=== PATIENT | female | born 1990 | race Caucasian/White ===

== ENCOUNTER → 2016-04-14 | Outpatient (CLI) | payer OTHER ==
[~2016-04-14] MED LIST: ADIPEX-P37.5 MG PO; ALPRAZOLAM0.5 M3 PO; AMOXICILLIN 50500 MG PO; AMOXICILLIN500 M2 PO; ANTIVERT GENERI25 MG PO; BACTRIM DS 8001 TA1 PO; BACTRIM DS 8001 TAB PO; BUDEPRION XL150 MG PO; BUSPAR 10MG TAB10 MG PO; DIFLUCAN150 MG PO; IBUPROFEN 600M600 MG PO; IMPLANON68 MG ID; KEFLEX 500MG.500 MG PO; LEVAQUIN 750 M750 MG PO; LEVOTHYROXIN0.137 M1 PO; LEVOTHYROXINE0.05 MG NG; LEVOTHYROXINE0.15 MG PO; LORTAB 5/500 501 TAB PO; MEDROL 4MG. DOSE4 MG PO; NAPROSYN 500MG500 MG PO; OXYCODONE 5MG TA5 MG; PREDNISONE 20MG20 MG PO; PREDNISONE 5MG.5 MG PO; ROBAXIN500 M1 PO; TYLENOL ES500 MG PO; VOLTAREN75 MG PO; Zofran4 MG PO
--- NOTE | 2016-04-14 18:10 | RADIOLOGY REPORT PS360 ---
MRI-L-SPINE W/O, MRI-3D RENDERING/MYELOGRAM HISTORY: Mid to lower back pain with bilateral leg numbness greater on the right and incontinence ACUTE BILATERAL LOW BACK PAIN WITHOUT SCIATICA COMPARISON: 12/18/2015 TECHNIQUE: Standard multiplanar multiecho sequences are performed without contrast. 3-D MIP and myelographic images are also rendered and reviewed FINDINGS: Spinal cord ends at the L1 level. There is normal alignment. The disc spaces are well-preserved. No fracture or dislocation. No canal stenosis, significant disc bulge, or disc herniation. No foraminal stenosis. IMPRESSION: Negative MRI lumbar spine. No change from 12/18/2015
--- NOTE | 2016-04-14 18:15 | RADIOLOGY REPORT PS360 ---
MRI-T-SPINE W/O HISTORY: Chronic back pain ACUTE BILATERAL LOW BACK PAIN WITHOUT SCIATICA COMPARISON: 12/18/2015 TECHNIQUE: Standard multiplanar multiecho sequences are performed without contrast. 3-D MIP and myelographic images are also rendered and reviewed FINDINGS: Normal alignment. No acute fracture or dislocation. Mild multilevel degenerative disc disease from T7 through T10 as previously described with minor endplate Schmorl's nodes. Small anterior osteophytes. No canal stenosis,. No acute fracture. No disc herniation. Unremarkable appearance of the spinal cord. No cord impingement IMPRESSION: 1. Mild degenerative changes as described above. 2. No acute finding with no interval change from 12/18/2015. 3. No neural impingement apparent
== END ==
LOC: RAD 15:57
DX: M54.5 Low back pain (principal); M54.6 Pain in thoracic spine

== ENCOUNTER → 2016-04-14 | Outpatient (CLI) | payer OTHER ==
[2016-04-14 16:01] LABS: HEMOGLOBIN 13.9 g/dL (12.2-16.2); LYMPH # 2.8 K/mm3 (0.7-4.5); LYMPH % 30.5 % (10-50.0)
[2016-04-14 16:10] LABS: BUN 7 mg/dL (7-18); GFR (ESTIMATED) 87 ML/MIN (59-)
== END ==
LOC: RAD 15:44
PROVIDERS: Nurse Practitioner Family
DX: M54.5 Low back pain (principal)

== ENCOUNTER → 2016-07-28 | Outpatient (CLI) | payer OTHER ==
[2016-07-27 18:57] LABS: HEMOGLOBIN 13.8 g/dL (12.2-16.2); LYMPH # 4.8 K/mm3 (0.7-4.5); LYMPH % 43.5 % (10-50.0)
[2016-07-27 19:27] LABS: BUN 7 mg/dL (7-18)
[2016-07-27 19:40] LABS: GFR (ESTIMATED) 87 ML/MIN (59-)
== END ==
LOC: LAB 15:55
PROVIDERS: Internal Medicine Nephrology
DX: R11.0 Nausea (principal)

== ENCOUNTER → 2016-10-07 | Outpatient (CLI) | payer OTHER ==
[~2016-10-07] MED LIST changes: +APAP/HYDROCODON1 TA9 PO; +ATIVAN GENERIC0.5 MG PO; +ELINEST1 TAB PO; +FLAGYL500 M1 PO; +PREDNISONE5 MG PO; +ZOFRAN4 MG PO
--- NOTE | 2016-10-10 13:40 | RADIOLOGY REPORT PS360 ---
ULTRASOUND THYROID PROCEDURE: Multiple sagittal & transverse ultrasound images of the thyroid. 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 On Synthroid. Survey of the bed of thyroid. COMPARISON: ----- FINDINGS: RIGHT LOBE: Right lobe Thyroid is surgically absent. No masses or nodules and that of right lobe. LEFT LOBE: Left lobe thyroid surgically absent. No masses or nodules the bed of the left lobe Area deep to this that of the left lobe on on transverse views it elongates and compatible with a elongated muscle plane or structure and not of significant concern. Consider a follow-up thyroid ultrasound in 6 to 9months to further evaluate ISTHMUS:No isthmus is identified and and appears to have been removed as well IMPRESSION Right and left lobe, & isthmus been removed-no residual mass or nodule, imagednor identified.
== END ==
LOC: RAD 08:30 → LAB 08:35
DX: C73 Malignant neoplasm of thyroid gland (principal); E89.0 Postprocedural hypothyroidism

== ENCOUNTER → 2016-11-08 | Outpatient (CLI) | payer OTHER ==
--- NOTE | 2016-11-08 16:44 | RADIOLOGY REPORT PS360 ---
US PELVIS-TRANSVAGINAL ONLY HISTORY: PELVIC PAIN,LEFT OVARIAN CYST ORDERING PHYSICIAN: Jesús Jin MD PATIENT AGE: 26 years COMPARISON: None FINDINGS: Uterus is retroverted and measures 7.9 x 3.7 x 5.2 cm. Combined endometrial thickness is 5 mm. No uterine mass evident. The left ovary measures 2.5 x 1.8 cm and contains a 1.7 cm cyst. Previously left ovarian cyst measured 2.2 x 1.7 cm. There are other small follicles involving the left ovary. The right ovary is 2.8 x 1.8 cm and contains small follicles. There is minimal amount fluid in the cul-de-sac. IMPRESSION: 1. Right ovarian cyst has decreased in size 2.2 x 1.7 cm a 1.7 x 1 cm. 2. Small amount of cul-de-sac fluid. 3. Retroverted uterus
== END ==
LOC: RAD 13:00
DX: R10.2 Pelvic and perineal pain (principal); N83.202 Unspecified ovarian cyst, left side

== ENCOUNTER 2017-01-03 20:26 | Emergency (ER) | payer OTHER ==
[~2017-01-03] VITALS: Ht 165.1 cm; Wt 90.7 kg
[2017-01-03 20:50] LABS: UTC STREP SCREEN NOT DETECTED (NOTDETECTED)
--- NOTE | 2017-01-03 20:54 | Urgent Treatment Center Report ---
History of Present Issue Date/Time Seen by Provider 01/03/172036 Visit Reason Pt arrived:Walked Presenting Problem:BODY ACHES AND SORE THROAT TODAY, FEVERISH, LOWER BACK PAIN Location if Accident: Onset of symptoms date/time:/ or onset unknown for:MEDICAL HX UNKNOWN Have you (or family members/close friends) recently traveled outside the [place]? N If Yes, where/when: Have you had exposure to infectious disease within the past month? TB? Other? Specify: Patient states that she has not been feeling well all day State that she has felt feverish, having body aches, sore throat and low back pain. Denies any pain with urination, States that she has chronic back problems States that she may also be not sure there is a possibility. 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 No Angina: Yes OR: No Hypertension? No Hyperlipidemia? No CHF? No DVT? No PE? No COPD? No Asthma? No Anemia? No GERD? No Gastric ulcers? No GI Bleed? No Hernia? No Thyroid Problems? Yes Hypothyroidism? No CVA? No Seizures? No Diabetes? No Renal Insuffiency? No UTI? No Stones? No BPH? No GB Disease: No Nephritic Syndrome? No Asplenia? No Hepatitis? No Sickle Cell Disease? No Arthritis? Yes Migraines? No Cataracts? No Glaucoma? No MRSA? No HIV? No TB? No Anxiety? Yes Depression? Yes Cancer? Yes Site: THYROID More? Yes Additional hx: KIDNEY INFARCTION D/T SEPTIC SHOCK Immunization HX DT/Tetanus 5-10 YRS Flu [id number] Pneumonia NEVER Surgical Hx Previous Surgery?Y T&A THYROIDECTOMY EXP LAP W/CYST REMOVAL IMPLANON Family History Family HX Diabetes Yes CAD Yes Hypertension Yes Hyperlipidemia Yes Cancer No TB No Social History Smoking Hx Smoker: Current Every Day Smoker Tobacco: Yes Type Cigarettes Packs/day < 1 Pack Alcohol Alcohol: No Review of Systems All Other Systems Reviewed and Negative Constitutional fever Eyes denies no symptoms reported ENT throat pain. Respiratory denies cough, denies shortness of breath, denies wheezing Cardiovascular denies chest pain, denies palpitations, denies syncope Gastrointestinal denies nausea, denies vomiting Genitourinary denies: dysuria, frequency, pain. Musculoskeletal other (body aches) Skin denies no symptoms reported Comment States that she has felt feverish all day States that she has sorethroat, body aches, and low back pain, denies pain with urination states that she just doesn' t feel good states that she had her thyroid removed and wanted to have her Calcium checked Physical Exam Vital Signs Vital Signs Date Time Temp Pulse Resp B/P Pulse O2 O2 Flow FiO2 Ox Delivery Rate 01/03 2035 100.1 135 20 120/90 95 General Appearance normal appearance, WD/WN, no apparent distress Ear, Nose, Throat Throat red, irritated, drainage noted, denies cough, no exudate Respiratory Status Yes: trachea midline, chest symmetrical, non tender chest. No: respiratory distress. Lung Sounds bilateral: normal breath sounds, lungs clear. Cardiovascular normal exam, regular rate/rhythm Gastrointestinal normal bowel sounds, normal exam, non tender, no guarding, no rebound Back no CVA tenderness, no vertebral tenderness, bowel/bladder continent, Complains of pain in lower back area with no radiation. Neurologic alert, normal exam, oriented x 3 Medical Decision Making LABS/Meds/Orders Pt receiving controlled substance in ED? No Results/Orders Laboratory Tests 01/03/172046: Calcium 8.6, WBC 22.1 *H, RBC 4.48, Hgb 13.8, Hct 41.3, MCV 92.1, RDW 12.5, Plt Count 365, MPV 7.0 L, Gran % 88.2 H, Gran # 19.5 H, Total Counted Pending, Lymphocytes % 5.6 L, Monocytes % 5.2, Eosinophils % 0.6, Basophils % 0.3, Neutrophils Pending, Lymphocytes (Manual) Pending, Lymphocytes # 1.2, Monocytes # 1.2 H, Eosinophils # 0.1, Basophils # 0.1, Platelet Estimate Pending, PUBS MCHC 33.4, MCH 30.8 01/03/172036: Urine Color YELLOW, Urine Appearance Clear, Urine pH 8.0, Ur Specific [place] 1.020, Urine Protein NEGATIVE, Urine Ketones NEGATIVE, Urine Blood NEGATIVE, Urine Nitrate NEGATIVE, Urine Bilirubin NEGATIVE, Urine Urobilinogen 0.2, Ur Leukocyte Esterase NEGATIVE, Urine Glucose NEGATIVE, Urine Test NEGATIVE 01/03/172029: Influenza Type A Ag NOT DETECTED, Influenza Type B Ag NOT DETECTED, Group A Strep Screen NOT DETECTED Current Medication Orders Sig/Troy Start time Last Medication Dose Route Stop Time Status Admin Naproxen 500 MG ONCE ONE 01/03 2145 AC PO 01/03 2146 Ceftriaxone Sodium 1 GM ONCE ONE 01/03 2130 DC 01/03 IM 01/03 Lidocaine HCl 0 ONCE ONE 01/03 2130 DC 01/03 IM 01/03 Lidocaine HCl 10 ML ONCE ONE 01/03 2130 CAN IM 01/03 2131 Lidocaine HCl 0 .STK-MED ONE 01/03 2121 DC .ROUTE Ceftriaxone Sodium 0 .STK-MED ONE 01/04 2120 DC .ROUTE Orders Procedure Date/time Status DIFFERENTIAL-WBC 01/03 2047 Active CBC WITH AUTO DIFF 01/03 2041 Active CALCIUM 01/03 2041 Complete UTC URINE 01/03 2037 Complete UTC URINE DIPSTICK 01/03 2037 Complete UTC STREP SCREEN 01/03 2030 Complete UTC FLU A,B 01/03 2030 Complete Progress UTC Progress Notes 1 Comment Labs sent at 2051, Patient state that she had just taken pain medication prior to arrival and denies the need for something for pain UTC Progress Notes 2 Comment Consulted with Tsering Alexander as she is the primary care for this patient and advised her of lab results and she requested to consult Dr Sanches,. Dr Sanches ER physician was consulted an discussed with him about abnormality in labs ie CBC and WBC of 22.1 He advised to give patient Rocephin 1 gram IM and have patient come to the clinic in the morning and see Tsering Alexander HOSPITAL ATTENDANT for further treatment and evaluation. Tsering Alexander back and informed her of recommendation and she agreed Departure Departure Time of Disposition 2131 Disposition DC Home or Self Care(routine) Clinical Impression Primary Impression: Upper respiratory infection Qualifiers: URI type: acute pharyngitis Pharyngitis/tonsillitis etiology: unspecified etiology Qualified Code: J02.9 - Acute pharyngitis, unspecified Condition STABLE Referrals Tsering Alexander APRN (Family): Tomorrow-Call Office Go to the office in the morning for Tsering Alexander Or to the ER if worsening of symptoms Patient Instructions DI for Fever (Symptom) -- Adult, Sore Throat Additional Instructions * Monitor Temp. Tylenol and/or Ibuprofen as needed. ER if fever is no less than 101 despite alternating Tylenol and Ibuprofen * Encourage fluids, water, Gatorade, powerade, pedialyte if infant/toddler/or child * Warm salt water gargles for throat irritation *Warm fluids *Sore throat lozenges *Sleep elevated *humidifier or vaporizer Follow up IMMEDIATELY for new or worsening of symptoms OR no noticeable improvement over the next 48-72 hours. 911 immediately for any life threatening symptoms such as chest pain or difficulty breathing Follow up with Tsering Alexander APRN in the morning If symptoms continue to worsen tonight, go straight to the ER Discharge Counseling Counseled pt/family regarding diagnosis, test results, home care, follow up needs at 2135
[2017-01-03 20:55] LABS: UTC URINE PREGNANCY NEGATIVE (NEG)
[2017-01-03 20:55] LABS: HEMOGLOBIN 13.8 g/dL (12.2-16.2); LYMPH # 1.2 K/mm3 (0.7-4.5); LYMPH % 5.6 % (10-50.0)
[2017-01-03 20:57] LABS: URINE BILIRUBIN - DIPSTICK NEGATIVE (NEG)
[2017-01-03 20:58] LABS: URINE BLOOD NEGATIVE (NEG)
[2017-01-03] MEDS ORDERED: ELINEST1 TAB PO (21:14)
[2017-01-03 21:38] VITALS: BP 120/90
[2017-01-03 23:29] LABS: NEUTROPHILS 92 % (42-76)
[2017-01-04] MEDS ORDERED: AUGMENTIN 875-1 EACH PO (13:17)
[2017-01-04] MEDS ORDERED: ZOFRAN ODT4 MG PO (13:22)
== END 2017-01-03 21:38 | disposition home or self-care (01) ==
LOC: UTC 20:26
PROVIDERS: Nurse Practitioner
DX: J02.9 Acute pharyngitis, unspecified (principal); F17.210 Nicotine dependence, cigarettes, uncomplicated; F41.8 Other specified anxiety disorders; Z88.1 Allergy status to other antibiotic agents

== ENCOUNTER 2017-01-04 10:49 | Emergency (ER) | payer OTHER ==
[~2017-01-04] VITALS: Ht 165.1 cm; Wt 90.7 kg
--- NOTE | 2017-01-04 11:03 | Emergency Room Report ---
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 N Clinical Suspician of Infection? N Mental Status: 1 - Regular (Normal Baseline) Sepsis Risk:Low Sepsis Risk Have you (or family members/close friends) recently traveled outside the [place]? N If Yes, where/when: Have you had exposure to infectious disease within the past month? N TB? Other? Specify: Comment The patient states that she has been sick since yesterday morning. She had a sore throat yesterday, but feels that that was from excessive use of voice out in the cold. Throat feels raw today. She has had a fever. She has diffuse lower abdominal pain. No urinary symptoms. No vaginal discharge or dyspareunia. She has had vomiting, but no diarrhea. She says she has felt like this in the past when she is septic from a urinary tract infection. She has chronic low back pain and is on hydrocodone for that. She says her back pain is typically thoracic. She has some low back pain for the past day which is new. She took hydrocodone at 8:07 AM and took 250 mg of naproxen this morning with Tylenol. She has had trigger point injections for her back pain, but has never had epidural injections. She was seen in the urgent treatment center last evening. She had an elevated white blood cell count of 22,000. She had a negative strep test. She was given an injection of 2 g of Rocephin after consultation with Dr. Sanches, her primary care provider. She followed up in the office today with Tsering Alexander. She was sent back to the emergency Department with a request for CT scan abdomen and pelvis. ALLERGIES Coded Allergies: vancomycin (Intermediate, I-HIVES 04/26/15) nickel (RASH/BLISTERS 01/01/16) Home Medications Reported Medications HYDROCODONE/ACETAMINOPHEN (Hydrocodon-Acetaminoph 7.5-325) 1 TAB PO TIDP PRN BACK PAIN #90 Lorazepam (Ativan) 0.5 MG PO BIDP PRN ANXIETY #60 Levothyroxine Sodium (Levothyroxine 0.137MG) 0.137 MG PO DAILY #30 Bupropion Hcl (Bupropion XL) 150 MG PO DAILY #30 Levothyroxine Sodium (Levothyroxine 0.15MG) 0.15 MG PO DAILY NORGESTREL-ETHINYL ESTRADIOL (Elinest-28 Tablet) 1 TAB PO DAILY History Medical History General CAD? No Angina: Yes MS: No Hypertension? No Hyperlipidemia? No CHF? No DVT? No PE? No COPD? No Asthma? No Anemia? No GERD? No Gastric ulcers? No GI Bleed? No Hernia? No Thyroid Problems? Yes Hypothyroidism? No CVA? No Seizures? No Diabetes? No Renal Insuffiency? No End Stage Renal Disease? No UTI? No Stones? No BPH? No GB Disease: No Nephritic Syndrome? No Asplenia? No Hepatitis? No Sickle Cell Disease? No Arthritis? Yes Migraines? No Cataracts? No Glaucoma? No MRSA? No HIV? No TB? No Anxiety? Yes Depression? Yes Cancer? Yes Site: THYROID More? 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 Gastrointestinal abdominal pain, denies diarrhea, vomiting Genitourinary denies: dysuria, frequency. Musculoskeletal back pain (chronic) Psychiatric/Neurological tingling (lips) Physical Exam Vital Signs Vital Signs Date Time Temp Pulse Resp B/P Pulse O2 O2 Flow FiO2 Ox Delivery Rate 01/04 1323 98.6 110 16 130/80 100 01/04 1215 110 16 130/80 100 01/04 1212 16 01/04 1054 98.6 116 16 133/90 100 General Appearance no apparent distress, ambulatory. Sitting in chair. Appears nontoxic. Eye Exam - bilateral eye normal exam, bilateral eye PERRL, bilateral eye EOMI Ear, Nose, Throat hearing grossly normal, erythema of pharynx. Small amount of exudate on the RIGHT tonsillar area. Neck normal inspection, non-tender, supple, full range of motion Respiratory Status Yes: trachea midline, chest symmetrical, non tender chest. No: respiratory distress. Lung Sounds bilateral: normal breath sounds, lungs clear. 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 No Results/Orders Laboratory Tests 01/04/17 1105: Lactic Acid 1.6 01/04/17 1105: Sodium 138, Potassium 3.7, Chloride 103, Carbon Dioxide 27, BUN 9, Creatinine 0.8, Estimated Creat Clear 153, Estimated GFR (MDRD) 87, Glucose 108 H, Calcium 8.8, Total Bilirubin 0.3, AST 14 L, ALT 32, Alkaline Phosphatase 118 H, Total Protein 7.7, Albumin 3.8, Globulin 3.9 H, Albumin/Globulin Ratio 1.0 L, Amylase 15 L, Lipase 78, WBC 22.5 *H, RBC 4.96, Hgb 14.7, Hct 45.2, MCV 91.2, RDW 12.4, Plt Count 389, MPV 7.2 L, Gran % 87.9 H, Gran # 19.8 H, Lymphocytes % 7.5 L, Monocytes % 3.8, Eosinophils % 0.6, Basophils % 0.3, Lymphocytes # 1.7 , Monocytes # 0.9, Eosinophils # 0.1, Basophils # 0.1, PUBS MCHC 32.6, MCH 29.7, Urine Color YELLOW, Urine Appearance CLEAR, Urine pH 6.0, Ur Specific [place] <= 1.005, Urine Protein NEGATIVE, Urine Ketones NEGATIVE, Urine Blood NEGATIVE, Urine Nitrate NEGATIVE, Urine Bilirubin NEGATIVE, Urine Urobilinogen 0.2, Ur Leukocyte Esterase NEGATIVE, Urine RBC OCC, Urine WBC 3-5, Ur Squamous Epith Cells 5-10, Urine Bacteria TRACE, Urine Glucose NEGATIVE 01/04/17 1100: Ur Chlamydia DNA (PCR) Cancelled, Urine GC DNA Probe Cancelled 01/04/17 1100: C.trachomatis DNA (AJ) Pending, N.gonorrhoeae RNA Pending Current Medication Orders Sig/Troy Start time Last Medication Dose Route Stop Time Status Admin Ketorolac 30 MG ONCE ONE 01/04 1145 DC 01/04 Tromethamine IV 01/04 1146 1212 Ondansetron HCl 4 MG ONCE ONE 01/04 1145 DC 01/04 IV 01/04 1146 1212 Sodium Chloride 1,000 ML .Q1H1M 01/04 1145 DC 01/04 IV 01/04 1245 1212 Sodium Chloride 10 ML PRN PRN 01/04 1100 DCD IV 01/05 1058 Orders Procedure Date/time Status DIET-NOTHING BY MOUTH 01/04 L Active CULTURE, BLOOD 01/04 1220 Active LACTIC ACID 01/04 1220 Complete CHLAMYDIA/GC 01/[address] ABD/PELVIS REQ 01/04 1058 Complete IV SALINE LOCK 01/04 1058 Active URINALYSIS/COMPLETE 01/04 1058 Complete URINE 01/04 1058 Complete LIPASE 01/04 1058 Complete CBC WITH AUTO DIFF 01/04 1058 Complete CHEM 12 PROFILE 01/04 1058 Complete AMYLASE 01/04 1058 Complete XRAY/CT/US XRAY/CT/US CT abdomen, pelvis Comment CT scan interpreted by radiologist: Appendix normal. Low cecum, normal variant. Lots of stool. Dilated loops of proximal small bowel,? enteritis. Small LEFT ovarian cyst. Progress - 1:10 PM: Case discussed with Tsering Alexander. She requests that the patient be discharged on antibiotics to cover for strep, as she was empirically treated last night. Follow-up with Vielka in the office next week. Advised to return if not improving or worsening in the next 24-48 hours. Departure Departure Disposition DC Home or Self Care(routine) Clinical Impression Primary Impression: Fever Qualifiers: Fever type: unspecified Qualified Code: R50.9 - Fever, unspecified Secondary Impressions: Abdominal pain, lower Leukocytosis Qualifiers: Leukocytosis type: unspecified Qualified Code: D72.829 - Elevated white blood cell count, unspecified Pharyngitis Qualifiers: Pharyngitis/tonsillitis etiology: unspecified etiology Qualified Code: J02.9 - Acute pharyngitis, unspecified Vomiting Qualifiers: Vomiting type: unspecified Vomiting Intractability: non-intractable Nausea presence: with nausea Qualified Code: R11.2 - Nausea with vomiting, unspecified Condition STABLE Referrals Tsering Alexander APRN (PCP/Family) Additional Instructions Off work until Monday01/07/17. Follow-up with Vielka in the office next week. Additional instructions for ABDOMINAL PAIN: Return immediately if worsening abdominal pain, vomiting, shortness of breath, fever, vomiting of blood or abdominal distention. Additional instructions for SORE THROAT: Return immediately if you have an uncontrollable fever greater than 102 degrees, difficulty breathing or shortness of breath, persistent vomiting, or inability to swallow. Prescriptions Current Visit Scripts Amoxicillin/Potassium Clav (Augmentin 875-125 Tablet) 1 EACH PO BID #20 TAB take as prescribed Ondansetron (Zofran 4MG Odt) 4 MG PO Q8HP PRN NAUSEA AND VOMITING #10 ODT ED Critical Care Critical Care No at 1510
[2017-01-04 11:19] LABS: URINE BILIRUBIN - DIPSTICK NEGATIVE (NEG); URINE BLOOD NEGATIVE (NEG)
[2017-01-04 11:27] LABS: HEMOGLOBIN 14.7 g/dL (12.2-16.2); LYMPH # 1.7 K/mm3 (0.7-4.5); LYMPH % 7.5 % (10-50.0)
--- NOTE | 2017-01-04 12:25 | RADIOLOGY REPORT PS360 ---
CT ABD PELVIS W/O CONTRAST COMPARISON: CT scan abdomen pelvis 02/26/2015 HISTORY: Lower abdominal and pelvic pain TECHNIQUE: Multiaxial scans obtained from hemidiaphragms to the pelvic floor and were performed with without IV or oral contrast. Sagittal and coronal reformats were evaluated as well. FINDINGS: The lower lung negron are clear. The liver spleen stomach pancreas and gallbladder appear grossly normal. The adrenal glands are normal. The kidneys are normal size and there are no calculi and is no obstructive uropathy. There are mildly dilated loops of proximal small bowel with normal caliber small bowel distally. This may reflect a mild degree of enteritis. The cecum is positioned low in the pelvis causing mild extrinsic impression on the dome of the urinary bladder. There is large amount stool in the cecum and ascending colon and hepatic flexure. The appendix appears grossly normal and is retrocecal in location. The uterus is normal size and retroverted. There is a small left ovarian cyst measuring 2.9 x 2.9 x 2.7 cm. There is no free fluid in the pelvis. IMPRESSION: 1. Mildly dilated proximal small bowel loops 2. Low position of the cecum a normal variation with a large amount stool in the right colon which could be a cause for the patient's symptoms, no other significant abnormality noted.
[2017-01-04] MEDS ORDERED: AUGMENTIN 875-1 EACH PO (13:17)
[2017-01-04] MEDS ORDERED: ZOFRAN ODT4 MG PO (13:22)
[2017-01-04 13:23] VITALS: BP 130/80
[2017-01-07 03:39] LABS: Neisseria gonorrhoeae, NAA Negative (Negative)
--- OUTSIDE RECORDS SUMMARY | 2017-01-07 08:54 | External Medical Summary Rpt | CCD ---
Author Author , [facility] Organization [facility] Address Unknown Phone Care Team Providers Care Supplier Development Manager Name Role Phone [facility] LELA KRI, Unavailable Unavailable LELA KRI [facility], [facility] JUAREZ ALL, JUAREZ ALL Unavailable Unavailable CHAPIN EMILIA, Unavailable Unavailable CHAPIN EMILIA RAMIREZ DON, RAMIERZ DON Unavailable Unavailable TARA JET, TARA Unavailable Unavailable JET FRANZ GABRIEL, FRANZ Unavailable Unavailable GABRIEL FRANZ GABRIEL, FRANZ Unavailable Unavailable GABRIEL [facility], [facility] Un[facility] Unavailable [facility], [facility] Un[facility] Unavailable [facility], [facility] Unavailable Unavailable PHYSICIANS, [facility] BRANDY Zayas, BRANDY J Unavailable Unavailable BRANDY Briggs, BRANDY Zayas Unavailable Unavailable G BRANDY Zayas G, BRANDY Zayas Unavailable Unavailable G HOMERO JET, Unavailable Unavailable HOMERO JET FIDEL JOSÉ MIGUEL, Unavailable Unavailable FIDEL JOSÉ MIGUEL [id number], Unavailable Unavailable [id number], Unavailable Unavailable [facility]EM[facility] LEVIN ZAIN, LEVIN ZAIN Unavailable Unavailable [facility] DOERGER KIR, DOERGER Unavailable Unavailable KIR DOERGER KIR, DOERGER Unavailable Unavailable KIR DOMET NIESHA, DOMET NIESHA Unavailable Unavailable EL-PAXTON TAR, Unavailable Unavailable [facility] T[facility] QUINTEN JAM, QUINTEN JAM Unavailable Unavailable QUINTEN JAM, QUINTEN JAM Unavailable Unavailable ALEXANDRIA SHIPLEY, Unavailable Unavailable ALEXANDRIA SHIPLEY [facility] Un[facility] Unavailable Unavailable [facility], [facility] FAUGHN VIRAMONTES, FAUGHN Unavailable Unavailable VIRAMONTES CHINTAN, MEGA, CHINTAN, Unavailable Unavailable MEGA ESTRADA MAR, Unavailable Unavailable NATALIE MAR NATALIE MAR, Unavailable Unavailable NATALIE MAR SANTOS NIESHA, SANTOS Unavailable Unavailable NIESHA GAL RICHARD, GAL RICHARD Unavailable Unavailable GEERS RYA, GEERS RYA Unavailable Unavailable IFTIKHAR HORTON MD, Unavailable Unavailable IFTIKHAR HORTON MD GRGARCIA NAN, GRILLOT Unavailable Unavailable NAN GRILLOT NAN, GRILLOT Unavailable Unavailable NAN HARPEL DENTON, HARPEL Unavailable Unavailable DENTON HARPEL DENTON, HARPEL Unavailable Unavailable DENTON HARPEL, IFTIKHAR R, Unavailable Unavailable HAR[facility], IFTIKHAR R [facility] Un[facility]available [facility], [facility] RACHELLE, MAURI P, Unavailable Unavailable RACHELLE MAURI P [facility] Unavailable Unavailable [facility], [facility] Unavailable Unavailable PCC, [facility] INDEPENDENT Unavailable Unavailable ANESTHESIOLOGIST, [facility] MEGA ZAMUDIO, Unavailable Unavailable MEGA ZAMUDIO KEAGLE RIT, KEAGLE Unavailable Unavailable RIT KEAGLE RIT, KEAGLE Unavailable Unavailable RIT BUBBA CHR, BUBBA Unavailable Unavailable CHR [facility] Unavailable Unavailable IMAGING [facility], [facility] BOLTON NIV, BOLTON NIV Unavailable Unavailable KLEIMEYER NICK, Unavailable Unavailable KLEIMEYER NICK MATTHEW TUS, MATTHEW Unavailable Unavailable TUS KURAPATI TOM, Unavailable Unavailable KURAPATI TOM KURAPATI TOM, Unavailable Unavailable KURAPATI TOM [facility] Unavailable Unavailable [facility], [facility] Unavailable Unavailable [facility] Unavailable Unavailable [facility], [facility], Unavailable Unavailable [facility] SU MARQUES, SU Unavailable Unavailable MARQUES SU MARQUES, SU Unavailable Unavailable MARQUES LUBBERS PALMER, LUBBERS Unavailable Unavailable PALMER LUKING JET, LUKING Unavailable Unavailable JET Randy Sanches MD, Unavailable Unavailable Randy Sanches MD [facility] Unavailable Unavailable SERVICES, [facility] MCDANNOLD TER, Unavailable Unavailable MCDANNOLD TER MCKEMIE JR JAVI, Unavailable Unavailable MCKEMIE JR JAVI DE JESUS BRA, DE JESUS Unavailable Unavailable BRA DE JESUS ALEX, DE JESUS Unavailable Unavailable ALEX DE JESUS ALEX, DE JESUS Unavailable Unavailable ALEX DE JESUS THE, DE JESUS Unavailable Unavailable THE DE JESUS THE, DE JESUS Unavailable Unavailable THE UGALDE JAVI, UGALDE JAVI Unavailable Unavailable CARLENE GUERRERO, Unavailable Unavailable CARLENE GUERRERO MULBERRY ALEX, Unavailable Unavailable MULBERRY ALEX MULBERRY ALEX, Unavailable Unavailable MULBERRY ALEX NEILS KATIE, NEILS KATIE Unavailable Unavailable LASHAWN R H, Unavailable Unavailable LASHAWN R H LASHAWN R H, Unavailable Unavailable LASHAWN Rima H Rima HARDIN, Unavailable Unavailable Rima HARDIN CARMEN, Unavailable Unavailable MARILYN OCONNOR CARMEN OSTERLUND MAR, Unavailable Unavailable OSTERLUND MAR [facility], Unavailable [facility]available [facility], [facility], [facility] Unavailable Unavailable [facility], [facility]available Unavailable [facility] Un[facility] Unavailable [facility]ENTER, [facility] Unavailable Unavailable [facility]ENTER, [facility], Unavailable Unavailable [facility] PRESSLER ANGUS, Unavailable Unavailable PRESSLER ANGUS [facility], Unavailable Unavailable [facility], Unavailable Unavailable [facility] Unavailable Unavailable [facility]ORPORAT, [facility] Unavailable Unavailable OF NOT, [facility] AMES KATIE, Unavailable Unavailable AMES KATIE MABEL RAY, MABEL RAY Unavailable Unavailable SADEK MOH, SADEK MOH Unavailable Unavailable JUSTIN NIESHA, JUSTIN Unavailable Unavailable NIESHA SCHMITTER DUC, Unavailable Unavailable SCHMITTER DUC SCHMITTER DUC, Unavailable Unavailable SCHMITTER DUC FRANCE REGINA, FRANCE Unavailable Unavailable REGINA FRANCE REGINA, FRANCE Unavailable Unavailable REGINA SCHUSSLER THO, Unavailable Unavailable SCHUSSLER THO RICK PRA, RICK PRA Unavailable Unavailable RICK PRA, RICK PRA Unavailable Unavailable SHARP PALMER, SHARP PALMER Unavailable Unavailable SOKAN BAB, SOKAN BAB Unavailable Unavailable SOKAN BAB, SOKAN BAB Unavailable Unavailable SOTINGEANU NATA, Unavailable Unavailable [facility] JULIAN COFFMAN, Unavailable Unavailable JULIAN COFFMAN [facility], Unavailable Unavailable [facility] Unavailable Unavailable AUTOMOBILE TECHNICIAN , [facility] Unavailable Unavailable [facility], [facility] Unavailable Unavailable [facility], [facility] Unavailable Unavailable PHYSICIANS, [facility] Unavailable Unavailable PHYSICIANS EKG, [facility] Unavailable Unavailable MAR[facility]LL[facility], . [facility], Unavailable Unavailable [facility], Unavailable Unavailable [facility] Unavailable Unavailable #5, [facility] RAMÍREZ EMILIA, RAMÍREZ Unavailable Unavailable EMILIA [facility] # Unavailable Unavailable [id number], [facility] # [id number] [facility] # Unavailable Unavailable [id number], [facility] # [id number] [facility] Unavailable Unavailable DEPT ADRIANNA, [facility] ADRIANNA [facility] Unavailable [facility]available DE[facility], [facility] WEHRMAN III JAVI, Unavailable Unavailable WEHRMAN III JAVI WEHRMAN III JAVI, Unavailable Unavailable WEHRMAN III JAVI [facility] Unavailable Unavailable [facility] Unavailable Unavailable [facility], [facility] LUIS ENRIQUE HO, LUIS ENRIQUE HO Unavailable Unavailable LUIS ENRIQUE HO, LUI SENRIQUE HO Unavailable Unavailable Purpose Continuity of Care Document - 04-25-2007 through 2016 Problems Code Diagnosis DOS Provider Status N390 URINARY 04-26-2015 [facility], INFECTION PLLC SITE NOT SPECIFIED [id number] ADVERS EFF 04-26-2015 [facility] O[facility]S [facility]ANS, BIO PLLC SUBSTANCES INIT ENC [id number] UNS ADVERS 04-26-2015 [facility] DRUG/MEDICA INC MENT INITIAL ENCNTR R109 UNSPECIFIED 04-20-2015 ST ABDOMINAL [facility] R232 FLUSHING 04-12-2015 [facility] Z09 ENC F/U 04-12-2015spring EXAM AFTR URGENT CMPL TX OTH CARE THAN MALIG NEOPLSM J301 ALLERGIC 04-05-2015spring RHINITIS URGENT DUE TO CARE POLLEN R300 DYSURIA 04-05-2015 [facility] Z202 CONTACT 04-05-2015spring WITH URGENT EXPOSURE CARE INFECT SEXUAL MODE TRANSMS J029 ACUTE 03-25-2015 ST PHARYNGITIS [facility] AUTOMOBILE TECHNICIAN UNSPECIFIED ST R1011 RIGHT UPPER 03-03-2015 ST QUADRANT [facility] AUTOMOBILE TECHNICIAN ST R102 PELVIC AND 03-03-2015 IFTIKHAR Abarca PERINEAL [place] PAIN N8320 UNSPECIFIED 02-27-2015 IFTIKHAR Abarca OVARIAN [place] CYSTS N200 CALCULUS OF 02-26-2015 [facility] R1030 LOWER 02-26-2015 [place] ABDOMINAL [facility] PAIN [facility] ASS UNSPECIFIED R1031 RIGHT LOWER 02-26-2015 [facility] QUADRANT [facility], PAIN PLLC R319 HEMATURIA 02-26-2015 [place] UNSPECIFIED [facility]ICAL IMAGING ASS Z720 TOBACCO USE 02-26-2015 [facility] K56018 ELEVATED 02-24-2015 WHITE BLOOD AMA CELL COUNT PHYSICIANS UNSPECIFIED M549 DORSALGIA 02-24-2015 UNSPECIFIED [facility] N3001 ACUTE 02-24-2015 CYSTITIS [facility] WITH PHYSICIANS HEMATURIA R42 DIZZINESS 02-24-2015 AND [facility] GIDDINESS PH[facility]ICIANS EKG E049 NONTOXIC 02-18-2015 GO[facility] UNSPECIFIED MED CTR AUTOMOBILE TECHNICIAN ST E063 AUTOIMMUNE 02-18-2015 THYROIDITIS [facility] AUTOMOBILE TECHNICIAN ST E890 POSTPROCEDU 02-18-2015 RAL A[facility] HYPOTHYROID MED CTR AUTOMOBILE TECHNICIAN ISM ST H6503 ACUTE 02-15-2015 [facility] SEROUS [facility], OTITIS PLLC MEDIA BILATERAL J328 OTHER 02-15-2015 [place] CHRONIC [facility]ICAL SINUSITIS IMAGING ASS C73 MALIGNANT 01-19-2015 NEOPLASM OF AMA THYROID PHYSICIANS GLAND H9082BG UNSPECIFIED 01-15-2015 ST INJURY UNS AMA WRIST HAND MED CTR AUTOMOBILE TECHNICIAN FINGERS ST INIT W8502EF UNSPECIFIED 01-15-2015 ST INJURY LT [facility] WRIST HAND PHYSICIANS FINGERS INITIAL Z23 ENCOUNTER 01-07-2015 [facility] DEPT N ADRIANNA 6202 OTHER AND 12-15-2014 IFTIKHAR HORTON MD OVARIAN CYST V259 UNSPECIFIED 12-15-2014 IFTIKHAR HORTON MD CONTRACEPTI VE MANAGEMENT V7231 ROUTINE 12-15-2014 IFTIKHAR Abarca GYNECOLOGIC [place] EXAMINATION 94097 OBESITY, 12-11-2014 UNSPECIFIED [facility] AUTOMOBILE TECHN[address]IAN ST 56876 OVERWEIGHT 12-11-2014 [facility] 7881 DYSURIA 12-11-2014 [facility] 1121 CANDIDIASIS 12-09-2014 ST OF VULVA [facility] AND VAGINA PHYSICIANS V0481 NEED 12-09-2014 PROPHYLACTI [facility] C PHYSICIANS VACCINATION &INOCULATIO N FLU V0489 NEED PROPH 12-09-2014 VACCINATION [facility] &INOCULAT PHYSICIANS OT VIRAL DZ 193 MALIGNANT 11-17-2014 NEOPLASM OF [facility] THYROID [facility] CTR AUTOMOBILE TECHNICIAN GLAND ST 2409 GOITER, 11-17-2014 ST UNSPECIFIED [facility] AUTOMOBILE TECHNICIAN ST 2440 POSTSURGICA 11-17-2014 L [facility] HYPOTHYRO[facility] CTR AUTOMOBILE TECHNICIAN ISM ST 7231 CERVICALGIA 10-26-2014 [facility] 7842 SWELLING 10-26-2014 RAD[facility] MASS OR ASSOCIATES LUMP IN [facility] HEAD AND NECK 89604 DYSPHAGIA 10-26-2014 [facility] UNSPECIFIED [facility]ERGENCY PHYSICIANS 2452 CHRONIC 10-21-2014 LYMPHOCYTIC [facility] THYROIDITIS 80780 DEHYDRATION 10-15-2014 [facility] 83985 OTHER 10-15-2014 [facility] MALAISE AND EMERGENCY FATIGUE PHYSICIANS 88707 CHEST PAIN 10-15-2014 RAD[facility]OLOG[facility] UNSPECIFIED [facility]OC[facility]ATES [facility] 2348 CARCINOMA 10-13-2014 HEAD & NECK IN SITU OF SURGERY OTHER ASSOC SPECIFIED SITES 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 2411 NONTOXIC 10-13-2014 INDEPENDENT MULTINODULA R GOITER ANESTHESIOL OGIST 44300 ESOPHAGEAL 10-13-2014 ST REFLUX [facility] 88526 SHORTNESS 10-13-2014 ST OF BREATH [facility] V7284 UNSPECIFIED 10-08-2014 ST [facility] PRE-OPERATI MED CTR AUTOMOBILE TECHNICIAN VE ST EXAMINATION V741 SCREENING 09-30-2014 [facility] EXAMINATION [facility] PULMONARY TUBERCULOSI S 56610 PRECORDIAL 09-18-2014 [facility] PAIN [facility]IC[facility], PLLC 2374 NEOPLASM 09-12-2014 HEAD & NECK UNCERTAIN SURGERY BHV ASSOC OTH&UNSPEC ENDOCRN GLANDS 7856 ENLARGEMENT 09-12-2014 RADIOLOGY OF LYMPH ASSOCIATES NODES [facility] 2410 NONTOXIC 09-01-2014 ST UNINODULAR [facility] 7850 UNSPECIFIED 08-29-2014 ST [facility] TACHYCARDIA PHYSICIANS 87495 NONSPECIFIC 08-29-2014 ABNORMAL [facility] ELECTROCARD MED CTR AUTOMOBILE TECHNICIAN IOGRAM ST 2400 GOITER, 08-19-2014 RADIOLOGY SPECIFIED ASSOCIATES SIMPLE OF NOTH 2449 UNSPECIFIED 08-19-2014 ST [facility] HYPOTHYROID MED CTR AUTOMOBILE TECHNICIAN ISM ST 2468 OTHER 08-19-2014 ST SPECIFIED [facility] DISORDERS [facility] CTR AUTOMOBILE TECHNICIAN OF THYROID ST 462 ACUTE 08-17-2014 [facility] PHARYNGITIS [facility]YSICIANS, [facility] 4660 ACUTE 07-03-2014 [facility] BRONCHITIS [facility] 3671 MYOPIA 05-22-2014 QUINTEN JAM 2469 UNSPECIFIED 05-20-2014 [facility] DISORDER URGENT OF THYROID CARE 31406 MIGRAINE 05-20-2014 [facility] UNSP W/O URGENT INTRACT W/O CARE STATUS MIGRAINOSUS 3688 OTHER 05-20-2014spring SPECIFIED URGENT VISUAL CARE DISTURBANCE S 6216 MALPOSITION 05-08-2014 ST. OF UTERUS [facility] MARCELLUS 6259 UNSPEC 05-08-2014 ST. SYMPTOM [facility] ASS[facility] MARCELLUS W/FEMALE GENITAL ORGANS 7245 UNSPECIFIED 05-06-2014 [facility] BACKACHE ASSOCIATES V8534 BODY MASS 04-25-2014 ST INDEX [facility] 34.0-34.9 PHYSICIANS ADULT 460 ACUTE 03-17-2014 [facility] NASOPHARYNG ASSOCIATES ITIS 6929 CONTACT 03-17-2014 [facility] DERMATITIS& ASSOCIATES OTHER ECZEMA DUE UNSPEC CAUSE 684 IMPETIGO 02-13-2014 [facility] 20571 NASAL 01-08-2014 [facility] MUCOSITIS ASS[facility]IATES ULCERATIVE 7048 OTHER 01-08-2014 [facility] SPECIFIED ASSOCIATES DISEASE OF HAIR&HAIR FOLLICLES 2459 UNSPECIFIED 12-12-2013 SU MARQUES THYROIDITIS 6823 CELLULITIS 10-21-2013 KEAGLE RIT AND ABSCESS OF UPPER ARM AND FOREARM 0389 UNSPECIFIED 10-08-2013 . SEPTICEMIA AMA INGA 2768 HYPOPOTASSE 10-08-2013 . GUDELIA AMA INGA 76789 UNSPECIFIED 10-08-2013 . AMA PYELONEPHRI INGA TIS 7840 HEADACHE 10-08-2013 . AMA INGA V180 FAMILY 10-08-2013 . HISTORY OF AMA DIABETES INGA MELLITUS 26958 LEUKOCYTOSI 09-03-2013 DE JESUS ALEX S UNSPECIFIED 16227 NAUSEA WITH 09-03-2013 DE JESUS ALEX VOMITING 98766 ABDOMINAL 09-03-2013 DE JESUS ALEX PAIN, EPIGASTRIC 36680 ABDOMINAL 09-03-2013 LAB ALEJANDRA PAIN, [facility] GENERALIZED HOLDINGS 9154 FINGER 08-29-2013 NIRAV ALEJANDRA INSECT BITE NONVENOMOUS W/O MENTION INF E9064 BITE OF 08-29-2013 NIRAV ALEJANDRA NONVENOMOUS ARTHROPOD 19950 OTHER 07-15-2013 ST SYMPTOMS [facility] CTR AUTOMOBILE TECHNICIAN HEAD AND ST NECK 226 BENIGN 07-03-2013 DE JESUS THE NEOPLASM OF THYROID GLANDS V7260 LABORATORY 05-28-2013 ST EXAMINATION [facility] CTR AUTOMOBILE TECHNICIAN UNSPECIFIED ST 7061 OTHER ACNE 05-03-2013 BRANDY Briggs 41588 LUMP OR 04-30-2013 ST MASS IN AMA BREAST [facility] AUTOMOBILE TECHNICIAN ST 305.1 305.1 04-16-2013 [place] TOBACCO USE [facility] DISORDER [facility] 719.45 719.45 04-16-2013 [place] JOINT [facility] 729.1 729.1 04-16-2013 [place] MYALGIA AND [facility] MYOSITIS [facility] NOS 7291 UNSPECIFIED 04-16-2013 [facility] MYOSITIS 7295 PAIN IN 04-16-2013 [facility] SOFT [facility] TISSUES OF SERVICES [place] 76136 UNSPECIFIED 03-29-2013 IFTIKHAR HORTON MD OF VULVA 5990 URINARY 03-13-2013 LAB ALEJANDRA OF TRACT [facility] INFECTION HOLDINGS SITE NOT SPECIFIED V2503 ENCOUNTER 03-08-2013 [facility] CNSL&PRESCR IPTION 515 POSTINFLAMM 03-04-2013 [facility] ATORY JOSÉ MIGUEL PULMONARY FIBROSIS 03378 OTHER 03-04-2013 FIDEL NONSPECIFIC JOSÉ MIGUEL ABNORMAL FINDING OF LUNG FIELD 20382 NONSPEC 03-04-2013 [facility] TUBERCULIN INC SKIN TEST W/O ACTIVE TB V2502 GENERAL 03-04-2013 [facility] CNSL INITIATION OTH CONTRACEPT MEASURES V2509 OTH GENERAL 03-04-2013 [facility] CNSL&ADVICE CONTRACEPT MANAGEMENT V709 UNSPECIFIED 02-26-2013 [facility] MEDICAL EXAMINATION 91828 FEVER 02-20-2013 KURAPATI UNSPECIFIED TOM 16904 ABDOMINAL 02-20-2013 SCHMITTER PAIN RIGHT DUC UPPER QUADRANT 97850 SEPSIS 02-20-2013 KURAPATI TOM 75515 ABDOMINAL 02-18-2013 LUIS ENRIQUE HO PAIN, UNSPECIFIED SITE 5589 OTH&UNSPEC 02-17-2013 NATALIE NONINFECTIO MAR US GASTROENTER ITIS&COLITI S 78284 CALCU 02-17-2013 NATALIE GALLBLADD MAR W/O MENTION CHOLECYST/O BST 48236 ABDOMINAL 02-17-2013 NATALIE PAIN OTHER MAR SPECIFIED SITE 7821 RASH AND 01-15-2013 MULBERRY OTHER ALEX NONSPECIFIC SKIN ERUPTION 1330 SCABIES 01-10-2013 LASHAWN R H 6173 ENDOMETRIOS 11-20-2012 [facility] IS OF PELVIC PERITONEUM 32770 UNSPECIFIED 11-05-2012 LASHAWN R INFECTIVE H OTITIS EXTERNA 3829 UNSPECIFIED 10-03-2012 LASHAWN R OTITIS H MEDIA 3484 COMPRESSION 09-20-2012 DOERGER KIR OF BRAIN 1120 CANDIDIASIS 08-13-2012 LASHAWN R OF MOUTH H 61633 UNSPECIFIED 08-13-2012 LASHAWN R VAGINITIS H AND VULVOVAGINI TIS 5259 UNSPECIFIED 07-20-2012 FRANCE REGINA DISORDER TEETH&SUPPO RTING STRUCTURES 54854 JAW PAIN 07-20-2012 FRANCE REGINA 0549 HERPES 06-27-2012 GRILLOT NAN SIMPLEX WITHOUT MENTION OF COMPLICATIO N 7851 PALPITATION 06-12-2012 BRANDY J G S 42306 OTHER CHEST 05-29-2012 BRANDY J G PAIN 786.50 786.50 05-27-2012 Cece CHEST PAIN [facility] 7862 COUGH 05-27-2012 FIDEL JOSÉ MIGUEL 7336 TIETZES 05-18-2012 RICK PRA DISEASE 7243 SCIATICA 04-24-2012 LASHAWN R H 6146 PELVIC 04-12-2012 [facility] PERITONEAL [facility] ADHESIONS, INC FEMALE 6258 OTH SPEC 03-29-2012 [facility] SYMPTOM ASSOC W/FEMALE GENITAL ORGANS 0542 HERPETIC 02-14-2012 LASHAWN Abarca GINGIVOSTOM H ATITIS 6260 ABSENCE OF 02-08-2012 [facility] MENSTRUATIO URGENT N CARE 5224 ACUTE 01-07-2012 [facility] PERIODONTIT [facility] CTR IS OF PULPAL ORIGIN 7831 ABNORMAL 01-05-2012 [facility] 28088 CONDYLOMA 11-15-2011 FRANZ GABRIEL ACUMINATUM 6256 FEMALE 11-15-2011 FRANZ GABRIEL STRESS INCONTINENC E 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 7242 LUMBAGO 11-04-2011 [facility] 8472 LUMBAR 11-04-2011 [facility] VIR SPRAIN AND STRAIN 9599 INJURY 11-04-2011 [facility] OTHER AND ASSOCIATES UNSPECIFIED [facility] UNSPECIFIED SITE V692 PROBLEMS 10-19-2011 COMBINED RELATED TO PHYSICIANS HIGH-RISK LA SEXUAL BEHAVIOR 0794 HUMAN 10-18-2011 FRANZ GABRIEL PAPILLOMA VIRUS IN CCE & UNS SITE 04694 ABDOMINAL 09-12-2011 WEHRMAN III PAIN, LEFT JAVI UPPER QUADRANT 20607 PAINFUL 07-26-2011 [facility] 9100 FCE 07-26-2011 [facility] NCK&SCLP NO EMERGENCY EYE SERVICES ABRAS/FRIC BURN W/O INF 90668 DIARRHEA 07-11-2011 [facility] ER V745 SCREENING 06-16-2011 [facility] EXAMINATION FOR VENEREAL DISEASE 03301 UNSPECIFIED 06-01-2011 [facility] DENTAL ALEX CARIES 14522 UNSPECIFIED 05-30-2011 [facility] VIRAL [facility] INFECTION IN CCE & UNS SITE 6820 CELLULITIS 05-30-2011 [facility] AND ABSCESS ASSOCIATES OF FACE 5225 PERIAPICAL 05-29-2011 [facility] ABSCESS EMERGENCY WITHOUT SERVICES SINUS 84132 ACUTE 04-24-2011 [facility] GINGIVITIS [facility] PLAQUE INC INDUCED 54528 SPASM OF 02-03-2011 LASHAWN R MUSCLE H 37442 SCOLIOSIS 02-03-2011 LASHAWN R ASSOCIATED H WITH OTHER CONDITION 7233 CERVICOBRAC 11-17-2010 [facility] SYNDROME C CENTER 7244 THORACIC/ANDRA 11-17-2010 [facility] MBOSACRAL CHIROPRACTI NEURITIS/RA C CENTER DICULITIS UNSPEC 8483 SPRAIN AND 11-17-2010 [facility] STRAIN OF CHIROPRACTI RIBS C CENTER 7839 OTH 11-03-2010 [facility] CONCERNING PHYSICIANS NUTRITION METAB&DVLP 9110 TRUNK 11-03-2010 [facility] ABRASION/FR [facility] ICTION BURN INC WITHOUT MENTION INF 35371 OTHER 11-03-2010 [facility] INJURY OF EMERGENCY EXTERNAL SERVICES GENITALS V2543 SURVEILLANC 08-11-2010 [facility] E PREV [facility] HEALTH IMPL CLINIC OF SUBDERMAL MON[facility] CONTRACEPT 6262 EXCESSIVE 08-03-2010 [facility] OR FREQUENT ASSOCIATES MENSTRUATIO N V255 INSERTION 07-12-2010 [facility]'S OF HEALTH IMPLANTABLE CLINIC OF SUBDERMAL MONO CONTRACEPTI VE V2542 SURVEILLANC 07-07-2010 WOMEN'S E PREV PRSC HEALTH INTRAUTERN CLINIC OF CNTRACPT MONO DEVC V2511 ENC FOR 06-16-2010 WOMEN'S INSERTION [facility] INTRAUTERIN CLINIC OF E MONO CONTRACEPT DEVICE V242 ROUTINE 01-04-2010 [facility] PHYSICIAN FOLLOW-UP GROUP PCC 7069 UNSPECIFIED 12-23-2009 [facility] DISEASE OF ASSOCIATES SEBACEOUS GLANDS 14081 POST TERM 11-28-2009 [facility] PG DELIV PHYSICIAN W/WO GROUP PCC MENTION ANTPRTM COND 605 REDUNDANT 11-26-2009 [facility] PHIMOSIS 650 NORMAL 11-26-2009 [facility] DELIVERY PHYSICIAN GROUP PCC 61456 FORCEPS/EXT 11-26-2009 [facility] W/O INC INDICATION- DELIVERED V270 OUTCOME OF 11-26-2009 [facility] DELIVERY PHYSICIAN SINGLE GROUP PCC LIVEBORN V3000 SINGLE [facility]-26-2009 [facility] W[facility]O 39089 POST TERM 11-23-2009 [facility] PHYSICIAN ANTEPARTUM GROUP PCC COND/COMPLI CATION V220 SUPERVISION 11-23-2009 [facility] OF NORMAL PHYSICIAN FIRST GROUP PCC V221 SUPERVISION 11-17-2009 [facility] OF OTHER PHYSICIAN NORMAL GROUP PCC V222 11-17-2009 [facility] INCIDENTAL INC 4619 ACUTE 11-16-2009 [facility] S[facility] UNSPECIFIED V286 SCREENING 10-26-2009 [facility] OF [place] [address] OTHER 10-24-2009 [facility] THREATENED PHYSICIAN LABOR, GROUP PCC ANTEPARTUM 36152 OTHER 10-24-2009 [facility] COMPLICATIO INC N ANTEPARTUM 7804 DIZZINESS 10-24-2009 [facility] GIDDINESS INC 97943 DYSPLASIA 09-08-2009 [facility] UNSPECIFIED S INC V028 CARRIER/HELEN 09-08-2009 [facility] CARRIER OTH S INC VENEREAL DISEASES 96590 THREATENED 09-01-2009 [facility] LABOR INC ANTEPARTUM 44824 EXCESS 08-11-2009 [facility] PHYSICIAN GROWTH GROUP PCC AFFECT MGMT MOTH ANTPRTM V771 SCREENING 08-11-2009 [facility] DIABETES INC MELLITUS V2889 OTHER 06-30-2009 [facility] INC SCREENING 98439 OTHER 04-10-2009 [facility] SPECIFIED [place] INC DISEASES DUE TO CHLAMYDIAE 6268 OTH D/O 04-03-2009 [facility] MENSTRUATIO [facility] N&OTH ABN BLEED FE GNT TRACT 13480 PAP SMER 04-03-2009 [facility] W/LW [place] [facility] S PC SQUAMOUS INTRAEPITH LES 2662 OTHER 03-31-2009 [facility] S V7242 03-31-2009 [facility] POSITIVE RESULT 7232 CERVICOCRAN 09-10-2008 [facility]OP[facility]I SYNDROME C CENTER 7241 PAIN IN 09-10-2008 [facility]AC[facility] SPINE [facility] 0999 UNSPECIFIED 08-06-2008 [facility] DISEASE V762 SCREENING 07-17-2008 [facility] NEOPLASM OF ER THE CERV[facility] V2541 SURVEILLANC 07-15-2008 [facility]/CO E [facility] PRESCRIBED CENTRAL CONTRACEPT BANK ACCT PILL [id number] MIGRAINE 06-20-2008 [facility] W/INTRACTAB L W/O STATUS MIGRAINOSUS 0088 INTESTINAL 03-05-2008 [facility] DUE TO OTHER ORGANISM NEC 6269 UNS D/O 02-13-2008 [facility] N&OTH ABN BLEED FE GNT TRACT 6253 DYSMENORRHE 09-19-2007 [facility] 03561 ASTHMA, 08-15-2007 [facility] UNSPECIFIED STATUS C73 Malignant neoplasm of thyroid gland E89.0 Postprocedu ral hypothyroid ism H65.03 ACUTE SEROUS OTITIS MEDIA, BILATERAL J02.9 ACUTE PHARYNGITIS , UNSPECIFIED M16.11 UNILATERAL PRIMARY OSTEOARTHRI TIS, RIGHT HIP M47.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, LUMBAR REGION M79.671 PAIN IN RIGHT FOOT N39.0 URINARY TRACT INFECTION, SITE NOT SPECIFIED N83.209 UNSPECIFIED OVARIAN CYST, UNSPECIFIED SIDE R07.9 CHEST PAIN, UNSPECIFIED R10.2 PELVIC AND PERINEAL PAIN R10.9 UNSPECIFIED ABDOMINAL PAIN R42 DIZZINESS AND GIDDINESS T88.7XXA UNSP ADVERSE EFFECT OF DRUG OR MEDICAMENT, INIT ENCNTR W57.XXXA BIT/STUNG BY NONVENOM INSECT \T\ OTH NONVENOM ARTHROPODS, INIT Z20.818 CONTACT W AND EXPOSURE TO OTH BACT COMMUNICABL E DISEASES Allergies, Adverse Reactions, Alerts Type Drug Allergy Adverse Reaction to Substance Substance Reaction Severity Vancomycin I-ITCHING Intermediate Medications Na ND Rx Da Fi Fi Am Da Di Ph RX Ph St me C No te ll ll ou ys ag ar # ys at rm s nt no ma ic us Or Da si cy ia de te s n re d IS 00 01 04 60 30 00 KR Ac EN 00 -1 -0 .0 00 OG ti TR 60 0- 7- 00 06 ER ve ES 22 20 20 05 S 76 16 17 31 PH 40 1 12 AR 0 MA MG CY TA #1 BL 49 ET 46 AL 59 10 10 0 10 10 77 CARRILLO Ac [place] 76 -2 -2 .0 74 RP ti AZ 23 5- 5- 00 58 EL ve OL 72 20 20 AM 00 11 11 GE 4 RA 0. LD 5 R MG TA BL ET CY 59 08 08 0 20 7 77 MU Ac CL 74 -2 -2 .0 19 LB ti OB 60 4- 4- 00 95 ER ve EN 21 20 20 RY ZA 10 11 11 NY 6 BR IN IA E N 5 T MG TA BL ET VA 00 08 08 0 70 15 77 MU Ac ND 24 -2 -2 .0 19 LB ti AZ 50 4- 4- 00 96 ER ve OL 86 20 20 RY E 07 11 11 VA 0 BR GI IA NA N L T 0. 75 % GE L ME 50 08 08 0 28 14 77 KE Ac TR 11 -0 -0 .0 02 AG ti ON 10 3- 3- 00 49 LE ve ID 33 20 20 AZ 40 11 11 RI OL 1 TA E K 50 0 MG TA BL ET FL 00 07 07 0 1. 1 76 KE Ac UC 17 -2 -2 00 96 AG ti ON 25 6- 6- 0 22 LE ve AZ 41 20 20 OL 21 11 11 RI E 1 TA 15 K 0 MG TA BL ET CI 55 05 05 0 14 7 76 KE Ac [place] 11 -1 -1 .0 35 AG ti OF 10 0- 0- 00 20 LE ve LO 12 20 20 XA 60 11 11 RI CI 1 TA N K HC L 25 0 MG TA B NA 68 03 03 1 60 30 75 CL Ac [place] 46 -2 -2 .0 93 AR ti OX 20 3- 3- 00 91 KE ve EN 19 20 20 00 11 11 DE 50 5 RE 0 K MG J TA BL ET [place] 37 10 11 6 28 28 74 CO Ac IL 00 -0 -1 .0 42 OP ti OS 00 23 ER ve EC 45 20 20 50 10 10 JEROMY OT 2 HN C G 20 .6 MG TA BL ET YOUSIF 00 11 11 0 20 10 74 NO Ac LF 60 -1 -1 .0 82 RF ti AM 35 36 LE ve ET 78 20 20 ET HO 12 10 10 R XA 8 ZO HE LE NR -T Y MP DS TA BL ET 24 11 11 0 30 7 74 NO Ac 48 -1 -1 .0 82 RF ti 60 00 40 LE ve 60 20 20 ET 11 10 10 R 0 HE NR Y 00 09 11 10 28 28 74 CARRILLO Ac 43 -2 -1 .0 52 RP ti 00 0 00 62 EL ve 53 20 20 01 10 10 GE 4 RA LD R SE 59 09 11 3 15 30 74 NO Ac RT 76 -0 -1 .0 17 RF ti RA 24 91 LE ve LI 91 20 20 ET NE 00 10 10 R 5 HC HE L NR 10 Y 0 MG TA BL ET FL 00 11 11 0 1. 1 74 NO Ac UC 17 -0 -0 00 69 RF ti ON 25 5 5- 0 84 LE ve AZ 41 20 20 ET OL 21 10 10 R E 1 15 HE 0 NR MG Y TA BL ET TU 24 11 11 0 24 4 74 NO Ac SS 38 -0 -0 0. 69 RF ti IN 50 85 LE ve 35 20 20 0 ET DM 92 10 10 R 6 SY HE RU NR P Y 00 10 10 10 28 28 74 CARRILLO Ac 43 -1 -1 .0 52 RP ti 00 8 8 00 62 EL ve 53 20 20 01 10 10 GE 4 RA LD R [place] 65 01 10 10 30 30 72 CARRILLO Ac EN 16 -0 -1 .0 20 RP ti AT 20 8 2 00 11 EL ve AL 66 20 20 [address] 0 RA US LD R TA BL ET SE 59 09 10 3 15 30 74 NO Ac RT 76 -0 -0 .0 17 RF ti RA 24 91 LE ve LI 91 20 20 ET NE 00 10 10 R 5 HC HE L NR 10 Y 0 MG TA BL ET NY 37 10 10 6 28 28 74 CO Ac IL 00 -0 -0 .0 42 OP ti OS 00 5 5 23 ER ve EC 45 20 20 50 10 10 JEROMY OT 2 HN C G 20 .6 MG TA BL ET 00 09 09 11 28 28 WA 70 CARRILLO Ac 43 -2 -2 .0 L- 87 RP ti 00 0- 0- 00 MA 03 EL ve 53 20 20 RT 1 01 10 10 GE 4 PH RA AR LD MA R CY # 10 05 91 [place] 65 01 09 10 30 30 72 CARRILLO Ac EN 16 -0 -0 .0 20 RP ti AT 20 8 7 00 11 EL ve AL 66 20 [address] 0 RA US LD R TA BL ET SE 59 09 09 3 15 30 74 NO Ac RT 76 -0 -0 .0 17 RF ti RA 24 91 LE ve LI 91 20 20 ET NE 00 10 10 R 5 HC HE L NR 10 Y 0 MG TA BL ET 00 08 08 0 12 2 WA 45 IS Ac 40 -3 -3 .0 L- 98 ON ti 60 0- 0- 00 MA 79 ve 36 20 20 RT 2 DA 30 10 10 1 PH D AR E MA CY # 10 05 84 AC 00 08 08 0 20 2 CV 54 CARRILLO Ac ET 09 -2 -2 .0 S 19 RP ti AM 30 PH 54 EL ve IN 15 20 20 AR OP 01 10 10 MA GE HE 0 CY RA N- # LD CO R D 05 #3 43 7 TA BL ET AM 00 08 08 0 30 10 74 NO Ac OX 78 -2 -2 .0 06 RF ti IC 12 70 LE ve IL 61 20 20 ET LI 30 10 10 R N 5 50 HE 0 NR MG Y CA PS UL E [place] 65 01 07 10 30 30 72 CARRILLO Ac EN 16 -0 -2 .0 20 RP ti AT 20 11 EL ve AL 66 20 20 [address] 0 RA US LD R TA BL ET TE 51 06 06 1 20 3 73 CL Ac RC 67 -2 -2 .0 56 AR ti ON 21 33 KE ve AZ 30 20 20 OL 20 10 10 DE E 0 RE 0. K 8% J CR EA M [place] 65 01 06 10 30 30 72 CARRILLO Ac EN 16 -0 -0 .0 20 RP ti AT 20 8- 3- 00 11 EL ve AL 66 20 [address] 0 RA US LD R TA BL ET [place] 65 01 04 10 30 30 72 CARRILLO Ac EN 16 -0 -2 .0 20 RP ti AT 20 8- 1- 00 11 EL ve AL 66 20 [address] 0 RA US LD R TA BL ET [place] 65 01 03 10 30 30 72 CARRILLO Ac EN 16 -0 -1 .0 20 RP ti AT 20 8- 6- 00 11 EL ve AL 66 20 20 [address] 0 RA US LD R TA BL ET [place] 65 01 02 01 30 30 TO 72 CARRILLO Ac EN 16 -0 -2 .0 TA 20 RP ti AT 20 8- 6- 00 L 11 EL ve AL 66 20 20 CA [address] 0 RA US PH LD AR R TA MA BL CY ET #5 [place] 00 01 01 00 2. 1 TO 72 CARRILLO Ac IT 78 -0 -1 00 TA 20 RP ti HR 11 8- 4- 0 L 26 EL ve OM 94 20 20 CA YC 13 10 10 RE GE IN 1 RA PH LD 50 AR R 0 MA MG CY TA #5 BL ET [place] 65 01 01 00 30 30 TO 72 CARRILLO Ac EN 16 -0 -1 .0 TA 20 RP ti AT 20 8- 4- 00 L 11 EL ve AL 66 20 20 CA [address] 0 RA US PH LD AR R TA MA BL CY ET #5 NI 00 08 09 00 14 7 TO 71 NO Ac TR 37 -2 -1 .0 TA 00 RF ti OF 83 5- 0- 00 L 19 LE ve UR 42 20 20 CA ET AN 20 09 09 RE R TO 1 IN PH HE AR NR MO MA Y NO CY -M CR #5 10 0 MG NO 00 06 08 02 28 28 TO 70 NO Ac RT 55 -2 -2 .0 TA 51 RF ti RE 59 2- 7- 00 L 64 LE ve L 01 20 20 CA ET 1- 05 09 09 RE R 35 8 PH HE 28 AR NR MA Y TA CY BL ET #5 SE 59 08 08 00 15 30 TO 70 NO Ac RT 76 -1 -2 .0 TA 93 RF ti RA 24 7- 7- 00 L 48 LE ve LI 90 20 20 CA ET NE 00 09 09 RE R 5 HC PH HE L AR NR 50 MA Y CY MG #5 TA BL ET NI 00 07 08 00 14 7 TO 70 NO Ac TR 37 -2 -1 .0 TA 77 RF ti OF 83 7- 3- 00 L 18 LE ve UR 42 20 20 CA ET AN 20 09 09 RE R TO 1 IN PH HE AR NR MO MA Y NO CY -M CR #5 10 0 MG NO 00 06 07 01 28 28 TO 70 NO Ac RT 55 -2 -3 .0 TA 51 RF ti RE 59 2- 0- 00 L 64 LE ve L 01 20 20 CA ET 1- 05 09 09 RE R 35 8 PH HE 28 AR NR MA Y TA CY BL ET #5 NO 00 06 07 00 28 28 TO 70 NO Ac RT 55 -2 -0 .0 TA 51 RF ti RE 59 2- 2- 00 L 64 LE ve L 01 20 20 CA ET 1- 05 09 09 RE R 35 8 PH HE 28 AR NR MA Y TA CY BL ET #5 NO 00 05 06 00 28 28 TO 70 NO Ac RT 55 -2 -0 .0 TA 26 RF ti RE 59 1- 4- 00 L 08 LE ve L 01 20 20 CA ET 1- 05 09 09 RE R 35 8 PH HE 28 AR NR MA Y TA CY BL ET #5 SE 59 04 06 01 15 30 TO 67 NO Ac RT 76 -1 -0 .0 TA 06 RF ti RA 24 3- 4- 00 L 92 LE ve LI 90 20 20 CA ET NE 00 09 09 RE R 5 HC PH HE L AR NR 50 MA Y CY MG #5 TA BL ET VA 00 04 05 00 4. 1 TO 50 CO Ac LT 17 -2 -0 00 TA 02 OP ti RE 30 0- 7- 0 L 67 ER ve X 56 20 20 CA 1 50 09 09 RE JEROMY GM 4 HN PH G CA AR PL MA ET CY #5 NO 00 06 05 05 28 28 TO 64 NO Ac RT 55 -2 -0 .0 TA 78 RF ti RE 59 5- 7- 00 L 85 LE ve L 01 20 20 CA ET 1- 05 08 09 RE R 35 8 PH HE 28 AR NR MA Y TA CY BL ET #5 NI 00 04 05 00 14 7 TO 70 NO Ac TR 37 -2 -0 .0 TA 05 RF ti OF 83 9- 7- 00 L 05 LE ve UR 42 20 20 CA ET AN 20 09 09 RE R TO 1 IN PH HE AR NR MO MA Y NO CY -M CR #5 10 0 MG TE 00 04 05 00 20 3 TO 50 GL Ac RC 59 -2 -0 .0 TA 05 ti ON 13 1- 7- 00 L 99 S ve AZ 19 20 20 CA LI OL 75 09 09 RE SA E 2 G 0. PH 8% AR MA CR CY EA M #5 SE 59 04 04 00 15 30 TO 67 NO Ac RT 76 -1 -2 .0 TA 06 RF ti RA 24 3- 3- 00 L 92 LE ve LI 90 20 20 CA ET NE 00 09 09 RE R 5 HC PH HE L AR NR 50 MA Y CY MG #5 TA BL ET 00 03 04 00 9. 30 TO 66 NO Ac 17 -2 -0 00 TA 93 RF ti 30 7- 9- 0 L 87 LE ve 75 20 20 CA ET 00 09 09 RE R 0 PH HE AR NR MA Y CY #5 NO 00 06 04 04 28 28 TO 64 NO Ac RT 55 -2 -0 .0 TA 78 RF ti RE 59 5- 9- 00 L 85 LE ve L 01 20 20 CA ET 1- 05 08 09 RE R 35 8 PH HE 28 AR NR MA Y TA CY BL ET #5 NO 00 06 03 03 28 28 TO 64 NO Ac RT 55 -2 -1 .0 TA 78 RF ti RE 59 5- 2- 00 L 85 LE ve L 01 20 20 CA ET 1- 05 08 09 RE R 35 8 PH HE 28 AR NR MA Y TA CY BL ET #5 CH 00 02 03 00 96 30 TO 66 EL Ac LO 11 -1 -1 0. TA 62 LI ti RH 62 8- 2- 00 L 23 OT ve EX 00 20 20 0 CA T ID 11 09 09 RE TX IN 6 CH E PH AE 0. AR L 12 MA P % CY RI NS #5 E SE 59 12 02 01 15 30 TO 66 NO Ac RT 76 -0 -2 .0 TA 01 RF ti RA 24 9- 6- 00 L 18 LE ve LI 90 20 20 CA ET NE 00 08 09 RE R 5 HC PH HE L AR NR 50 MA Y CY MG #5 TA BL ET NO 00 06 02 02 28 28 TO 64 NO Ac RT 55 -2 -1 .0 TA 78 RF ti RE 59 5- 2- 00 L 85 LE ve L 01 20 20 CA ET 1- 05 08 09 RE R 35 8 PH HE 28 AR NR MA Y TA CY BL ET #5 00 01 01 00 14 7 TO 66 GA Ac 59 -0 -1 .0 TA 18 IN ti 10 2- 5- 00 L 86 EY ve 33 20 20 CA 91 09 09 RE TX 0 CH PH AE AR L MA S CY #5 NO 00 06 01 01 28 28 TO 64 NO Ac RT 55 -2 -1 .0 TA 78 RF ti RE 59 5- 5- 00 L 85 LE ve L 01 20 20 CA ET 1- 05 08 09 RE R 35 8 PH HE 28 AR NR MA Y TA CY BL ET #5 SE 59 12 12 00 15 30 TO 66 KE Ac RT 76 -0 -1 .0 TA 01 AG ti RA 24 9- 8- 00 L 18 LE ve LI 90 20 20 CA NE 00 08 08 RE RI 5 TA HC PH K L AR 50 MA CY MG #5 TA BL ET NO 00 06 12 00 28 28 TO 64 KE Ac RT 55 -2 -1 .0 TA 78 AG ti RE 59 5- 8- 00 L 85 LE ve L 01 20 20 CA 1- 05 08 08 RE RI 35 8 TA PH K 28 AR MA TA CY BL ET #5 [place] 68 12 12 00 10 4 TO 66 NO Ac OM 38 -1 -1 .0 TA 02 RF ti ET 20 0- 8- 00 L 19 LE ve CARRILLO 04 20 20 CA ET ZI 11 08 08 RE R NE 0 PH HE 25 AR NR MA Y MG CY TA #5 BL ET NA 00 11 12 00 60 30 PH 65 KE Ac [place] 09 -1 -0 .0 AR 85 AG ti OX 30 9- 4- 00 MC 72 LE ve EN 14 20 20 AR 90 08 08 E RI 50 5 PH TA 0 AR K MG MA CY TA BL ET SE 59 10 11 01 15 30 PH 65 KE Ac RT 76 -0 -2 .0 AR 45 AG ti RA 24 1- 0- 00 MC 53 LE ve LI 90 20 20 AR NE 00 08 08 E RI 5 PH TA HC AR K L MA 50 CY MG TA BL ET NO 00 06 11 05 28 28 PH 64 KE Ac RT 55 -2 -2 .0 AR 78 AG ti RE 59 5- 0- 00 MC 85 LE ve L 01 20 20 AR 1- 05 08 08 E RI 35 8 PH TA AR K 28 MA CY TA BL ET NO 00 06 10 04 28 28 PH 64 KE Ac RT 55 -2 -2 .0 AR 78 AG ti RE 59 5- 3- 00 MC 85 LE ve L 01 20 20 AR 1- 05 08 08 E RI 35 8 PH TA AR K 28 MA CY TA BL ET SE 59 10 10 00 15 30 PH 65 KE Ac RT 76 -0 -0 .0 AR 45 AG ti RA 24 1- 9- 00 MC 53 LE ve LI 90 20 20 AR NE 00 08 08 E RI 5 PH TA HC AR K L MA 50 CY MG TA BL ET NO 00 06 09 03 28 28 PH 64 KE Ac RT 55 -2 -2 .0 AR 78 AG ti RE 59 5- 6- 00 MC 85 LE ve L 01 20 20 AR 1- 05 08 08 E RI 35 8 PH TA AR K 28 MA CY TA BL ET CE 68 09 09 00 20 10 PH 65 KE Ac FD 18 -0 -1 .0 AR 25 AG ti IN 00 4- 1- 00 MC 43 LE ve IR 71 20 20 AR 16 08 08 E RI 30 0 PH TA 0 AR K MG MA CY CA PS UL E NO 00 06 08 02 28 28 PH 64 KE Ac RT 55 -2 -2 .0 AR 78 AG ti RE 59 5- 8- 00 MC 85 LE ve L 01 20 20 AR 1- 05 08 08 E RI 35 8 PH TA AR K 28 MA CY TA BL ET NO 00 06 08 01 28 28 PH 64 KE Ac RT 55 -2 -0 .0 AR 78 AG ti RE 59 5- 1- 00 MC 85 LE ve L 01 20 20 AR 1- 05 08 08 E RI 35 8 PH TA AR K 28 MA CY TA BL ET NO 00 06 07 00 28 28 PH 64 KE Ac RT 55 -2 -0 .0 AR 78 AG ti RE 59 5- 3- 00 MC 85 LE ve L 01 20 20 AR 1- 05 08 08 E RI 35 8 PH TA AR K 28 MA CY TA BL ET NO 00 02 06 03 28 28 PH 63 KE Ac RT 55 -2 -0 .0 AR 91 AG ti RE 59 6- 5- 00 MC 81 LE ve L 01 20 20 AR 1- 05 08 08 E RI 35 8 PH TA AR K 28 MA CY TA BL ET ME 51 05 06 00 21 6 PH 64 GA Ac TH 99 -2 -0 .0 AR 55 IN ti YL 10 1- 5- 00 MC 78 EY ve [place] 18 20 20 AR ED 83 08 08 E TX NI 1 PH CH SO AR AE LO MA L NE CY S 4 MG DO SE PK AZ 50 05 05 00 6. 5 TO 64 No Ac IT 11 -1 -2 00 TA 48 t ti HR 10 2- 2- 0 L 38 Av ve OM 78 20 20 CA ai YC 76 08 08 RE la IN 6 bl PH e 25 AR 0 MA MG CY TA #5 BL ET NO 00 02 05 02 28 28 PH 63 No Ac RT 55 -2 -0 .0 AR 91 t ti RE 59 6- 8- 00 MC 81 Av ve L 01 20 20 AR ai 1- 05 08 08 E la 35 8 PH bl AR e 28 MA CY TA BL ET CE 00 04 04 00 20 10 PH 64 No Ac FD 78 -1 -2 .0 AR 30 t ti IN 12 7- 4- 00 MC 82 Av ve IR 17 20 20 AR ai 66 08 08 E la 30 0 PH bl 0 AR e MG MA CY CA PS UL E NO 00 02 04 01 28 28 PH 63 No Ac RT 55 -2 -1 .0 AR 91 t ti RE 59 6- 0- 00 MC 81 Av ve L 01 20 20 AR ai 1- 05 08 08 E la 35 8 PH bl AR e 28 MA CY TA BL ET NO 00 02 04 00 28 28 PH 63 No Ac RT 55 -2 -0 .0 AR 91 t ti RE 59 6- 7- 00 MC 81 Av ve L 01 20 20 AR ai 1- 05 08 08 E la 35 8 PH bl AR e 28 MA CY TA BL ET Immunization Name Date Rout CVX Reac Dose Comm Prov Is Faci e tion ent ider Refu lity Give sed n IIV4 [address] 5-20 RNE JIL VACC 15 [facility] S H SPLI CARMEN PHYS T ICIA VIRU NS S 0.5 ML DOS FOR IM USE 4VHP 11-[address] V 5-20 RNE JIL VACC 15 LEWI ABET INE S H 3 CARMEN PHYS DOSE ICIA NS SCHE DULE FOR IM USE Vital Signs 04-16-2013 22:38 Name Value Interpretat Reference Comment ion Range Body 98.3 [degF] Temperature BP 72 mm[Hg] Diastolic BP Systolic 114 mm[Hg] Heart 90 /min Rate/Pulse O2% 97 % Respiratory 16 /min Rate 04-16-2013 22:35 Name Value Interpretat Reference Comment ion Range Body 98.3 [degF] Temperature BP 72 mm[Hg] Diastolic BP Systolic 114 mm[Hg] Heart 90 /min Rate/Pulse O2% 97 % Respiratory 16 /min Rate 05-27-2012 22:39 Name Value Interpretat Reference Comment ion Range BP 86 mm[Hg] Diastolic BP Systolic 111 mm[Hg] Heart 80 /min Rate/Pulse O2% 100 % Respiratory 20 /min Rate 05-27-2012 21:24 Name Value Interpretat Reference Comment ion Range BP 70 mm[Hg] Diastolic BP Systolic 117 mm[Hg] Heart 92 /min Rate/Pulse O2% 100 % Respiratory 20 /min Rate Results Labs Lab Lab Date Result Refere Interp Status Commen Order Detail nces retati t Range on COMPREHENSIVE METABOLIC PANEL (05-27-2012 21:15) Glucose 80 74-106 complet 013 mg/dL ed Bld-mCn 21:15 c BUN 8 mg/dL 7-18 complet Bld-mCn 013 ed c 21:15 Creat 0.8 0.6-1.0 complet SerPl-m 013 mg/dL ed Cnc 21:15 ESTIMAT 143 50-200 complet ED 013 ML/MIN ed CREATIN 21:15 INE CLEARAN CE GFR 91 59- complet (ESTIMA 013 ML/MIN ed REGINA) 21:15 Sodium 140 136-145 complet SerPl-s 013 mmoL/L ed Cnc 21:15 Potassi 4.1 3.5-5.1 complet um 013 mmoL/L ed SerPl-s 21:15 Cnc Chlorid 105 98-107 complet e 013 mmoL/L ed SerPl-s 21:15 Cnc CO2 29 21.0-32 complet SerPl-s 013 mmoL/L .0 ed Cnc 21:15 Calcium 05-27- 9.0 8.5-10. complet 013 mg/dL 1 ed SerPl-m 21:15 Cnc Prot 05-27-2 7.5 6.4-8.2 complet SerPl-m 013 gm/dL ed Cnc 21:15 Albumin 05-27- 3.9 3.4-5.0 complet 013 gm/dL ed SerPl-m 21:15 Cnc Globuli 3.6 1.3-3.2 complet n 013 gm/dL ed Ser-mCn 21:15 c Albumin 03-03-2 1.1 UNK 1.1-1.8 complet /Glob 013 ed SerPl-m 21:15 Rto Bilirub 05-27-2 0.2 0.2-1.0 complet 013 mg/dL ed SerPl-m 21:15 Cnc AST 05-27-2 17 U/L 15-37 complet SerPl-c 013 ed Cnc 21:15 ALT 05-27-2 39 U/L 30-65 complet SerPl-c 013 ed Cnc 21:15 ALP 05-27-2 157 U/L 50-136 complet SerPl-c 013 ed Cnc 21:15 D Dimer PPP (05-27-2012 21:15) D Dimer 05-27- 140 0-400 complet PPP 013 ng/mL ed 21:15 CBC with AUTO DIFF (05-27-2012 21:15) WBC # -03-2 13.3 4.8-10. complet Bld 013 K/MM3 8 ed Auto 21:15 RBC # 0303-2 4.62 4.2-5.4 complet Bld 013 M/mm3 ed Auto 21:15 Hgb 03-2 14.1 12.2-16 complet Bld-mCn 013 g/dL .2 ed c 21:15 Hct Fr 05-27-2 42.2 % 37.0-47 complet Bld 013 .0 ed 21:15 MCV RBC -03-2 91.5 fl 82.2-97 complet 013 .8 ed 21:15 MCH RBC 03-2 30.5 pg 27-31.2 complet Qn 013 ed Auto 21:15 MEAN 05-27-2 33.3 31.8-35 complet CORPUSC 013 g/dl .4 ed ULAR 21:15 HGB CONC RDW RBC -03-2 12.5 % 11.5-17 complet Auto 013 .5 ed 21:15 Platele -03-2 403 142-424 complet t Bld 013 K/mm3 ed Ql 21:15 Manual MEAN -03-2 6.9 fl 7.4-10. complet PLATELE 013 4 ed T 21:15 VOLUME Granulo 05-27-2 57.0 % 37.0-80 complet cytes 013 .0 ed Fr Bld 21:15 Auto LYMPH % 03-2 36.2 % 10-50.0 complet 013 ed 21:15 Monocyt 03-03-2 3.8 % 1.7-9.3 complet es Fr 013 ed Bld 21:15 Auto Eosinop 03-03-2 2.6 % 0.1-12. complet hil Fr 013 0 ed Bld 21:15 Auto Basophi 03-03-2 0.4 % 0.1-2.0 complet ls Fr 013 ed Bld 21:15 Auto Granulo 03-03-2 7.6 1.8-7.8 complet cytes # 013 K/mm3 ed Bld 21:15 Auto Lymphoc 03-03-2 4.8 0.7-4.5 complet ytes Fr 013 K/mm3 ed Bld 21:15 Auto Monocyt 03-03-2 0.5 0.1-1.0 complet es # 013 K/mm3 ed Bld 21:15 Auto Eosinop 03-03-2 0.3 0.0-0.4 complet hil # 013 K/mm3 ed Bld 21:15 Auto Basophi 03-03-2 0.1 0-0.2 complet ls # 013 K/MM3 ed Bld 21:15 Auto URINALYSIS/COMPLETE (05-27-2012 21:00) URINE 05-27-2 YELLOW YELLOW complet COLOR 013 ed 21:00 URINE 05-27-2 CLEAR CLEAR complet APPEARA 013 ed NCE 21:00 URINE 05-27-2 NEGATIV NEG complet GLUCOSE 013 E ed - 21:00 DIPSTIC K URINE 05-27-2 NEGATIV NEG complet BILIRUB 013 E ed IN - 21:00 DIPSTIC K URINE 05-27-2 NEGATIV NEG complet KETONE 013 E mg/dL ed 21:00 URINE 05-27-2 Less 1.005-1 complet SPECIFI 013 than or .030 ed C 21:00 equal GRAVITY to 1.005 URINE 05-27-2 NEGATIV NEG complet BLOOD 013 E ed 21:00 URINE 05-27-2 6.0 UNK 5.0-8.5 complet PH 013 ed 21:00 URINE 05-27-2 NEGATIV NEG complet PROTEIN 013 E mg/dL ed - 21:00 DIPSTIC K URINE 05-27-2 0.2 NEG complet UROBILI 013 E.U./dL ed NOGEN - 21:00 DIPSTIC K URINE 03-03-2 NEGATIV NEG complet NITRATE 013 E ed - 21:00 DIPSTIC K URINE NEGATIV NEG complet LEUK 013 E ed ESTERAS 21:00 E URINE 3-5 O complet WBC 013 wbc/hpf ed 21:00 Procedures Procedure [place] [address] [facility] LIPASE [facility] INC INC COMPREHEN 14345 [facility] SIVE 6 [facility] METABOLIC INC INC PANEL URNLS DIP 17310 [facility] STICK/TAB INC INC LET REAGENT AUTO MICROSCOP Y BLOOD 95261 [facility] COUNT 6 [facility] COMPLETE INC INC AUTO&AUTO DIFRNTL WBC DRUG TST [id number] [facility] PRESUMP;C 6 [facility] PBL BEING INC INC READ DC OPT OBV ONLY INJECTION J0696 COLD PRESSLER spring [facility] CEFTRIAXO URGENT NE SODIUM CARE PER 250 MG THERAPEUT 69335 COLD PRESSLER IC spring [facility] PROPHYLAC URGENT TIC/DX CARE INJECTION SUBQ/IM IADNA 48563 DIATHERIX DIATHERIX TRICHOMON 6 LABORATOR LABORATOR VAGINALIS IES [facility] AMPLIFIED PROBE TECH COLLECTIO 15039 COLD PRESSLER N VENOUS spring [facility] BLOOD URGENT VENIPUNCT CARE URE IADNA 58446 DIATHERIX DIATHERIX NEISSERIA 6 LABORATOR LABORATOR GONORRHOE IES [facility] IES [facility] AE AMPLIFIED PROBE TQ IADNA NOS 54775 DIATHERIX DIATHERIX 6 AMPLIFIED LABORATOR LABORATOR PROBE TQ IES aScentias IES [facility] EACH ORGANISM IADNA 52417 DIATHERIX DIATHERIX GARDNEREL 6 LA LABORATOR LABORATOR VAGINALIS IES [facility] LangticeS [facility] AMPLIFIED PROBE TQ IADNA 79720 DIATHERIX DIATHERIX CHLAMYDIA 6 LABORATOR LABORATOR TRACHOMAT IES [facility] AMPLIFIED PROBE TQ IADNA [address] STREPTOCO 5 [facility]ERAL[facility] MED [facility] MED CTR GROUP A AUTOMOBILE TECHNICIAN ST AUTOMOBILE TECHNICIAN ST DIRECT PROBE TQ COMPREHEN [address] SIVE 5 HAIDER HAIDER METABOLIC MED CTR MED CTR PANEL AUTOMOBILE TECHNICIAN ST AUTOMOBILE TECHNICIAN ST ACUTE [address] HEPATITIS 5 [facility]ER [facility] PANEL MED CTR MED CTR AUTOMOBILE TECHNICIAN ST AUTOMOBILE TECHNICIAN ST COMPREHEN 47265 [facility] SIVE 5 [facility] [place] [address] [facility] LIPASE 5 [place] [address] [place] [facility] ALL ABDOMEN & 5 MEDICAL PELVIS IMAGING W/[place] [address] [facility] AMYLASE 5 [facility] INC INC URINE 81134 [facility] 5 [facility] TEST INC INC VISUAL COLOR CMPRSN METHS BLOOD 57757 [facility] COUNT 5 [facility] COMPLETE INC INC AUTO&AUTO DIFRNTL WBC URNLS DIP 56524 [facility] 5 [facility] STICK/TAB INC INC LET REAGENT AUTO MICROSCOP Y ECG 33121 [facility] NIV ROUTINE 5 HAIDER ECG W/LEAST PHYSICIAN 12 LDS S EKG I&R ONLY CULTURE [address] BACTERIAL 5 HAIDER HAIDER MED CTR MED CTR QUANTTATI AUTOMOBILE TECHNICIAN ST AUTOMOBILE TECH[place] [address] RADIOLOGY NEILS [place] TRANSVAGI 5 [facility] US PELVIC 24235 RADIOLOGY NEILS [place]IE 5 NONOBSTET ASSOCIATE [facility]I [facility] [place] [address] FREE 5 HAIDER HAIDER THYROXINE MED CTR MED CTR AUTOMOBILE TECHNIC[address] [place] [address] THYROID 5 HAIDER HAIDER STIMULATI MED CTR MED CTR NG AUTOMOBILE TECHNICIAN ST AUTOMOBI[place] [address] [facility] Z[facility] HEAD/BRAI 5 [facility] [place] [address] [facility] MAXILLOFA 5 [facility] CIAL W/O INC INC CONTRAST MATERIAL COMPREHEN 16226 [facility] SIVE 5 [facility] METABOLIC INC INC PANEL BLOOD 21646 [facility] COUNT 5 [facility] COMPLETE INC INC AUTO&AUTO DIFRNTL WBC URNLS DIP 31782 [facility] STICK/TAB INC INC LET REAGENT AUTO MICROSCOP Y URINE 74127 [facility] TEST INC INC VISUAL COLOR CMPRSN METHS COMPREHEN [address] SIVE 5 [facility] METABOL[facility] MED CTR PANEL AUTOMOBILE TECHNICIAN ST AUTOMOBILE TECHNICIAN ST COLLECTIO [address] [facility] VENIPUNCT AUTOMOBILE TECHNICIAN [place] [address] THYROID [facility] ST[facility] MED CTR NG AUTOMOBILE TECHNICIAN ST [place] [address] [facility] CTR AUTOMOBILE TECHNICIAN ST AUTOMOBILE TECHNIC[address] BASIC [address] METABOLIC 5 [facility] PANEL MED CTR MED CTR CALCIUM AUTOMOBILE TECHNICIAN ST AUTOMOBILE TECHNICIAN ST TOTAL IM ADM 74121 [facility] PRQ ID 5 [facility] SUBQ/IM HLTH DEPT HLTH DEPT NJXS 1 ADRIANNA ADRIANNA VACCINE URINLS 06310 [facility] DIP 5 [facility] STICK/TAB LET REAGNT NON-AUTO MICRSCPY IADNA 75602 [facility] NEISSERIA 5 [facility] [place] GONORRHOE AE DIRECT PROBE TQ CULTURE 24720 [facility] CHLAMYDIA 5 [place] ANY SOURCE HGB 45994 IFT[facility]AR [place] QUANTITAT 5 [facility] [place] MD NATHAN TRANSCUTA NEOUS BASIC [address] METABOLIC 5 [facility] PANEL MED CTR MED CTR CALCIUM AUTOMOBILE TECHNICIAN ST AUTOMOBILE TECHNICIAN ST TOTAL CULTURE [address] BACTERIAL 5 [facility] CTR MED CTR QUANTTATI AUTOMOBILE TECHNICIAN ST AUTOMOBILE TECHNICIAN ST VE COLONY COUNT URINE COLLECTIO 81999 ST JUSTIN N VENOUS 5 [facility] NIESHA BLOOD VENIPUNCT PHYSICIAN URE S LIPID [address] PANEL 5 [facility] MED CTR AUTOMOBILE TECHNICIAN ST AUTOMOBILE TECHNICIAN ST IM ADM [address] [facility] PRQ ID 5 [facility] ANASTASIA CARMEN SUBQ/IM NJXS EA PHYSICIAN VACCINE S 4VHPV 96343 [facility] VACCINE 3 5 [facility] ANASTASIA CARMEN DOSE SCHEDULE PHYSICIAN FOR IM S USE IM ADM [address] [facility] PRQ ID 5 [facility] ANASTASIA CARMEN SUBQ/IM NJXS 1 PHYSICIAN VACCINE S IIV4 VACC [address]3980 [facility] SPLIT 5 [facility] ANASTASIA CARMEN VIRUS 0.5 ML DOS PHYSICIAN FOR IM S USE THYROGLOB [address] ULIN 5 [facility] ANTIBODY MED CTR MED CTR AUTOMOBILE TECHNICIAN ST AUTOMOBILE TECHNICIAN ST COLLECTIO [address] N VENOUS 5 [facility] BLOOD MED CTR MED CTR VENIPUNCT AUTOMOBILE TECHNICIAN ST [place] [address] THYROID 5 [facility] STIMULATI [facility] MED CTR NG AUTOMOBILE TECHNICIAN ST AUTOMOBILE TECHNICIAN ST HORMONE TSH COMPREHEN [address] SIVE 5 [facility] METABOLIC MED [facility] MED CTR PANEL AUTOMOBILE TECHNICIAN [place] [address] ST EL-[place] PARATHORM 5 HAIDER TAR ONE MED [place] [address] THYROGLOB 5 [facility] ULIN MED CTR MED CTR AUTOMOBILE TECHNICIAN ST AUTOMOBILE TECHN[address] HYDROXY 5 [facility] INCLUDES MED CTR MED CTR FRACTIONS AUTOMOBILE TECHNICIAN ST AUTOMO[place] [address] FREE 5 [facility] THYROXINE MED CTR MED CTR AUTOMOBILE TECHNICIAN ST AUTOMOBILE TECHNICIAN ST CT SOFT 62291 RADIOLOGY NEILS KATIE TISSUE 5 NECK ASSOCIATE W/CONTRAS S OF NOT T MATERIAL RADIOLOGI 52905 RADIOLOGY LUBBERS C 5 PALMER EXAMINATI ASSOCIATE ON CHEST S OF NOTH SINGLE VIEW FRONTAL ANES 22414 INDEPENDE RAMÍREZ ESOPH 5 NT EMILIA THYRD ANESTHESI LARYNX OLOGIST TRACH & LYMPH NECK 1YR THYROIDEC 37839 HEAD & DOMET NIESHA YUMIKO 5 NECK TOTAL/SUB SURGERY TOTAL ASSOC LMTD NECK DISSECT [place]EVEL V [address] ST RAMIREZ DON SURG 5 [facility]ER PATHOLOGY MED CTR GROSS&NIESHA ROSCOPIC EXAM PATH [address]502 ST RAMIREZ DON CONSLTJ 5 HAIDER SURG 1ST MED CTR BLK FROZEN SCTJ [address] BACTERIAL 5 HAIDER HAIDER MED CTR MED CTR QUANTTATI AUTOMOBILE TECHNICIAN ST AUTOMOBILE TECHNICIAN ST VE COLONY COUNT URINE THROMBOPL [address] ST [address] ASTIN 5 HAIDER HAIDER TIME MED CTR MED CTR PARTIAL AUTOMOBILE TECHNICIAN ST AUTOMOBILE TECHNICIAN ST PLASMA/WH OLE BLOOD BLOOD [address] COUNT 5 HAIDER HAIDER COMPLETE MED CTR MED CTR AUTO&AUTO AUTOMOBILE TECHNICIAN ST AUTOMOBILE TECHNICIAN ST DIFRNTL WBC PROTHROMB [address] IN TIME 5 HAIDER HAIDER MED CTR MED CTR AUTOMOBILE TECHNICIAN [place] [address] PARATHORM 5 HAIDER HAIDER ONE MED CTR MED CTR AUTOMOBILE TECHNICIAN ST AUTOMOBILE TECHNICIAN ST CALCIUM [address] TOTAL 5 HAIDER HAIDER MED CTR MED CTR AUTOMOBILE TECHNICIAN [place] [address] THYROID 5 HAIDER HAIDER STIMULATI MED CTR MED CTR NG AUTOMOBILE TECHNICIAN ST AUTOMOBILE TECHNICIAN ST HORMONE TSH RADIOLOGI 77901 [place] JUAREZ ALL C EXAM 5 MEDICAL CHEST 2 IMAGING VIEWS ASS FRONTAL&L ATERAL US SOFT [address] TISSUE 5 HAIDER HAIDER HEAD & MED CTR MED CTR NECK REAL AUTOMOBILE TECHNICIAN ST AUTOMOBILE TECHNICIAN ST TIME IMGE DOCM ECG [address]1677 ST MCDANNOLD ROUTINE [address] ECG MED CTR W/LEAST 12 LDS I&R ONLY ECG [address] ROUTINE 5 HAIDER HAIDER ECG MED CTR MED CTR W/LEAST AUTOMOBILE TECHNICIAN ST AUTOMOBILE TECHNICIAN ST 12 LDS TRCG ONLY W/O I&[place] [address] THE [address] SURG [address] [facility] GROSS&NIESHA ROSCOPIC EXAM CYTP EVAL 04904 THE THE FINE 5 [facility] INTERP & REPORT FINE 38986 PROFESSIO MABEL RAY NEEDLE 5 NAL ASPIRATIO RADIOLOG[place] [address] PROFESSIO MABEL RAY GUIDANCE 5 NAL NEEDLE RADIOLOGY PLACEMENT INC. IMG S&I US SOFT [address] TISSUE 5 HAIDER HAIDER HEAD & MED CTR MED CTR NECK REAL AUTOMOBILE TECHNICIAN ST AUTOMOBILE [place] [address] FREE 5 HAIDER HAIDER THYROXINE MED CTR MED CTR AUTOMOBILE TECHNICIAN [place] [address] THYROID 5 HAIDER HAIDER STIMULATI MED CTR MED CTR NG AUTOMOBILE TECHNICIAN ST AUTOMOBILE TECHNICIAN ST HORMONE TSH COLLECTIO [address] N VENOUS 5 HAIDER HAIDER BLOOD MED CTR MED CTR VENIPUNCT AUTOMOBILE TECHNICIAN ST AUTOMOBILE TECHNICIAN ST URE BLOOD 25851 FAMILY FAMILY COUNT 5 CARE CARE COMPLETE ASSOCIATE ASSOCIATE AUTO&AUTO S S DIFRNTL WBC DETERMINA 20507 QUINTEN BARBER TION 5 REFRACTIV E STATE OPHTH 60679 QUINTEN BARBER MEDICAL 5 XM&EVAL COMPRE NEW PT 1/> [place] [address] TRANSVAGI 5 HAIDER HAIDER NAL MARCELLUS MARCELLUS [place] PELVIC [address] 5 HAIDER HAIDER NONOBSTET MARCELLUS MARCELLUS KARI [place] [address] FREE 5 HAIDER HAIDER THYROXINE MED CTR MED CTR AUTOMOBILE TECHNIC[place] [address] THYROID 5 HAIDER HAIDER STIMULATI MED CTR MED CTR NG AUTOMOBILE TECHNICIAN ST AUTOMOBILE TECHNICIAN ST HORMONE TSH BLOOD 74143 FAMILY FAMILY COUNT 4 CARE CARE COMPLETE ASSOCIATE ASSOCIATE AUTO&AUTO S S DIFRNTL WBC IAADIADOO 01374 FAMILY KEAGLE 4 CARE RIT INFLUENZA ASSOCIATE S BLOOD 37024 FAMILY FAMILY COUNT 4 CARE CARE COMPLETE ASSOCIATE ASSOCIATE AUTO&AUTO S S DIFRNTL WBC IAADIADOO 68144 FAMILY KEAGLE 4 C[place] [address] FREE 4 HAIDER HAIDER THYROXINE MED CTR MED CTR AUTOMOBILE TECHNICIAN ST [place] [address] THYROID 4 HAIDER HAIDER STIMULATI MED CTR MED CTR NG AUTOMOBILE TECHNICIAN ST AUTOMOBILE TECHNICIAN ST HORMONE TSH RADIOLOGI 94504 BUBBA BUBBA C EXAM 4 CHR CHR CHEST 2 VIEWS FRONTAL&L ATERAL US SOFT [address] TISSUE 4 HAIDER HAIDER HEAD & MED CTR MED CTR NECK REAL AUTOMOBILE TECHNICIAN ST AUTOMOBILE TECHNICIAN ST TIME IMGE DOCM HEMOGLOBI [address] [facility] GLYCOSYLA INGA INGA REGINA A1C MICROSOMA [address] L 4 [facility] AN[place]IB[place] [address] THYROID 4 HAIDER HAIDER STIMULATI INGA INGA NG HORMONE TSH COLLECTIO [address] N VENOUS 4 [facility] BLOOD [place] [address] [facility] TH[facility]RO[facility]INE INGA INGA BASIC [address] METABOLIC 4 [facility] PANEL INGA INGA CALCIUM TOTAL CULTURE 72373 LAB ALEJANDRA LAB ALEJANDRA BACTERIAL 4 [facility] QUANTTATI VE COLONY COUNT URINE BLOOD 61466 KEAGLE KEAGLE COUNT 4 RIT RIT COMPLETE AUTO&AUTO DIFRNTL WBC LARYNGOSC 56991 LIZA DE JESUS OPY 4 THE THE FLEXIBLE DIAGNOSTI C BIOPSY 12899 HOMERO HOMERO THYROID 4 JET JET PERCUTANE OUS CORE NEEDLE CYTP EVAL 70751 ST RAMIREZ DON FINE 4 HAIDER NEEDLE MED CTR ASPIRATE INTERP & RE[place] [address] HOMERO HOMERO GUIDANCE 4 JET JET NEEDLE PLACEMENT IMG S&I US SOFT 60450 MATTHEW MATTHEW TISSUE 4 TUS TUS HEAD & [place] [address] THYROID 4 HAIDER HAIDER STIMULATI MED CTR MED CTR NG AUTOMOBILE TECHNICIAN ST AUTOMOBI[place] [address] FREE 4 HAIDER HAIDER THYROXINE MED CTR MED CTR AUTOMOBILE TECHNICIAN ST AUTOMOBILE TECHNICIAN ST URNLS DIP 81919 BRANDY Zayas 4 G G STICK/TAB LET RGNT NON-AUTO W/O MICRSCP ACNE 25567 BRANDY Zayas SURGERY 4 G G US BREAST 99330 KLEIMEYER KLEIMEYER REAL 4 NICK NICK TIME W/IMAGE DOCUMENTA TION CUL BACT 95596 LAB ALEJANDRA LAB ALEJANDRA AEROBIC 3 OF [facility] ADDL [facility] HOLDINGS METHS HOLDINGS DEFINITIV E EA ISOL CULTURE 68446 LAB ALEJANDRA LAB ALEJANDRA BACTERIAL 3 OF [place] ALAINA HOLDINGS QUANTTATI HOLDINGS VE COLONY COUNT URINE CULTURE 05152 LAB ALEJANDRA LAB ALEJANDRA BCT 3 OF [place] ISOL&PRSM [place] HOLDINGS PTV ID HOLDINGS ISOLATE EA URINE SUSCEPTIB 81945 LAB ALEJANDRA LAB ALEJANDRA LTY STDY 3 OF [place] ANTIMICRB [place] HOLDINGS IAL HOLDINGS MICRO/AGA R DILUTJ CONTRACEP S4993 PENDELETO PENDELETO TIVE 3 N CO N CO [facility] C[facility] CENTER CONTROL ETONOGEST J7307 [facility] REL 3 [facility] CNTRACPT IMPL SYS INCL IMPL & SPL URINE 19891 [facility] 3 [facility] TEST VISUAL COLOR CMPRSN METHS RADIOLOGI 42822 CECE ZHAO C EXAM 3 [facility] CHEST 2 INC INC VIEWS FRONTAL&L ATERAL INSJ 43784 [facility] NON-BIODE 3 [facility] GRADABLE DRUG DELIVERY IMPLANT IADNA 54058 [facility] NEISSERIA 3 [facility] GONORRHOE AE DIRECT PROBE TQ URINLS 55004 [facility] DIP 3 [facility] STICK/TAB LET REAGNT NON-AUTO MICRSCPY CULTURE 36861 [facility] CHLAMYDIA 3 [facility] ANY SOURCE SCREENING 21921 FAMILY LASHAWN TEST 3 CARE R H ROUTE INSPECTOR [place] [address] SCH[facility]TER SCH[facility]TER ABDOMINAL 3 DUC DUC REAL TIME W/IMAGE LIMITED HOSPITAL 06630 KURAPATI KURAPATI DISCHARGE 3 TOM TOM DAY MANAGEMEN T > 30 MIN INITIAL 07682 [facility]AL [facility] 3 CARE/DAY 50 MINUTES SPINAL 03666 LUIS ENRIQUE HO LUIS ENRIQUE HO PUNCTURE [address] [place] [address] HOMERO HOMERO HEAD/BRAI 3 JET JET N W/[place] [address] WELLS SEA WELLS SEA ABDOMEN & 3 PELVIS W/CONTRAS T MATERIAL SMR PRIM 30117 COMBINED COMBINED SRC WET 3 PHYSICIAN PHYSIC[place] [address] CECE ZHAO TRANSVAGI 3 [facility] NAL INC INC SKIN TEST 56858 PENDELETO PENDELETO 3 N CO N CO [facility] C[facility] CENTER INTRADERM AL URINLS 22841 [facility] DIP 3 [facility] STICK/TAB LET REAGNT NON-AUTO MICRSCPY REMOVAL 88563 [facility] IMPLANTAB 3 [place] [address] DOERGER DOERGER HEAD/BRAI 3 KIR KIR N W/O CONTRAST MATERIAL XTRNL ECG 92715 LEVIN ZAIN LEVIN ZAIN 3 CONTINUOU S RHYTHM W/I&R UP TO 48 H[address]TR[address] & 48 HR 3 [facility] ECHO [address] TTHRC R-T [address] MEDICAL W/WOM-MOD CENTER CENTER E COMPL SPEC&COLR D EXTERNAL [address] ECG 3 [facility] ANALYSIS CENTER CENTER REPORT ECG 95462 CECE ZHAO ROUTINE 3 [facility] ECG INC INC W/LEAST 12 LDS TRCG ONLY W/O I&[place] [address] CECE ZHAO TROPONIN 3 [facility] QUANTITAT INC INC NATHAN RHYTHM 35006 CECE ZHAO ECG 1-3 3 [facility] LEADS INC INC TRACING ONLY W/O I&R ECG 77474 CECE MCKEMIE ROUTINE 3 [facility] W/LEAST P 12 LDS I&R ONLY BLOOD 06260 CECE ZHAO COUNT 3 [facility] COMPLETE INC INC AUTO&AUTO DIFRNTL WBC COMPREHEN 57933 CECE Z[facility]O SIVE 3 [facility] METABOLIC INC INC PANEL URNLS DIP 79850 CECE ZHAO 3 [facility] STICK/TAB INC INC LET REAGENT AUTO MICROSCOP Y RADIOLOGI 62617 CECE ZHAO C EXAM 3 [facility] CHEST 2 INC INC VIEWS FRONTAL&L ATERAL FIBRIN 97714 CECE Z[facility]O DGRADJ 3 [facility] PRODUCTS INC INC D-DIMER QUAL/SEMI CINDY CREATINE 40128 CECE [facility] KINASE 3 [facility] TOTAL INC INC CREATINE 97663 CECE ZHAO KINASE MB 3 [facility] FRACTION INC INC ONLY URNLS DIP 77395 BRANDY Zayas 3 G G STICK/TAB LET RGNT NON-AUTO W/[place] [address] [facility] THYROID 3 DIAGNOSTI DIAGNOSTI STIMULATI CS CS NG HORMONE TSH BLOOD 83353 BRANDY Zayas COUNT 3 G G COMPLETE AUTO&AUTO DIFRNTL WBC THYROID 75098 [facility] HORM 3 DIAGNOSTI DIAGNOSTI UPTK/THYR CS CS [place] [address] [facility] THYROXINE 3 DIAGNOSTI DIAGNOSTI TOTAL CS CS INJECTION J1885 PRABHJOT RICK PRA 3 KETOROLAC TROMETHAM INE PER 15 MG THERAPEUT 59901 PRABHJOT SMITH IC 3 PROPHYLAC TIC/DX INJECTION SUBQ/IM ECG 60299 RICK PRA RICK PRA ROUTINE 3 ECG W/LEAST 12 LDS W/I&R RADIOLOGI 72780 LIZA [place] EXAM 3 BRA BRA CHEST 2 VIEWS FRONTAL&L ATERAL IMMUNOASS 36558 CECE ZHAO AY TUMOR 3 [facility] ANTIGEN INC INC QUANTITAT NATHAN GONADOTRO 07126 CECE ZHAO PIN 3 [facility] CHORIONIC INC INC QUALITATI VE LAPAROSCO 91328 [facility] PY 3 [facility] W/LYSIS OF ADHESIONS LAPS SURG 71050 CECE ZHAO W/ASPIR 3 [facility] CAVITY/CY INC INC ST SINGLE/MU LTIPLE BLOOD 25921 CECE ZHAO COUNT 3 [facility] COMPLETE INC INC AUTO&[place] [address] [facility] TRANSVAGI 3 [facility] NAL BLOOD 75638 LASHAWN LASHAWN COUNT 2 R H R H COMPLETE AUTO&[place] [address] TRANSVAGI 2 HAIDER HAIDER NAL MEDICALCE MEDICALCE NTER NTER [place] PELVIC [address] 2 HAIDER HAIDER NONOBSTET KARI MEDICALCE MEDICALCE REAL-TIME NTER NTER IMAGE COMPLETE URNLS DIP 28575 COLD RICK PRA 2 SPRING STICK/TAB URGENT LET RGNT CARE NON-AUTO W/O MICRSCP URINE 95163 COLD RICK PRA 2 SPRING TEST URGENT VISUAL CARE COLOR CMPRSN METHS URINLS 09172 [facility] DIP 2 [facility] STICK/TAB LET REAGNT NON-AUTO MICRSCPY IADNA 19348 [facility] NEISSERIA 2 [facility] GONORRHOE AE DIRECT PROBE TQ CULTURE 36043 [facility] CHLAMYDIA 2 [facility] ANY SOURCE BLOOD 95282 LASHAWN LASHAWN COUNT 2 R H R H COMPLETE AUTO&[place] [address] [facility] THYROXINE 2 DIAGNOSTI DIAGNOSTI TOTAL CS CS THYROID 49439 [facility] HORM 2 DIAGNOSTI DIAGNOSTI UPTK/THYR CS CS OID HORMONE BINDING RATIO COLLECTIO 94556 [facility] N VENOUS 2 R H R H BLOOD VENIPUNCT URE URNLS DIP 67969 [facility] 2 R H R H STICK/TAB LET RGNT NON-AUTO W/[place] [address] [facility] THYROID 2 DIAGNOSTI DIAGNOSTI STIMULATI CS CS NG HORMONE TSH COLPOSCOP 44036 FRANZ FRANZ Y VULVA 2 GABRIEL GABRIEL RADEX 94391 RADIOLOGY MATTHEW SPINE 2 TUS LUMBOSACR ASSOCIATE AL 2/3 S OF NOTH VIEWS RADEX 93944 RADIOLOGY MATTHEW SPINE 2 TUS THORACIC ASSOCIATE 3 VIEWS S OF NOTH ANTIBODY 17083 COMBINED COMBINED CHLAMYDIA 2 PHYSICIAN PHYSICIAN S LA S LA CUL BACT 75696 COMBINED COMBINED XCPT 2 PHYSICIAN PHYSICIAN URINE S LA S LA BLOOD/STO OL AEROBIC ISOL COLPOSCOP 46262 FRANZ FRANZ Y VULVA 2 GABRIEL GABRIEL CUL BACT 47885 [facility] STOOL 2 HAIDER HAIDER AEROBIC ISOL MEDICALCE MEDICALCE SALMONELL NTER NTER A&SHIGELL CUL BACT 21317 [facility] STOOL 2 AMA HAIDER AEROBIC ADDL MEDICALCE MEDICALCE PATHOGENS NTER NTER &ID EA LEUKOCYTE 06121 [facility] ASSMT 2 HAIDER HAIDER FECAL QUAL/SEMI MEDICALCE MEDICALCE QUANTITAT NTER NTER NATHAN CULTURE 67136 [facility] TYPING 2 AMA HAIDER IMMUNOLOG IC MEDICALCE MEDICALCE OTH/THN NTER NTER IMMUNOFLU ORES INF AGENT 04075 [facility]ID [facility]ICALCE MEDICALCE CLOSTRID[place] [address] [facility] SHIGA-LIK 2 [facility] E TOXIN MEDICALCE MEDICALCE NTER NTER SMR PRIM 24033 [facility] HARPEL SRC WET 2 [facility] AGT PCC IADNA 46033 BIO BIO CHLAMYDIA 2 REFERNCE REFERNCE LABORATOR LABORATOR TRACHOMAT IES IES IS AMPLIFIED PROBE TQ IADNA 25466 BIO BIO DIVINE 2 REFERNCE REFERNCE SPECIES LABORATOR LABORATOR AMPLIFIED IES IES PROBE TQ IADNA 50843 BIO BIO GARDNEREL 2 REFERNCE REFERNCE LA LABORATOR LABORATOR VAGINALIS IES IES AMPLIFIED PROBE TQ SMR PRIM 27583 [facility] SRC WET 2 [facility] NFCT AGT IADNA 52922 BIO BIO HERPES 2 REFERNCE REFERNCE SOMPLX LABORATOR LABORATOR VIRUS IES IES AMPLIFIED PROBE TQ IADNA NOS 03850 BIO BIO 2 REFERNCE REFERNCE AMPLIFIED LABORATOR LABORATOR PROBE TQ IES IES EACH ORGANISM IADNA 34249 BIO BIO NEISSERIA 2 REFERNCE REFERNCE LABORATOR LABORATOR GONORRHOE IES IES AE AMPLIFIED PROBE TQ BLOOD 04009 FAMILY FAMILY COUNT 2 CARE CARE COMPLETE ASSOCIATE ASSOCIATE AUTO&AUTO S S DIFRNTL WBC THERAPEUT 82866 [facility]CE [facility]O IC 2 [facility] PROPHYLAC INC INC TIC/DX INJECTION SUBQ/IM BLOOD 18265 LASHAWN LASHAWN COUNT 2 R H R H COMPLETE AUTO&AUTO DIFRNTL WBC URNLS DIP 75404 LASHAWN LASHAWN 2 R H R H STICK/TAB LET RGNT NON-AUTO W/O MICRSCP URNLS DIP 50854 LASHAWN LASHAWN 1 R H R H STICK/TAB LET RGNT NON-AUTO W/O MICRSCP IADNA 99657 BIO BIO NEISSERIA 1 REFERNCE REFERNCE LABORATOR LABORATOR GONORRHOE IES IES AE AMPLIFIED PROBE TQ IADNA NOS 57282 BIO BIO 1 REFERNCE REFERNCE AMPLIFIED LABORATOR LABORATOR PROBE TQ IES IES EACH ORGANISM CYTP C/V 96313 BIO BIO AUTO THIN 1 REFERNCE REFERNCE LYR LABORATOR LABORATOR PREPJ SCR IES IES MNL RESCR PHYS IADNA 98071 BIO BIO CHLAMYDIA 1 REFERNCE REFERNCE LABORATOR LABORATOR TRACHOMAT IES IES IS AMPLIFIED PROBE TQ THERAPEUT 29876 [facility] IC PX 1/> 1 [facility] JET AREAS TIC EACH 15 CENTER MIN EXERCISES [facility] 47637 [facility] TIC 1 [facility] JET MANIPULAT TIC [place] CENTER SPINAL 3-4 [place] [address] [facility] 1/> AREAS 1 [facility] JET EACH 15 TIC [place] [address] [facility] 1/> AREAS 1 [facility] JET EACH 15 TIC MINUTES CENTER MASSAGE APPL 74388 [facility] MODALITY 1 [facility] JET 1/> AREAS [place] [address] [facility] 1/> AREAS 1 [facility] JET EACH 15 [place] [address] [facility] 1/> AREAS 1 [facility] JET EACH 15 TIC MIN CENTER NEUROMUSC REEDUCA CHIROP[facility]AC 82604 [facility] TIC 1 [facility] JET MANIPULAT TIC [place] CENTER SPINAL 3-[address] SPINE 1 [facility] LUMBOSACR INGA INGA AL 2/[address] SPINE 1 [facility] THORACIC INGA INGA 3 [place] [address] [facility] FREE 1 [facility] THYROXINE [place] [address] [facility] THYROID 1 [facility] STIMULATI NG MEDICALCE MEDICALCE HORMONE NTER NTER TSH BLOOD 61551 [facility] COUNT 1 [facility] COMPLETE AUTO&AUTO MEDICALCE MEDICALCE DIFRNTL NTER NTER WBC BASIC 42601 [facility] METABOLIC 1 [facility] PANEL CALCIUM MEDICALCE MEDICALCE TOTAL NTER NTER BLOOD 07359 FAMILY MULBERRY COUNT 1 CARE ALEX COMPLETE ASSOCIATE AUTO&[place] [address] [facility] OF [facility] THYROID 1 [facility] [place] [address] [facility] FOLIC 1 [facility] ACID SERUM CYANOCOBA 07789 [facility] EMELY 1 [facility] VITAMIN B-12 25 98855 [facility] HYDROXY 1 DIAGNOSTI DIAGNOSTI INCLUDES CS CS FRACTIONS INCORPORA INCORPORA IF T T PERFORMED COMPREHEN 75565 [facility] SIVE 1 [facility] METABOLIC PANEL SUSCEPTIB 60623 [facility] LTY STDY 1 [facility] ANTIMICRB IAL MICRO/AGA R DILUTJ CUL BACT 50072 [facility] AEROBIC 1 [facility] ADDL METHS DEFINITIV E EA ISOL CULTURE 03058 [facility] BACTERIAL 1 [facility] QUANTTATI VE COLONY COUNT URINE CULTURE 51325 [facility] BCT 1 [facility] ISOL&PRSM PTV ID ISOLATE EA URINE ETONOGEST J7307 [facility] REL 1 [facility] CNTRACPT CLINIC OF IMPL SYS MONO INCL IMPL & SPL INSERTION 83468 [facility] 1 [facility] IMPLANTAB CLINIC OF LE MONO CONTRACEP TIVE CAPSULES URINE 69775 [facility] 1 [facility] TEST CLINIC OF VISUAL MONO COLOR CMPRSN METHS REMOVAL 93881 [facility] INTRAUTER 1 [facility] [place] [address] [facility] TRANSVAGI 1 [facility] NAL [facility]IN[facility] OF MONO INSERTION 98198 [facility] 1 [facility] INTRAUTER CLINIC OF INE MONO DEVICE IUD LEVONORGE J7302 W[facility] STREL-RLS 1 [facility] E CLINIC OF INTRAUTER MONO N CNTRACPT 52 MG URINE 99221 [facility] 1 [facility] TEST [facility]IN[facility] OF VISUAL MONO COLOR CMPRSN METHS CULTURE 83198 [facility] BACTERIAL 1 [place] [facility] [place] INC QUANTTATI VE COLONY COUNT URINE BLOOD 19666 FAMILY FAMILY COUNT 0 CARE CARE COMPLETE ASSOCIATE ASSOCIATE AUTO&AUTO S S DIFRNTL WBC HEPATBL 72389 [facility]CE [facility] DUX SYS 0 [facility] IMG INC INC GLBLDR APPL 96596 [facility] MODALITY 0 [facility] JET 1/> AREAS TIC ELEC CENTER STIMJ UNATTENDE D THERAPEUT 53607 [facility] IC PX 1/> 0 [facility] JET AREAS TIC EACH 15 CENTER MIN EXERCISES CHIROPRAC 02134 [facility] TIC 0 [facility] JET MANIPULAT TIC [place] [facility] SPINAL 3-4 [place] [address] [facility] 1/> AREAS 0 [facility] JET EACH 15 [place] [address] [facility] 1/> AREAS 0 [facility] JET EACH 15 TIC MINUTES CENTER MASSAGE CHIROPRAC 27254 [facility] TIC 0 [facility] JET MANIPULAT TIC [place] [facility] SPINAL 3-4 REGIONS THERAPEUT 85106 [facility] IC PX 1/> 0 [facility] JET AREAS TIC EACH 15 CENTER MIN EXERCISES APPLICATI 73799 [facility] ON 0 [facility] JET MODALITY TIC 1/> AREAS CENTER HOT/COLD PACKS APPL 08903 [facility] MODALITY 0 [facility] JET 1/> AREAS TIC [place] [address] CECE [facility] ABDOMINAL 0 [facility] REAL INC INC TIME W/IMAGE LIMITED BLOOD 59492 FAMILY BRANDY J COUNT 0 CARE COMPLETE ASSOCIATE AUTO&AUTO S DIFRNTL WBC TRANSFERA 67533 FAMILY BRANDY J SE 0 CARE ASPARTATE ASSOCIATE AMINO S AST SGOT TRANSFERA 89808 FAMILY FAMILY SE 0 CARE CARE ALANINE ASSOCIATE ASSOCIATE AMINO ALT S S SGPT CIRCUMCIS 65713 FAMILY MULBERRY ION 0 CARE ALEX W/CLAMP/O ASSOCIATE TH DEV S W/BLOCK [facility] 85529 [facility] HARPEL DISCHARGE 0 PHYSICIAN [place] DAY GROUP MANAGEMEN PCC T 30 MIN/< SBSQ 86898 [facility] 0 PHYSICIAN [facility] CARE/DAY GROUP 35 PCC MINUTES SUBQ 82516 [facility] 0 CARE CARE CARE PER ASSOCIATE ASSOCIATE DAY E/M S S NORMAL VAGINAL 20903 [facility] DELIVERY 0 PHYSICIAN [place] ONLY GROUP PCC NEURAXIAL [address] [facility] LABOR 0 ANESTH ANALG/ANE OF THE S [facility] [place] [facility] 42821 [facility] DISCHARGE 0 CARE ALEX DAY ASSOCIATE MANAGEMEN S T 30 MIN/< LOW 721 [facility] FORCEPS 0 [facility] OPERATION INC INC WITH EPISIOTOM Y [address]221 [facility] NONSTRESS 0 [facility] [place] TEST GROUP PCC 41558 [facility] NONSTRESS 0 [facility] TEST INC INC BLOOD 60516 [facility] COUNT 0 CARE CARE COMPLETE ASSOCIATE ASSOCIATE AUTO&AUTO S S DIFRNTL WBC PARTICLE 95939 [facility] AGGLUTINA 0 [facility] TION INC INC SCREEN EACH ANTIBODY BLOOD 51829 [facility] COUNT 0 [facility] HEMATOCRI INC INC T URNLS DIP 12406 [facility] STICK/TAB INC INC LET REAGENT AUTO MICROSCOP Y BLOOD 11632 [facility] COUNT 0 [facility] HEMOGLOBI INC INC N GLUC BLD 26036 [facility] GLUC MNTR 0 [facility] DEV INC INC CLEARED FDA SPEC HOME USE 47742 [facility] NONSTRESS 0 [facility] TEST INC INC OBSERVATI 00550 [facility] ON/INPATI 0 [facility] [place] [facility] PCC CARE 55 MINUTES SMR PRIM 75100 [facility] SRC WET 0 [facility] [place] [facility] NFCT AGT PCC CYTP C/V 66197 [facility] AUTO THIN 0 [facility] LYR PREPJ SCR MNL RESCR PHYS IADNA 52080 [facility] [place] 0 [facility] TRACHOMAT IS AMPLIFIED PROBE TQ IADNA 45840 [facility] [place] 0 [facility] GONORRHOE AE AMPLIFIED PROBE TQ IADNA 10051 SPECIALTY SPECIALTY HERPES 0 SOMPLX LABORATOR LABORATOR VIRUS IES INC IES INC AMPLIFIED PROBE TQ URNLS DIP 80152 [facility] STICK/TAB INC INC LET REAGENT AUTO MICROSCOP Y 22022 [facility] NONSTRESS 0 [facility] TEST INC INC OBSERVATI 03659 [facility] ON/INPATI 0 [facility] [place] [facility] PCC CARE 55 MINUTES SMR PRIM 06350 [facility] SRC WET 0 [facility] [place] [facility] NFCT AGT PCC GLUCOSE 24273 [facility] POST 0 [facility] GLUCOSE INC INC DOSE BLOOD 13117 [facility] [place] [facility] 0 [facility] COMPLETE INC INC AUTO&AUTO DIFRNTL WBC US PREG 61580 [facility] UTERUS 0 [facility] [place] AFTER 1ST [place] [address] [facility] 0 [facility] [place] UTERUS 14 GROUP WK PCC TRANSABDL GESTAT ALPHA-FET 26617 [facility] OPROTEIN 0 [facility] [place] [address] [facility] ESTRIOL 0 [facility] INC INC COLPOSCOP 80066 [facility] Y CERVIX 0 [facility] BX CERVIX GROUP & [place] [address]1814 [facility] UTERUS 0 PHYSICIAN PHYSICIAN REAL TIME GROUP GROUP W/IMAGE PCC PCC DCMTN TRANSVAG IADNA 62528 [facility] [place] 0 [facility] GONORRHOE AE AMPLIFIED PROBE TQ IADNA 16725 [facility] [place] 0 [facility] TRACHOMAT [place] [id number] [facility] NON-IMMUN 0 [place] [facility] INC OLOGIC OTH/THN CYTOPATHI C CYTP 23710 [facility] CERVICAL/ 0 VAGINAL [place] REQ LIS PC LIS PC INTERP PHYSICIAN IADNA NOS 23785 SPECIALTY SPECIALTY 0 AMPLIFIED LABORATOR LABORATOR PROBE TQ IES INC IES INC EACH ORGANISM MOLECULAR 38053 SPECIALTY SPECIALTY DX AMP 0 TARGET LABORATOR LABORATOR MULTIPLEX IES INC IES INC EA ADDL SEQ MOLEC 89937 SPECIALTY SPECIALTY SEP&ID HI 0 RESOLU LABORATOR LABORATOR TQ EACH IES INC IES INC NUCLEIC ACID PREP MOLECULAR 61123 SPECIALTY SPECIALTY DX AMP 0 TARGET LABORATOR LABORATOR MULTIPLEX IES INC IES INC 1ST 2 SEQ MOLECULAR 03643 SPECIALTY SPECIALTY 0 DIAGNOSTI LABORATOR LABORATOR CS IES INC IES INC INTERPRET ATION & REPORT MUTATION 32143 SPECIALTY SPECIALTY ID 0 ENZYMATIC LABORATOR LABORATOR IES INC IES INC LIG/PRIME R XTN 1 SGM EA MOLEC 82821 SPECIALTY SPECIALTY ISOL/XTRJ 0 HP LABORATOR LABORATOR NUCLEIC IES INC IES INC ACID EA TYPE MOLEC 68432 SPECIALTY SPECIALTY ENZYMATIC 0 LABORATOR LABORATOR DIGESTION IES INC IES [place] URINE 99421 PENDELETO PENDELETO 0 N CO N CO TEST [facility] COLOR CMPRSN METHS CULTURE 58710 [facility] TYPING 9 [place] INC IMMUNOLOG IC OTH/THN IMMUNOFLU ORES CULTURE 26543 [facility] BCT 9 [place] [facility] [employer] INC ISOL&PRSM PTV ID ISOLATE EA URINE CULTURE 43820 [facility] BACTERIAL 9 [place] [facility] QUANTTATI VE COLONY COUNT URINE CULTURE 70384 [facility] BCT 9 [facility] [place] [facility] ISOL&PRSM PTV ID ISOLATE EA URINE CULTURE 88392 [facility] BACTERIAL 9 [facility] QUANTTATI VE COLONY COUNT URINE CULTURE 27110 [facility] TYPING 9 [facility] INC IMMUNOLOG IC OTH/[place] [address] IRAM BUSH, 1/> AREAS 9 CHIROP[facility]AC MAURI P EACH 15 TIC MINUTES CENTER MASSAGE CHIROPRAC 48483 IRAM BUSH, TIC 9 CHIROPRA MAURI P MANIPULAT TIC [place] CENTER SPINAL 3-4 REGIONS FITTING 53583 QUINTEN SHIPLEY, SPECTACLE 9 [place] Coleman S XCPT APHAKIA MONOFOCAL SPHERE V2100 QUINTEN SHIPLEY, SINGLE 9 [place] Coleman [place] VISION PLANO +/- 4.00 PER LENS FRAMES V2020 QUINTEN SHIPLEY, PURCHASES 9 [place] ALEXANDRIA Coleman DETERMINA 54244 QUINTEN SHIPLEY TION 9 [place] ALEXANDRIA Coleman REFRACTIV E STATE OPHTH 66728 QUINTEN SHIPLEY, MEDICAL 9 [place] Coleman [place] XM&EVAL COMPRHNSV ESTAB PT 1/> COLLECTIO 42084 [facility] LASHAWN N VENOUS 9 [facility] BLOOD [place] [address] [facility] THYROID 9 [place] [facility] [place] [facility] STIMULATI NG HORMONE TSH URNLS DIP 79469 [facility] LASHAWN [facility] Rima MORSE STICK/TAB ASSOCIATE LET RGNT S NON-AUTO W/O MICRSCP CYTP C/V [address] AUTO THIN 9 HAIDER MALONEY LYR PREPJ SCR MEDICALCE MEDICALCE MNL NTER NTER RESCR PHYS IADNA 16224 [facility] CHLAMYDIA 9 [facility] TRACHOMAT BANK ACCT CENTER IS AMPLIFIED PROBE TQ ALL Q0112 [facility] [place] POTASSIUM 9 [facility] N [facility] HYDROXIDE BANK ACCT CENTER PREPARATI ONS WET Q0111 DHS/CO [place] CARI 9 HEALTH N CO INCL PREP [facility] VAGINAL BANK ACCT CENTER CERV/SKIN SPECIMENS URNLS DIP 86845 DHS/CO PENDELETO 9 HEALTH N CO STICK/TAB [facility] LET RGNT BANK ACCT CENTER NON-AUTO W/O MICRSCP URINE 54785 DHS/CO PENDELE[place] 9 HEALTH N CO TEST [facility] VISUAL BANK ACCT CENTER COLOR CMPRSN METHS IADNA 34107 [facility] [place] NEISSERIA 9 [facility]ALTH N [facility] GONORRHOE BANK ACCT CENTER AE AMPLIFIED PROBE TQ CHIROPRAC 33213 [place], TIC 9 CHIROPRAC MEGA MANIPLTV TIC TX CENTER EXTRASPIN AL 1/> REGION CHIROPRAC 52659 [place], TIC 9 CHIROPRAC MEGA MANIPULAT TIC [place] [facility] SPINAL 3-4 [place] [address] [place], 1/> AREAS 9 CHIROPRAC MEGA EACH 15 [place] [address] [place] CHINT[place], 1/> AREAS 9 CHIROPRAC MEAG EACH 15 TIC MINUTES CENTER MASSAGE CHIROPRAC 07442 [place], TIC 9 CHIROPRAC MEGA MANIPULAT TIC [place] CENTER SPINAL 3-4 REGIONS CHIROPRAC 06778 [place], TIC 9 CHIROPRAC MEGA MANIPULAT TIC [place] [facility] SPINAL 3-4 [place] [address] [place] CHINTAN, 1/> AREAS 9 CHIROPRAC MEGA EACH 15 TIC MINUTES CENTER MASSAGE THERAPEUT 32759 MEMOMORENE CHINTAN, IC PX 1/> 9 CHIROPRAC MEGA AREAS TIC EACH 15 CENTER MIN EXERCISES THERAPEUT 61943 [place] CHINT[place], IC PX 1/> 8 CHIROPRAC MEGA AREAS TIC EACH 15 CENTER MIN EXERCISES APPLICATI 00356 IRAM CHINTAN, ON 8 CHIROPRAC MEGA MODALITY TIC 1/> AREAS CENTER HOT/COLD PACKS CHIROPRAC 98908 [place], TIC 8 CHIROPRAC MEGA MANIPULAT TIC [place] [facility] SPINAL 3-4 REGIONS MANUAL 95667 IRAM CHINTAN, THERAPY 8 CHIROPRAC MEGA TQS 1/> TIC REGIONS CENTER EACH 15 MINUTES APPL 78751 [place] CHINT[place], MODALITY 8 CHIROPRAC MEGA 1/> AREAS TIC ELEC CENTER STIMJ UNATTENDE D APPL 28668 IRAM CHINTAN, MODALITY 8 CHIROPRAC MEGA 1/> AREAS TIC ELEC CENTER STIMJ UNATTENDE D CHIROPRAC 73334 IRAM CHINTAN, TIC 8 CHIROPRAC MEGA MANIPULAT TIC [place] [facility] SPINAL 3-4 REGIONS APPLICATI 78789 IRAM WOODSON, ON 8 CHIROPRAC MEGA MODALITY TIC 1/> AREAS CENTER HOT/[place] [address] IRAM CHINTAN, 1/> AREAS 8 CHIROPRAC MEGA EACH 15 TIC MINUTES CENTER MASSAGE THERAPEUT 52768 AUDREYUTH CHINTAN, IC PX 1/> 8 CHIROPRAC MEGA AREAS TIC EACH 15 CENTER MIN EXERCISES THERAPEUT 09589 IRAM CHINTAN, IC PX 1/> 8 CHIROPRAC MEGA AREAS TIC EACH 15 CENTER MIN EXERCISES APPLICATI 21062 IRAM WOODSON, ON 8 CHIROPRAC MEGA MODALITY TIC 1/> AREAS CENTER H[place] [address] IRAM CHINTAN, 1/> AREAS 8 CHIROPRAC MGEA EACH 15 TIC MINUTES CENTER MASSAGE CHIROPRAC 78061 IRAM WOODSON, TIC 8 CHIROPRAC MEGA MANIPULAT TIC [place] CENTER SPINAL 3-4 REGIONS APPL 55742 IRAM CHINTAN, MODALITY 8 CHIROPRAC MEGA 1/> AREAS TIC ELEC CENTER STIMJ UNATTENDE D APPL 61902 IRAM CHINTAN, MODALITY 8 CHIROPRAC MEGA 1/> AREAS TIC ELEC CENTER STIMJ UNATTENDE D CHIROPRAC 59308 IRAM CHINTAN, TIC 8 CHIROPRAC MEGA MANIPULAT TIC [place] [facility] SPINAL 3-[place] [address] AUDREYUTH CHINTAN, 1/> AREAS 8 CHIROPRAC MEGA EACH 15 TIC MINUTES CENTER MASSAGE APPLICATI 67255 IRAM WOODSON, ON 8 CHIROPRAC MEGA MODALITY TIC 1/> AREAS CENTER HOT/COLD PACKS THERAPEUT 89847 IRAM CHINTAN, IC PX 1/> 8 CHIROPRAC MEGA AREAS TIC EACH [place] [address] FALM[place]TH CHINTAN, 1/> AREAS 8 CHIROPRAC MEGA EACH 15 TIC MINUTES CENTER MASSAGE APPL 73674 F[place]TH CHINTAN, MODALITY 8 CHIROPRAC MEGA 1/> AREAS TIC ELEC CENTER STIMJ UNATTENDE D APPL 95982 F[place] CHINTAN, MODALITY 8 CHIROPRAC MEGA 1/> AREAS TIC ELEC CENTER STIMJ UNATTENDE D THERAPEUT 19957 IRAM WOODSON, IC PX 1/> 8 CHIROPRAC MEGA AREAS TIC EACH [place] [address] [place] CHINTAN, 1/> AREAS 8 CHIROPRAC MEGA EACH 15 TIC MINUTES CENTER MASSAGE CHIROPRAC 40633 IRAM CHINTAN, TIC 8 CHIROPRAC MEGA MANIPULAT TIC [place] CENTER SPINAL 3-4 REGIONS APPLICATI 49894 IRAM WOODSON, ON 8 CHIROPRAC MEGA MODALITY TIC 1/> AREAS CENTER HOT/COLD PACKS APPLICATI 04739 [place] CHINTAN, ON 8 CHIROPRAC MEGA MODALITY TIC 1/> AREAS CENTER HOT/COLD PACKS THERAPEUT 81271 IRAM WOODSON, IC PX 1/> 8 CHIROPRAC MEGA AREAS TIC EACH 15 CENTER MIN EXERCISES CHIROPRAC 95227 IRAM CHINTAN, TIC 8 CHIROPRAC MEGA MANIPULAT TIC [place] [facility] SPINAL 3-[address] [place] [address] IRAM CHINTAN, 1/> AREAS 8 CHIROPRAC MEGA EACH 15 TIC MINUTES CENTER MASSAGE APPLICATI 40551 IRAM CHINTAN, ON 8 CHIROPRAC MEGA MODALITY TIC 1/> AREAS CENTER HOT/COLD PACKS THERAPEUT 00073 IRAM WOODSON, IC PX 1/> 8 CHIROPRAC MEGA AREAS TIC EACH 15 CENTER MIN EXERCISES CHIROPRAC 06410 IRAM CHINTAN, TIC 8 CHIROPRAC MEGA MANIPULAT TIC [place] CENTER SPINAL 3-4 REGIONS APPL 98414 MEMOMORENE CHINTAN, MODALITY 8 CHIROPRAC MEGA 1/> AREAS TIC ELEC CENTER STIMJ UNATTENDE D APPL 49960 IRAM WOODSON, MODALITY 8 CHIROPRAC MEGA 1/> AREAS TIC ELEC CENTER STIMJ UNATTENDE D CHIROPRAC 02045 IRAM CHINTAN, TIC 8 CHIROPRAC MEGA MANIPULAT TIC [place] [facility]ENTER SPINAL 3-[place] [address] IRAM CHINTAN, 1/> AREAS 8 CHIROPRAC MEGA EACH 15 TIC MINUTES CENTER MASSAGE APPLICATI 03856 IRAM WOODSON, ON 8 CHIROPRAC MEGA MODALITY TIC 1/> AREAS CENTER HOT/COLD PACKS THERAPEUT 45250 IRAM WOODSON, IC PX 1/> 8 CHIROPRAC MEGA AREAS TIC EACH [place] [address] IRAM CHINTAN, 1/> AREAS 8 CHIROPRAC MEGA EACH 15 TIC MIN CENTER NEUROMUSC REEDUCA THERAPEUT 67428 IRAM WOODSON, IC PX 1/> 8 CHIROPRAC MEGA AREAS TIC EACH 15 CENTER MIN EXERCISES APPLICATI 57231 IRAM WOODSON, ON 8 CHIROPRAC MEGA MODALITY TIC 1/> AREAS CENTER HOT/COLD PACKS CHIROPRAC 68760 IRAM WOODSON, TIC 8 CHIROPRAC MEGA MANIPULAT TIC [place] CENTER SPINAL 3-4 REGIONS APPL 50536 IRAM WOODSON, MODALITY 8 CHIROPRAC MEGA 1/> AREAS TIC ELEC CENTER STIMJ UNATTENDE D APPL 51253 IRAM CHINTAN, MODALITY 8 CHIROPRAC MEGA 1/> AREAS TIC ELEC CENTER STIMJ UNATTENDE D CHIROPRAC 98817 IRAM WOODSON, TIC 8 CHIROPRAC MEGA MANIPULAT TIC [place] CENTER SPINAL 3-4 REGIONS THERAPEUT 49225 IRAM WOODSON, IC PX 1/> 8 CHIROPRAC MEGA AREAS TIC EACH [place] [address] IRAM WOODSON, 1/> AREAS 8 CHIROPRAC MEGA EACH 15 TIC MINUTES CENTER MASSAGE APPLICATI 45396 IRAM WOODSON, ON 8 CHIROPRAC MEGA MODALITY TIC 1/> AREAS CENTER HOT/COLD PACKS APPLICATI 39431 IRAM WOODSON, ON 8 CHIROPRAC MEGA MODALITY TIC 1/> AREAS CENTER HOT/COLD PACKS THERAPEUT 43153 IRAM WOODSON, IC PX 1/> 8 CHIROPRAC MEGA AREAS TIC EACH [place] [address] FALSANDRAUTH CHINTAN, 1/> AREAS 8 CHIROPRAC MEGA EACH 15 TIC MINUTES CENTER MASSAGE CHIROPRAC 41959 IRAM CHINTAN, TIC 8 CHIROPRAC MEGA MANIPULAT TIC [place] CENTER SPINAL 3-4 REGIONS APPL 82981 IRAM CHINTAN, MODALITY 8 CHIROPRAC MEGA 1/> AREAS TIC ELEC CENTER STIMJ UNATTENDE D APPL 13016 AUDREYUTH CHINTAN, MODALITY 8 CHIROPRAC MEGA 1/> AREAS TIC ELEC CENTER STIMJ UNATTENDE D CHIROPRAC 41299 IRAM CHINTAN, TIC 8 CHIROPRAC MEGA MANIPULAT TIC [place] [facility] SPINAL 3-[place] [address] IRAM CHINTAN, 1/> AREAS 8 CHIROPRAC MEGA EACH 15 TIC MINUTES CENTER MASSAGE THERAPEUT 27312 IRAM WOODSON, IC PX 1/> 8 CHIROPRAC MEGA AREAS TIC EACH 15 CENTER MIN EXERCISES APPLICATI 33286 IRAM WOODSON, ON 8 CHIROPRAC MEGA MODALITY TIC 1/> AREAS CENTER HOT/COLD PACKS IAADIADOO 19279 [facility]ARE Rima MORSE STREPTOCO ASSOCIATE CCUS S GROUP A PRESSURIZ 38163 CECE ZHAO ED/NONPRE 8 [facility] SSURIZED INC INC INHALATIO N TREATMENT RADIOLOGI 35081 CECE ZHAO C EXAM 8 [facility] CHEST 2 INC INC VIEWS FRONTAL&L ATERAL IAADIADOO 02611 [facility] LASHAWN, 8 CARE Rima MORSE STREPTOCO ASSOCIATE CCUS S GROUP A IAADIADOO 62910 [facility], 8 CARE Rima MORSE STREPTOCO ASSOCIATE CCUS S GROUP A CYTP 35388 [facility], CERV/VAG 8 TX INC JULIAN E AUTO THIN LAYER PREP MNL SCREEN BLOOD 55489 [facility] COUNT 8 [facility] [place] [address] [facility] TESTOSTER 8 [facility] ONE TOTAL DEHYDROEP 17297 [facility] IANDROSTE 8 [facility] MO-SULF ATE BLOOD 60873 [facility] COUNT 8 [facility] SMEAR MCRSCP W/MNL DIFRNTL WBC COUNT GONADOTRO 38498 [facility] PIN [address] [place] [address] FOLLICLE STIMULATI NG HORMONE COLLECTIO 00905 FAMILY LASHAWN, N VENOUS [address] [place] [address] BLOOD ASSOCIATE VENIPUNCT S URE GONADOTRO 36358 [facility] PIN [address] [place] [address] [place] [address] [facility] THYROID [address] [place] [address] STIMULATI NG HORMONE TSH Encounters Encounter Start End Date Code Location Performer Type Date EMERGENCY 46121 BRITNEY BURGOS [facility] 6 6 PHYSICIAN DEPARTMEN S, PLLC T VISIT HIGH/URGE NT SEVERITY EMERGENCY 91254 CECE 6 6 [facility] DEPARTMEN INC T VISIT LOW/MODER SEVERITY HOSPITAL CECE - 6 6 [facility] OUTPATIEN INC T OFFICE 38074 [facility] OUTPATIEN 6 6 HAIDER NIESHA T VISIT 15 PHYSICIAN MINUTES S OFFICE 57083 [facility] PRESSLER OUTPATIEN 6 6 [place] ANGUS T VISIT URGENT 15 CARE MINUTES OFFICE 96978 [facility] PRESSLER OUTPATIEN 6 6 [place] ANGUS T VISIT URGENT 25 CARE MINUTES HOSPITAL [facility] 5 5 HAIDER OUTPATIEN [facility] ST 5 5 HAIDER OUTPATIEN MED CTR T [facility] OFFICE 27477 IFTIKHAR [place] OUTPATIEN 5 5 [place] CHAWLA T VISIT 15 MINUTES OFFICE 18132 IFTIKHAR [place] OUTPATIEN 5 5 [facility] CH[place]LA T VISIT 15 MINUTES EMERGENCY 23280 BRITNEY HERRERA 5 5 PHYSICIAN U NATA [facility], PLL[facility] T VISIT HIGH/URGE NT SEVERITY HOSPITAL CECE - 5 5 [facility] OUTPATIEN INC T EMERGENCY 01368 CECE 5 5 [facility] DEPARTMEN INC T VISIT MODERATE SEVERITY HOSPITAL ST - 5 5 [facility]ER OUTPATIEN MED CTR T [facility] OFFICE [address] [facility] [place] OUTPATIEN 5 5 HAIDER EMILIA T VISIT [address] [facility] - 5 5 HAIDER OUTPATIEN FT T [facility] EMERGENCY 61443 [facility] DEPT 5 5 EMERGENCY VISIT HIGH PHYSICIAN SEVERITY& S THREAT [facility] ST - 5 5 HAIDER OUTPATIEN MED [facility] CECE - 5 5 [facility] OUTPATIEN INC T EMERGENCY 69054 BRITNEY SANCHES DEPT 5 5 PHYSICIAN NIESHA VISIT S, PLLC HIGH SEVERITY& THREAT [facility] EMERGENCY 73168 CECE 5 5 MEM HOS[facility] DEPARTMEN INC T VISIT MODERATE SEVERITY OFFICE 33301 ST TARA OUTPATIEN 5 5 HAIDER JET T VISIT 15 PHYSICIAN MINUTES OFFICE [address]508 ST JUSTIN OUTPATIEN 5 5 HAIDER NIESHA T VISIT [address] [facility] ST - 5 5 HAIDER OUTPATIEN MED [facility] T [facility] ST - 5 5 HAIDER OUTPATIEN MED CTR T [facility] 01280 IFTIKHAR HORTON PREVENTIV 5 5 [place] E MED EST PATIENT 18-[address] [facility] - 5 5 HAIDER OUTPATIEN MED CTR T AUTOMOBILE TECHNICIAN ST OFFICE [address] [facility] SANDERS OUTPATIEN 5 5 HAIDER ANASTASIA CARMEN T VISIT [address] [facility] ST - 5 5 HAIDER OUTPATIEN MED CTR T AUTOMOBILE TECHNICIAN ST EMERGENCY 27973 COMPASS DANNEMAN 5 5 EMERGENCY HOL DEPARTMEN T VISIT PHYSICIAN HIGH/URGE S NT SEVERITY OFFICE 74588 ST OUTPATIEN 5 5 HAIDER T VISIT 15 PHYSICIAN MINUTES S EMERGENCY 14151 [facility] CARLENE 5 5 EMERGENCY GUERRERO DEPARTMEN T VISIT PHYSICIAN MODERATE S SEVERITY [facility] ST - 5 5 HAIDER OUTPATIEN MED CTR T AUTOMOBILE TECHNICIAN ST OFFICE 68197 ST JUSTIN OUTPATIEN 5 5 HAIDER NIESHA T VISIT [address] [facility] - 5 5 HAIDER OUTPATIEN MED CTR T AUTOMOBILE TECHNICIAN ST OFFICE 41903 PENDELETO PENDELETO OUTPATIEN 5 5 N CO N CO T VISIT [place] [address] CENTER CENTER MINUTES EMERGENCY 96110 BRITNEY SANCHES DEPT 5 5 PHYSICIAN NIESHA VISIT S, PLLC HIGH SEVERITY& THREAT [facility] ST - 5 5 HAIDER OUTPATIEN MED CTR T AUTOMOBILE TECHNICIAN ST OFFICE 28339 HEAD & DOMET NIESHA OUTPATIEN 5 5 NECK T VISIT SURGERY [address] [facility] [address] - 5 5 HAIDER OUTPATIEN MED CTR T AUTOMOBILE TECHNICIAN ST OFFICE 02023 ST TARA OUTPATIEN 5 5 HAIDER JET T VISIT [address] [facility] - 5 5 [facility] - 5 5 HAIDER OUTPATIEN MED CTR T AUTOMOBILE TECHNICIAN EMERGENCY 63107 CECE 5 5 [facility] V[facility]/M INOR PROB EMERGENCY 24321 BRITNEY FLORES 5 5 PHYSICIAN [facility] S, [facility] T VISIT HIGH/URGE NT SEVERITY HOSPITAL CECE - 5 5 [facility] 78105 FAMILY KEAGLE OUTPATIEN 5 5 CARE RIT T VISIT ASSOCIATE 15 S MINUTES OFFICE 29391 [facility] 5 5 SPRING T VISIT URGENT [facility] - 5 5 [facility] MARCELLUS T OFFICE 85186 FAMILY KEAGLE OUTPATIEN 5 5 CARE RIT T VISIT ASSOCIATE [address]ES [address] [facility] 5 5 HAIDER JET T VISIT [address] [facility] - 5 5 HAIDER OUTPATIEN MED CTR T AUTOMOBILE TECHNICIAN OFFICE 17508 FAMILY KEAGLE OUTPATIEN 4 4 CARE RIT T VISIT ASSOCIATE 15 S MINUTES OFFICE 11204 FAMILY KEAGLE OUTPATIEN 4 4 CARE RIT T VISIT ASSOCIATE 15 S MINUTES OFFICE 52721 FAMILY KEAGLE OUTPATIEN 4 4 CARE RIT T VISIT ASSOCIATE 15 S MINUTES OFFICE 85315 FAMILY MULBERRY OUTPATIEN 4 4 CARE ALEX T VISIT ASSOCIATE 15 S MINUTES OFFICE 51887 FAMILY KEAGLE OUTPATIEN 4 4 CARE RIT T VISIT ASSOCIATE 15 S MINUTES OFFICE 01153 GEORGES SU OUTPATIEN 4 4 MARQUES MARQUES T NEW 30 MINUTES OFFICE 33846 IFTIKHAR [place] OUTPATIEN 4 4 [place] T VISIT [address] - 4 4 HAIDER OUTPATIEN MED CTR T [facility] ST - 4 4 HAIDER OUTPATIEN MED CTR T [facility] ST OFFICE 56202 EMERITA FELDER OUTPATIEN 4 4 RIT RIT T VISIT [address] - 4 4 HAIDER OUTPATIEN MED CTR T [facility] ST OFFICE 01132 TARA PACHECO OUTPATIEN 4 4 JET JET T VISIT [address] - 4 4 HAIDER OUTPATIEN INGA T OFFICE 78140 EMERITA FELDER OUTPATIEN 4 4 RIT RIT T VISIT 15 MINUTES EMERGENCY 70598 LIZA DE JESUS DEPT 4 4 ALEX ALEX VISIT HIGH SEVERITY& THREAT FUNCJ EMERGENCY 49182 SOKAN BAB SOKAN BAB 4 4 DEPARTMEN T VISIT MODERATE SEVERITY OFFICE 99243 TARA BRANTLEYPATICONCEPCION 4 4 JET JET T NEW [address] - 4 4 HAIDER OUTPATIEN MED CTR T [facility] ST OFFICE 81145 LIZA DE JESUS OUTPATICONCEPCION 4 4 THE THE T VISIT 15 MINUTES OFFICE 76943 LIZA DE JESUS OUTPATIEN 4 4 THE THE T VISIT [address] - 4 4 HAIDER OUTPATIEN MED CTR T [facility] ST - 4 4 HAIDER OUTPATIEN MED CTR [facility] - 4 4 HAIDER OUTPATIEN MED CTR T [facility] ST OFFICE 94035 BRANDY Zayas OUTPATIEN 4 4 G G T VISIT [address] - 4 4 [facility]ER OUTPATIEN MED CTR T AUTOMOBILE TECHNICIAN ST Emergency TERA Sanches MD (ER) 4 22:10 4 22:39 [facility] EMERGENCY 63602 BUTCH SANCHES 4 4 EMERGENCY NIESHA DEPARTMEN SERVICES T VISIT MODERATE SEVERITY OFFICE 86788 IFTIKHAR RODASPEL OUTPATIEN 4 4 [place] T VISIT 15 MINUTES OFFICE 36880 HARPEL HARPEL OUTPATIEN 3 3 [place] T VISIT 10 MINUTES OFFICE 60266 PENDELETO PENDELETO OUTPATIEN 3 3 N CO N CO T VISIT [address] CECE - 3 3 [facility] OUTPATIEN INC T PERIODIC 15906 HARPEL HARPEL PREVENTIV 3 3 [place] E MED EST PATIENT 18-39 YRS PERIODIC 44566 FAMILY LASHAWN PREVENTIV 3 3 CARE R H E MED EST ASSOCIATE PATIENT S 18-39 YRS EMERGENCY 09998 LUIS ENRIQUE LEIGHANN LUIS ENRIQUE LAWTON DEPT 3 3 VISIT HIGH SEVERITY& THREAT FUN EMERGENCY 92732 NATALIE ESTRADA DEPT 3 3 May VISIT HIGH SEVERITY& THREAT FUNCJ EMERGENCY 39919 MEGA Durand 3 3 VILLARI VILLARI DEPARTMEN T VISIT MODERATE SEVERITY OFFICE 56299 FAMILY LASHAWN OUTPATIEN 3 3 CARE R H T VISIT ASSOCIATE 15 S MINUTES OFFICE 29247 MULBERRY MULBERRY OUTPATIEN 3 3 ALEX ALEX T VISIT 15 MINUTES OFFICE 72517 LASHAWN LASHAWN OUTPATIEN 3 3 R H R H T VISIT 15 MINUTES OFFICE 14867 LASHAWN LASHAWN OUTPATIEN 3 3 R H R H T VISIT 15 MINUTES HOSPITAL CECE - 3 3 [facility] OUTPATIEN INC T OFFICE 07350 HARPEL HARPEL OUTPATIEN 3 3 [place] T VISIT 15 MINUTES OFFICE 79988 PENDELETO PENDELETO OUTPATIEN 3 3 N CO N CO T VISIT [address] [facility] CENTER OFFICE 77493 PENDELETO PENDELETO OUTPATIEN 3 3 N CO N CO T VISIT [address] MINUTES OFFICE 48469 HARPEL HARPEL OUTPATIEN 3 3 [place] T VISIT 15 MINUTES OFFICE 63277 LASHAWN LASHAWN OUTPATIEN 3 3 R H R H T VISIT 15 MINUTES OFFICE 00171 LASHAWN LASHAWN OUTPATIEN 3 3 R H R H T VISIT 15 MINUTES OFFICE 86465 LASHAWN LASHAWN OUTPATIEN 3 3 R H R H T VISIT 15 MINUTES EMERGENCY 10002 RICHARDSO RICHARDSO 3 3 N KATIE N KATIE DEPARTMEN T VISIT HIGH/URGE NT SEVERITY OFFICE 43373 LASHAWN LASHAWN OUTPATIEN 3 3 R H R H T VISIT 15 MINUTES OFFICE 94248 LASHAWN LASHAWN OUTPATIEN 3 3 R H R H T VISIT 15 MINUTES EMERGENCY 86657 FRANCE HOUGH 3 3 REGINA TAPIA DEPARTMEN T VISIT MODERATE SEVERITY OFFICE 95479 GRILLOT GRILLOT OUTPATIEN 3 3 NAN NAN T NEW 30 MINUTES OFFICE 00159 BRANDY Zayas OUTPATIEN 3 3 G G T VISIT [address] - 3 3 HAIDER OUTPATIEN MEDICAL T CENTER OFFICE 88601 BRANDY Zayas OUTPATIEN 3 3 G G T VISIT 15 MINUTES Emergency TERA Sanches MD (ER) 3 21:28 3 22:41 [facility] CECE - 3 3 [facility] H[facility] OUTPATIEN INC T EMERGENCY 52638 SANTOS SANCHES DEPT 3 3 NIESHA NIESHA VISIT HIGH SEVERITY& THREAT FUNCJ EMERGENCY 44418 CECE 3 3 MEM HOS[facility] DEPARTMEN INC T VISIT MODERATE SEVERITY OFFICE 50004 BRANDY Zayas OUTPATIEN 3 3 G G T VISIT 25 MINUTES OFFICE 68606 PRABHJOT SMITH RICK PRA OUTPATIEN 3 3 T VISIT 15 MINUTES EMERGENCY 38251 GEERS RYA POOJARS RYA DEPT 3 3 VISIT HIGH SEVERITY& THREAT FUNCJ OFFICE 87226 LASHAWN LASHAWN OUTPATIEN 3 3 R H R H T VISIT 15 MINUTES HOSPITAL CECE - 3 3 [facility] OUTPATIEN INC T OFFICE 81499 HARPEL HARPEL OUTPATIEN 3 3 [place] T VISIT 15 MINUTES OFFICE 19177 [facility] OUTPATIEN 2 2 [place] T VISIT 15 MINUTES EMERGENCY 47104 LELA LELA 2 2 KRI KRI DEPARTMEN T VISIT HIGH/URGE NT SEVERITY [facility] ST - 2 2 [facility] OUTPATIEN T MEDICALCE NTER OFFICE 84749 LUIS RICK PRA OUTPATIEN 2 2 SPRING T VISIT URGENT 15 CARE MINUTES PERIODIC 41243 [facility] PREVENTIV 2 2 [place] E MED EST PATIENT 18-39 YRS OFFICE 53491 LASHAWN LASHAWN OUTPATIEN 2 2 R H R H T VISIT [address] [facility]STERLUND 2 2 [facility]ER MAR DEPARTMEN MED CTR T VISIT MODERATE SEVERITY OFFICE 53944 LASHAWN LASHAWN OUTPATIEN 2 2 R H R H T VISIT 25 MINUTES OFFICE 99178 LASHAWN LASHAWN OUTPATIEN 2 2 R H R H T VISIT 15 MINUTES OFFICE 88252 CONTI VIR CONTI VIR OUTPATIEN 2 2 T VISIT [address] - 2 2 [facility] OUTPATIEN INGA T OFFICE 70686 LASHAWN LASHAWN OUTPATIEN 2 2 R H R H T VISIT 15 MINUTES OFFICE 70681 LASHAWN LASHAWN OUTPATIEN 2 2 R H R H T VISIT 15 MINUTES EMERGENCY 73173 [facility] DEPT 2 2 III JAVI III JAVI VISIT HIGH SEVERITY& THREAT FUN EMERGENCY 75606 [facility] DEPT 2 2 EMERGENCY III JAVI VISIT SERVICES HIGH SEVERITY& THREAT [facility] ST - 2 2 HAIDER OUTPATIEN T MEDICALCE NTER OFFICE 61366 [facility] HARPEL OUTPATIEN 2 2 PHYSICIAN [place] T VISIT GROUP 15 PCC MINUTES OFFICE 00549 [facility] 2 2 HAIDER THO ION NEW/ESTAB PHYSICIAN PATIENT S 60 MIN OFFICE 49633 LASHAWN LASHAWN OUTPATIEN 2 2 R H R H T VISIT 15 MINUTES OFFICE 55413 [facility] HARPEL OUTPATIEN 2 2 [place] T VISIT 15 MINUTES OFFICE 76535 MULBERRY MULBERRY OUTPATIEN 2 2 ALEX ALEX T VISIT 15 MINUTES OFFICE 08526 FAMILY LASHAWN OUTPATIEN 2 2 CARE R H T VISIT ASSOCIATE 15 S MINUTES EMERGENCY 32155 [facility] KAITLYNNDUSTIN ALEJANDRA 2 2 EMERGENCY DEPARTMEN SERVICES T VISIT HIGH/URGE NT SEVERITY [facility]OSP[facility] - 2 2 [facility] OUTPATIEN INC T EMERGENCY 33808 [facility] 2 2 [facility] DEPARTMEN INC T VISIT MODERATE SEVERITY EMERGENCY 96595 [facility] 2 2 [facility] DEPARTMEN INC T VISIT LOW/MODER SEVERITY EMERGENCY 73368 [facility] 2 2 EMERGENCY [facility] DEPARTMEN SERVICES T VISIT MODERATE SEVERITY HOSPITAL CECE - 2 2 [facility] OUTPATIEN INC T OFFICE 18901 LASHAWN LASHAWN OUTPATIEN 2 2 R H R H T VISIT 15 MINUTES OFFICE 21216 LASHAWN LASHAWN OUTPATIEN 1 1 R H R H T VISIT 15 MINUTES [facility] 21305 [facility] HARPEL PREVENTIV 1 1 PHYSICIAN [place] E MED EST GROUP PATIENT PCC 18-39 YRS OFFICE 14788 FAMILY MULBERRY OUTPATIEN 1 1 CARE ALEX T VISIT ASSOCIATE 25 S MINUTES OFFICE 90189 [facility] OUTPATIEN 1 1 [facility]OP[facility] JET T VISIT TIC 15 CENTER MINUTES EMERGENCY 35526 [facility] 1 1 [facility] DEPARTMEN INC T VISIT LOW/MODER SEVERITY OFFICE 01948 ST CONTI VIR OUTPATIEN 1 1 HAIDER T VISIT [address] [facility] - 1 1 HAIDER OUTPATIEN INGA T EMERGENCY 27685 [facility] 1 1 EMERGENCY III JAVI DEPARTMEN SERVICES T VISIT MODERATE SEVERITY OFFICE 71637 FAMILY LASHAWN OUTPATIEN 1 1 CARE R H T VISIT ASSOCIATE 15 S MINUTES OFFICE 54611 FAMILY LASHAWN OUTPATIEN 1 1 CARE R H T VISIT ASSOCIATE [address]ES [address] 82640 [address] CONTI VIR OUTPATIEN 1 1 HAIDER T NEW 30 MINUTES [facility] - 1 1 HAIDER OUTPATIEN T MEDICALCE NTER OFFICE 65421 FAMILY MULBERRY OUTPATIEN 1 1 CARE ALEX T VISIT ASSOCIATE 25 S MINUTES OFFICE 31013 [facility] 1 1 [facility] T VISIT [facility]IN[facility] OF 15 MONO MINUTES OFFICE 15303 FAMILY LASHAWN OUTPATIEN 1 1 CARE R H T VISIT ASSOCIATE 15 S MINUTES OFFICE 37079 FAMILY MULBERRY OUTPATIEN 1 1 CARE ALEX T VISIT ASSOCIATE 15 S MINUTES OFFICE 83849 [facility] HAR[facility] OUTPATIEN 0 0 PHYSICIAN [place] T VISIT GROUP 15 PCC MINUTES OFFICE 45587 FAMILY LASHAWN OUTPATIEN 0 0 CARE R H T VISIT ASSOCIATE 15 S MINUTES OFFICE 61591 FAMILY LASHAWN OUTPATIEN 0 0 CARE R H T VISIT ASSOCIATE 15 S MINUTES [facility]OSPITAL CECE - 0 0 [facility]PATI[facility] T [facility]PITAL CECE - 0 0 [facility] OUTPATIEN INC T OFFICE 84706 [facility] OUTPATIEN 0 0 PHYSICIAN [place] T VISIT GROUP 15 PCC MINUTES OFFICE 75141 FAMILY BRANDY J OUTPATIEN 0 0 CARE T VISIT ASSOCIATE 25 S MINUTES OFFICE 65592 FAMILY MULBERRY OUTPATIEN 0 0 CARE ALEX T VISIT ASSOCIATE 15 S MINUTES OFFICE 36821 [facility] HAR[facility] OUTPATIEN 0 0 PHYSICIAN [place] T VISIT GROUP 15 PCC MINUTES HOSPITAL CECE - [facility] 57851 [facility] [place] OFF[facility] 53589 [facility] 0 [facility] [place] [facility] 15 [facility] MINUTES OFFICE 31746 [facility] OUTPATIEN 0 0 CARE R H T VISIT ASSOCIATE 15 S MINUTES OFFICE 73444 [facility] OUT[facility] 0 [facility] [place] [facility] 15 [facility] MINUT[facility] OFFICE 68383 [facility] OUT[facility] 0 [facility] [place] [facility] OFF[facility] 84665 [facility] OUT[facility] 0 [facility] [place] [facility] - [facility] 0 [facility] OFF[facility] 57551 [facility] OUT[facility] 0 0 [facility] [place] [facility] 15 [facility] MINUT[facility] OFFICE 35406 [facility] 0 [facility] [place] [facility] 15 [facility] MINUTES OFFICE 10708 [facility] 0 [facility] [place] [facility] - [facility] 0 [facility] 19827 [facility] [place] [facility] CE[facility] - 0 0 [facility] OFFICE 06208 [facility] OUTPATI[facility] 0 0 [facility] [place] [facility] MIN[facility] CE[facility] - 0 0 [facility] OFF[facility] 22942 [facility] OUTPATI[facility] 0 0 [facility] [place] [facility] 15 [facility] MINUT[facility] OFFICE 49161 [facility] OUTPATIEN 0 0 [facility] [place] [facility] 15 [facility] MINUTES OFFICE 38545 [facility] OUTPATI[facility] 0 0 [facility] [place] [facility] 15 [facility] MINUTES OFFICE 29674 [facility] OUTPATIEN 0 0 [facility] [place] [facility] 15 PCC MINUTES [facility] 44642 IFTIKHAR HORTON, PREVENTIV 0 0 [facility] MD IFTIKHAR Mathis [facility] NEW PT AGE 18-39YRS OFFICE 42633 [facility] OUTPATIEN 0 0 N CO N CO T VISIT [address] CENTER MINUTES OFFICE 13124 FAMILY [facility]ASHA[facility], OUTPATIEN 9 9 CARE R MINI T VISIT ASSOCIATE 15 S MINUTES OFFICE 57512 [facility], OUTPATIEN 9 9 CARE R MINI T VISIT ASSOCIATE 15 S MINUTES OFFICE 63647 [facility], OUTPATIEN 9 9 CARE R MINI T VISIT ASSOCIATE 25 S MINUTES OFFICE 52873 FAM[facility], OUTPATIEN 9 9 CARE R MINI T VISIT ASSOCIATE [address] - 9 9 [facility] OUT[facility]IEN T [facility] NTER OFFICE 74480 [facility] OUTPATIEN 9 9 HEALTH N CO T VISIT [address] CENTER MINUTES OFFICE 22712 FAMILY LASHAWN, OUTPATIEN 9 9 CARE R MINI T VISIT ASSOCIATE 15 S MINUTES OFFICE 60434 [facility], OUTPATIEN 9 9 CARE R MINI T VISIT ASSOCIATE 15 S MINUTES OFFICE 18295 FAM[facility], OUTPATIEN 8 8 CARE R MINI T VISIT ASSOCIATE 15 S MINUTES OFFICE 71957 [facility], OUTPATIEN 8 8 CARE R MINI T VISIT ASSOCIATE 15 S MINUTES OFFICE 69058 FALUTUTH CHINTAN, OUTPATIEN 8 8 [facility] T NEW 30 TIC MINUTES CENTER OFFICE 93338 FAMILY L[facility], OUTPATIEN 8 8 CARE R MINI T VISIT ASSOCIATE 15 S MINUTES OFFICE 29642 FAM[facility], OUTPATIEN 8 8 CARE R MINI T VISIT ASSOCIATE [address] [facility] CE[facility] - 8 8 [facility] OUT[facility] T EMERGENCY 52485 [facility] 8 8 [facility] DEPART[facility] T VISIT MODERATE SEVERITY OFFICE 63942 FAMILY [facility], OUTPATIEN 8 8 CARE R MINI T VISIT ASSOCIATE 15 S MINUTES OFFICE 03028 FAM[facility], OUTPATIEN 8 8 CARE R MINI T VISIT ASSOCIATE 15 S MINUTES PERIODIC 34707 FAMILY LASHAWN, PREVENTIV 8 8 CARE R MINI E MED EST ASSOCIATE PATIENT S 12-17YRS OFFICE 08987 FAM[facility], OUTPATIEN 8 8 CARE R MINI T VISIT ASSOCIATE 25 S MINUTES OFFICE 63375 FAMILY [facility], OUTPATIEN 8 8 CARE R MINI T VISIT ASSOCIATE 25 S MINUTES
--- OUTSIDE RECORDS SUMMARY | 2017-01-07 08:54 | External Medical Summary Rpt | CCD ---
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 Name Role Phone [facility] LELA KRI, Unavailable Unavailable LELA KRI [facility] Unavailable [facility]available [facility], [facility] JUAREZ ALL, JUAREZ ALL Unavailable Unavailable CHAPIN EMILIA, Unavailable Unavailable CHAPIN EMILIA RAMIREZ DON, RAMIREZ DON Unavailable Unavailable TARA JET, TARA Unavailable [...] Unavailable FIDEL JOSÉ MIGUEL [id number], Unavailable Unavailable [id number] DANNEMAN HOL, Unavailable Unavailable DANNEMAN HOL LEVIN [...] Unavailable ALEXANDRIA SHIPLEY, Unavailable Unavailable ALEXANDRIA SHIPLEY [facility] Un[facility] Unavailable [place], [facility] Unavailable Unavailable [facility]OC[facility]ATES, [facility] [...] Unavailable ASSOC, [facility] Unavailable Unavailable PCC, [facility]ENT Unavailable Unavailable ANESTHESIOLOGIST, [facility]HESIOLOG[facility] MEGA ZAMUDIO, Unavailable Unavailable MEGA ZAMUDIO KEAGLE RIT, KEAGLE Unavailable Unavailable RIT KEAGLE RIT, KEAGLE Unavailable Unavailable RIT BUBBA [facility], BUBBA Unavailable Unavailable [facility] Unavailable Unavailable IMAGING ASS, [facility] BOLTON NIV, BOLTON NIV Unavailable [...] [facility] [employer] [employer] [facility], Unavailable Unavailable [facility] [employer] SU MARQUES, SU Unavailable Unavailable MARQUES SU MARQUES, SU Unavailable Unavailable MARQUES LUBBERS PALMER, LUBBERS Unavailable Unavailable PALMER LUKING JET, LUKING Unavailable Unavailable JET Randy Sanches MD, Unavailable Unavailable Randy Sanches MD [facility] Unavailable Unavailable SERVICES, [facility] MCDANNOLD TER, Unavailable Unavailable MCDANNOLD [...] INC JULIAN COFFMAN, Unavailable Unavailable JULIAN COFFMAN [facility], Unavailable Unavailable [facility] Unavailable Unavailable [facility] , [facility] Unavailable Unavailable [place], [facility] Unavailable Unavailable [facility], [facility] Unavailable Unavailable PHYSICIANS, [facility] [place] Unavailable Unavailable PHYSICIANS EKG, [facility] Unavailable Unavailable MARCELLUS, . [facility], [facility]available [facility]available [facility], Unavailable Unavailable [facility] Unavailable Unavailable #5, [facility] RAMÍREZ EMILIA, RAMÍREZ Unavailable Unavailable EMILIA [facility] # Unavailable Unavailable [id number], [facility] # [id number] [facility] # Unavailable Unavailable [id number], [facility] # [id number] [facility] Unavailable Unavailable DEPT ADRIANNA, [facility] DEPT ADRIANNA [facility] Unavailable Unavailable [facility] WEHRMAN III JAVI, Unavailable Unavailable WEHRMAN III JAVI WEHRMAN III JAVI, Unavailable Unavailable WEHRMAN III JAVI [facility], [facility] Unavailable Unavailable [facility] Unavailable Unavailable [facility] [place], [facility] LUIS ENRIQUE HO, LUIS ENRIQUE HO Unavailable Unavailable LUIS ENRIQUE HO, LUIS ENRIQUE HO Unavailable Unavailable Purpose Continuity of Care Document - 04-25-2007 through 2016 Problems Code Diagnosis DOS Provider Status N390 URINARY 04-26-2015 [facility], INFECTION PLLC SITE NOT SPECIFIED [id number] ADVERS EFF 04-26-2015 [facility] OTH RX MEDS PHYSICIANS, BIO PLLC SUBSTANCES INIT ENC [id number] UNS ADVERS 04-26-2015 [facility] EFFECT [facility] [...] ACUTE 03-25-2015 ST PHARYNGITIS [facility] UNSPECIFIED ST R1011 RIGHT UPPER 03-03-2015 ST QUADRANT [facility] PAIN [facility] ST R102 PELVIC AND 03-03-2015 IFTIKHAR Abarca PERINEAL [place] PAIN N8320 UNSPECIFIED 02-27-2015 IFTIKHAR Abarca OVARIAN [place] CYSTS N200 CALCULUS OF 02-26-2015 [facility] R1030 LOWER 02-26-2015 [facility] ABDOMINAL [facility]ICAL PAIN IMAGING ASS UNSPECIFIED R1031 RIGHT LOWER 02-26-2015 [facility] QUADRANT [facility]ANS, PAIN PLLC R319 HEMATURIA 02-26-2015 [facility] UNSPECIFIED MEDICAL IMAGING ASS Z720 TOBACCO USE 02-26-2015 [facility] [id number] ELEVATED 02-24-2015 WHITE BLOOD [place] CELL COUNT PHYSICIANS UNSPECIFIED M549 DORSALGIA 02-24-2015 UNSPECIFIED [facility] N3001 ACUTE 02-24-2015 CYSTITIS [facility] WITH [facility]YSICIANS HEMATURIA R42 DIZZINESS 02-24-2015 AND [facility] GIDDINESS PHYSICIANS EKG E049 NONTOXIC 02-18-2015 GOITER [facility] UNSPECIFIED MED CTR [facility] E063 AUTOIMMUNE 02-18-2015 THYROIDITIS [facility] ST E890 POSTPROCEDU 02-18-2015 [facility] [place] HYPOTHYROID MED CTR [facility] ISM ST H6503 ACUTE 02-15-2015 [facility] SEROUS PHYSICIANS, OTITIS PLLC MEDIA BILATERAL J328 OTHER 02-15-2015 [facility] CHRONIC MEDICAL SINUSITIS IMAGING ASS C73 MALIGNANT 01-19-2015 NEOPLASM OF [place] THYROID PHYSICIANS GLAND D3557ML UNSPECIFIED 01-15-2015 ST INJURY UNS [place] WRIST HAND MED CTR [facility] FINGERS ST INIT Y3974FK UNSPECIFIED 01-15-2015 ST INJURY LT [facility] WRIST HAND PHYSICIANS FINGERS INITIAL Z23 ENCOUNTER 01-07-2015 [facility] IMMUNIZATIO [facility] DEPT N ADRIANNA 6202 OTHER AND 12-15-2014 IFTIKHAR HORTON MD OVARIAN CYST V259 UNSPECIFIED 12-15-2014 IFTIKHAR HORTON MD CONTRACEPTI VE MANAGEMENT V7231 ROUTINE 12-15-2014 IFTIKHAR Abarca GYNECOLOGIC [place] AL EXAMINATION 59669 OBESITY, 12-11-2014 UNSPECIFIED [facility] 97523 OVERWEIGHT 12-11-2014 [facility] 7881 DYSURIA 12-11-2014 [facility] 1121 CANDIDIASIS 12-09-2014 ST OF VULVA [facility] AND VAGINA PHYSICIANS V0481 NEED 12-09-2014 PROPHYLACTI [facility] C [facility]IANS VACCINATION &INOCULATIO N FLU V0489 NEED PROPH 12-09-2014 VACCINATION [facility] &INOCULAT PHYSICIANS OT VIRAL DZ 193 MALIGNANT 11-17-2014 NEOPLASM OF [facility] THYROID [facility] GLAND [address] 2409 GOITER, 11-17-2014 ST UNSPECIFIED [facility] 2440 POSTSURGICA 11-17-2014 L [facility] HYPOTHYRO[facility] ISM ST 7231 CERVICALGIA 10-26-2014 [facility] 7842 SWELLING 10-26-2014 RADIOLOGY MASS OR ASSOCIATES LU[place] IN OF [facility] HEAD AND NECK 50459 DYSPHAGIA 10-26-2014 [facility] UNSPECIFIED EMERGENCY PHYSICIANS 2452 CHRONIC 10-21-2014 LYMPHOCYTIC [facility] THYROIDITIS 70277 DEHYDRATION 10-15-2014 [facility] 18653 OTHER 10-15-2014 [facility] MALAISE AND EMERGENCY FATIGUE PHYSICIANS 88272 CHEST PAIN 10-15-2014 RADIOLOGY UNSPECIFIED ASSOCIATES OF [facility] 2348 CARCINOMA 10-13-2014 HEAD & NECK IN SITU OF SURGERY OTHER ASSOC SPECIFIED SITES 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 2411 NONTOXIC 10-13-2014 INDEPENDENT MULTINODULA R [facility] ANESTHESIOL OGIST 97843 ESOPHAGEAL 10-13-2014 ST REFLUX [facility] 35956 SHORTNESS 10-13-2014 ST OF BREATH [facility] V7284 UNSPECIFIED 10-08-2014 ST [facility] PRE-OPERATI MED CTR [facility] VE ST EXAMINATION V741 SCREENING 09-30-2014 [facility] EXAMINATION [facility] PULMONARY TUBERCULOSI S 45610 PRECORDIAL 09-18-2014 [facility] PAIN PHYSICIANS, PLLC 2374 NEOPLASM 09-12-2014 HEAD & NECK UNCERTAIN SURGERY BHV ASSOC OTH&UNSPEC ENDOCRN GLANDS 7856 ENLARGEMENT 09-12-2014 RADIOLOGY OF LYMPH ASSOCIATES NODES OF [facility] 2410 NONTOXIC 09-01-2014 ST UNINODULAR [facility] 7850 UNSPECIFIED 08-29-2014 ST [facility] TACHYCARDIA PHYSICIANS 41779 NONSPECIFIC 08-29-2014 ABNORMAL [facility] ELECTROCARD [facility] CTR [facility] IOGRAM ST 2400 GOITER, 08-19-2014 RADIOLOGY SPECIFIED ASSOCIATES SIMPLE OF NOTH 2449 UNSPECIFIED 08-19-2014 ST [facility] HYPOTHYROID MED CTR [facility] ISM ST 2468 OTHER 08-19-2014 ST SPECIFIED [facility] DISORDERS [facility] OF THYROID ST 462 ACUTE 08-17-2014 [facility] PHARYNGITIS PHYSICIANS, [facility] 4660 ACUTE 07-03-2014 [facility] BRONCHITIS [facility]OCIATES 3671 MYOPIA 05-22-2014 QUINTEN JAM 2469 UNSPECIFIED 05-20-2014 [place] DISORDER URGENT OF THYROID CARE 87941 MIGRAINE 05-20-2014 [place] UNSP W/O URGENT [...] CAUSE 684 IMPETIGO 02-13-2014 [facility] 72386 NASAL 01-08-2014 [facility] MUCOSITIS ASSOCIATES ULCERATIVE 7048 OTHER 01-08-2014 [facility] SPECIFIED ASSOCIATES DISEASE OF HAIR&HAIR FOLLICLES 2459 UNSPECIFIED 12-12-2013 SU MARQUES THYROIDITIS 6823 CELLULITIS 10-21-2013 KEAGLE RIT AND ABSCESS OF UPPER ARM AND FOREARM 0389 UNSPECIFIED 10-08-2013 . SEPTICEMIA [place] 2768 HYPOPOTASSE 10-08-2013 . GUDELIA [place] 88934 UNSPECIFIED 10-08-2013 . [place] PYELONEPHRI INGA TIS 7840 HEADACHE 10-08-2013 . [place] V180 FAMILY 10-08-2013 . HISTORY OF [place] DIABETES INGA MELLITUS 04803 LEUKOCYTOSI 09-03-2013 DE JESUS ALEX S UNSPECIFIED 54587 NAUSEA WITH 09-03-2013 DE JESUS ALEX VOMITING 28443 ABDOMINAL 09-03-2013 DE JESUS ALEX PAIN, EPIGASTRIC 59539 ABDOMINAL 09-03-2013 LAB ALEJANDRA PAIN, [facility] 9154 FINGER 08-29-2013 NIRAV ALEJANDRA INSECT BITE NONVENOMOUS W/O MENTION INF E9064 BITE OF 08-29-2013 NIRAV ALEJANDRA NONVENOMOUS ARTHROPOD 89872 OTHER 07-15-2013 ST SYMPTOMS [facility] HEAD AND ST NECK 226 BENIGN 07-03-2013 DE JESUS THE NEOPLASM OF THYROID GLANDS V7260 LABORATORY 05-28-2013 ST EXAMINATION [facility] CTR [facility] UNSPECIFIED ST 7061 OTHER ACNE 05-03-2013 BRANDY Briggs 79692 LUMP OR 04-30-2013 ST MASS IN [place] [facility] CTR [facility] 305.1 305.1 04-16-2013 [place] TOBACCO USE [facility] DISORDER [facility] 719.45 719.45 04-16-2013 [place] JOINT [facility] 729.1 729.1 04-16-2013 [place] MYALGIA AND [facility] MYOSITIS [facility] NOS 7291 UNSPECIFIED 04-16-2013 [facility] MYOSITIS 7295 PAIN IN 04-16-2013 [facility] SOFT EMERGENCY TISSUES OF SERVICES [place] 66603 UNSPECIFIED 03-29-2013 IFTIKHAR HORTON MD OF VULVA 5990 URINARY 03-13-2013 LAB ALEJANDRA OF TRACT [facility] INFECTION HOLDINGS SITE NOT SPECIFIED V2503 ENCOUNTER 03-08-2013 [facility] CNSL&PRESCR IPTION 515 POSTINFLAMM 03-04-2013 [facility] ATORY JOSÉ MIGUEL PULMONARY FIBROSIS 96281 OTHER 03-04-2013 [facility] NONSPECIFIC JOSÉ MIGUEL ABNORMAL FINDING OF LUNG FIELD 62203 NONSPEC 03-04-2013 [facility] REACT [facility] TUBERCULIN INC SKIN TEST W/O ACTIVE TB V2502 GENERAL 03-04-2013 [facility] CNSL INITIATION OTH CONTRACEPT MEASURES V2509 OTH GENERAL 03-04-2013 [facility] CNSL&ADVICE CONTRACEPT MANAGEMENT V709 UNSPECIFIED 02-26-2013 [facility] GENERAL ASSOCIATES MEDICAL EXAMINATION 78680 FEVER 02-20-2013 K[place] UNSPECIFIED TOM 61562 ABDOMINAL 02-20-2013 SCHMITTER PAIN RIGHT DUC UPPER QUADRANT 43733 SEPSIS 02-20-2013 [place] TOM 14063 ABDOMINAL 02-18-2013 LUIS ENRIQUE HO PAIN, UNSPECIFIED SITE 5589 OTH&UNSPEC 02-17-2013 NATALIE NONINFECTIO MAR US GASTROENTER ITIS&COLITI S 99198 CALCU 02-17-2013 NATALIE GALLBLADD MAR W/O MENTION CHOLECYST/O BST 74168 ABDOMINAL 02-17-2013 NATALIE PAIN OTHER MAR SPECIFIED SITE 7821 RASH AND 01-15-2013 MULBERRY OTHER ALEX NONSPECIFIC SKIN ERUPTION 1330 SCABIES 01-10-2013 LASHAWN R H 6173 ENDOMETRIOS 11-20-2012 [facility] IS OF PELVIC PERITONEUM 87464 UNSPECIFIED 11-05-2012 L[facility]HAWN R INFECTIVE H OTITIS EXTERNA 3829 UNSPECIFIED 10-03-2012 LASHAWN R OTITIS H MEDIA 3484 COMPRESSION 09-20-2012 DOERGER KIR OF BRAIN 1120 CANDIDIASIS 08-13-2012 LASHAWN R OF MOUTH H 73941 UNSPECIFIED 08-13-2012 LASHAWN R VAGINITIS H AND VULVOVAGINI TIS 5259 UNSPECIFIED 07-20-2012 FR[facility] REGINA DISORDER TEETH&SUPPO RTING STRUCTURES 86529 JAW PAIN 07-20-2012 [facility] REGINA 0549 HERPES 06-27-2012 GRILLOT NAN SIMPLEX WITHOUT MENTION OF COMPLICATIO N 7851 PALPITATION 06-12-2012 BRANDY J G S 55144 OTHER CHEST 05-29-2012 BRANDY J G PAIN 786.50 786.50 05-27-2012 Ce[facility] CHEST PAIN [facility] 7862 COUGH 05-27-2012 FIDEL JOSÉ MIGUEL 7336 TIETZES 05-18-2012 RICK PRA DISEASE 7243 SCIATICA 04-24-2012 LASHAWN R H 6146 PELVIC 04-12-2012 [facility] PERITONEAL [facility] ADHESIONS, INC FEMALE 6258 OTH SPEC 03-29-2012 [facility] SYMPTOM ASSOC W/FEMALE GENITAL ORGANS 0542 HERPETIC 02-14-2012 LASHAWN Abarca GINGIVOSTOM H ATITIS 6260 ABSENCE OF 02-08-2012 [place] MENSTRUATIO URGENT N CARE 5224 ACUTE 01-07-2012 [facility] PERIODONTIT [facility] CTR IS OF PULPAL ORIGIN 7831 ABNORMAL 01-05-2012 [facility] 23302 CONDYLOMA 11-15-2011 FRANZ GABRIEL ACUMINATUM 6256 FEMALE 11-15-2011 FRANZ GABRIEL STRESS INCONTINENC E 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 7242 LUMBAGO 11-04-2011 RADIOLOGY ASSOCIATES OF [facility] 8472 LUMBAR 11-04-2011 CONTI VIR SPRAIN AND STRAIN 9599 INJURY 11-04-2011 RADIOLOGY OTHER AND ASSOCIATES UNSPECIFIED OF [facility] UNSPECIFIED SITE V692 PROBLEMS 10-19-2011 COMBINED RELATED TO PHYSICIANS HIGH-RISK LA SEXUAL BEHAVIOR 0794 HUMAN 10-18-2011 FRANZ GABRIEL PAPILLOMA VIRUS IN CCE & UNS SITE 27992 ABDOMINAL 09-12-2011 WEHRMAN III PAIN, LEFT JAVI UPPER QUADRANT 30344 PAINFUL 07-26-2011 [facility] 9100 FCE 07-26-2011 [facility] NCK&SCLP NO EMERGENCY EYE SERVICES ABRAS/FRIC BURN W/O INF 46248 DIARRHEA 07-11-2011 [facility] ER V745 SCREENING 06-16-2011 [facility] EXAMINATION FOR VENEREAL DISEASE 54583 UNSPECIFIED 06-01-2011 MULBERRY DENTAL ALEX CARIES 71105 UNSPECIFIED 05-30-2011 [facility] VIRAL [facility] INFECTION IN CCE & UNS SITE 6820 CELLULITIS 05-30-2011 [facility] AND ABSCESS ASSOCIATES OF FACE 5225 PERIAPICAL 05-29-2011 [facility] ABSCESS EMERGENCY WITHOUT SERVICES SINUS 31953 ACUTE 04-24-2011 [facility] GINGIVITIS [facility] HOSP PLAQUE INC INDUCED 22628 SPASM OF 02-03-2011 LASHAWN R MUSCLE H 59031 SCOLIOSIS 02-03-2011 LAS[facility]WN R ASSOCIATED H WITH OTHER CONDITION 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 [facility] C[facility] 7244 THORACIC/ANDRA 11-17-2010 [facility] MBOSACRAL [facility] NEURITIS/RA C CENTER DICULITIS UNSPEC 8483 SPRAIN AND 11-17-2010 [facility] STRAIN OF CHIROPRACTI RIBS C CENTER 7839 OTH 11-03-2010 [facility] CONCERNING PHYSICIANS NUTRITION METAB&DVLP 9110 TRUNK 11-03-2010 [facility] ABRASION/FR [facility] ICTION BURN INC WITHOUT MENTION INF 73448 OTHER 11-03-2010 [facility] INJURY OF EMERGENCY EXTERNAL SERVICES GENITALS V2543 SURVEILLANC 08-11-2010 [facility] E PREV [facility] HEALTH IMPL CLINIC OF SUBDERMAL [place] CONTRACEPT 6262 EXCESSIVE 08-03-2010 [facility] OR FREQUENT ASSOCIATES MENSTRUATIO N V255 INSERTION 07-12-2010 WOMEN'S OF HEALTH IMPLANTABLE CLINIC OF SUBDERMAL [place] CONTRACEPTI VE V2542 SURVEILLANC 07-07-2010 WOMEN'S E PREV PRSC HEALTH INTRAUTERN CLINIC OF CNTRACPT MONO DEVC V2511 ENC FOR 06-16-2010 WOMEN'S INSERTION [facility] INTRA[facility] CLINIC OF E [place] CONTRACEPT DEVICE V242 ROUTINE 01-04-2010 [facility] PHYSICIAN FOLLOW-UP GROUP PCC 7069 UNSPECIFIED 12-23-2009 [facility] DISEASE OF ASSOCIATES SEBACEOUS GLANDS 78997 POST TERM 11-28-2009 [facility] PG DELIV PHYSICIAN W/WO GROUP PCC MENTION ANTPRTM COND 605 REDUNDANT 11-26-2009 [facility] PREPUCE AND ASSOCIATES PHIMOSIS 650 NORMAL 11-26-2009 [facility] DELIVERY PHYSICIAN GROUP PCC 94360 FORCEPS/EXT 11-26-2009 [facility] JANG DEL [facility] W/O INC INDICATION- DELIVERED V270 OUTCOME OF 11-26-2009 [facility] DELIVERY PHYSICIAN SINGLE GROUP PCC LIVEBORN V3000 SINGLE 11-26-2009 [facility] W/O 77784 POST TERM 11-23-2009 [facility] PHYSICIAN ANTEPARTUM GROUP PCC COND/COMPLI CATION V220 SUPERVISION 11-23-2009 [facility] OF NORMAL PHYSICIAN FIRST GROUP PCC V221 SUPERVISION 11-17-2009 [facility] OF OTHER PHYSICIAN NORMAL GROUP PCC V222 11-17-2009 [facility] INCIDENTAL INC 4619 ACUTE 11-16-2009 [facility] SINUSITIS, ASSOCIATES UNSPECIFIED V286 SCREENING 10-26-2009 [facility] OF [place] [address] OTHER 10-24-2009 [facility] THREATENED PHYSICIAN LABOR, GROUP PCC ANTEPARTUM 27031 OTHER 10-24-2009 [facility] SPECIFED [facility] COMPLICATIO INC N ANTEPARTUM 7804 DIZZINESS 10-24-2009 [facility] AND [facility] GIDDINESS INC 90895 DYSPLASIA 09-08-2009 [facility] UNSPECIFIED S INC V028 CARRIER/HELEN 09-08-2009 [facility] PECTED LABORATORIE CARRIER OTH S INC VENEREAL DISEASES 33205 THREATENED 09-01-2009 [facility] PREMATURE [facility] LABOR INC ANTEPARTUM 32835 EXCESS 08-11-2009 [facility] PHYSICIAN GROWTH GROUP PCC AFFECT MGMT MOTH ANTPRTM V771 SCREENING 08-11-2009 [facility] FOR [facility] DIABETES INC MELLITUS V2889 OTHER 06-30-2009 [facility] SPECIFIED [facility] INC SCREENING 95884 OTHER 04-10-2009 LAB[facility] OF SPECIFIED [place] INC DISEASES DUE TO CHLAMYDIAE 6268 OTH D/O 04-03-2009 IFTIKHAR Abarca MENSTRUATIO [place] N&OTH ABN BLEED FE GNT TRACT 05382 PAP SMER 04-03-2009 [facility] CERV W/LW [place] GRADE S PC SQUAMOUS INTRAEPITH LES 2662 OTHER 03-31-2009 [facility] B-COMPLEX [facility]ICIEN[facility] C[facility] S V7242 03-31-2009 [facility] EXAMINATION [facility] OR TEST [facility] POSITIVE RESULT 7232 CERVICOCRAN 09-10-2008 [facility] IAL [facility] SYNDROME C CENTER 7241 PAIN IN 09-10-2008 [facility] THORACIC [facility]IROP[facility]CTI SPINE C CENTER 0999 UNSPECIFIED 08-06-2008 [facility] VENEREAL ASSOCIATES DISEASE V762 SCREENING 07-17-2008 [facility] NEOPLASM OF ER THE CERVIX V2541 SURVEILLANC 07-15-2008 DHS/CO E PREV HEALTH PRESCRIBED CENTRAL CONTRACEPT BANK ACCT PILL 41686 MIGRAINE 06-20-2008 [facility] UNS ASSOCIATES W/INTRACTAB L W/O STATUS MIGRAINOSUS 0088 INTESTINAL 03-05-2008 [facility] INFECTION ASSOCIATES DUE TO OTHER ORGANISM NEC 6269 UNS D/O 02-13-2008 [facility] MENSTRUATIO ASSOCIATES N&OTH ABN BLEED FE GNT TRACT 6253 DYSMENORRHE 09-19-2007 [facility] A [facility] 27713 ASTHMA, 08-15-2007 [facility] UNSPECIFIED [facility] , [...] 10 0 10 10 77 CARRILLO Ac PA 76 -2 -2 .0 74 RP ti [...] 20 20 RY ZA 10 11 11 PA 6 BR IN IA E N 5 [...] 05 0 14 7 76 KE Ac PA 11 -1 -1 .0 35 AG ti OF 10 0- 0- 00 20 LE ve LO 12 20 20 XA 60 11 11 RI CI 1 TA N K HC L 25 0 MG TA B NA 68 03 03 1 60 30 75 CL Ac PA 46 -2 -2 .0 93 AR ti OX 20 3- 3- 00 91 KE ve EN 19 20 20 00 11 11 DE 50 5 RE 0 K MG J TA BL ET PA 37 10 11 6 28 28 74 [...] 10 10 GE 4 RA LD R PA 65 01 10 10 30 30 72 [...] 10 Y 0 MG TA BL ET PA 37 10 10 6 28 28 74 [...] MA R CY # 10 05 91 PA 65 01 09 10 30 30 72 [...] NR MG Y CA PS UL E PA 65 01 07 10 30 30 72 [...] 0. K 8% J CR EA M PA 65 01 06 10 30 30 72 CARRILLO Ac EN 16 -0 -0 .0 20 RP ti AT 20 8- 3- 00 11 EL ve AL 66 20 20 [address] 0 RA US LD R TA BL ET PA 65 01 04 10 30 30 72 CARRILLO Ac EN 16 -0 -2 .0 20 RP ti AT 20 8- 1- 00 11 EL ve AL 66 20 20 [address] 0 RA US LD R TA BL ET PA 65 01 03 10 30 30 72 CARRILLO Ac EN 16 -0 -1 .0 20 RP ti AT 20 8- 6- 00 11 EL ve AL 66 20 [address] 0 RA US LD R TA BL ET PA 65 01 02 01 30 30 TO [...] MA MG CY TA #5 BL ET PA 65 01 01 00 30 30 TO [...] CA T ID 11 09 09 RE KS IN 6 CH E PH AE 0. [...] 20 20 CA 91 09 09 RE KS 0 CH PH AE AR L MA [...] AR MA TA CY BL ET #5 PA 68 12 12 00 10 4 TO [...] 00 60 30 PH 65 KE Ac PA 09 -1 -0 .0 AR 85 AG [...] 1- 5- 00 MC 78 EY ve PA 18 20 20 AR ED 83 08 08 E KS NI 1 PH CH SO AR AE [...] [place] [address] [facility] LIPASE 6 [facility] INC INC COMPREHEN 45684 [facility] SIVE 6 [facility] METABOLIC INC INC PANEL URNLS DIP 11563 [facility] ZHAO 6 [facility] STICK/TAB INC INC LET REAGENT AUTO MICROSCOP Y BLOOD 22928 [facility] COUNT 6 [facility] COMPLETE INC INC AUTO&AUTO DIFRNTL WBC DRUG TST G0477 [facility] PRESUMP;C 6 MEM HOS[facility] PBL BEING INC INC READ DC OPT OBV ONLY INJECTION J0696 COLD PRESSLER spring [facility] CEFTRIAXO URGENT NE SODIUM CARE PER 250 MG THERAPEUT 99791 COLD PRESSLER IC spring [facility] PROPHYLAC URGENT TIC/DX CARE INJECTION SUBQ/IM IADNA 29856 DIATHERIX DIATHERIX TRICHOMON 6 LABORATOR LABORATOR VAGINALIS IES [facility] AMPLIFIED PROBE TECH COLLECTIO 90911 COLD PRESSLER N VENOUS spring [facility] BLOOD URGENT VENIPUNCT CARE URE IADNA 52445 DIATHERIX DIATHERIX NEISSERIA 6 LABORATOR LABORATOR GONORRHOE IES [facility] IES [facility] AE AMPLIFIED PROBE TQ IADNA NOS 19703 DIATHERIX DIATHERIX 6 AMPLIFIED LABORATOR LABORATOR PROBE TQ IES Hantele IES [facility] EACH ORGANISM IADNA 83996 DIATHERIX DIATHERIX GARDNEREL 6 LA LABORATOR LABORATOR VAGINALIS IES [facility] Oxygen BiotherapeuticsS [facility] AMPLIFIED PROBE TQ IADNA 34864 DIATHERIX DIATHERIX CHLAMYDIA 6 LABORATOR LABORATOR TRACHOMAT IES [facility] IS AMPLIFIED PROBE TQ IADNA [address] STREPTOCO 5 HAIDERALPA MALONEY CCUS MED CTR MED CTR GROUP A WAREHOUSE PULLER ST [facility]ULLER ST DIRECT PROBE TQ COMPREHEN [address] SIVE 5 HAIDER HAIDER METABOLIC MED CTR MED CTR PANEL W[facility]SE [facility]ER [facility] ST ACUTE [address] HEPATITIS 5 HAIDER HAIDER PANEL MED CTR MED CTR [facility] [address] [facility] [address] ST COMPREHEN 54635 CECE [facility] SIVE 5 [facility] [address] [facility] LIPASE 5 [place] [address] [place] JUAREZ ALL ABDOMEN & 5 MEDICAL PELVIS IMAGING W/[place] [address] [facility] AMYLASE 5 [facility] [place] 66060 [facility] TEST INC INC VISUAL COLOR CMPRSN METHS BLOOD 76173 [facility] COUNT 5 [facility] COMPLETE INC INC AUTO&AUTO DIFRNTL WBC URNLS DIP 65437 [facility] 5 [facility] STICK/TAB INC INC LET REAGENT AUTO MICROSCOP Y ECG 87844 [facility] NIV ROUTINE 5 HAIDER ECG W/LEAST PHYSICIAN 12 LDS S EKG I&R ONLY CULTURE [address] BACTERIAL 5 HAIDER HAIDER MED CTR MED CTR QUANTTATI WAREHOUSE PULLER ST [place] [address] RADIOLOGY NEILS KATIE TRANSVAGI 5 NAL ASSOCIATE S OF [facility] US PELVIC 74068 RADIOLOGY NEILS KATIE 5 NONOBSTET ASSOCIATE KARI S OF [facility] [place] [address] FREE 5 HAIDER HAIDER THYROXINE MED CTR MED CTR [address] [place] [address] THYROID 5 HAIDER HAIDER STIMULATI MED CTR MED CTR NG [facility] [place] [address] CECE [facility] HEAD/BRAI 5 [facility] [place] W/[place] [address] CECE [facility] MAXILLOFA 5 [facility] CIAL W/O INC INC CONTRAST MATERIAL COMPREHEN 71275 CE[facility] SIVE 5 [facility] METABOLIC INC INC PANEL BLOOD 55818 CECE [facility] COUNT 5 [facility] COMPLETE INC INC AUTO&AUTO DIFRNTL WBC URNLS DIP 05230 [facility] 5 [facility] STICK/TAB INC INC LET REAGENT AUTO MICROSCOP Y URINE 88571 [facility] 5 [facility] TEST INC INC VISUAL COLOR CMPRSN METHS COMPREHEN [address] SIVE 5 HAIDER HAIDER METABOLIC MED CTR MED CTR PANEL [facility] [address] [address] N [facility] MED CTR VENIPUNCT [facility] [place] [address] [facility] STIMULATI MED CTR MED CTR NG [facility] [address] [facility] CTR [facility] [address] [facility] [address] METABOLIC [facility] PANEL MED CTR MED CTR CALCIUM [facility] TOTAL IM ADM 27908 [facility] PRQ ID 5 [facility] SUBQ/IM HLTH DEPT HLTH DEPT NJXS 1 ADRIANNA ADRIANNA VACCINE URINLS 77429 IFTIKHAR [place] DIP 5 [facility] STICK/TAB LET REAGNT NON-AUTO MICRSCPY IADNA 72218 IFTIKHAR [place] NEISSERIA 5 [facility] GONORRHOE AE DIRECT PROBE TQ CULTURE 38913 IFTIKHAR [place] CHLAMYDIA 5 [facility] ANY SOURCE HGB 73665 IFTIKHAR Abarca QUANTITAT 5 [facility] [place] MD NATHAN TRANSCUTA NEOUS BASIC [address] METABOLIC [facility] PANEL MED CTR MED CTR CALCIUM [facility] TOTAL CULTURE [address] BACTERIAL 5 [facility] CTR MED CTR QUANTTATI [facility] VE COLONY COUNT URINE COLLECTIO 67877 ST JUSTIN N VENOUS 5 [facility] NIESHA BLOOD VENIPUNCT PHYSICIAN URE S LIPID [address] PANEL 5 [facility] MED CTR MED CTR [facility] IM ADM [address] [facility] S[facility]ERS PRQ ID 5 HAIDER ANASTASIA CARMEN SUBQ/IM NJXS EA PHYSICIAN VACCINE S 4VHPV [address] [facility] VACCINE 3 5 [facility] ANASTASIA CARMEN DOSE SCHEDULE PHYSICIAN FOR IM S USE IM ADM [address] [facility] PRQ ID 5 [facility] ANASTASIA CARMEN SUBQ/IM NJXS 1 PHYSICIAN VACCINE S IIV4 VACC [address] [facility] SPLIT 5 [facility] ANASTASIA CARMEN VIRUS 0.5 ML DOS PHYSICIAN FOR IM S USE THYROGLOB [address] ULIN 5 [facility] ANTIBODY MED CTR MED CTR [facility] [place] [address] N VENOUS 5 [facility] BLOOD MED CTR MED CTR VENIPUNCT [facility] [place] [address] THYROID 5 [facility] STIMULATI MED CTR MED CTR NG [facility] HORMONE TSH COMPREHEN [address] SIVE 5 [facility] METABOLIC MED CTR MED CTR PANEL [facility] [address] ST [facility] PARATHORM 5 [facility] TAR ONE [place] [address] THYROGLOB 5 [facility] ULIN MED CTR MED CTR [facility] HYDROXY 5 [facility] INCLUDES MED CTR MED CTR FRACTIONS [facility] [place] [address] FREE 5 [facility] THYROXINE MED CTR MED CTR [facility] CT SOFT 68848 RADIOLOGY NEILS KATIE TISSUE 5 NECK ASSOCIATE W/CONTRAS S OF NOT T MATERIAL RADIOLOGI 49968 RADIOLOGY LUBBERS C 5 PALMER EXAMINATI ASSOCIATE ON CHEST S OF NOTH SINGLE VIEW FRONTAL ANES 46756 INDEPENDE RAMÍREZ ESOPH 5 NT EMILIA THYRD ANESTHESI LARYNX OLOGIST TRACH & LYMPH NECK 1YR THYROIDEC 09254 HEAD & DOMET NIESHA YUMIKO 5 NECK TOTAL/SUB SURGERY TOTAL ASSOC LMTD [place] [address] ST RAMIREZ DON SURG 5 [facility] PATHOLOGY MED CTR GROSS&NIESHA ROSCOPIC EXAM PATH [address] ST RAMIREZ DON CONSLTJ 5 [facility] SURG 1ST MED CTR BLK FROZEN SCTJ [address] BACTERIAL 5 [facility] MED CTR MED CTR QUANTTATI [facility] ST VE COLONY COUNT URINE THROMBOPL [address] ASTIN 5 [facility] TIME MED CTR MED CTR PARTIAL [facility] ST PLASMA/WH OLE BLOOD BLOOD [address] COUNT 5 [facility] COMPLETE MED CTR MED CTR AUTO&AUTO [facility] ST DIFRNTL WBC PROTHROMB [address] IN TIME 5 [facility] HAIDER MED CTR MED CTR [facility] [address] [address] PARATHORM 5 [facility] HAIDER ONE MED CTR MED CTR [facility] CALCIUM [address] TOTAL 5 [facility] HAIDER MED CTR MED CTR [facility] [place] [address] THYROID 5 [facility] STIMULATI MED CTR MED CTR NG [facility] ST HORMONE TSH RADIOLOGI 02396 [place] JUAREZ ALL C EXAM 5 MEDICAL CHEST 2 IMAGING VIEWS ASS FRONTAL&L ATERAL US SOFT [address] TISSUE 5 [facility] HEAD & MED CTR MED CTR NECK REAL [facility]ER ST TIME IMGE DOCM ECG [address] ST MCDANNOLD ROUTINE [address] ECG MED CTR W/LEAST 12 LDS I&R ONLY ECG [address] ROUTINE 5 [facility] ECG MED CTR MED CTR W/LEAST [facility] ST 12 LDS TRCG ONLY W/[place] [address] THE THE SURG 5 [facility] GROSS&NIESHA ROSCOPIC EXAM CYTP EVAL 57971 THE THE FINE [facility] ASPIRATE INTERP & REPORT FINE 53467 PROFESSIO MABEL RAY NEEDLE 5 NAL ASPIRATIO RADIOLOG[place] [address] PROFESSIO MABEL RAY GUIDANCE 5 NAL NEEDLE RADIOLOGY PLACEMENT INC. IMG S&I US SOFT [address] TISSUE 5 [facility] HEAD & MED CTR MED CTR NECK REAL [facility] [address] FREE 5 [facility] THYROXINE MED CTR MED CTR [facility] [address] THYROID 5 [facility] STIMULATI MED CTR MED CTR NG [facility] ST HORMONE TSH COLLECTIO [address] N VENOUS 5 [facility] BLOOD MED CTR MED CTR VENIPUNCT [facility] ST [facility] ST URE BLOOD 55627 FAMILY FAMILY COUNT 5 CARE CARE COMPLETE ASSOCIATE ASSOCIATE AUTO&AUTO S S DIFRNTL WBC DETERMINA 76417 QUINTEN BARBER TION 5 REFRACTIV E STATE OPHTH 55575 QUINTEN BARBER MEDICAL 5 XM&EVAL COMPRE NEW PT 1/> [place] [address] TRANSVAGI 5 [facility]IDER HAIDER NAL MARCELLUS MARCELLUS US PELVIC [address] 5 [facility]ID[facility] HAIDER NONOBSTET MARCELLUS MARCELLUS KARI [place] [address] FREE 5 [facility] THYROXINE MED CTR MED CTR [facility] [address] [place] [address] THYROID 5 [facility] STIMULATI MED CTR MED CTR NG [facility] ST HORMONE TSH BLOOD 54926 FAMILY FAMILY COUNT 4 CARE CARE COMPLETE ASSOCIATE ASSOCIATE AUTO&AUTO S S DIFRNTL WBC IAADIADOO 55786 FAMILY KEAGLE 4 CARE RIT INFLUENZA ASSOCIATE S BLOOD 92598 FAMILY FAMILY COUNT 4 CARE CARE COMPLETE ASSOCIATE ASSOCIATE AUTO&AUTO S S DIFRNTL WBC IAADIADOO 58157 FAMILY KEAGLE 4 CARE [place] [address] FREE 4 [facility] THYROXINE MED CTR MED CTR [facility] [address] [place] [address] THYROID 4 [facility] STIMULATI MED CTR MED CTR NG [facility] ST HORMONE TSH RADIOLOGI 01733 BUBBA BUBBA C EXAM 4 CHR CHR CHEST 2 VIEWS FRONTAL&L ATERAL US SOFT [address] TISSUE 4 [facility] HEAD & MED CTR MED CTR NECK REAL [facility] ST TIME IMGE DOCM HEMOGLOBI [address] N 4 [facility] GLYCOSYLA INGA INGA REGINA A1C MICROSOMA [address] L [facility] ANTIB[place] [address] THYROID 4 [facility] STIMULATI INGA INGA NG HORMONE TSH COLLECTIO [address] N VENOUS [facility] BLOOD [place] [address] FREE 4 [facility] THYROXINE INGA INGA BASIC [address] METABOLIC [facility] PANEL INGA INGA CALCIUM TOTAL CULTURE 90526 LAB ALEJANDRA LAB ALEJANDRA BACTERIAL [facility] QUANTTATI VE COLONY COUNT URINE BLOOD 47477 KEAGLE KEAGLE COUNT 4 RIT RIT COMPLETE AUTO&AUTO DIFRNTL WBC LARYNGOSC 52383 LIZA DE JESUS OPY 4 THE THE FLEXIBLE DIAGNOSTI C BIOPSY 09623 HOMERO HOMERO THYROID 4 JET JET PERCUTANE OUS CORE NEEDLE CYTP EVAL 82376 ST RAMIREZ DON FINE 4 HA[facility]ER NEEDLE MED CTR ASPIRATE INTERP & RE[place] [address] HOMERO HOMERO GUIDANCE 4 JET JET NEEDLE PLACEMENT IMG S&I US SOFT 68130 MATTHEW MATTHEW TISSUE 4 TUS TUS HEAD & [place] [address] THYROID 4 HA[facility]ER HAIDER STIMULATI MED CTR MED CTR NG [address] [address] FREE 4 HA[facility]ER [facility] THYROXINE MED CTR MED CTR [facility]ULLER ST URNLS DIP 87840 BRANDY Zayas 4 G G STICK/TAB LET RGNT NON-AUTO W/O MICRSCP ACNE 28985 BRANDY Zayas SURGERY 4 G G US BREAST 04813 KLEIMEYER KLEIMEYER REAL 4 NICK NICK TIME W/IMAGE DOCUMENTA TION CUL BACT 42282 LAB ALEJANDRA LAB ALEJANDRA AEROBIC 3 OF [place] ADDL [place] HOLDINGS METHS HOLDINGS DEFINITIV E EA ISOL CULTURE 79458 LAB ALEJANDRA LAB ALEJANDRA BACTERIAL 3 OF [place]LAINA HOLDINGS QUANTTATI HOLDINGS VE COLONY COUNT URINE CULTURE 25508 LAB ALEJANDRA LAB ALEJANDRA BCT 3 OF [place] ISOL&PRSM [place] HOLDINGS PTV ID HOLDINGS ISOLATE EA URINE SUSCEPTIB 89875 LAB ALEJANDRA LAB ALEJANDRA LTY STDY 3 OF [place] ANTIMICRB [place] HOLDINGS IAL HOLDINGS MICRO/AGA R DILUTJ CONTRACEP S4993 PENDELETO PENDELETO TIVE 3 N CO N CO PILLS FOR [facility] CENTER CONTROL ETONOGEST J7307 HAR[facility] REL 3 [facility] CNTRACPT IMPL SYS INCL IMPL & SPL URINE 18239 HARPEL HARPEL 3 [facility] TEST VISUAL COLOR CMPRSN METHS RADIOLOGI 74762 CECE ZHAO C EXAM 3 [facility] CHEST 2 INC INC VIEWS FRONTAL&L ATERAL INSJ 57824 [facility] NON-BIODE 3 [facility] GRADABLE DRUG DELIVERY IMPLANT IADNA 18654 HAR[facility] NEISSERIA 3 [facility] GONORRHOE AE DIRECT PROBE TQ URINLS 23386 [facility] DIP 3 [facility] STICK/TAB LET REAGNT NON-AUTO MICRSCPY CULTURE 78449 [facility] CHLAMYDIA 3 [facility] [place] ANY SOURCE SCREENING 52536 FAMILY LASHAWN TEST [address] CRI[place] [address] SCHMITTER SCHMITTER ABDOMINAL 3 DUC DUC REAL TIME W/IMAGE LIMITED HOSPITAL 62617 KURAPATI KURAPATI DISCHARGE 3 TOM TOM DAY MANAGEMEN T > 30 MIN INITIAL 11929 GAL [facility] 3 CARE/DAY 50 MINUTES SPINAL 81983 LUIS ENRIQUE HO LUIS ENRIQUE HO PUNCTURE [address] [place] [address] HOMERO HOMERO HEAD/BRAI 3 JET JET N W/[place] [address] WELLS SEA WELLS SEA ABDOMEN & 3 PELVIS W/CONTRAS T MATERIAL SMR PRIM 53862 COMBINED COMBINED SRC WET 3 PHYSICIAN PHYSIC[place] [address] CECE ZHAO TRANSVAGI 3 [facility] NAL INC INC SKIN TEST 30131 PENDELETO PENDELETO 3 N CO N CO [facility] CENTER CENTER INTRADERM AL URINLS 25307 HARPE[facility] DIP 3 [facility] STICK/TAB LET REAGNT NON-AUTO MICRSCPY REMOVAL 52980 [facility] IMPLANTAB 3 [place] [address] DOERGER DOERGER HEAD/BRAI 3 KIR KIR N W/O CONTRAST MATERIAL XTRNL ECG 86524 LEVIN ZAIN LEVIN ZAIN 3 CONTINUOU S RHYTHM W/I&R UP TO 48 HRS XTRNL ECG [address] & 48 HR 3 [facility] CENTER ECHO [address] TTHRC R-T [address] MEDICAL W/WOM-MOD CENTER CENTER E COMPL SPEC&COLR D EXTERNAL [address] ECG 3 [facility] CENTER REPORT ECG 01679 CECE ZHAO ROUTINE 3 [facility] ECG INC INC W/LEAST 12 LDS TRCG ONLY W/O I&[place] [address] CECE ZHAO TROPONIN 3 [facility] QUANTITAT INC INC NATHAN RHYTHM 91035 CECE ZHAO ECG 1-3 3 [facility] LEADS INC INC TRACING ONLY W/O I&R ECG 99639 CECE MCKEMIE ROUTINE 3 [facility] W/LEAST P 12 LDS I&R ONLY BLOOD 03562 CECE ZHAO COUNT 3 [facility] COMPLETE INC INC AUTO&AUTO DIFRNTL WBC COMPREHEN 16044 CECE ZHAO SIVE 3 [facility] METABOLIC INC INC PANEL URNLS DIP 80231 CECE ZHAO 3 [facility] STICK/TAB INC INC LET REAGENT AUTO MICROSCOP Y RADIOLOGI 35890 CECE ZHAO C EXAM 3 [facility] CHEST 2 INC INC VIEWS FRONTAL&L ATERAL FIBRIN 19170 CECE ZHAO DGRADJ 3 [facility] PRODUCTS INC INC D-DIMER QUAL/SEMI CINDY CREATINE 03418 CECE ZHAO KINASE 3 [facility] TOTAL INC INC CREATINE 67306 CECE ZHAO KINASE MB 3 [facility] FRACTION INC INC ONLY URNLS DIP 02620 BRANDY Zayas 3 G G STICK/TAB LET RGNT NON-AUTO W/[place] [address] [facility] THYROID 3 DIAGNOSTI DIAGNOSTI STIMULATI CS CS NG HORMONE TSH BLOOD 02219 BRANDY Zayas COUNT 3 G G COMPLETE AUTO&AUTO DIFRNTL WBC THYROID 61731 [facility] HORM 3 DIAGNOSTI DIAGNOSTI UPTK/THYR CS CS [place] [address] [facility] THYROXINE 3 DIAGNOSTI DIAGNOSTI TOTAL CS CS INJECTION J1885 PRABHJOT RICK PRA 3 KETOROLAC TROMETHAM INE PER 15 MG THERAPEUT 71881 PRBAHJOT SIMTH IC 3 PROPHYLAC TIC/DX INJECTION SUBQ/IM ECG 85591 RICK PRA RICK PRA ROUTINE 3 ECG W/LEAST 12 LDS W/I&R RADIOLOGI 71797 LIZA [place] EXAM 3 BRA BRA CHEST 2 VIEWS FRONTAL&L ATERAL IMMUNOASS 40461 CECE ZHAO AY TUMOR 3 [facility] ANTIGEN INC INC QUANTITAT NATHAN GONADOTRO 66857 CECE ZHAO PIN 3 [facility] CHORIONIC INC INC QUALITATI VE LAPAROSCO 06765 [facility] PY 3 [facility] W/LYSIS OF ADHESIONS LAPS SURG 85118 CECE ZHAO W/ASPIR 3 [facility] CAVITY/CY INC INC ST SINGLE/MU LTIPLE BLOOD 02143 CECE ZHAO COUNT 3 [facility] COMPLETE INC INC AUTO&[place] [address] HARPEL HAR[facility] TRANSVAGI 3 [facility] NAL BLOOD 26981 LASHAWN LASHAWN COUNT 2 R H R H COMPLETE AUTO&[place] [address] TRANSVAGI 2 [facility] NAL MEDICALCE MEDICALCE NTER NTER US PELVIC [address] 2 [facility]ER HAIDER NONOBSTET KARI MEDICALCE MEDICALCE REAL-TIME NTER NTER IMAGE COMPLETE URNLS DIP 08714 COLD RICK PRA 2 SPRING STICK/TAB URGENT LET RGNT CARE NON-AUTO W/O MICRSCP URINE 35036 COLD RICK PRA 2 SPRING TEST URGENT VISUAL CARE COLOR CMPRSN METHS URINLS 36500 [facility] DIP 2 [facility] STICK/TAB LET REAGNT NON-AUTO MICRSCPY IADNA 72524 [facility] NEISSERIA 2 [facility] GONORRHOE AE DIRECT PROBE TQ CULTURE 33341 [facility] CHLAMYDIA 2 [facility] ANY SOURCE BLOOD 32859 LASHAWN LASHAWN COUNT 2 R H R H COMPLETE AUTO&[place] [address] [facility] THYROXINE 2 DIAGNOSTI DIAGNOSTI TOTAL CS CS THYROID 43702 [facility] HORM 2 DIAGNOSTI DIAGNOSTI UPTK/THYR CS CS OID HORMONE BINDING RATIO COLLECTIO 65813 [facility] N VENOUS 2 R H R H BLOOD VENIPUNCT URE URNLS DIP 95174 [facility] 2 R H R H STICK/TAB LET RGNT NON-AUTO W/[place] [address] [facility] THYROID 2 DIAGNOSTI DIAGNOSTI STIMULATI CS CS NG HORMONE TSH COLPOSCOP 59834 FRANZ FRANZ Y VULVA 2 GABRIEL GABRIEL RADEX 90322 RADIOLOGY MATTHEW SPINE 2 TUS LUMBOSACR ASSOCIATE AL 2/3 S OF NOTH VIEWS RADEX 43720 RADIOLOGY MATTHEW SPINE 2 TUS THORACIC ASSOCIATE 3 VIEWS S OF NOTH ANTIBODY 68056 COMBINED COMBINED CHLAMYDIA 2 PHYSICIAN PHYSICIAN S LA S LA CUL BACT 88383 COMBINED COMBINED XCPT 2 PHYSICIAN PHYSICIAN URINE S LA S LA BLOOD/STO OL AEROBIC ISOL COLPOSCOP 28000 FRANZ FRANZ Y VULVA 2 GABRIEL GABRIEL CUL BACT 43598 [facility] STOOL 2 HA[facility]ER [facility]ER AEROBIC ISOL MEDICALCE MEDICALCE SALMONELL NTER NTER A&SHIGELL CUL BACT 91363 [facility] STOOL 2 [place] [facility] AEROBIC ADDL MEDICALCE MEDICALCE PATHOGENS NTER NTER &ID EA LEUKOCYTE 49839 [facility] ASSMT 2 [facility] FECAL QUAL/SEMI MEDICALCE MEDICALCE QUANTITAT NTER NTER NATHAN CULTURE 07267 [facility] TYPING 2 [place] [facility] IMMUNOLOG IC MEDICALCE MEDICALCE OTH/THN NTER NTER IMMUNOFLU ORES INF AGENT 66891 [facility] N[facility]LE[facility] ACID MEDICALCE MEDICALCE CLOSTRID[place] [address] [facility] SHIGA-LIK [facility] E TOXIN MEDICALCE MEDICALCE NTER NTER SMR PRIM 15208 [facility] HARPEL SRC WET 2 PHYSICIAN [facility] AGT PCC IADNA 40315 BIO BIO CHLAMYDIA 2 REFERNCE REFERNCE LABORATOR LABORATOR TRACHOMAT IES IES IS AMPLIFIED PROBE TQ IADNA 93416 BIO BIO DIVINE 2 REFERNCE REFERNCE SPECIES LABORATOR LABORATOR AMPLIFIED IES IES PROBE TQ IADNA 07495 BIO BIO GARDNEREL 2 REFERNCE REFERNCE LA LABORATOR LABORATOR VAGINALIS IES IES AMPLIFIED PROBE TQ SMR PRIM 10230 HARPEL HARPEL SRC WET 2 [facility] NFCT AGT IADNA 75302 BIO BIO HERPES 2 REFERNCE REFERNCE SOMPLX LABORATOR LABORATOR VIRUS IES IES AMPLIFIED PROBE TQ IADNA NOS 34962 BIO BIO 2 REFERNCE REFERNCE AMPLIFIED LABORATOR LABORATOR PROBE TQ IES IES EACH ORGANISM IADNA 86895 BIO BIO NEISSERIA 2 REFERNCE REFERNCE LABORATOR LABORATOR GONORRHOE IES IES AE AMPLIFIED PROBE TQ BLOOD 96007 FAMILY FAMILY COUNT 2 CARE CARE COMPLETE ASSOCIATE ASSOCIATE AUTO&AUTO S S DIFRNTL WBC THERAPEUT 86953 CECE ZHAO IC 2 [facility] PROPHYLAC INC INC TIC/DX INJECTION SUBQ/IM BLOOD 58462 LASHAWN LASHAWN COUNT 2 R H R H COMPLETE AUTO&AUTO DIFRNTL WBC URNLS DIP 04232 LASHAWN LASHAWN 2 R H R H STICK/TAB LET RGNT NON-AUTO W/O MICRSCP URNLS DIP 71735 LASHAWN LASHAWN 1 R H R H STICK/TAB LET RGNT NON-AUTO W/O MICRSCP IADNA 53856 BIO BIO NEISSERIA 1 REFERNCE REFERNCE LABORATOR LABORATOR GONORRHOE IES IES AE AMPLIFIED PROBE TQ IADNA NOS 53059 BIO BIO 1 REFERNCE REFERNCE AMPLIFIED LABORATOR LABORATOR PROBE TQ IES IES EACH ORGANISM CYTP C/V 35047 BIO BIO AUTO THIN 1 REFERNCE REFERNCE LYR LABORATOR LABORATOR PREPJ SCR IES IES MNL RESCR PHYS IADNA 73336 BIO BIO CHLAMYDIA 1 REFERNCE REFERNCE LABORATOR LABORATOR TRACHOMAT IES IES IS AMPLIFIED PROBE TQ THERAPEUT 74997 [facility] IC PX 1/> 1 [facility] JET AREAS TIC EACH 15 CENTER MIN EXERCISES [facility] 57060 [facility] [place] TIC 1 [facility] JET MANIPULAT TIC [place] CENTER SPINAL 3-4 [place] [address] [facility] 1/> AREAS 1 [facility] JET EACH 15 TIC [place] [address] [facility] [place] 1/> AREAS 1 [facility] JET EACH 15 TIC MINUTES CENTER MASSAGE APPL 32433 [facility] [place] MODALITY 1 [facility] JET 1/> AREAS [place] [address] [facility] 1/> AREAS 1 [place] JET EACH 15 [place] [address] [facility] [place] 1/> AREAS 1 [facility] JET EACH 15 TIC MIN CENTER NEUROMUSC [place] CHIROPRAC 19982 [facility] TIC 1 [facility] JET MANIPULAT TIC [place] CENTER SPINAL 3-[address] [facility] LUMBOSACR INGA INGA AL 2/[address] [facility] [address] [facility] THORACIC INGA INGA 3 [place] [address] [facility] [address] [facility] THYROXINE [place] [address] [facility] THYROID [facility] STIMULATI NG MEDICALCE MEDICALCE HORMONE NTER NTER TSH BLOOD 99856 [facility] COUNT [facility] COMPLETE AUTO&AUTO MEDICALCE MEDICALCE DIFRNTL NTER NTER WBC BASIC 93432 [facility] METABOLIC [facility] PANEL CALCIUM MEDICALCE MEDICALCE TOTAL NTER NTER BLOOD 94409 FAMILY MULBERRY COUNT 1 CARE ALEX COMPLETE ASSOCIATE AUTO&[place] [address] [facility] THYROID 1 [facility] [place] [address] [facility] FOLIC 1 [facility] ACID SERUM CYANOCOBA 21572 [facility] EMELY 1 [facility] VITAMIN B-12 25 35183 [facility] HYDROXY 1 DIAGNOSTI DIAGNOSTI INCLUDES CS CS FRACTIONS INCORPORA INCORPORA IF T T PERFORMED COMPREHEN 05577 [facility] SIVE 1 [facility] METABOLIC PANEL SUSCEPTIB 05375 [facility] LTY STDY 1 [facility] ANTIMICRB IAL MICRO/AGA R DILUTJ CUL BACT 13686 [facility] AEROBIC 1 [facility] ADDL METHS DEFINITIV E EA ISOL CULTURE 39843 [facility] BACTERIAL 1 [facility] QUANTTATI VE COLONY COUNT URINE CULTURE 75480 [facility] BCT 1 [facility] ISOL&PRSM PTV ID ISOLATE EA URINE ETONOGEST J7307 [facility] REL 1 [facility] CNTRACPT CLINIC OF IMPL SYS MONO INCL IMPL & SPL INSERTION 01980 [facility] FARNZ 1 [facility] IMPLANTAB CLINIC OF LE MONO CONTRACEP TIVE CAPSULES URINE 53647 [facility] 1 [facility] TEST CLINIC OF VISUAL MONO COLOR CMPRSN METHS REMOVAL 27498 [facility] INTRA[facility] [place] [address] [facility] TRANSVAGI [facility] INSERTION 13133 [facility] INTRA[facility] INE [facility] DEVICE IUD LEVONORGE J7302 W[facility] STREL-RLS [facility] E [facility] INTRAUTER [facility] N CNTRACPT 52 MG URINE 09455 [facility] VISUAL [facility] COLOR CMPRSN METHS CULTURE 39573 [facility] BACTERIAL 1 [place] [facility] [place] INC QUANTTATI VE COLONY COUNT URINE BLOOD 56847 [facility] FAMILY COUNT 0 CARE CARE COMPLETE ASSOCIATE ASSOCIATE AUTO&AUTO S S DIFRNTL WBC HEPATBL 51037 [facility] DUX SYS 0 [facility] IMG INC INC GLBLDR APPL 67853 [facility] MODALITY 0 [facility] JET 1/> AREAS TIC ELEC CENTER STIMJ UNATTENDE D THERAPEUT 25764 [facility] [place] IC PX 1/> 0 [facility] JET AREAS TIC EACH 15 CENTER MIN EXERCISES [facility]OP[facility] 96828 [facility] [place] TIC 0 [facility] JTE MANIPULAT TIC [place] [facility] SPINAL 3-[place] [address] [facility] 1/> AREAS 0 [facility] JET EACH 15 [place] [address] [facility] 1/> AREAS 0 [facility] JET EACH 15 TIC MINUTES CENTER MASSAGE CHIROPRAC 94991 [facility] [place] TIC 0 [facility] JET MANIPULAT TIC [place] [facility] SPINAL 3-4 REGIONS THERAPEUT 09627 [facility] [place] IC PX 1/> 0 [facility] JET AREAS TIC EACH 15 CENTER MIN EXERCISES APPLICATI 69603 [facility] [place] ON 0 [facility] JET MODALITY TIC 1/> AREAS CENTER HOT/COLD PACKS APPL 78805 [facility] MODALITY 0 [facility] JET 1/> AREAS TIC [place] [address] [facility] ABDOMINAL 0 [facility] REAL INC INC TIME W/IMAGE LIMITED BLOOD 62541 [facility] BRANDY J COUNT 0 CARE COMPLETE ASSOCIATE AUTO&AUTO S DIFRNTL WBC TRANSFERA 03003 [facility] J SE 0 CARE ASPARTATE ASSOCIATE AMINO S AST SGOT TRANSFERA 27605 [facility] SE 0 CARE CARE ALANINE ASSOCIATE ASSOCIATE AMINO ALT S S SGPT CIRCUMCIS 24327 FAMILY MULBERRY ION 0 CARE ALEX W/CLAMP/O ASSOCIATE TH DEV S W/BLOCK [facility] 82239 [facility] DISCHARGE 0 [facility] [place] DAY GROUP MANAGEMEN PCC T 30 MIN/< SBSQ 02083 [facility] 0 [facility] [place] CARE/DAY GROUP 35 PCC MINUTES SUBQ 80679 [facility] 0 CARE CARE CARE PER ASSOCIATE ASSOCIATE DAY E/M S S NORMAL VAGINAL 49081 [facility] DELIVERY 0 [facility] [place] ONLY GROUP PCC NEURAXIAL 52104 [facility] LABOR 0 ANESTH ANALG/ANE OF THE S [facility] [place] [facility] 27605 FAMILY [facility] DISCHARGE 0 CARE ALEX DAY ASSOCIATE MANAGEMEN S T 30 MIN/< LOW 721 [facility] FORCEPS 0 [facility] OPERATION INC INC WITH EPISIOTOM Y 39179 [facility] NONSTRESS 0 [facility] [place] TEST GROUP PCC 07854 [facility] NONSTRESS 0 [facility] TEST INC INC BLOOD 56380 [facility] COUNT [facility] CARE CARE COMPLETE ASSOCIATE ASSOCIATE AUTO&AUTO S S DIFRNTL WBC PARTICLE 93296 [facility] AGGLUTINA 0 [facility] TION INC INC SCREEN EACH ANTIBODY BLOOD 11370 [facility] COUNT 0 [facility] HEMATOCRI INC INC T URNLS DIP 32947 [facility] STICK/TAB INC INC LET REAGENT AUTO MICROSCOP Y BLOOD 13625 [facility] COUNT 0 [facility] HEMOGLOBI INC INC N GLUC BLD 80633 [facility] GLUC MNTR 0 [facility] DEV INC INC CLEARED FDA SPEC HOME USE 00672 [facility] NONSTRESS 0 [facility] TEST INC INC OBSERVATI 52790 [facility] ON/INPATI 0 [facility] PCC CARE 55 MINUTES SMR PRIM 74237 [facility] SRC WET 0 [facility] [place] [facility] NFCT AGT PCC CYTP C/V 62076 [facility] AUTO THIN 0 [facility] LYR PREPJ SCR MNL RESCR PHYS IADNA 17000 [facility] CHLAMYDIA 0 [facility] TRACHOMAT IS AMPLIFIED PROBE TQ IADNA 05609 [facility] NEISSERIA 0 [facility] GONORRHOE AE AMPLIFIED PROBE TQ IADNA 80019 [facility] SPECIALTY HERPES 0 SOMPLX LABORATOR LABORATOR VIRUS IES INC IES INC AMPLIFIED PROBE TQ URNLS DIP 99528 [facility] STICK/TAB INC INC LET REAGENT AUTO MICROSCOP Y 86156 [facility] NONSTRESS 0 [facility] TEST INC INC OBSERVATI 16083 [facility] HAR[facility] ON/INPATI 0 [facility] PCC CARE 55 MINUTES SMR PRIM 61970 [facility] SRC WET 0 [facility] [place] [facility] NFCT AGT PCC GLUCOSE 67390 [facility] POST 0 [facility] GLUCOSE INC INC DOSE BLOOD 35496 [facility] [place] COUNT 0 [facility] COMPLETE INC INC AUTO&AUTO DIFRNTL WBC US PREG 35653 [facility] UTERUS 0 PHYS[facility]IAN [place] AFTER 1ST [place] [address] [facility] HAR[facility]L 0 [facility] UTERUS 14 GROUP WK PCC TRANSABDL GESTAT ALPHA-FET 34958 [facility] OPROTEIN 0 [facility] [place] [address] CECE Z[facility]O ESTRIOL 0 [facility] INC INC COLPOSCOP 52969 [facility] HAR[facility] Y CERVIX 0 PHYS[facility]IAN [place] BX CERVIX GROUP & PCC ENDOCRV CURRETAGE US PREG 31021 [facility] UTERUS 0 PHYSICIAN PHYSICIAN REAL TIME GROUP GROUP W/IMAGE PCC PCC DCMTN TRANSVAG IADNA 61122 [facility] [place] 0 [facility] GONORRHOE AE AMPLIFIED PROBE TQ IADNA 40675 [facility] CHLAMYD[place] 0 [facility] TRACHOMAT [place] [address] [facility] NON-IMMUN 0 [place] INC LTN [employer] INC OLOGIC OTH/THN CYTOPATHI C CYTP 22157 [facility] CERVICAL/ 0 VAGINAL INDIANAPO INDIANAPO REQ LIS PC LIS PC INTERP PHYSICIAN IADNA NOS 99554 SPECIALTY SPECIALTY 0 AMPLIFIED LABORATOR LABORATOR PROBE TQ IES INC IES INC EACH ORGANISM MOLECULAR 75087 SPECIALTY SPECIALTY DX AMP 0 TARGET LABORATOR LABORATOR MULTIPLEX IES INC IES INC EA ADDL SEQ MOLEC 26593 SPECIALTY SPECIALTY SEP&ID HI 0 RESOLU LABORATOR LABORATOR TQ EACH IES INC IES INC NUCLEIC ACID PREP MOLECULAR 18895 SPECIALTY SPECIALTY DX AMP 0 TARGET LABORATOR LABORATOR MULTIPLEX IES INC IES INC 1ST 2 SEQ MOLECULAR 15439 SPECIALTY SPECIALTY 0 DIAGNOSTI LABORATOR LABORATOR CS IES INC IES INC INTERPRET ATION & REPORT MUTATION 22444 SPECIALTY SPECIALTY ID 0 ENZYMATIC LABORATOR LABORATOR IES INC IES INC LIG/PRIME R XTN 1 SGM EA MOLEC 51777 SPECIALTY SPECIALTY ISOL/XTRJ 0 HP LABORATOR LABORATOR NUCLEIC IES INC IES INC ACID EA TYPE MOLEC 23125 SPECIALTY SPECIALTY ENZYMATIC 0 LABORATOR LABORATOR DIGESTION IES INC IES INC [place]ME [place] URINE 91759 PEN[facility] PENDELETO 0 N CO N CO TEST [facility] COLOR CMPRSN METHS CULTURE 14931 [facility] TYPING 9 [facility] INC IMMUNOLOG IC OTH/THN IMMUNOFLU ORES CULTURE 78072 [facility] BCT 9 [place] INC [employer] INC ISOL&PRSM PTV ID ISOLATE EA URINE CULTURE 70988 [facility] BACTERIAL 9 [place] [facility] INC QUANTTATI VE COLONY COUNT URINE CULTURE 56067 [facility] BCT 9 [place] INC [place] INC ISOL&PRSM PTV ID ISOLATE EA URINE CULTURE 34485 [facility] BACTERIAL 9 [facility] INC QUANTTATI VE COLONY COUNT URINE CULTURE 63705 [facility] TYPING 9 [facility] INC IMMUNOLOG IC OTH/[place] [address] IRAM BUSH, 1/> AREAS 9 CHIROPRAC MAURI P EACH 15 TIC MINUTES CENTER MASSAGE CHIROPRAC 05617 IRAM BUSH, TIC 9 CHIROPRA MAURI P MANIPULAT TIC [place] C[facility] SPINAL 3-4 REGIONS FITTING 52427 QUINTEN SHIPLEY, SPECTACLE 9 [place] Coleman S XCPT APHAKIA MONOFOCAL SPHERE V2100 QUINTEN SHIPLEY, SINGLE 9 [place] Coleman [place] VISION PLANO +/- 4.00 PER LENS FRAMES V2020 QUINTEN SHIPLEY, PURCHASES 9 [place] ALEXANDRIA Coleman DETERMINA 03819 QUINTEN SHIPLEY TION 9 [place] ALEXANDRIA Coleman REFRACTIV E STATE OPHTH 72967 QUINTEN SHIPLEY, MEDICAL 9 [place] Coleman A[place] XM&EVAL COMPRHNSV ESTAB PT 1/> COLLECTIO 63582 [facility] L[facility] N VENOUS 9 [facility] BLOOD [place] [address] [facility] THYROID 9 [facility] INC STIMULATI NG HORMONE TSH URNLS DIP 96669 [facility] L[facility] Rima MOSRE 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/TAB 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 LET RGNT S NON-AUTO W/O MICRSCP CYTP C/V [address] AUTO THIN 9 HAIDER MALONEY LYR PREPJ SCR MEDICALCE MEDICALCE MNL NTER NTER RESCR PHYS IADNA 30979 DHS/CO PENDELETO CHLAMYDIA 9 [facility]ALTH N [facility] TRACHOMAT BANK ACCT CENTER IS AMPLIFIED PROBE TQ ALL Q0112 DHS/CO [facility] POTASSIUM 9 HEALTH N [facility] HYDROXIDE BANK ACCT CENTER PREPARATI ONS WET Q0111 DHS/CO P[facility] CARI 9 HEALTH N CO INCL PREP [facility] VAGINAL BANK ACCT CENTER CERV/SKIN SPECIMENS URNLS DIP 48844 DHS/CO PENDELETO 9 HEALTH N CO STICK/TAB [facility] LET RGNT BANK ACCT CENTER NON-AUTO W/O MICRSCP URINE 32038 DHS/CO PENDELETO 9 HEALTH N CO TEST [facility] VISUAL BANK ACCT CENTER COLOR CMPRSN METHS IADNA 32457 DHS/CO PENDELETO NEISSERIA 9 HEALTH N [facility] GONORRHOE BANK ACCT CENTER AE AMPLIFIED PROBE TQ CHIROPRAC 85514 [place] CHINT[place], TIC 9 CHIROPRAC MEGA MANIPLTV TIC TX CENTER EXTRASPIN AL 1/> REGION CHIROPRAC 10848 [place], TIC 9 CHIROPRAC MEGA MANIPULAT TIC [place] [facility] SPINAL 3-4 [place] [address] [place]INT[place], 1/> AREAS 9 CHIROPRAC MEGA EACH 15 [place] [address] [place] CHINT[place], 1/> AREAS 9 CHIROPRAC MEGA EACH 15 TIC MINUTES CENTER MASSAGE CHIROPRAC 32651 [place], TIC 9 CHIROPRAC MEGA MANIPULAT TIC [place] CENTER SPINAL 3-4 REGIONS CHIROPRAC 55190 [place], TIC 9 CHIROPRAC MEGA MANIPULAT TIC [place] [facility] SPINAL 3-4 [place] [address] [place] CHINT[place], 1/> AREAS 9 CHIROPRAC MEGA EACH 15 TIC MINUTES CENTER MASSAGE THERAPEUT 18888 MEMOMORENE CHINTAN, IC PX 1/> 9 CHIROPRAC MEGA AREAS TIC EACH 15 CENTER MIN EXERCISES THERAPEUT 05604 [place] CHINTAN, IC PX 1/> 8 CHIROPRAC MEGA AREAS TIC EACH 15 CENTER MIN EXERCISES APPLICATI 80362 IRAM CHINTAN, ON 8 CHIROPRAC MEGA MODALITY TIC 1/> AREAS CENTER HOT/COLD PACKS CHIROPRAC 25870 [place] CHINT[place], TIC 8 CHIROPRAC MEGA MANIPULAT TIC [place] CENTER SPINAL 3-4 REGIONS MANUAL 17111 IRAM CHINTAN, THERAPY 8 CHIROPRAC MEGA TQS 1/> TIC REGIONS CENTER EACH 15 MINUTES APPL 75250 [place] CHINT[place], MODALITY 8 CHIROPRAC MEGA 1/> AREAS TIC ELEC CENTER STIMJ UNATTENDE D APPL 06727 IRAM CHINTAN, MODALITY 8 CHIROPRAC MEGA 1/> AREAS TIC ELEC CENTER STIMJ UNATTENDE D CHIROPRAC 67024 IRAM CHINTAN, TIC 8 CHIROPRAC MEGA MANIPULAT TIC [place] CENTER SPINAL 3-4 REGIONS APPLICATI 16702 IRAM WOODSON, ON 8 CHIROPRAC MEGA MODALITY TIC 1/> AREAS CENTER H[place] [address] IRAM CHINTAN, 1/> AREAS 8 CHIROPRAC MEGA EACH 15 TIC MINUTES CENTER MASSAGE THERAPEUT 80217 AUDREYUTH CHINTAN, IC PX 1/> 8 CHIROPRAC MEGA AREAS TIC EACH 15 CENTER MIN EXERCISES THERAPEUT 23391 IRAM CHINTAN, IC PX 1/> 8 CHIROPRAC MEGA AREAS TIC EACH 15 CENTER MIN EXERCISES APPLICATI 24446 IRAM WOODSON, ON 8 CHIROPRAC MEGA MODALITY TIC 1/> AREAS CENTER H[place] [address] IRAM CHINTAN, 1/> AREAS 8 CHIROPRAC MEGA EACH 15 TIC MINUTES CENTER MASSAGE CHIROPRAC 00969 IRAM WOODSON, TIC 8 CHIROPRAC MEGA MANIPULAT TIC [place] CENTER SPINAL 3-4 REGIONS APPL 99860 IRAM CHINTAN, MODALITY 8 CHIROPRAC MEGA 1/> AREAS TIC ELEC CENTER STIMJ UNATTENDE D APPL 23794 IRAM CHINTAN, MODALITY 8 CHIROPRAC MEGA 1/> AREAS TIC ELEC CENTER STIMJ UNATTENDE D CHIROPRAC 34273 IRAM CHINTAN, TIC 8 CHIROPRAC MEGA MANIPULAT TIC [place] [facility] SPINAL 3-[place] [address] AUDREYUTH CHINTAN, 1/> AREAS 8 CHIROPRAC MEGA EACH 15 TIC MINUTES CENTER MASSAGE APPLICATI 08503 IRAM WOODSON, ON 8 CHIROPRAC MEGA MODALITY TIC 1/> AREAS CENTER HOT/COLD PACKS THERAPEUT 67487 IRAM CHINTAN, IC PX 1/> 8 CHIROPRAC MEGA AREAS TIC EACH [place] [address] F[place] CHINTAN, 1/> AREAS 8 CHIROPRAC MEGA EACH 15 TIC MINUTES CENTER MASSAGE APPL 62031 F[place] CHINTAN, MODALITY 8 CHIROPRAC MEGA 1/> AREAS TIC ELEC CENTER STIMJ UNATTENDE D APPL 95935 [place] CHINTAN, MODALITY 8 CHIROPRAC MEGA 1/> AREAS TIC ELEC CENTER STIMJ UNATTENDE D THERAPEUT 31673 IRAM WOODSON, IC PX 1/> 8 CHIROPRAC MEGA AREAS TIC EACH [place] [address] [place] CHINTAN, 1/> AREAS 8 CHIROPRAC MEGA EACH 15 TIC MINUTES CENTER MASSAGE CHIROPRAC 45156 IRAM CHINTAN, TIC 8 CHIROPRAC MEGA MANIPULAT TIC [place] [facility]ENTER SPINAL 3-4 REGIONS APPLICATI 15523 IRAM WOODSON, ON 8 CHIROPRAC MEGA MODALITY TIC 1/> AREAS CENTER HOT/COLD PACKS APPLICATI 10736 [place] CHINTAN, ON 8 CHIROPRAC MEGA MODALITY TIC 1/> AREAS CENTER HOT/COLD PACKS THERAPEUT 52991 IRAM WOODSON, IC PX 1/> 8 CHIROPRAC MEGA AREAS TIC EACH 15 CENTER MIN EXERCISES CHIROPRAC 19485 IRAM CHINTAN, TIC 8 CHIROPRAC MEGA MANIPULAT TIC [place] [facility] SPINAL 3-[place] [address] IRAM CHINTAN, 1/> AREAS 8 CHIROPRAC MEGA EACH 15 TIC MINUTES CENTER MASSAGE APPLICATI 16537 IRAM CHINTAN, ON 8 CHIROPRAC MEGA MODALITY TIC 1/> AREAS CENTER HOT/COLD PACKS THERAPEUT 89355 IRAM WOODSON, IC PX 1/> 8 CHIROPRAC MEGA AREAS TIC EACH 15 CENTER MIN EXERCISES CHIROPRAC 13040 IRAM CHINTAN, TIC 8 CHIROPRAC MEGA MANIPULAT TIC [place] [facility]ENTER SPINAL 3-4 REGIONS APPL 25919 MEMOMORENE CHINTAN, MODALITY 8 CHIROPRAC MEGA 1/> AREAS TIC ELEC CENTER STIMJ UNATTENDE D APPL 92605 IRAM WOODSON, MODALITY 8 CHIROPRAC MEGA 1/> AREAS TIC ELEC CENTER STIMJ UNATTENDE D CHIROPRAC 60959 IRAM CHINTAN, TIC 8 CHIROPRAC MEGA MANIPULAT TIC [place] CENTER SPINAL 3-[address] [place] [address] IRAM CHINTAN, 1/> AREAS 8 CHIROPRAC MEGA EACH 15 TIC MINUTES CENTER MASSAGE APPLICATI 46638 IRAM WOODSON, ON 8 CHIROPRAC MEGA MODALITY TIC 1/> AREAS CENTER HOT/COLD PACKS THERAPEUT 98564 IRAM WOODSON, IC PX 1/> 8 CHIROPRAC MEGA AREAS TIC EACH [place] [address] IRAM CHINTAN, 1/> AREAS 8 CHIROPRAC MEGA EACH 15 TIC MIN CENTER NEUROMUSC REEDUCA THERAPEUT 38878 IRAM WOODSON, IC PX 1/> 8 CHIROPRAC MEGA AREAS TIC EACH 15 CENTER MIN EXERCISES APPLICATI 20441 IRAM WOODSON, ON 8 CHIROPRAC MEGA MODALITY TIC 1/> AREAS CENTER HOT/COLD PACKS CHIROPRAC 35323 IRAM WOODSON, TIC 8 CHIROPRAC MEGA MANIPULAT TIC [place] CENTER SPINAL 3-4 REGIONS APPL 50175 IRAM WOODSON, MODALITY 8 CHIROPRAC MEGA 1/> AREAS TIC ELEC CENTER STIMJ UNATTENDE D APPL 62181 IRAM CHINTAN, MODALITY 8 CHIROPRAC MEGA 1/> AREAS TIC ELEC CENTER STIMJ UNATTENDE D CHIROPRAC 35462 IRAM WOODSON, TIC 8 CHIROPRAC MEGA MANIPULAT TIC [place] CENTER SPINAL 3-4 REGIONS THERAPEUT 11400 IRAM WOODSON, IC PX 1/> 8 CHIROPRAC MEGA AREAS TIC EACH [place] [address] IRAM WOODSON, 1/> AREAS 8 CHIROPRAC MEGA EACH 15 TIC MINUTES CENTER MASSAGE APPLICATI 68561 IRAM WOODSON, ON 8 CHIROPRAC MEGA MODALITY TIC 1/> AREAS CENTER HOT/COLD PACKS APPLICATI 70980 IRAM WOODSON, ON 8 CHIROPRAC MEGA MODALITY TIC 1/> AREAS CENTER HOT/COLD PACKS THERAPEUT 75116 IRAM WOODSON, IC PX 1/> 8 CHIROPRAC MEGA AREAS TIC EACH [place] [address] FALSANDRAUTH CHINTAN, 1/> AREAS 8 CHIROPRAC MEGA EACH 15 TIC MINUTES CENTER MASSAGE CHIROPRAC 17926 IRAM CHINTAN, TIC 8 CHIROPRAC MEGA MANIPULAT TIC [place] CENTER SPINAL 3-4 REGIONS APPL 32611 IRAM CHINTAN, MODALITY 8 CHIROPRAC MEGA 1/> AREAS TIC ELEC CENTER STIMJ UNATTENDE D APPL 44568 AUDREYUTH CHINTAN, MODALITY 8 CHIROPRAC MEGA 1/> AREAS TIC ELEC CENTER STIMJ UNATTENDE D CHIROPRAC 78896 IRAM CHINTAN, TIC 8 CHIROPRAC MEGA MANIPULAT TIC [place] CENTER SPINAL 3-[place] [address] IRAM CHINTAN, 1/> AREAS 8 CHIROPRAC MEGA EACH 15 TIC MINUTES CENTER MASSAGE THERAPEUT 49071 IRAM WOODSON, IC PX 1/> 8 CHIROPRAC MEGA AREAS TIC EACH 15 CENTER MIN EXERCISES APPLICATI 49285 IRAM WOODSON, ON 8 CHIROPRAC MEGA MODALITY TIC 1/> AREAS CENTER HOT/COLD PACKS IAADIADOO 03825 [facility] Rima MORSE STREPTOCO ASSOCIATE CCUS S GROUP A PRESSURIZ 90335 CECE ZHAO ED/NONPRE 8 [facility] SSURIZED INC INC INHALATIO N TREATMENT RADIOLOGI 25364 CECE ZHAO C EXAM 8 [facility] CHEST 2 INC INC VIEWS FRONTAL&L ATERAL IAADIADOO 22677 [facility], 8 CARE Rima MORSE STREPTOCO ASSOCIATE CCUS S GROUP A IAADIADOO 42448 [facility], 8 CARE Rima MORSE STREPTOCO ASSOCIATE CCUS S GROUP A CYTP 08943 [facility] AUGUSTUS, CERV/VAG 8 OR INC JULIAN E AUTO THIN LAYER PREP MNL SCREEN BLOOD 80491 [facility] COUNT 8 [facility] [place] [address] [facility] TESTOSTER 8 [facility] ONE TOTAL DEHYDROEP 91240 [facility] IANDROSTE 8 [facility] MO-SULF ATE BLOOD 44160 [facility] COUNT 8 [facility] SMEAR MCRSCP W/MNL DIFRNTL WBC COUNT GONADOTRO 63452 [facility] PIN [address] [place] [address] FOLLICLE STIMULATI NG HORMONE COLLECTIO 54212 FAMILY LASHAWN, N VENOUS [address] [place] [address] BLOOD ASSOCIATE VENIPUNCT S URE GONADOTRO 69165 [facility] PIN [address] [place] [address] [place] [address] [facility] THYROID [address] [place] [address] STIMULATI NG HORMONE TSH Encounters Encounter Start End Date Code Location Performer Type Date EMERGENCY 30391 BRITNEY BURGOS [facility] 6 6 PHYSICIAN DEPARTMEN S, PLLC T VISIT HIGH/URGE NT SEVERITY EMERGENCY 80460 CECE 6 6 [facility] DEPARTMEN INC T VISIT LOW/MODER SEVERITY [facility]OSPITAL [facility] - 6 6 [facility] T OFFICE 20989 [facility] OUTPATIEN 6 6 HAIDER NIESHA T VISIT 15 PHYSICIAN MINUTES S OFFICE 71186 [facility] PRESSLER OUTPATIEN 6 6 SPR[facility] ANGUS T VISIT URGENT 15 CARE MINUTES OFFICE 85166 [facility] PRESSLER OUTPATIEN 6 6 [place] ANGUS T VISIT URGENT 25 CARE MINUTES [facility] 5 5 [facility] OUTPATIEN [facility] 5 5 [facility]ER OUTPATIEN MED CTR T [facility] OFFICE 57006 IFTIKHAR [place] OUTPATIEN 5 5 CLIFFORD CHAWLA T VISIT 15 MINUTES OFFICE 25220 IFTIKHAR [place] OUTPATIEN 5 5 [facility] CHAWLA T VISIT 15 MINUTES EMERGENCY 05031 BRITNEY HERRERA 5 5 [facility]ICIAN U [facility] VISIT HIGH/URGE NT SEVERITY HOSPITAL CECE - 5 5 [facility] OUTPATIEN INC T EMERGENCY 61202 CECE 5 5 [facility] DEPARTMEN INC T VISIT MODERATE SEVERITY [facility] ST - 5 5 [facility] OUTPATIEN MED CTR T [facility] OFFICE [address] [facility] OUTPATIEN 5 5 HAIDER EMILIA T VISIT 25 PHYSICIAN MINUTES [facility] 5 5 [facility] OUTPATIEN FT T [facility] 44466 [facility] DEPT 5 5 EMERGENCY VISIT HIGH PHYSICIAN SEVERITY& S THREAT [facility] ST - 5 5 [facility] OUTPATIEN MED [facility] CECE - 5 5 [facility] OUTPATIEN INC T EMERGENCY 93991 BRITNEY SANCHES DEPT 5 5 PHYSICIAN NIESHA VISIT S, PLLC HIGH SEVERITY& THREAT [facility] EMERGENCY 67963 CECE 5 5 [facility] DEPARTMEN INC T VISIT MODERATE SEVERITY OFFICE 97745 ST TARA OUTPATIEN 5 5 HAIDER JET T VISIT 15 PHYSICIAN MINUTES OFFICE 30680 ST JUSTIN OUTPATIEN 5 5 HAIDER NIESHA T VISIT 15 PHYSICIAN MINUTES [facility] 5 [facility] OUT[facility]IEN [facility] - 5 5 [facility] OUTPATIEN MED CTR T [facility] 49875 IFTIKHAR [place] PREVENTIV 5 5 [facility] E MED EST PATIENT 18-39 [facility] - 5 5 [facility] OUTPATIEN MED [facility] T [facility] OFFICE [address] [facility] SANDERS OUTPATIEN 5 5 HAIDER ANASTASIA CARMEN T VISIT 15 PHYSICIAN MINUTES [facility] - 5 5 [facility] OUTPATIEN MED [facility] EMERGENCY 24711 COMPASS DANNEMAN 5 5 EMERGENCY HOL DEPARTMEN T VISIT PHYSICIAN HIGH/URGE S NT SEVERITY OFFICE 87004 ST OUTPATIEN 5 5 HAIDER T VISIT 15 PHYSICIAN MINUTES S EMERGENCY 52859 COMPASS CARLENE 5 5 EMERGENCY GUERRERO DEPARTMEN T VISIT PHYSICIAN MODERATE S SEVERITY [facility] - 5 5 [facility] OUTPATIEN MED CTR T [facility] OFFICE [address]98 ST JUSTIN OUTPATIEN 5 5 HAIDER NIESHA T VISIT 15 PHYSICIAN MINUTES [facility] - 5 5 [facility] OUTPATIEN MED CTR T [facility] OFFICE 29569 PENDELETO PENDELETO OUTPATIEN 5 5 N CO N CO T VISIT [place] 04106 CENTER CENTER MINUTES EMERGENCY 10430 BRITNEY SANCHES DEPT 5 5 PHYSICIAN NIESHA VISIT S, PLLC HIGH SEVERITY& THREAT [facility] ST - 5 5 HAIDER OUTPATIEN MED CTR T [facility] OFFICE 04644 HEAD & DOMET NIESHA OUTPATIEN 5 5 NECK T VISIT SURGERY 25 ASSOC [facility] ST - 5 5 HAIDER OUTPATIEN MED CTR T [facility] OFFICE [address]773 ST TARA OUTPATIEN 5 5 HAIDER JET T VISIT 25 PHYSICIAN MINUTES [facility] - 5 5 [facility] - 5 5 HA[facility]ER OUTPATIEN MED CTR [facility] EMERGENCY 43725 CECE 5 5 [facility] T VISIT LIMITED/M INOR PROB EMERGENCY 10897 BRITNEY FLORES 5 5 PHYSICIAN [facility] S, [facility] T VISIT HIGH/URGE NT SEVERITY HOSPITAL CECE - 5 5 [facility] T OFFICE 72972 FAMILY KEAGLE OUTPATIEN 5 5 CARE RIT T VISIT ASSOCIATE 15 S MINUTES OFFICE 55685 [facility] 5 SPRING T VISIT URGENT [facility] [address] - 5 5 [facility] MARCELLUS T OFFICE 63218 FAMILY KEAGLE OUTPATIEN 5 5 CARE RIT T VISIT ASSOCIATE [address]ES [address] [facility] 5 5 HAIDER JET T VISIT 25 PHYSICIAN MINUTES [facility] - 5 5 [facility] OUTPAT[facility]EN [facility] OFFICE 99053 FAMILY KEAGLE OUTPATIEN 4 4 CARE RIT T VISIT ASSOCIATE 15 S MINUTES OFFICE 30828 FAMILY KEAGLE OUTPATIEN 4 4 CARE RIT T VISIT ASSOCIATE 15 S MINUTES OFFICE 82587 FAMILY KEAGLE OUTPATIEN 4 4 CARE RIT T VISIT ASSOCIATE 15 S MINUTES OFFICE 41212 FAMILY MULBERRY OUTPATIEN 4 4 CARE ALEX T VISIT ASSOCIATE 15 S MINUTES OFFICE 55600 FAMILY KEAGLE OUTPATIEN 4 4 CARE RIT T VISIT ASSOCIATE 15 S MINUTES OFFICE 75106 GEORGES SU OUTPATIEN 4 4 MARQUES MARQUES T NEW 30 MINUTES OFFICE 03972 IFTIKHAR [place] OUTPATIEN 4 4 [facility] [facility] [place] T VISIT [address] - 4 4 HAIDER OUTPATIEN MED [facility] T [facility] ST - 4 4 HAIDER OUTPATIEN MED CTR T [facility] ST OFFICE 34490 EMERITA FELDER OUTPATIEN 4 4 RIT RIT T VISIT [address] - 4 4 HA[facility]ER OUTPATIEN MED CTR T [facility] ST OFFICE 26379 TARA PACHECO OUTPATIEN 4 4 JET JET T VISIT [address] - 4 4 HAIDER OUTPATIEN INGA T OFFICE 64644 EMERITA FELDER OUTPATIEN 4 4 RIT RIT T VISIT 15 MINUTES EMERGENCY 58195 LIZA DE JESUS DEPT 4 4 ALEX ALEX VISIT HIGH SEVERITY& THREAT FUNCJ EMERGENCY 32956 SOKAN BAB SOKAN BAB 4 4 DEPARTMEN T VISIT MODERATE SEVERITY OFFICE 25713 TARA BRANTLEYPATICONCEPCION 4 4 JET JET T NEW [address] - 4 4 [facility]ER OUTPATIEN MED [facility] T [facility] OFFICE 49663 LIZA DE JESUS OUTPATICONCEPCION 4 4 THE THE T VISIT 15 MINUTES OFFICE 12052 LIZA DE JESUS OUTPATIEN 4 4 THE THE T VISIT [address] - 4 4 HAIDER OUTPATIEN MED CTR T [facility] - 4 4 HAIDER OUTPATIEN MED CTR T [facility] ST - 4 4 HAIDER OUTPATIEN MED CTR T [facility] ST OFFICE 96384 BRANDY Zayas OUTPATIEN 4 4 G G T VISIT [address] - 4 4 [facility]ER OUTPATIEN MED CTR T [facility] Emergency TERA Sanches MD (ER) 4 22:10 4 22:39 [facility] EMERGENCY 18003 BUTCH SANCHES 4 4 EMERGENCY NIESHA DEPARTMEN SERVICES T VISIT MODERATE SEVERITY OFFICE 49083 IFITKHAR RODASPEL OUTPATIEN 4 4 [place] T VISIT 15 MINUTES OFFICE 72032 HARPEL HARPEL OUTPATIEN 3 3 [place] T VISIT 10 MINUTES OFFICE 11768 PENDELETO PENDELETO OUTPATIEN 3 3 N CO N CO T VISIT [address] CECE - 3 3 [facility] OUTPATIEN INC T PERIODIC 64034 HARPEL HARPEL PREVENTIV 3 3 DENT[place] E MED EST PATIENT 18-39 YRS PERIODIC 74997 FAMILY LASHAWN PREVENTIV 3 3 CARE R H E MED EST ASSOCIATE PATIENT S 18-39 YRS EMERGENCY 08765 LUIS ENRIQUE LEIGHANN LUIS ENRIQUE [place] DEPT 3 3 VISIT HIGH SEVERITY& THREAT FUN EMERGENCY 44586 NATALIE ESTRADA DEPT 3 3 May VISIT HIGH SEVERITY& THREAT FUNCJ EMERGENCY 78704 MEGA Durand 3 3 VILLARI VILLARI DEPARTMEN T VISIT MODERATE SEVERITY OFFICE 15545 FAMILY LASHAWN OUTPATIEN 3 3 CARE R H T VISIT ASSOCIATE 15 S MINUTES OFFICE 12683 MULBERRY MULBERRY OUTPATIEN 3 3 ALEX ALEX T VISIT 15 MINUTES OFFICE 00322 LASHAWN LASHAWN OUTPATIEN 3 3 R H R H T VISIT 15 MINUTES OFFICE 89658 LASHAWN LASHAWN OUTPATIEN 3 3 R H R H T VISIT 15 MINUTES HOSPITAL CECE - 3 3 [facility] INC T OFFICE 81085 HARPEL HARPEL OUTPATIEN 3 3 [place] T VISIT 15 MINUTES OFFICE 67543 PENDELETO PENDELETO OUTPATIEN 3 3 N CO N CO T VISIT 5 [facility] OFFICE 00296 PENDELETO PENDELETO OUTPATIEN 3 3 N CO N CO T VISIT [address] MINUTES OFFICE 32892 HARPEL HARPEL OUTPATIEN 3 3 [place] T VISIT 15 MINUTES OFFICE 88475 LASHAWN LASHAWN OUTPATIEN 3 3 R H R H T VISIT 15 MINUTES OFFICE 29758 LASHAWN LASHAWN OUTPATIEN 3 3 R H R H T VISIT 15 MINUTES OFFICE 82352 LASHAWN LASHAWN OUTPATIEN 3 3 R H R H T VISIT 15 MINUTES EMERGENCY 11481 RICHARDSO RICHARDSO 3 3 N KATIE N KATIE DEPARTMEN T VISIT HIGH/URGE NT SEVERITY OFFICE 04637 LASHAWN LASHAWN OUTPATIEN 3 3 R H R H T VISIT 15 MINUTES OFFICE 36437 LASHAWN LASHAWN OUTPATIEN 3 3 R H R H T VISIT 15 MINUTES EMERGENCY 70512 FRANCE HOUGH 3 3 REGINA [place] DEPARTMEN T VISIT MODERATE SEVERITY OFFICE 38284 GRILLOT GRILLOT OUTPATIEN 3 3 NAN NAN T NEW 30 MINUTES OFFICE 93854 BRANDY Zayas OUTPATIEN 3 3 G G T VISIT [address] - [facility] OFFICE 32603 BRANDY Zayas OUTPATIEN 3 3 G G T VISIT 15 MINUTES Emergency TERA Sanches MD (ER) 3 21:28 3 22:41 [facility] CECE - 3 3 [facility] OUTPATIEN INC T EMERGENCY 75300 SANTOS SANCHES DEPT 3 3 NIESHA NIESHA VISIT HIGH SEVERITY& THREAT FUNCJ EMERGENCY 83513 CECE 3 3 [facility] DEPARTMEN INC T VISIT MODERATE SEVERITY OFFICE 82177 BRANDY Zayas OUTPATIEN 3 3 G G T VISIT 25 MINUTES OFFICE 19895 PRABHJOT SMITH RICK PRA OUTPATIEN 3 3 T VISIT 15 MINUTES EMERGENCY 47899 GEERS RYA POOJARS RYA DEPT 3 3 VISIT HIGH SEVERITY& THREAT FUNCJ OFFICE 74487 LASHAWN LASHAWN OUTPATIEN 3 3 R H R H T VISIT 15 MINUTES HOSPITAL CECE - 3 3 [facility] OUTPATIEN INC T OFFICE 64406 HARPEL HARPEL OUTPATIEN 3 3 [place] T VISIT 15 MINUTES OFFICE 32651 HARPEL HARPEL OUTPATIEN 2 2 [place] T VISIT 15 MINUTES EMERGENCY 55190 LELA LELA 2 2 KRI KRI DEPARTMEN T VISIT HIGH/URGE NT SEVERITY H[facility]PITAL ST - 2 2 [facility] OUTPATIEN T MEDICALCE NTER OFFICE 06564 LUIS RICK PRA OUTPATIEN 2 2 SPRING T VISIT URGENT 15 CARE MINUTES PERIODIC 15979 HARPEL PREVENTIV 2 2 [place] E MED EST PATIENT 18-39 YRS OFFICE 74815 LASHAWN LASHAWN OUTPATIEN 2 2 R H R H T VISIT [address] [facility] 2 2 [facility]ER MAR DEPARTMEN MED CTR T VISIT MODERATE SEVERITY OFFICE 26929 LASHAWN LASHAWN OUTPATIEN 2 2 R H R H T VISIT 25 MINUTES OFFICE 80570 LASHAWN LASHAWN OUTPATIEN 2 2 R H R H T VISIT 15 MINUTES OFFICE 12179 CONTI VIR CONTI VIR OUTPATIEN 2 2 T VISIT [address] - 2 2 [facility]ER OUTPATIEN INGA T OFFICE 39861 LASHAWN LASHAWN OUTPATIEN 2 2 R H R H T VISIT 15 MINUTES OFFICE 93470 LASHAWN LASHAWN OUTPATIEN 2 2 R H R H T VISIT 15 MINUTES EMERGENCY 52945 [facility] DEPT 2 2 III JAVI III JAVI VISIT HIGH SEVERITY& THREAT FUN EMERGENCY 13984 [facility] DEPT 2 2 EMERGENCY III JAVI VISIT SERVICES HIGH SEVERITY& THREAT [facility] ST - 2 2 HAIDER OUTPATIEN T MEDICALCE NTER OFFICE 85247 [facility] HARPEL OUTPATIEN 2 2 PHYSICIAN [place] T VISIT GROUP 15 PCC MIN[address] OFFICE [address] [facility] CONSULTAT 2 2 HAIDER THO ION NEW/ESTAB PHYSICIAN PATIENT S 60 MIN OFFICE 70314 LASHAWN LASHAWN OUTPATIEN 2 2 R H R H T VISIT 15 MINUTES OFFICE 43322 HARPEL HARPEL OUTPATIEN 2 2 [place] T VISIT 15 MINUTES OFFICE [id number] MULBERRY MULBERRY OUTPATIEN 2 2 ALEX ALEX T VISIT 15 MINUTES OFFICE 08862 FAMILY LASHAWN OUTPATIEN 2 2 CARE R H T VISIT ASSOCIATE 15 S MINUTES EMERGENCY 46710 [facility] KAITLYNNDUSTIN ALEJANDRA 2 2 EMERGENCY DEPARTMEN SERVICES T VISIT HIGH/URGE NT SEVERITY [facility] 2 [facility] OUT[facility] T EMERGENCY 26092 [facility] 2 2 [facility] DEPARTMEN INC T VISIT MODERATE SEVERITY EMERGENCY 43412 [facility] 2 2 [facility] DEPARTMEN INC T VISIT LOW/MODER SEVERITY EMERGENCY 60332 [facility] SANCHES 2 2 EMERGENCY [facility] DEPARTMEN SERVICES T VISIT MODERATE SEVERITY HOSPITAL CECE - 2 2 [facility] OUTPATIEN INC T OFFICE 30572 LASHAWN LASHAWN OUTPATIEN 2 2 R H R H T VISIT 15 MINUTES OFFICE 10728 LASHAWN LASHAWN OUTPATIEN 1 1 R H R H T VISIT 15 MINUTES [facility] 9[address]41 [facility] PREVENTIV 1 1 [facility] [place] E MED EST GROUP PATIENT PCC 18-39 YRS OFFICE 20010 FAMILY MULBERRY OUTPATIEN 1 1 CARE ALEX T VISIT ASSOCIATE 25 S MINUTES OFFICE 60052 [facility] OUTPATIEN 1 1 [facility] T VISIT TIC 15 CENTER MINUTES EMERGENCY 31036 [facility] 1 1 [facility] DEPARTMEN INC T VISIT LOW/MODER SEVERITY OFFICE 16729 ST [facility] VIR OUTPATIEN 1 1 [facility] T VISIT 15 PHYSICIAN MINUTES [facility] OUTPATIEN IN[facility] T EMERGENCY 10121 [facility] [place] 1 1 EMERGENCY III [facility] DEPARTMEN SERVICES T VISIT MODERATE SEVERITY OFFICE 61973 FAMILY LASHAWN OUTPATIEN 1 1 CARE R H T VISIT ASSOCIATE 15 S MINUTES OFFICE 61441 FAMILY LASHAWN OUTPATIEN 1 1 CARE R H T VISIT ASSOCIATE [address]ES [address] CONTI VIR OUTPATIEN 1 1 [facility]ER T NEW 30 MINUTES [facility] - 1 1 [facility] OUTPATIEN T MEDICALCE NTER OFFICE 39991 FAMILY MULBERRY OUTPATIEN 1 1 CARE ALEX T VISIT ASSOCIATE 25 S MINUTES OFFICE 99119 [facility] 1 [facility] T VISIT CLINIC OF 15 MONO MINUTES OFFICE 98818 FAMILY LASHAWN OUTPATIEN 1 1 CARE R H T VISIT ASSOCIATE 15 S MINUTES OFFICE 65238 FAMILY MULBERRY OUTPATIEN 1 1 CARE ALEX T VISIT ASSOCIATE 15 S MINUTES OFFICE 15918 [facility] OUTPATIEN 0 0 [facility] [place] T VISIT GROUP 15 PCC MINUTES OFFICE 66717 FAMILY LASHAWN OUTPATIEN 0 0 CARE R H T VISIT ASSOCIATE 15 S MINUTES OFFICE 83238 FAMILY [facility]WN OUTPATIEN 0 0 CARE R H T VISIT ASSOCIATE 15 S MINUTES [facility]OSPITAL CECE - 0 0 [facility]PATIEN INC T [facility] CE[facility] - 0 0 [facility] OUTPATIEN INC T OFFICE 54091 [facility] OUTPATIEN 0 0 [facility] [place] T VISIT GROUP 15 PCC MINUTES OFFICE 92287 FAMILY BRANDY J OUTPATIEN 0 0 CARE T VISIT ASSOCIATE 25 S MINUTES OFFICE 75274 FAMILY MULBERRY OUTPATIEN 0 0 CARE ALEX T VISIT ASSOCIATE 15 S MINUTES OFFICE 92118 [facility] OUTPATIEN 0 0 [facility] [place] T VISIT GROUP 15 PCC MINUTES [facility]OSPITAL CECE - 0 0 [facility] INPATIENT INC OFFICE 66024 [facility] OUTPATI[facility] 0 0 [facility] [place] T VIS[facility] GROUP 15 PCC MINUTES [facility]OSPITAL CECE - 0 0 [facility] OUTPATIEN INC T OFFICE 88509 [facility] OUTPATIEN 0 0 [facility] [place] T VISIT GROUP 15 PCC MINUTES OFFICE 93584 FAMILY LASHAWN OUTPATIEN 0 0 CARE R H T VISIT ASSOCIATE 15 S MINUTES OFFICE 36678 [facility] OUTPATIEN 0 0 [facility] [place] T VISIT GROUP 15 PCC MINUTES OFFICE 08458 [facility] OUTPATIEN 0 0 [facility] [place] T VISIT GROUP 15 PCC MINUTES [facility]OSPITAL CECE - 0 0 [facility] OUTPATIEN INC T OFFICE 69190 [facility] OUTPATIEN 0 0 [facility] [place] T VIS[facility] GROUP 15 PCC MINUTES [facility]OSPITAL CECE - 0 0 [facility] OUTPATIEN INC T OFFICE 79502 [facility] OUTPATIEN 0 0 [facility] [place] T VISIT GROUP 15 PCC MINUTES OFFICE 29766 H [facility] OUTPATIEN 0 0 [facility] [place] [facility] V[facility] GROUP 15 PCC MINUTES OFFICE 28797 [facility] OUTPATIEN 0 0 [facility] [place] T VISIT GROUP 15 PCC MINUTES [facility] - 0 0 [facility] OUTPATIEN INC T OFFICE 70677 [facility] 0 0 [facility] [place] T [facility]ISIT GROUP 15 PCC MINUTES [facility]OSPITAL CECE - 0 0 [facility] OUTPATIEN INC T OFFICE 63479 [facility] OUTPATIEN 0 0 [facility] [place] T VIS[facility] GROUP 15 PCC MINUTES [facility]OSPITAL CECE - 0 0 [facility] OUTPATIEN INC T OFFICE 61067 [facility] OUTPATIEN 0 0 [facility] [place] T VISIT GROUP 15 PCC MINUTES OFFICE 48810 [facility] OUTPATIEN 0 0 [facility] [place] T VISIT GROUP 15 PCC MINUTES OFFICE 28055 [facility] OUTPATIEN 0 0 [facility] [place] T VISIT GROUP 15 PCC MINUTES OFFICE 10210 [facility] OUTPATIEN 0 0 [facility] [place] T VISIT GROUP 15 PCC MINUTES [facility] 14608 IFTIKHAR HORTON, PREVENTIV 0 0 HARPEL MD IFTIKHAR Mathis [facility] NEW PT AGE 18-39YRS OFFICE 80094 [facility] PENDELETO OUTPATIEN 0 0 N CO N CO T VISIT [address] CENTER MINUTES OFFICE 58445 FAMILY LASHAWN, OUTPATIEN 9 9 CARE R MINI T VISIT ASSOCIATE 15 S MINUTES OFFICE 43923 FAMILY LASHAWN, OUTPATIEN 9 9 CARE R MINI T VISIT ASSOCIATE 15 S MINUTES OFFICE 54044 FAMILY LASHAWN, OUTPATIEN 9 9 CARE R MINI T VISIT ASSOCIATE 25 S MINUTES OFFICE 88534 FAMILY LASHAWN, OUTPATIEN 9 9 CARE R MINI T VISIT ASSOCIATE [address] - 9 9 [facility] OUTPATIEN T MEDICALCE NTER OFFICE 39976 [facility] OUTPATIEN 9 9 HEALTH N CO T VISIT [address] CENTER MINUTES OFFICE 77801 FAMILY LASHAWN, OUTPATIEN 9 9 CARE R MINI T VISIT ASSOCIATE 15 S MINUTES OFFICE 66646 FAMILY LASHAWN, OUTPATIEN 9 9 CARE R MINI T VISIT ASSOCIATE 15 S MINUTES OFFICE 60729 FAMILY LASHAWN, OUTPATIEN 8 8 CARE R MINI T VISIT ASSOCIATE 15 S MINUTES OFFICE 13796 FAMILY LASHAWN, OUTPATIEN 8 8 CARE R MINI T VISIT ASSOCIATE 15 S MINUTES OFFICE 58103 FALGAUTH CHINTAN, OUTPATIEN 8 8 [facility] MEGA T NEW 30 TIC MINUTES CENTER OFFICE 48443 FAMILY LASHAWN, OUTPATIEN 8 8 CARE R MINI T VISIT ASSOCIATE 15 S MINUTES OFFICE 36316 FAMILY LASHAWN, OUTPATIEN 8 8 CARE R MINI T VISIT ASSOCIATE 15 S MINUTES [facility] OUT[facility] T EMERGENCY 39319 CE[facility] 8 8 [facility] DEPARTMEN INC T VISIT MODERATE SEVERITY OFFICE 94794 FAMILY LASHAWN, OUTPATIEN 8 8 CARE R MINI T VISIT ASSOCIATE 15 S MINUTES OFFICE 51959 FAMILY LASHAWN, OUTPATIEN 8 8 CARE R MINI T VISIT ASSOCIATE 15 S MINUTES PERIODIC 32841 FAMILY LASHAWN, PREVENTIV 8 8 CARE R MINI E MED EST ASSOCIATE PATIENT S 12-17YRS OFFICE 37441 FAMILY LASHAWN, OUTPATIEN 8 8 CARE R MINI T VISIT ASSOCIATE 25 S MINUTES OFFICE 94642 FAMILY LASHAWN, OUTPATIEN 8 8 CARE R MINI T VISIT ASSOCIATE 25 S MINUTES
--- OUTSIDE RECORDS SUMMARY | 2017-01-07 09:04 | External Medical Summary Rpt | CCD ---
Author Author , [facility]A Organization [facility] Address Unknown Phone [email or web address] Lighting Care Team Providers Care Fire Chief Deputy Name Role Phone [facility] LELA KRI, Unavailable Unavailable LELA KRI [facility]available [facility], [facility] JUAREZ ALL, JUAREZ ALL Unavailable Unavailable CHAPIN EMILIA, Unavailable Unavailable CHAPIN EMILIA RAMIREZ DON, RAMIREZ DON Unavailable Unavailable TARA JET, TARA Unavailable Unavailable JET FRANZ GABRIEL, FRANZ Unavailable Unavailable GABRIEL FRANZ GABRIEL, FRANZ Unavailable Unavailable GABRIEL [facility] Un[facility], [facility]available Unavailable [facility], [facility] Unavailable Unavailable [facility], [facility] Unavailable Unavailable PHYSICIANS, [facility] BRANDY Zayas, BRANDY Zayas Unavailable Unavailable BRANDY Briggs, BRANDY J Unavailable Unavailable G BRANDY Briggs, BRANDY Zayas Unavailable Unavailable G HOMERO JET, Unavailable Unavailable HOMERO JET FIDEL JOSÉ MIGUEL, Unavailable Unavailable FIDEL JOSÉ MIGUEL FIDEL JOSÉ MIGUEL, Unavailable Unavailable FIDEL JOSÉ MIGUEL FIDEL, NHUNG, Unavailable Unavailable FIDEL, NHUNG [id number], Unavailable Unavailable [id number] DANNEMAN HOL, Unavailable Unavailable DANNEMAN HOL DARDINGER DUC, Unavailable Unavailable DARDINGER DUC LEVIN ZAIN, LEVIN ZAIN Unavailable Unavailable [facility] DOERGER KIR, DOERGER Unavailable Unavailable KIR DOERGER KIR, DOERGER Unavailable Unavailable KIR DOMET NIESHA, DOMET NIESHA Unavailable Unavailable EL-PAX[facility] T[facility], Unavailable Unavailable [facility] QUINTEN BARBER, QUINTEN JAM Unavailable Unavailable QUINTEN BARBER, QUINTEN JAM Unavailable Unavailable ALEXANDRIA SHIPLEY, Unavailable Unavailable ALEXANDRIA SHIPLEY [facility] Unavailable Unavailable [place], [facility] Unavailable Unavailable [facility], [facility] FAUGHN VIRAMONTES, FAUGHN Unavailable Unavailable VIRAMONTES CIHNTAN, MEGA, CHINTAN, Unavailable Unavailable MEGA NATALIE MAR, Unavailable Unavailable NATALIE MAR NATALIE MAR, [...] [facility] RACHELLE, MAURI P, Unavailable Unavailable RACHELLE, MAURI P [facility] Unavailable Unavailable [facility], [facility] Unavailable Unavailable PCC, [facility] HUR ZAIN, HURST ZAIN Unavailable Unavailable INDEPENDENT Unavailable Unavailable ANESTHESIOLOGIST, [facility]HESI[facility]IST MEGA ZAMUDIO, Unavailable Unavailable MEGA ZAMUDIO KEAGLE RIT, KEAGLE Unavailable Unavailable RIT KEAGLE RIT, KEAGLE Unavailable Unavailable RIT BUBBA CHR, BUBBA Unavailable Unavailable CHR [facility] Unavailable Unavailable [facility]ING [facility], [facility] BOLTON NIV, BOLTON NIV Unavailable [...] [facility], Unavailable Unavailable [facility] SU MARQUES, SU Unavailable Unavailable MARQUES SU MARQUES, SU Unavailable Unavailable MARQUES LUBBERS PALMER, LUBBERS Unavailable Unavailable PALMER LUKING JET, LUKING Unavailable Unavailable JET [facility] Unavailable Unavailable SERVICES, [facility] MCDANNOLD TER, Unavailable Unavailable MCDANNOLD TER MCKEMIE JR JAVI, Unavailable Unavailable MCKEMIE JR JAVI DE JESUS BRA, DE JESUS Unavailable Unavailable BRA DE JESUS ALEX, DE EJSUS Unavailable Unavailable ALEX DE JESUS ALEX, DE [...] H LASHAWN R H, Unavailable Unavailable LASHAWN R H LASHAWN, Rima MORSE, Unavailable Unavailable LASHAWN, R MINI OCONNOR CARMEN, Unavailable Unavailable MARILYN OCONNOR CARMEN OSTERLUND MAR, Unavailable Unavailable OSTERLUND MAR [facility], Unavailable [facility]available [facility], [facility], [facility] Unavailable Unavailable [facility] Unavailable Unavailable [facility] Un[facility] Unavailable [facility]ENTER, [facility] Unavailable Unavailable [facility]ENTER, [facility], Unavailable Unavailable [facility] PRESSGONZALO ANGUS, Unavailable Unavailable PRESSLER ANGUS [facility], Unavailable Unavailable [facility], Unavailable Unavailable [facility] Unavailable [facility]available [facility]ORPORAT, [facility] Unavailable Unavailable OF [facility], [facility] AMES KATIE, Unavailable Unavailable AMES KATIE MABEL RAY, MABEL RAY Unavailable Unavailable DARYL MAR, DARYL Unavailable Unavailable MAR SADEK MOH, SADEK MOH Unavailable Unavailable JUSTIN [...] INC JULIAN COFFMAN, Unavailable Unavailable JULIAN COFFMAN [facility], Unavailable Unavailable [facility] Unavailable Unavailable [facility] Unavailable Unavailable [place], [facility] Unavailable [facility]available [facility] Unavailable Unavailable PHYSICIANS, [facility] Unavailable Unavailable PHYSICIANS EKG, [facility] Unavailable Unavailable MARCELLUS Adin MORANTH MARCELLUS [facility]GA, Unavailable Unavailable [facility], Unavailable Unavailable [facility] Unavailable [facility]available #5, [facility] RAMÍREZ EMILIA, RAMÍREZ Unavailable Unavailable EMILIA [facility] # Unavailable Unavailable [id number], [facility] # [id number] [facility] # Unavailable Unavailable [id number], [facility] # [id number] [facility] Unavailable Unavailable DEPT [facility], [facility] DEPT ADRIANNA [facility] Unavailable Unavailable DEPT ADRIANNA, [facility] ADRIANNA WEHRMAN III JAVI, Unavailable Unavailable WEHRMAN III JAVI WEHRMAN III JAVI, Unavailable Unavailable WEHRMAN III JAVI [facility], [facility] Unavailable Unavailable [facility] Unavailable [facility]available OF [place], [facility] [place] LUIS ENRIQUEMatthew LAWTON, LUIS ENRIQUE HO Unavailable Unavailable LUIS ENRIQUE HO, LUIS ENRIQUE HO Unavailable Unavailable Purpose Continuity of Care Document - 04-25-2007 through 2016 Problems Code Diagnosis DOS Provider Status N390 URINARY 04-26-2015 [facility], INFECTION PLLC SITE NOT SPECIFIED [id number] ADVERS EFF 04-26-2015 [facility] OTH RX MEDS [facility]IANS, BIO PLLC SUBSTANCES INIT ENC [id number] UNS ADVERS 04-26-2015 [facility] EFFECT [facility] DRUG/MEDICA INC MENT INITIAL ENCNTR R109 UNSPECIFIED 04-20-2015 ST ABDOMINAL [facility] PAIN [facility]YSICIANS R232 FLUSHING 04-12-2015 [facility] Z09 ENC F/U 04-12-2015spring EXAM AFTR URGENT CMPL TX OTH CARE THAN MALIG NEOPLSM J301 ALLERGIC 04-05-2015spring RHINITIS URGENT DUE TO CARE POLLEN R300 DYSURIA 04-05-2015 [facility] S Someecards Z202 CONTACT 04-05-2015spring WITH URGENT EXPOSURE CARE INFECT SEXUAL MODE TRANSMS J029 ACUTE 03-25-2015 ST PHARYNGITIS [facility] UNSPECIFIED ST R1011 RIGHT UPPER 03-03-2015 ST QUADRANT [facility] ST R102 PELVIC AND 03-03-2015 IFTIKHAR Abarca PERINEAL [place] PAIN N8320 UNSPECIFIED 02-27-2015 IFTIKHAR Abarca OVARIAN [place] CYSTS N200 CALCULUS OF 02-26-2015 [facility] R1030 LOWER 02-26-2015 [facility] ABDOMINAL [facility] UNSPECIFIED R1031 RIGHT LOWER 02-26-2015 [facility] QUADRANT [facility], PAIN PLLC R319 HEMATURIA 02-26-2015 [facility] UNSPECIFIED [facility]ICAL IM[facility]ING ASS Z720 TOBACCO USE 02-26-2015 [facility] [id number] ELEVATED 02-24-2015 WHITE BLOOD [facility] CELL COUNT PHYSICIANS UNSPECIFIED M549 DORSALGIA 02-24-2015 UNSPECIFIED [facility] N3001 ACUTE 02-24-2015 CYSTITIS [facility] WITH PHYSICIANS HEMATURIA R42 DIZZINESS 02-24-2015 AND [facility] GIDDINESS PHYSICIANS EKG E049 NONTOXIC 02-18-2015 GO[facility] UNSPECIFIED MED CTR [facility] ST E063 AUTOIMMUNE 02-18-2015 THYROIDITIS [facility] ST E890 POSTPROCEDU 02-18-2015 RAL [facility] HYPOTHYROID MED CTR [facility] ISM ST H6503 ACUTE 02-15-2015 [facility] SEROUS [facility]YSICIANS, OTITIS PLLC MEDIA BILATERAL J328 OTHER 02-15-2015 [facility] CHRONIC [facility]ICAL SINUSITIS IMAGING ASS C73 MALIGNANT 01-19-2015 NEOPLASM OF [facility] THYROID PHYSICIANS GLAND N9260CE UNSPECIFIED 01-15-2015 ST INJURY UNS [facility] WRIST HAND [facility] CTR [facility] FINGERS ST INIT N7483EX UNSPECIFIED 01-15-2015 ST INJURY LT [facility] WRIST HAND PHYSICIANS FINGERS INITIAL Z23 ENCOUNTER 01-07-2015 [facility] IMMUNIZATIO [facility] DEPT N ADRIANNA 6202 OTHER AND 12-15-2014 IFTIKHAR LAIIFIED [place] OVARIAN CYST V259 UNSPECIFIED 12-15-2014 IFTIKHAR HORTON MD CONTRACEPTI VE MANAGEMENT V7231 ROUTINE 12-15-2014 IFTIKHAR Abarca GYNECOLOGIC [place] AL EXAMINATION 09069 OBESITY, 12-11-2014 UNSPECIFIED [facility] [address] 58092 OVERWEIGHT 12-11-2014 [facility] 7881 DYSURIA 12-11-2014 [facility] 1121 CANDIDIASIS 12-09-2014 ST OF VULVA [facility] AND VAGINA PHYSICIANS V0481 NEED 12-09-2014 PROPHYLACTI [facility] C PHYSICIANS VACCINATION &INOCULATIO N FLU V0489 NEED PROPH 12-09-2014 VACCINATION [facility] &INOCULAT PHYSICIANS OT VIRAL DZ 193 MALIGNANT 11-17-2014 NEOPLASM OF [facility] THYROID MED CTR [facility] GLAND [address] 2409 GOITER, 11-17-2014 ST UNSPECIFIED [facility] ST 2440 POSTSURGICA 11-17-2014 L [facility] HYPOTHYROID [facility] CTR [facility] ISM ST 7231 CERVICALGIA 10-26-2014 [facility] 7842 SWELLING 10-26-2014 RADIOLOGY MASS OR ASSOCIATES LUMP IN OF [facility] HEAD AND NECK 87461 DYSPHAGIA 10-26-2014 [facility] UNSPECIFIED EMERGENCY PHYSICIANS 2452 CHRONIC 10-21-2014 LYMPHOCYTIC [facility] THYROIDITIS 81067 DEHYDRATION 10-15-2014 [facility] 11962 OTHER 10-15-2014 [facility] MALAISE AND EMERGENCY FATIGUE PHYSICIANS 64320 CHEST PAIN 10-15-2014 RADIOLOGY UNSPECIFIED ASSOCIATES OF 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 2411 NONTOXIC 10-13-2014 INDEPENDENT MULTINODULA R GOITER ANESTHESIOL OGIST 85837 ESOPHAGEAL 10-13-2014 REFLUX [facility] 23370 SHORTNESS 10-13-2014 ST OF BREATH [facility] V7284 UNSPECIFIED 10-08-2014 ST [facility] PRE-OPERATI MED CTR [facility] VE ST EXAMINATION V741 SCREENING 09-30-2014 [facility] PULMONARY TUBERCULOSI S 34931 PRECORDIAL 09-18-2014 [facility] PA[facility], PLLC 2374 NEOPLASM 09-12-2014 HEAD & NECK UNCERTAIN SURGERY BHV ASSOC OTH&UNSPEC ENDOCRN GLANDS 7856 ENLARGEMENT 09-12-2014 RADIOLOGY OF LYMPH ASSOCIATES NODES OF [facility] 2410 NONTOXIC 09-01-2014 UNINODULAR [facility] 7850 UNSPECIFIED 08-29-2014 [facility] TACHYCARDIA PHYSICIANS 36247 NONSPECIFIC 08-29-2014 ABNORMAL [facility] ELECTROCARD MED CTR [facility] IOGRAM ST 2400 GOITER, 08-19-2014 RADIOLOGY SPECIFIED ASSOCIATES SIMPLE OF NOTH 2449 UNSPECIFIED 08-19-2014 [facility] HYPOTHYROID MED CTR [facility] ISM ST 2468 OTHER 08-19-2014 ST SPECIFIED [facility] DISORDERS MED CTR [facility] OF THYROID ST 462 ACUTE 08-17-2014 [facility] PHARYNGITIS [facility]YSICIANS, [facility] 4660 ACUTE 07-03-2014 [facility] BRONCHITIS [facility] 3671 MYOPIA 05-22-2014 QUINTEN JAM 2469 UNSPECIFIED 05-20-2014 [facility] DISORDER [facility]RGENT OF THYROID CARE 58884 MIGRAINE 05-20-2014spring UNSP W/O URGENT INTRACT W/O CARE STATUS [...] CAUSE 684 IMPETIGO 02-13-2014 [facility] 97072 NASAL 01-08-2014 [facility] MUCOSITIS [facility]ATES ULCERATIVE 7048 OTHER 01-08-2014 [facility] SPECIFIED ASSOCIATES DISEASE OF HAIR&HAIR FOLLICLES 2459 UNSPECIFIED 12-12-2013 SU MARQUES THYROIDITIS 6823 CELLULITIS 10-21-2013 KEAGLE RIT AND ABSCESS OF UPPER ARM AND FOREARM 0389 UNSPECIFIED 10-08-2013 ST. SEPTICEMIA [facility] [place] 2768 HYPOPOTASSE 10-08-2013 ST. GUDELIA [facility] [place] 34302 UNSPECIFIED 10-08-2013 . [facility] PYELONEPHRI IN[place] TIS 7840 HEADACHE 10-08-2013 . [facility] [place] V180 FAMILY 10-08-2013 ST. HISTORY OF [facility] DIABETES IN[place] MELLITUS 38352 LEUKOCYTOSI 09-03-2013 DE JESUS ALEX S UNSPECIFIED 73445 NAUSEA WITH 09-03-2013 DE JESUS ALEX VOMITING 11743 ABDOMINAL 09-03-2013 DE JESUS ALEX PAIN, EPIGASTRIC 13582 ABDOMINAL 09-03-2013 LAB ALEJANDRA PAIN, [facility] 9154 FINGER 08-29-2013 NIRAV BAB INSECT BITE NONVENOMOUS W/O MENTION INF E9064 BITE OF 08-29-2013 NIRAV ALEJANDRA NONVENOMOUS ARTHROPOD 81684 OTHER 07-15-2013 [facility] HEAD AND ST NECK 226 BENIGN 07-03-2013 DE JESUS THE NEOPLASM OF THYROID GLANDS V7260 LABORATORY 05-28-2013 ST EXAMINATION [facility] UNSPECIFIED ST 7061 OTHER ACNE 05-03-2013 BRANDY Briggs 76488 LUMP OR 04-30-2013 ST MASS IN REMUS BREAST [facility] CTR KOSHER [address] ST 7291 UNSPECIFIED 04-16-2013 [facility] MYOSITIS 7295 PAIN IN 04-16-2013 [facility] SOFT [facility] TISSUES OF SERVICES [place] 30980 UNSPECIFIED 03-29-2013 IFTIKHAR HORTON MD OF VULVA 5991 URINARY 03-13-2013 LAB ALEJANDRA OF TRACT [facility] INFECTION HOLDINGS SITE NOT SPECIFIED V2503 ENCOUNTER 03-08-2013 [facility] CONTR[facility]PT CENTER CNSL&PRESCR IPTION 515 POSTINFLAMM 03-04-2013 [facility] ATORY JOSÉ MIGUEL PULMONARY FIBROSIS 94152 OTHER 03-04-2013 [facility] NONSPECIFIC JOSÉ MIGUEL ABNORMAL FINDING OF LUNG FIELD 64817 NONSPEC 03-04-2013 [facility] REACT [facility] TUBERCULIN INC SKIN TEST W/O ACTIVE TB V2502 GENERAL 03-04-2013 [facility] CNSL INITIATION OTH CONTRACEPT MEASURES V2509 OTH GENERAL 03-04-2013 [facility] CNSL&ADVICE CONTRACEPT MANAGEMENT V709 UNSPECIFIED 02-26-2013 [facility] MEDICAL EXAMINATION 60410 FEVER 02-20-2013 K[facility]AT[facility] UNSPECIFIED TOM 92652 ABDOMINAL 02-20-2013 [facility]TER PAIN RIGHT DUC UPPER QUADRANT 86125 SEPSIS 02-20-2013 [facility] TOM 68121 ABDOMINAL 02-18-2013 LUIS ENRIQUE HO PAIN, UNSPECIFIED SITE 5589 OTH&UNSPEC 02-17-2013 NATALIE NONINFECTIO MAR US GASTROENTER ITIS&COLITI S 92942 CALCU 02-17-2013 NATALIE GALLBLADD MAR W/O MENTION CHOLECYST/O BST 76731 ABDOMINAL 02-17-2013 NATALIE PAIN OTHER MAR SPECIFIED SITE 7821 RASH AND 01-15-2013 MULBERRY OTHER ALEX NONSPECIFIC SKIN ERUPTION 1330 SCABIES 01-10-2013 LASHAWN Abarca H 6173 ENDOMETRIOS 11-20-2012 [facility] IS OF PELVIC PERITONEUM 08944 UNSPECIFIED 11-05-2012 LASHAWN Abarca INFECTIVE H OTITIS EXTERNA 3829 UNSPECIFIED 10-03-2012 LSAHAWN Abraca OTITIS H MEDIA 3484 COMPRESSION 09-20-2012 MARICRUZ NIETO OF BRAIN 1120 CANDIDIASIS 08-13-2012 LASHAWN Abarca OF MOUTH H 75550 UNSPECIFIED 08-13-2012 LASHAWN Abarca VAGINITIS H AND VULVOVAGINI TIS 5259 UNSPECIFIED 07-20-2012 FRANCE REGINA DISORDER TEETH&SUPPO RTING STRUCTURES 22372 JAW PAIN 07-20-2012 FRANCE REGINA 0549 HERPES 06-27-2012 GRILLOT NAN SIMPLEX WITHOUT MENTION OF COMPLICATIO N 7851 PALPITATION 06-12-2012 BRANDY Briggs S 20124 OTHER CHEST 05-29-2012 BRANDY Briggs PAIN 7862 COUGH 05-27-2012 FIDEL JOSÉ MIGUEL 7336 TIETZES 05-18-2012 RICK PRA DISEASE 7243 SCIATICA 04-24-2012 LASHAWN Abarca H 6146 PELVIC 04-12-2012 [facility] PERITONEAL [facility] ADHESIONS, INC FEMALE 6258 OTH SPEC 03-29-2012 [facility] SYMPTOM ASSOC W/FEMALE GENITAL ORGANS 0542 HERPETIC 02-14-2012 LASHAWN Abarca GINGIVOSTOM H ATITIS 6260 ABSENCE OF 02-08-2012 [facility] MENSTRUATIO URGENT N CARE 5224 ACUTE 01-07-2012 [facility] IS OF PULPAL ORIGIN 7831 ABNORMAL 01-05-2012 [facility] 04567 CONDYLOMA 11-15-2011 OSEI GABRIEL ACUMINATUM 6256 FEMALE 11-15-2011 OSEI GABRIEL STRESS INCONTINENC E 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 8472 LUMBAR 11-04-2011 CON[facility] VIR SPRAIN AND STRAIN 9599 INJURY 11-04-2011 RADIOLOGY OTHER AND ASSOCIATES UNSPECIFIED OF [facility] UNSPECIFIED SITE V692 PROBLEMS 10-19-2011 COMBINED RELATED TO PHYSICIANS HIGH-RISK LA SEXUAL BEHAVIOR 0794 HUMAN 10-18-2011 OSEI GABRIEL PAPILLOMA VIRUS IN CCE & UNS SITE 54502 ABDOMINAL 09-12-2011 WEHRMAN III PAIN, LEFT JAVI UPPER QUADRANT 99134 PAINFUL 07-26-2011 [facility]ATION [facility]Y SERVICES 9100 FCE 07-26-2011 [facility] NCK&SCLP NO EMERGENCY EYE SERVICES ABRAS/FRIC BURN W/O INF 17004 DIARRHEA 07-11-2011 [facility] ER V745 SCREENING 06-16-2011 [facility] EXAMINATION FOR VENEREAL DISEASE 23003 UNSPECIFIED 06-01-2011 M[facility]B[place]Y DENTAL ALEX CARIES 46403 UNSPECIFIED 05-30-2011 [facility] VIRAL [facility] INFECTION IN CCE & UNS SITE 6820 CELLULITIS 05-30-2011 [facility] AND ABSCESS ASSOCIATES OF FACE 5225 PERIAPICAL 05-29-2011 [facility] ABSCESS EMERGENCY WITHOUT SERVICES SINUS 20590 ACUTE 04-24-2011 [facility] GINGIVITIS [facility] PLAQUE INC INDUCED 75763 SPASM OF 02-03-2011 LASHAWN R MUSCLE H 05429 SCOLIOSIS 02-03-2011 LASHAWN R ASSOCIATED H WITH OTHER CONDITION 7233 CERVICOBRAC 11-17-2010 [facility] SYNDROME C CENTER 7244 THORACIC/ANDRA 11-17-2010 [facility] MBOSACRAL [facility] NEURITIS/RA C CENTER DICULITIS UNSPEC 8483 SPRAIN AND 11-17-2010 [facility] STRAIN OF CHIROPRACTI RIBS C CENTER 7839 OTH 11-03-2010 [facility] CONCERNING PHYSICIANS NUTRITION METAB&DVLP 9110 TRUNK 11-03-2010 [facility] ABRASION/FR [facility] ICTION BURN INC WITHOUT MENTION INF 28586 OTHER 11-03-2010 [facility] INJURY OF EMERGENCY EXTERNAL SERVICES GENITALS V2543 SURVEILLANC 08-11-2010 [facility] E PREV PRSC HEALTH IMPL CLINIC OF SUBDERMAL [place] CONTRACEPT 6262 EXCESSIVE 08-03-2010 [facility] OR FREQUENT ASSOCIATES MENSTRUATIO N V255 INSERTION 07-12-2010 [facility] IMPLANTABLE CLINIC OF SUBDERMAL [facility] CONTRACEPTI VE V2542 SURVEILLANC 07-07-2010 [facility] E PREV PRSC HEALTH INTRAUTERN CLINIC OF CNTRACPT MONO DEVC V2511 ENC FOR 06-16-2010 [facility] INSERTION HEALTH INTRAUTERIN CLINIC OF E [place] CONTRACEPT DEVICE V242 ROUTINE 01-04-2010 [facility] PHYSICIAN FOLLOW-UP GROUP PCC 4520 UNSPECIFIED 12-23-2009 [facility] DISEASE OF ASSOCIATES SEBACEOUS GLANDS 93713 POST TERM 11-28-2009 [facility] PG DELIV PHYSICIAN W/WO GROUP PCC MENTION ANTPRTM COND 605 REDUNDANT 11-26-2009 [facility] PREPUCE AND ASSOCIATES PHIMOSIS 650 NORMAL 11-26-2009 [facility] DELIVERY PHYSICIAN GROUP [facility] 64571 FORCEPS/EXT 11-26-2009 [facility] JANG DEL [facility] W/O INC INDICATION- DELIVERED V270 OUTCOME OF 11-26-2009 [facility] DELIVERY PHYSICIAN SINGLE GROUP [facility] LIVEBORN V3000 SINGLE 11-26-2009 [facility] W/O 90042 POST TERM 11-23-2009 [facility] PHYSICIAN ANTEPARTUM GROUP [facility] COND/COMPLI CATION V220 SUPERVISION 11-23-2009 [facility] OF NORMAL PHYSICIAN FIRST GROUP PCC V221 SUPERVISION 11-17-2009 [facility] OF OTHER PHYSICIAN NORMAL GROUP [facility] V222 11-17-2009 [facility], [facility] INCIDENTAL INC 4619 ACUTE 11-16-2009 [facility] SINUSITIS, ASSOCIATES UNSPECIFIED V286 SCREENING 10-26-2009 [facility] OF PHYSICIAN STREPTOCOCC GROUP [facility] [place] [address] OTHER 10-24-2009 [facility] THREATENED PHYSICIAN LABOR, GROUP PCC ANTEPARTUM 64034 OTHER 10-24-2009 [facility] SPECIFED [facility] COMPLICATIO INC N ANTEPARTUM 7804 DIZZINESS 10-24-2009 [facility] AND [facility] GIDDINESS INC 58929 DYSPLASIA 09-08-2009 [facility] UNSPECIFIED S INC V028 CARRIER/HELEN 09-08-2009 [facility] PECTED LABORATORIE CARRIER OTH S INC VENEREAL DISEASES 92567 THREATENED 09-01-2009 [facility] PREMATURE [facility] LABOR INC ANTEPARTUM 24699 EXCESS 08-11-2009 [facility] PHYSICIAN GROWTH GROUP [facility] AFFECT MGMT MOTH ANTPRTM V771 SCREENING 08-11-2009 [facility] FOR [facility] DIABETES INC MELLITUS V2889 OTHER 06-30-2009 [facility] SPECIFIED [facility] INC SCREENING 40955 OTHER 04-10-2009 LABONE OF SPECIFIED [place] INC DISEASES DUE TO CHLAMYDIAE 6268 OTH D/O 04-03-2009 IFTIKHAR HORTON MD N&OTH ABN BLEED FE GNT TRACT 17266 PAP SMER 04-03-2009 [facility] CERV W/LW [place] GRADE S PC SQUAMOUS INTRAEPITH LES 2662 OTHER 03-31-2009 [facility] B-COMPLEX [facility]ICIEN[facility]E CENTER S V7242 03-31-2009 [facility] EXAMINATION [facility] OR TEST CENTER POSITIVE RESULT 7232 CERVICOCRAN 09-10-2008 [facility] IAL [facility] SYNDROME [facility] 7241 PAIN IN 09-10-2008 [facility] 0999 UNSPECIFIED 08-06-2008 [facility] DISEASE V762 SCREENING 07-17-2008 [facility] NEOPLASM OF ER THE CERVIX V2541 SURVEILLANC 07-15-2008 [facility] E [facility]V [facility] PRESCRIBED CENTRAL CONTRACEPT BANK ACCT PILL [id number] MIGRAINE 06-20-2008 [facility] W/INTRACTAB L W/O STATUS MIGRAINOSUS 0088 INTESTINAL 03-05-2008 [facility] DUE TO OTHER ORGANISM NEC 6269 UNS D/O 02-13-2008 [facility] N&OTH ABN BLEED FE GNT TRACT 6253 DYSMENORRHE 09-19-2007 [facility] 73611 ASTHMA, 08-15-2007 [facility] UNSPECIFIED STATUS Medications Na ND Rx Da Fi Fi [...] -0 .0 02 AG ti ON 10 3 00 49 LE ve ID 33 20 [...] -2 .0 93 AR ti OX 20 91 KE ve EN 19 20 20 [...] -1 .0 82 RF ti AM 35 00 36 LE ve ET 78 20 20 ET HO 12 10 10 R XA 8 ZO HE LE NR -T Y MP DS TA BL ET 24 11 11 0 30 7 74 NO Ac 48 -1 -1 .0 82 RF ti 60 9 9 00 40 LE ve 60 20 20 ET 11 10 10 R 0 HE NR Y 00 09 11 10 28 28 74 CARRILLO Ac 43 -2 -1 .0 52 RP ti 00 0- 5- 00 62 EL ve 53 20 20 01 10 10 GE 4 RA LD R SE 59 09 11 3 15 30 74 NO Ac RT 76 -0 -1 .0 17 RF ti RA 24 7- 00 91 LE ve LI 91 20 20 ET NE 00 10 10 R 5 HC HE L NR 10 Y 0 MG TA BL ET FL 00 11 11 0 1. 1 74 NO Ac UC 17 -0 -0 00 69 RF ti ON 25 5- 5- 0 84 LE ve AZ 41 20 20 ET OL 21 10 10 R E 1 15 HE 0 NR MG Y TA BL ET TU 24 11 11 0 24 4 74 NO Ac SS 38 -0 -0 0. 69 RF ti IN 50 5- 5- 00 85 LE ve 35 20 20 0 [...] -0 .0 17 RF ti RA 24 7 91 LE ve LI 91 20 20 ET NE 00 10 10 R 5 HC HE L NR 10 Y 0 MG TA BL ET PA 37 10 10 6 28 28 74 CO Ac IL 00 -0 -0 .0 42 OP ti OS 00 23 [...] .0 20 RP ti AT 20 8 7- 00 11 EL ve AL 66 20 20 [address] 0 RA US LD R TA BL ET SE 59 09 09 3 15 30 74 NO Ac RT 76 -0 -0 .0 17 RF ti RA 24 7 7 00 91 LE ve LI 91 20 20 [...] .0 S 19 RP ti AM 30 8 8 00 PH 54 EL ve IN 15 20 20 AR OP 01 10 10 MA GE HE 0 CY RA N- # LD CO R D 05 #3 43 7 TA BL ET AM 00 08 08 0 30 10 74 NO Ac OX 78 -2 -2 .0 06 RF ti IC 12 00 70 LE ve IL 61 20 20 [...] R TA MA BL CY ET #5 PA 65 01 01 00 30 30 [...] MA MG CY TA #5 BL ET NI 00 08 09 00 14 7 [...] CA T ID [address] IN 6 CH E PH AE 0. [...] 20 20 CA [address] 0 CH PH AE AR L MA [...] MA CY MG #5 TA BL ET PA 68 12 12 00 10 4 TO 66 NO Ac OM 38 -1 -1 .0 TA 02 RF ti ET 20 0- 8- 00 L 19 LE ve CARRILLO 04 20 20 CA ET ZI 11 08 08 RE R NE 0 PH HE 25 AR NR MA Y MG CY TA #5 BL ET NO 00 06 12 00 28 28 TO 64 KE Ac RT 55 -2 -1 .0 TA 78 AG ti RE 59 5- 8- 00 L 85 LE ve L 01 20 20 CA 1- 05 08 08 RE RI 35 8 TA PH K 28 AR MA TA CY BL ET #5 NA 00 11 12 00 60 30 PH 65 KE Ac PA 09 -1 -0 .0 AR 85 AG ti OX 30 9- 4- 00 MC 72 LE ve EN 14 20 20 AR 90 08 08 E RI 50 5 PH TA 0 AR K MG MA CY TA BL ET NO 00 06 11 [...] MG TA BL ET NO 00 06 10 [...] AG ti RA 24 1- 9- 00 53 LE ve LI 90 20 20 [...] .0 AR 25 AG ti IN 00 4 1- 00 MC 43 LE ve IR [...] 20 AR ED [address] NI 1 PH CH SO AR AE [...] AR 30 t ti IN 12 7- 4 00 MC 82 Av ve IR 17 [...] ider Refu lity Give sed n IIV4 09- [address] 5-20 RNE JIL VACC 15 LEWI ABET S H SPLI CARMEN PHYS T ICIA VIRU NS S 0.5 ML DOS FOR IM USE 4VHP 09- [address] V 5-20 RNE JIL VACC 15 LEWI ABET INE S H 3 CARMEN PHYS DOSE ICIA NS SCHE DULE FOR IM USE Procedures Procedure DOS Code Location Performer Comment URNLS DIP 69370 [facility] STICK/TAB INC INC LET REAGENT AUTO MICROSCOP Y BLOOD 52797 CECE [facility] COUNT 6 [facility] COMPLETE INC INC AUTO&[place] [address] CECE [facility]O LIPASE 6 [facility] INC INC DRUG TST G0477 CECE ZHAO PRESUMP;C 6 [facility] PBL BEING INC INC READ DC OPT OBV ONLY COMPREHEN 47201 CECE CECE SIVE 6 [facility] METABOLIC INC INC PANEL THERAPEUT 29026 COLD PRESSLER IC spring [facility] PROPHYLAC URGENT TIC/DX CARE INJECTION SUBQ/IM INJECTION J0696 COLD PRESSLER spring [facility] CEFTRIAXO URGENT NE SODIUM CARE PER 250 MG IADNA 44355 DIATHERIX DIATHERIX GARDNEREL 6 LA LABORATOR LABORATOR VAGINALIS IES [facility] IES [facility] AMPLIFIED PROBE TQ IADNA 66699 DIATHERIX DIATHERIX CHLAMYDIA 6 LABORATOR LABORATOR TRACHOMAT IES [facility] IS AMPLIFIED PROBE TQ IADNA 23019 DIATHERIX DIATHERIX TRICHOMON 6 LABORATOR LABORATOR VAGINALIS IES [facility] IES [facility] AMPLIFIED PROBE TECH COLLECTIO 91713 COLD PRESSLER N VENOUS spring [facility] BLOOD URGENT VENIPUNCT CARE URE IADNA 80776 DIATHERIX DIATHERIX NEISSERIA 6 LABORATOR LABORATOR GONORRHOE IES [facility] IES [facility] AE AMPLIFIED PROBE TQ IADNA NOS 40775 DIATHERIX DIATHERIX 6 AMPLIFIED LABORATOR LABORATOR PROBE TQ IES [facility] IES [facility] EACH ORGANISM IADNA [address] STREPTOCO 5 [facility] CCUS MED CTR MED CTR GROUP A KOSHER BUTCHER ST KOSHER BUTCHER ST DIRECT PROBE TQ COMPREHEN [address] SIVE 5 [facility] METABOLIC MED CTR MED CTR PANEL KOSHER BUT[facility]ER ST [facility]ER ST ACUTE [address] HEPATITIS 5 [facility]ER PANEL MED CTR MED CTR KOSHER BUTCHER ST KOSHER [facility]CHER ST COMPREHEN 94450 CECE ZHAO SIVE 5 [facility] [address] CECE ZHAO AMYLASE 5 [place] [address] CECE ZHAO ABDOMEN & 5 [facility] PELVIS INC INC W/[place] [address] CECE ZHAO LIPASE 5 [facility] INC INC URINE 07877 CECE ZHAO 5 [facility] TEST INC INC VISUAL COLOR CMPRSN METHS BLOOD 32135 CECE ZHAO COUNT 5 [facility] COMPLETE INC INC AUTO&AUTO DIFRNTL WBC URNLS DIP 51402 CECE Z[facility]O 5 [facility] STICK/TAB INC INC LET REAGENT AUTO MICROSCOP Y ECG [address] ST [place] NIV ROUTINE 5 HAIDER ECG W/LEAST PHYSICIAN 12 LDS S EKG I&R ONLY CULTURE [address] BACTERIAL 5 [facility] MED CTR MED CTR QUANTTATI KOSHER BUTCHER ST KOSHER [place] [address] RADIOLOGY NEILS KATIE TRANSVAGI 5 NAL ASSOCIATE S OF [facility] US PELVIC 32715 RADIOLOGY NEILS KATIE 5 NONOBSTET ASSOCIATE KARI S OF [facility] [place] [address] FREE 5 [facility]ER THYROXINE MED CTR MED CTR KOSHER [facility] [address] THYROID 5 [facility] HA[facility] STIMULATI MED CTR MED CTR NG KOSHER BUTCHER ST KOSHER BUTCHER ST HORMONE TSH COMPREHEN 06766 CECE ZHAO SIVE 5 [facility] [place] [address] CECE ZHAO HEAD/BRAI 5 [facility] N W/[place] [address] CECE ZHAO MAXILLOFA 5 [facility] CIAL W/O INC INC CONTRAST MATERIAL URNLS DIP 88163 CECE ZHAO 5 [facility] STICK/TAB INC INC LET REAGENT AUTO MICROSCOP Y BLOOD 80286 CECE ZHAO COUNT 5 [facility] COMPLETE INC INC AUTO&AUTO DIFRNTL WBC URINE 78934 CECE ZHAO 5 [facility] TEST INC INC VISUAL COLOR CMPRSN METHS COMPREHEN [address] [facility] [address] [facility] MED CTR PANEL KOSHER BUTCHER ST KOSHER [facility]CHER ST COLLECTIO [address] N VENOUS 5 [facility] BLOOD MED CTR MED CTR VENIPUNCT KOS[address] [place] [address] [facility] STIMULATI MED CTR MED CTR NG KOSHER [address] [address] [facility] THYROXINE MED CTR MED CTR KOSHER [address] BASIC [address] MET[address]IC [facility] PANEL MED CTR MED CTR CALCIUM KOSHER BUTCHER ST KOSHER BUTCHER ST TOTAL IM ADM 82325 JOCELYN BANKS PRQ ID 5 [facility] SUBQ/IM HLTH DEPT HLTH DEPT NJXS 1 ADRIANNA ADRIANNA VACCINE IADNA 89245 IFTIKHAR [place] NEISSERIA 5 [place] GONORRHOE AE DIRECT PROBE TQ HGB 90903 IFTIKHAR bAarca QUANTITAT 5 [place] MD NATHAN TRANSCUTA NEOUS CULTURE 75030 IFTIKHAR [place] CHLAMYDIA 5 [place] ANY SOURCE URINLS 85312 IFTIKHAR [place] DIP 5 [place] STICK/TAB LET REAGNT NON-AUTO MICRSCPY CULTURE [address] BACTERIAL 5 [facility] MED CTR MED CTR QUANTTATI KOSHER BUTCHER ST KOSHER BUTCHER ST VE COLONY COUNT URINE BASIC [address] METABOLIC 5 [facility] PANEL MED CTR MED CTR CALCIUM KOSHER BUTCHER ST KOSHER BUTCHER ST TOTAL COLLECTIO 46816 ST JUSTIN N VENOUS 5 HA[facility] NIESHA BLOOD VENIPUNCT PHYSICIAN URE S LIPID [address] PANEL 5 [facility] MED CTR MED CTR KOSHER BUTCHER ST KOSHER BUTCHER ST IM ADM [address]60 ST SANDERS PRQ ID 5 HAIDER ANASTASIA CARMEN SUBQ/IM NJXS 1 PHYSICIAN VACCINE S IM ADM 79946 [facility] S[facility] PRQ ID 5 HA[facility] ANASTASIA CARMEN SUBQ/IM NJXS EA PHYSICIAN VACCINE S IIV4 VACC [address] [facility] SPLIT 5 HAIDER ANASTASIA CARMEN VIRUS 0.5 ML DOS PHYSICIAN FOR IM S USE 4VHPV 22690 ST SANDERS VACCINE 3 5 HAIDER ANASTASIA CARMEN DOSE SCHEDULE PHYSICIAN FOR IM S USE THYROGLOB [address] ULIN 5 [facility] ANTIBODY MED CTR MED CTR KOSHER BUTCHER ST KOSHER BUTCHER ST [address] HYDROXY 5 [facility] HA[facility]ER INCLUDES MED CTR MED CTR FRACTIONS KOSHER BUTCHER ST KOS[place] [address] ST EL-[place] PARATHORM 5 HAIDER TAR ONE [place] [address] THYROGLOB 5 [facility] HA[facility]ER ULIN MED CTR MED CTR KOSHER BUTCHER ST KOSHER BUTCHER ST COLLECTIO [address] N VENOUS 5 [facility] BLOOD MED CTR MED CTR VENIPUNCT KOSHER BUTCHER ST KOSHER BUTCHER ST URE COMPREHEN [address] SIVE 5 [facility] METABOLIC MED CTR MED CTR PANEL K[facility]HER [place] [address] FREE 5 HAIDER HAIDER THYROXINE MED CTR MED CTR [address] [place] [address] THYROID 5 [facility] STIMULATI MED CTR MED CTR NG KOSHER BUTCHER ST KOSHER BUTCHER ST HORMONE TSH CT SOFT 43110 RADIOLOGY NEILS KATIE TISSUE 5 NECK ASSOCIATE W/CONTRAS S OF NOT T MATERIAL RADIOLOGI 42408 RADIOLOGY LUBBERS C 5 PALMER EXAMINATI ASSOCIATE ON CHEST S OF NOTH [place]ING[place] FRONTAL ANES 25483 INDEPENDE RAMÍREZ ESOPH 5 NT EMILIA THYRD ANESTHESI LARYNX OLOGIST TRACH & LYMPH NECK 1YR THYROIDEC 38798 HEAD & DOMET NIESHA YUMIKO 5 NECK TOTAL/SUB SURGERY TOTAL ASSOC LMTD NECK DISSECT LEVEL V [address] ST RAMIREZ DON SURG 5 HAIDER PATHOLOGY MED CTR GROSS&NIESHA ROSCOPIC EXAM PATH [address]01 ST RAMIREZ DON CONSLTJ 5 HAIDER SURG 1ST MED CTR BLK FROZEN SCTJ [address] BACTERIAL 5 HA[facility] HAIDER MED CTR MED CTR QUANTTATI KOSHER BUTCHER ST KOSHER BUTCHER ST VE COLONY COUNT URINE CALCIUM [address] TOTAL 5 [facility] HAIDER MED CTR MED CTR KOSHER BUTCHER ST KOSHER BUTCHER ST THROMBOPL [address] ASTIN 5 HAIDER HAIDER TIME MED CTR MED CTR PARTIAL KOSHER BUTCHER ST KOSHER BUTCHER ST PLASMA/WH OLE BLOOD PROTHROMB [address] IN TIME 5 HA[facility]ER HAIDER MED CTR MED CTR KOSHER [facility] [address] PARATHORM 5 HAIDER HAIDER ONE MED CTR MED CTR KOSHER BUTCHER ST KOSHER BUTCHER ST BLOOD [address] COUNT 5 HAIDER HA[facility]ER COMPLETE MED CTR MED CTR AUTO&AUTO KOSHER BUTCHER ST K[place] [address] THYROID 5 HAIDER HAIDER STIMULATI MED CTR MED CTR NG KOSHER BUTCHER ST KOSHER BUTCHER ST HORMONE TSH RADIOLOGI 74208 [place] JUAREZ ALL C EXAM 5 MEDICAL CHEST 2 IMAGING VIEWS ASS FRONTAL&L ATERAL US SOFT 38119 RADIOLOGY DARYL TISSUE 5 MAR HEAD & ASSOCIATE NECK REAL S OF NOTH TIME IMGE DOCM ECG [address] ST MCDANNOLD ROUTINE [address] ECG MED CTR W/LEAST 12 LDS I&R ONLY ECG [address] ROUTINE 5 HAIDER HAIDER ECG MED CTR MED CTR W/LEAST KOSHER BUTCHER ST KOSHER BUTCHER ST 12 LDS TRCG ONLY W/O I&R FINE 16838 PROFESSIO MABEL RAY NEEDLE 5 NAL ASPIRATIO RADIOLOGY [place] [address] PROFESSIO MABEL RAY GUIDANCE 5 NAL NEEDLE RADIOLOGY PLACEMENT [place] IMG S&[place] [address] THE THE SURG [address] [place] [address] GROSS&NIESHA ROSCOPIC EXAM CYTP EVAL 75848 THE THE FINE [address] [place] [address] ASPIRATE INTERP & REPORT COLLECTIO [address] N VENOUS 5 [facility]IDER BLOOD MED CTR MED CTR VENIPUNCT KOSHER BUTCHER [place] [address] THYROID 5 HAIDER HAIDER STIMULATI MED CTR MED CTR NG KOSHER BUTCHER ST [place] [address] FREE 5 HAIDER HA[facility]ER THYROXINE MED CTR MED CTR KOSHER BUTCHER ST KOSHER BUTCHER ST US SOFT [address] TISSUE 5 HAIDER HAIDER HEAD & MED CTR MED CTR NECK REAL KOSHER BUTCHER ST KOSHER BUTCHER ST TIME IMGE DOCM BLOOD 09484 FAMILY FAMILY COUNT 5 CARE CARE COMPLETE ASSOCIATE ASSOCIATE AUTO&AUTO S S DIFRNTL WBC OPHTH 10171 QUINTEN BARBER MEDICAL 5 XM&EVAL COMPRE NEW PT 1/> VST DETERMINA 38822 QUINTEN BARBER TION 5 [place] [address] RADIOLOGY DARYL TRANSVAGI 5 MAR NAL ASSOCIATE S OF [facility] US PELVIC 25470 RADIOLOGY DARYL 5 MAR NONOBSTET ASSOCIATE KARI S OF [facility] [place] [address] FREE 5 HAIDER HAIDER THYROXINE MED CTR MED CTR KOSHER BUT[place] [address] THYROID 5 HAIDER HAIDER STIMULATI MED CTR MED CTR NG KOSHER BUTCHER ST KOSHER BUTCHER ST HORMONE TSH IAADIADOO 04234 FAMILY KEAGLE 4 CARE RIT INFLUENZA ASSOCIATE S BLOOD 82788 FAMILY FAMILY COUNT 4 CARE CARE COMPLETE ASSOCIATE ASSOCIATE AUTO&AUTO S S DIFRNTL WBC BLOOD 50376 FAMILY FAMILY COUNT 4 CARE CARE COMPLETE ASSOCIATE ASSOCIATE AUTO&AUTO S S DIFRNTL WBC IAADIADOO 14708 FAMILY KEAGLE 4 CARE [place] [address] THYROID 4 HAIDER HAIDER STIMULATI MED CTR MED CTR NG KOSHER [address]ER ST [place] [address] FREE 4 HAIDER [facility] THYROXINE MED CTR MED CTR KOSHER BUTCHER ST KOSHER BUTCHER ST RADIOLOGI 98610 BUBBA MAC C EXAM 4 CHR CHR CHEST 2 VIEWS FRONTAL&L ATERAL US SOFT 29627 RADIOLOGY MATTHEW TISSUE 4 TUS HEAD & ASSOCIATE NECK REAL S OF NOTH TIME IMGE DOCM BASIC [address] MET[address]OLIC [address] [facility] PANEL [place] [address] [facility] THYROXINE INGA INGA MICROSOMA [address] L 4 [facility] ANTIBODIE INGA INGA S EACH HEMOGLOBI [address] N 4 [facility] GLYCOSYLA IN[place] [address] [facility] STIMULATI INGA INGA NG HORMONE TSH COLLECTIO [address] N VENOUS 4 [facility] BLOOD INGA INGA VENIPUNCT URE BLOOD 18977 KEAGLE KEAGLE COUNT 4 RIT RIT COMPLETE AUTO&AUTO DIFRNTL WBC CULTURE 04474 LAB ALEJANDRA LAB ALEJANDRA BACTERIAL 4 ALAINA ALAINA HOLDINGS HOLDINGS QUANTTATI VE COLONY COUNT URINE LARYNGOSC 08739 LIZA DE JESUS OPY 4 [place] [address] HOMERO HOMERO GUIDANCE 4 JET JET NEEDLE PLACEMENT IMG S&I BIOPSY 47428 HOMERO HOMERO THYROID 4 JET JET PERCUTANE OUS CORE NEEDLE CYTP EVAL 85319 ST RAMIREZ DON FINE 4 HAIDER NEEDLE MED CTR ASPIRATE INTERP & REPORT US SOFT 61962 MATTHEW MATTHEW TISSUE 4 TUS TUS HEAD & [place] [address] FREE 4 HAIDER HA[facility]ER THYROXINE MED CTR MED CTR KOSHER BUT[place] [address] THYROID 4 HAIDER HAIDER STIMULATI MED CTR MED CTR NG KOSHER BUTCHER ST KOSHER BUTCHER ST HORMONE TSH ACNE 39937 BRANDY Zayas SURGERY 4 G G URNLS DIP 02411 BRANDY Zayas 4 G G STICK/TAB LET RGNT NON-AUTO W/O MICRSCP US BREAST 38312 KLEIMEYER KLEIMEYER REAL 4 NICK NICK TIME W/IMAGE DOCUMENTA TION CULTURE 34313 LAB ALEJANDRA LAB ALEJANDRA BACTERIAL 3 OF ALAINA ALAINA HOLDINGS QUANTTATI HOLDINGS VE COLONY COUNT URINE CULTURE 53261 LAB ALEJANDRA LAB ALEJANDRA BCT 3 OF ALAINA ISOL&PRSM A[place]INA HOLDINGS PTV ID HOLDINGS ISOLATE EA URINE SUSCEPTIB 42900 LAB ALEJANDRA LAB ALEJANDRA LTY STDY 3 OF [place] ANTIMICRB [facility] HOLDINGS IAL HOLDINGS MICRO/AGA R DILUTJ CUL BACT 89816 LAB ALEJANDRA LAB ALEJANDRA AEROBIC 3 OF [place] ADDL [place] HOLDINGS METHS HOLDINGS DEFINITIV E EA ISOL CONTRACEP S4993 PENDELETO PENDELETO TIVE 3 N CO N CO [facility] C[facility] CONTROL RADIOLOGI 84924 CECE ZHAO C EXAM 3 [facility] CHEST 2 INC INC VIEWS FRONTAL&L ATERAL INSJ 89770 [facility] NON-BIODE 3 [place] GRADABLE DRUG DELIVERY IMPLANT ETONOGEST J7307 [facility] REL 3 [place] CNTRACPT IMPL SYS INCL IMPL & SPL URINE 40833 HARPEL HARPEL 3 [place] TEST VISUAL COLOR CMPRSN METHS URINLS 85481 [facility] DIP 3 [place] STICK/TAB LET REAGNT NON-AUTO MICRSCPY CULTURE 15534 [facility] CHLAMYDIA 3 [place] ANY SOURCE IADNA 36563 HARPEL [facility] NEISSERIA 3 [place] GONORRHOE AE DIRECT PROBE TQ SCREENING 33172 FAMILY LASHAWN TEST 3 CARE R H SAMPLE MAKER HAND ACUITY S QUANTITAT NATHAN [facility] 8[address]22 KURAPATI KURAPATI DISCHARGE 3 MANAGEMEN T > 30 [place] [address] SCHMITTER SCHMITTER ABDOMINAL 3 DUC DUC REAL TIME W/IMAGE LIMITED INITIAL 95154 [facility] 3 CARE/[place] [address] [place] [address] HOMERO HOMERO HEAD/BRAI 3 JET JET N W/O CONTRAST MATERIAL SPINAL 06342 LUIS ENRIQUE HO LUIS ENRIQUE HO PUNCTURE [address] [place] [address] WELLS SEA WELLS SEA ABDOMEN & 3 PELVIS W/CONTRAS T MATERIAL SMR PRIM 79962 COMBINED COMBINED SRC WET 3 PHYSICIAN PHYSIC[place] [address] CECE ZHAO TRANSVAGI 3 [facility] NAL INC INC SKIN TEST 69894 PENDELETO PENDELETO 3 N CO N CO [facility] CENTER INTRADERM AL URINLS 74084 [facility] DIP 3 [place] STICK/TAB LET REAGNT NON-AUTO MICRSCPY REMOVAL 53307 [facility] IMPLANTAB 3 [place] [address] DOERGER DOERGER HEAD/BRAI 3 KIR KIR N W/O CONTRAST MATERIAL EXTERNAL [address] ECG 3 [facility] CENTER REPORT XTRNL ECG [address] & 48 HR 3 [facility] [place] [facility] ECHO [address] TTHRC R-T [address] MEDICAL MEDICAL W/WOM-MOD CENTER CENTER E COMPL SPEC&COLR D XTRNL ECG 60646 LEVIN ZAIN LEVIN ZAIN 3 CONTINUOU S RHYTHM W/I&R UP TO 48 HRS COMPREHEN 27297 CECE ZHAO SIVE 3 [facility] METABOLIC INC INC PANEL ECG 22854 CECE JORDANMIE ROUTINE 3 [facility] W/LEAST P 12 LDS I&R ONLY RHYTHM 33585 CECE ZHAO ECG 1-3 3 [facility] LEADS INC INC TRACING ONLY W/O I&R RADIOLOGI 20461 CECE ZHAO C EXAM 3 [facility] CHEST 2 INC INC VIEWS FRONTAL&L ATERAL ECG 47377 CECE ZHAO ROUTINE 3 [facility] ECG INC INC W/LEAST 12 LDS TRCG ONLY W/O I&R BLOOD 26027 CECE ZHAO COUNT 3 [facility] COMPLETE INC INC AUTO&AUTO DIFRNTL WBC FIBRIN 44753 CECE ZHAO DGRADJ 3 [facility] PRODUCTS INC INC D-DIMER QUAL/SEMI CINDY CREATINE 44428 CECE ZHAO KINASE 3 [facility] [place] [address] CECE ZHAO TROPONIN 3 [facility]OS[facility] QUANTITAT INC INC NATHAN URNLS DIP 66200 CECE ZHAO 3 [facility] STICK/TAB INC INC LET REAGENT AUTO MICROSCOP Y CREATINE 56242 CECE ZHAO KINASE MB 3 [facility] FRACTION INC INC ONLY URNLS DIP 80054 BRANDY Zayas 3 G G STICK/TAB LET RGNT NON-AUTO W/O MICRSCP THYROID 37682 [facility] HORM 3 DIAGNOSTI DIAGNOSTI UPTK/THYR CS CS [place] [address] [facility] THYROXINE 3 DIAGNOSTI DIAGNOSTI TOTAL CS CS BLOOD 38003 BRANDY NAVA J COUNT 3 G G COMPLETE AUTO&[place] [address] [facility] THYROID 3 DIAGNOSTI DIAGNOSTI STIMULATI CS CS NG HORMONE TSH THERAPEUT 46072 PRABHJOT RICK PRA IC 3 PROPHYLAC TIC/DX INJECTION SUBQ/IM ECG 07497 PRABHJOT RICK PRA ROUTINE 3 ECG W/LEAST 12 LDS W/I&R INJECTION J1885 RICK PRA RICK PRA 3 KETOROLAC TROMETHAM INE PER 15 MG RADIOLOGI 08017 LIZA [place] EXAM 3 BRA BRA CHEST 2 VIEWS FRONTAL&L ATERAL LAPAROSCO 66896 [facility] PY 3 [place] W/LYSIS OF ADHESIONS BLOOD 69407 CECE ZHAO COUNT 3 [facility] COMPLETE INC INC AUTO&AUTO DIFRNTL WBC GONADOTRO 10280 CECE ZHAO PIN 3 [facility] CHORIONIC INC INC QUALITATI VE LAPS SURG 57573 CECE ZHAO W/ASPIR 3 [facility] CAVITY/CY INC INC ST SINGLE/MU LTIPLE IMMUNOASS 96823 CECE ZHAO AY TUMOR 3 [facility] [place] [address] HARPEL [facility] TRANSVAGI 3 [place] NAL BLOOD 97428 LASHAWN LASHAWN COUNT 2 R H R H COMPLETE AUTO&[place] [address] MATTHEW MATTHEW TRANSVAGI 2 TUS TUS NAL US PELVIC 67887 MATTHEW MATTHEW 2 TUS TUS NONOBSTET KARI REAL-TIME IMAGE COMPLETE URNLS DIP 70387 COLD RICK PRA 2 SPRING STICK/TAB URGENT LET RGNT CARE NON-AUTO W/O MICRSCP URINE 77030 COLD RICK PRA 2 SPRING TEST URGENT VISUAL CARE COLOR CMPRSN METHS URINLS 11182 [facility] DIP 2 [place] STICK/TAB LET REAGNT NON-AUTO MICRSCPY CULTURE 64611 [facility] CHLAMYDIA 2 [place] ANY SOURCE IADNA 52687 HAR[facility] NEISSERIA 2 [place] GONORRHOE AE DIRECT PROBE TQ BLOOD 85484 LASHAWN LASHAWN COUNT 2 R H R H COMPLETE AUTO&AUTO DIFRNTL WBC THYROID 80451 [facility] HORM 2 DIAGNOSTI DIAGNOSTI UPTK/THYR CS CS [place] [address] [facility] THYROXINE 2 DIAGNOSTI DIAGNOSTI TOTAL CS CS URNLS DIP 81137 [facility] R H R H STICK/TAB LET RGNT NON-AUTO W/[place] [address] [facility] THYROID 2 DIAGNOSTI DIAGNOSTI STIMULATI [facility] NG HORMONE TSH COLLECTIO 63466 [facility] N VENOUS 2 R H R H BLOOD VENIPUNCT URE COLPOSCOP 36438 FRANZ FRANZ Y VULVA 2 GABRIEL GABRIEL RADEX 37642 RADIOLOGY MATTHEW SPINE 2 TUS THORACIC ASSOCIATE 3 VIEWS S OF NOTH RADEX 32963 RADIOLOGY MATTHEW SPINE 2 TUS LUMBOSACR ASSOCIATE AL 2/3 S OF NOT VIEWS ANTIBODY 60106 COMBINED COMBINED CHLAMYDIA 2 PHYSICIAN PHYSICIAN S LA S LA CUL BACT 29265 COMBINED COMBINED XCPT 2 PHYSICIAN PHYSICIAN URINE S LA S LA BLOOD/STO OL AEROBIC ISOL COLPOSCOP 25529 FRANZ FRANZ Y VULVA 2 GABRIEL GABRIEL CUL BACT 37093 [facility] ST[facility]OL 2 [facility] A[facility] ISOL MEDICALCE MEDICALCE SALMONELL NTER NTER A&SHIGELL CULTURE 69505 [facility] TYPING 2 [facility] IMMUNOLOG IC MEDICALCE MEDICALCE OTH/THN NTER NTER IMMUNOFLU ORES CUL BACT 51034 [facility] STOOL 2 HA[facility]ER HAIDER AEROBIC ADDL MEDICALCE MEDICALCE PATHOGENS NTER NTER &[place] [address] [facility] SHIGA-LIK [facility] E TOXIN MEDICALCE MEDICALCE NTER NTER INF AGENT 02492 [facility] DET [address] [facility] NUCLEIC ACID MEDICALCE MEDICALCE CLOSTRIDI NTER NTER UM AMP PROBE LEUKOCYTE 81625 [facility] QUAL/SEMI MEDICALCE MEDICALCE QUANTITAT NTER NTER NATHAN SMR PRIM 48210 [facility] HARPEL SRC WET 2 PHYSICIAN [facility] [facility] NFCT AGT PCC IADNA 03984 BIO BIO CHLAMYDIA 2 REFERNCE REFERNCE LABORATOR LABORATOR TRACHOMAT IES IES IS AMPLIFIED PROBE TQ IADNA 49493 BIO BIO DIVINE 2 REFERNCE REFERNCE SPECIES LABORATOR LABORATOR AMPLIFIED IES IES PROBE TQ IADNA 52027 BIO BIO GARDNEREL 2 REFERNCE REFERNCE LA LABORATOR LABORATOR VAGINALIS IES IES AMPLIFIED PROBE TQ SMR PRIM 19877 [facility] HARPEL SRC WET 2 [place] [facility] AGT IADNA 81463 BIO BIO HERPES 2 REFERNCE REFERNCE SOMPLX LABORATOR LABORATOR VIRUS IES IES AMPLIFIED PROBE TQ IADNA NOS 86661 BIO BIO 2 REFERNCE REFERNCE AMPLIFIED LABORATOR LABORATOR PROBE TQ IES IES EACH ORGANISM IADNA 26372 BIO BIO NEISSERIA 2 REFERNCE REFERNCE LABORATOR LABORATOR GONORRHOE IES IES AE AMPLIFIED PROBE TQ BLOOD 06234 FAMILY FAMILY COUNT 2 CARE CARE COMPLETE ASSOCIATE ASSOCIATE AUTO&AUTO S S DIFRNTL WBC THERAPEUT 09466 CECE ZHAO IC 2 [facility] PROPHYLAC INC INC TIC/DX INJECTION SUBQ/IM BLOOD 93157 LASHAWN LASHAWN COUNT 2 R H R H COMPLETE AUTO&AUTO DIFRNTL WBC URNLS DIP 73873 LASHAWN LASHAWN 2 R H R H STICK/TAB LET RGNT NON-AUTO W/O MICRSCP URNLS DIP 21208 LASHAWN LASHAWN 1 R H R H STICK/TAB LET RGNT NON-AUTO W/O MICRSCP CYTP C/V 85584 BIO BIO AUTO THIN 1 REFERNCE REFERNCE LYR LABORATOR LABORATOR PREPJ SCR IES IES MNL RESCR PHYS IADNA 79310 BIO BIO CHLAMYDIA 1 REFERNCE REFERNCE LABORATOR LABORATOR TRACHOMAT IES IES IS AMPLIFIED PROBE TQ IADNA NOS 53771 BIO BIO 1 REFERNCE REFERNCE AMPLIFIED LABORATOR LABORATOR PROBE TQ IES IES EACH ORGANISM IADNA 46974 BIO BIO NEISSERIA 1 REFERNCE REFERNCE LABORATOR LABORATOR GONORRHOE IES IES AE AMPLIFIED PROBE TQ APPL 02183 [facility] MODALITY 1 [facility] JET 1/> AREAS TIC TRACTION CENTER MECHANICA L CH[facility]AC 22550 [facility] [place] TIC 1 [facility] JET MANIPULAT TIC [place] [facility] SPINAL 3-[place] [address] [facility] 1/> AREAS 1 [facility] JET EACH 15 TIC MINUTES CENTER MASSAGE THERAPEUT 84305 [facility] [place] IC PX 1/> 1 [facility] JET AREAS TIC EACH [address] [place] [address] [facility] [place] 1/> AREAS 1 [facility] JET EACH 15 TIC [place] [address] [facility] [place] 1/> AREAS 1 [facility] JET EACH 15 TIC [place] [address] [facility] [place] 1/> AREAS 1 [facility] JET EACH 15 TIC MINUTES CENTER MASSAGE [facility] 60391 [facility] [place] TIC 1 [facility] JET MANIPULAT TIC [place] [place] [facility] SPINAL 3-4 REGIONS RADEX 49995 RADIOLOGY DARDINGER SPINE 1 DUC LUMBOSACR ASSOCIATE AL 2/3 S PSC VIEWS RADEX 22684 RADIOLOGY HURST ZAIN SPINE 1 THORACIC ASSOCIATE 3 VIEWS S PSC BLOOD [address] [facility] COMPLETE AUTO&AUTO MEDICALCE MEDICAL[place] [address] [facility] THYROXINE MEDICALCE MEDICALCE NTER NTER BASIC [address] MET[address] [facility] PANEL CALCIUM MEDICALCE [place] [address] [facility] STIMULATI NG MEDICALCE [place]ICAL[place] [address] [facility] THYROID 1 [facility] INC STIMULATI NG HORMONE TSH COMPREHEN 19020 [facility] SIVE 1 [facility] [place] [address] [facility] FOLIC 1 [facility] ACID SERUM BLOOD 17926 FAMILY MULBERRY COUNT 1 CARE ALEX COMPLETE ASSOCIATE AUTO&AUTO S DIFRNTL WBC 25 15661 [facility] HYDROXY 1 DIAGNOSTI DIAGNOSTI INCLUDES CS CS FRACTIONS INCORPORA INCORPORA IF T T PERFORMED CYANOCOBA 66877 [facility] EMELY 1 [facility] VITAMIN B-12 SUSCEPTIB 64919 [facility] LTY STDY 1 [facility] ANTIMICRB IAL MICRO/AGA R DILUTJ CUL BACT 66454 [facility] AEROBIC 1 [facility] ADDL METHS DEFINITIV E EA ISOL CULTURE 80609 [facility] BCT 1 [facility] ISOL&PRSM PTV ID ISOLATE EA URINE CULTURE 04250 [facility] BACTERIAL 1 [facility] QUANTTATI VE COLONY COUNT URINE ETONOGEST J7307 [facility] IMPL SYS MONO INCL IMPL & SPL URINE 59195 [facility] TEST [facility] OF VISUAL [facility]O COLOR CMPRSN METHS INSERTION 63827 [facility] IMPLANT[facility] OF LE MONO CONTRACEP TIVE CAPSULES REMOVAL 51001 [facility] [facility]TRAUTER [facility] DEVICE [facility] IUD 08233 [facility] TRANSVAGI [facility] INSERTION 54506 [facility] INE [facility] DEVICE IUD LEVONORGE J7302 W[facility] STREL-RLS [facility] INTRAUTER [facility] N CNTRACPT 52 MG URINE 70434 [facility] VISUAL MONO COLOR CMPRSN METHS CULTURE 96674 [facility] BACTERIAL 1 [facility] QUANTTATI VE COLONY COUNT URINE BLOOD 53606 FAMILY FAMILY COUNT 0 CARE CARE COMPLETE ASSOCIATE ASSOCIATE AUTO&AUTO S S DIFRNTL WBC HEPATBL 60926 [facility]el FIDEL DUX SYS 0 MEDICAL JOSÉ MIGUEL IMG IMAGING GLBLDR ASS APPL 63632 [facility] MODALITY 0 CHIROPRAC JET 1/> AREAS TIC ELEC CENTER STIMJ UNATTENDE D CHIROPRAC 40866 [facility] TIC 0 CHIROPRAC JET MANIPULAT TIC [facility] [place] [facility] SPINAL 3-4 REGIONS THERAPEUT 44550 [facility] [place] IC PX 1/> 0 CHIROPRAC JET AREAS TIC EACH [address] [place] [address] [facility] 1/> AREAS 0 CHIROPRAC JET EACH 15 [place] [address] [facility] [place] 1/> AREAS 0 CHIROPRAC JET EACH 15 TIC MINUTES CENTER MASSAGE APPLICATI 55601 [facility] [place] ON 0 CHIROPRAC JET MODALITY TIC 1/> AREAS CENTER HOT/COLD PACKS THERAPEUT 62535 [facility] [place] IC PX 1/> 0 [facility]OP[facility] JET AREAS TIC EACH 15 CENTER MIN EXERCISES CHIROPRAC 76221 [facility] [place] TIC 0 [facility]OP[facility] JET MANIPULAT TIC [place] [facility] SPINAL 3-4 REGIONS APPL 27501 [facility] [place] MODALITY 0 CHIROPRAC JET 1/> AREAS T[place] [address] [facility] ABDOMINAL 0 MEDICAL JOSÉ MIGUEL REAL IMAGING TIME ASS W/IMAGE LIMITED BLOOD 85222 FAMILY BRANDY J COUNT 0 CARE COMPLETE ASSOCIATE AUTO&AUTO S DIFRNTL WBC TRANSFERA 83560 FAMILY BRANDY J SE 0 CARE ASPARTATE ASSOCIATE AMINO S AST SGOT TRANSFERA 36819 FAMILY FAMILY SE 0 CARE CARE ALANINE ASSOCIATE ASSOCIATE AMINO ALT S S [facility] 0 PHYSIC[facility] [place] DAY GROUP MANAGEMEN PCC T 30 MIN/< CIRCUMCIS 37730 FAMILY MULBERRY ION 0 CARE ALEX W/CLAMP/O ASSOCIATE TH DEV S W/BLOCK SBSQ 08703 [facility] H[facility] 0 PHYSICIAN [place] CARE/DAY GROUP 35 PCC MINUTES SUBQ 68053 [facility] 0 CARE CARE CARE PER ASSOCIATE ASSOCIATE DAY E/M S S NORMAL LOW 721 CECE ZHAO FORCEPS 0 [facility] OPERATION INC INC WITH [facility] 66499 FAMILY MULBERRY DISCHARGE 0 CARE ALEX DAY ASSOCIATE MANAGEMEN S T 30 MIN/< NEURAXIAL 04235 [facility] LAB[facility] 0 ANESTH ANALG/ANE OF THE S PLND BLUE VAGINAL DELIVERY VAGINAL 58243 [facility] HAR[facility]L DELIVERY 0 PHYSICIAN [place] ONLY GROUP PCC 96304 [facility] [place] TEST GROUP PCC 02667 CECE ZHAO NONSTRESS 0 [facility] TEST INC INC BLOOD 55835 [facility] COUNT 0 CARE CARE COMPLETE ASSOCIATE ASSOCIATE AUTO&AUTO S S DIFRNTL WBC PARTICLE 83371 CECE ZHAO AGGLUTINA 0 [facility] TION INC INC SCREEN EACH ANTIBODY BLOOD 53217 [facility] COUNT 0 [facility] HEMATOCRI INC INC T OBSERVATI 68809 [facility] PCC CARE 55 MINUTES BLOOD 84990 CECE [facility] COUNT 0 [facility] HEMOGLOBI INC INC N URNLS DIP 29784 CECE ZHAO 0 [facility] STICK/TAB INC INC LET REAGENT AUTO MICROSCOP Y GLUC BLD 56122 CECE ZHAO GLUC MNTR 0 [facility] DEV INC INC CLEARED FDA SPEC HOME USE 35742 CECE ZHAO NONSTRESS 0 [facility] TEST INC INC SMR PRIM 67224 [facility] SRC WET 0 PHYSICIAN [place] MOUNT GROUP NFCT AGT PCC CYTP C/V 20605 [facility] AUTO THIN 0 [employer] INC LYR PREPJ SCR MNL RESCR PHYS IADNA 68318 [facility] CHLAMYDIA 0 [facility] TRACHOMAT IS AMPLIFIED PROBE TQ IADNA 34809 SPECIALTY SPECIALTY HERPES 0 SOMPLX LABORATOR LABORATOR VIRUS IES INC IES INC AMPLIFIED PROBE TQ IADNA 60460 [facility] NEISSERIA 0 [facility] GONORRHOE AE AMPLIFIED PROBE TQ OBSERVATI 35479 [facility] HARPEL ON/INPATI 0 [facility] [facility] PCC CARE 55 MINUTES 99696 CECE ZHAO NONSTRESS 0 [facility] TEST INC INC URNLS DIP 88015 CECE ZHAO 0 [facility] STICK/TAB INC INC LET REAGENT AUTO MICROSCOP Y BLOOD 55775 CECE ZHAO COUNT 0 [facility] COMPLETE INC INC AUTO&AUTO DIFRNTL WBC GLUCOSE 37481 CECE ZHAO POST 0 [facility] GLUCOSE INC INC DOSE SMR PRIM 55677 [facility] SRC WET 0 [facility] [place] [facility] GROUP NFCT AGT PCC US PREG 54957 [facility] UTERUS 0 PHYSICIAN [place] AFTER 1ST [place] [address] [facility] HAR[facility]L 0 PHYSICIAN [place] UTERUS 14 GROUP WK PCC TRANSABDL GESTAT ALPHA-FET 62809 CECE ZHAO OPROTEIN 0 [facility] [place] [address] CECE CECE ESTRIOL 0 [facility] INC INC COLPOSCOP 20874 [facility] HARPEL Y CERVIX 0 PHYSICIAN [place] BX CERVIX GROUP & [place] PREG 99245 [facility] UTERUS 0 PHYSICIAN PHYSICIAN REAL TIME GROUP GROUP W/IMAGE [facility] DCMTN TRANSVAG IADNA 47647 [facility] CHLAMYDIA 0 [facility] TRACHOMAT IS AMPLIFIED PROBE TQ IADNA 37139 [facility] NE[place] 0 [facility] GONORRHOE AE AMPLIFIED PROBE TQ IADNA NOS 98278 SPECIALTY SPECIALTY 0 AMPLIFIED LABORATOR LABORATOR PROBE TQ IES INC IES INC EACH ORGANISM CYTP 78246 [facility] CERVICAL/ 0 VAGINAL [place]PO IND[place]PO REQ LIS PC [place] [address] [facility] NON-IMMUN 0 [facility] INC OLOGIC OTH/THN CYTOPATHI C MOLECULAR 11621 SPECIALTY SPECIALTY DX AMP 0 TARGET LABORATOR LABORATOR MULTIPLEX IES INC IES INC EA ADDL SEQ MOLEC 82548 SPECIALTY SPECIALTY SEP&ID HI 0 RESOLU LABORATOR LABORATOR TQ EACH IES INC IES INC NUCLEIC ACID PREP MOLEC 62941 SPECIALTY SPECIALTY ENZYMATIC 0 LABORATOR LABORATOR DIGESTION IES INC IES INC EA ENZYME TX MOLEC 25319 SPECIALTY SPECIALTY ISOL/XTRJ 0 HP LABORATOR LABORATOR NUCLEIC IES INC IES INC ACID EA TYPE MOLECULAR 27945 SPECIALTY SPECIALTY DX AMP 0 TARGET LABORATOR LABORATOR MULTIPLEX IES INC IES INC 1ST 2 SEQ MOLECULAR 65563 SPECIALTY SPECIALTY 0 DIAGNOSTI LABORATOR LABORATOR CS IES INC IES INC INTERPRET ATION & REPORT MUTATION 12245 SPECIALTY SPECIALTY ID 0 ENZYMATIC LABORATOR LABORATOR IES INC IES INC LIG/PRIME R XTN 1 SGM EA URINE 51033 PENDELETO PENDELETO 0 N CO N CO TEST [facility] COLOR CMPRSN METHS CULTURE 92898 [facility] BACTERIAL 9 [place] INC QUANTTATI VE COLONY COUNT URINE CULTURE 04361 [facility] BCT 9 [place] INC Pacific Ethanol INC ISOL&PRSM PTV ID ISOLATE EA URINE CULTURE 64138 [facility] TYPING 9 [place] [place] INC IMMUNOLOG IC OTH/THN IMMUNOFLU ORES CULTURE 54156 [facility] TYPING 9 [place] [facility] [place] INC IMMUNOLOG IC OTH/THN IMMUNOFLU ORES CULTURE 79127 [facility] BCT 9 [place] [facility] [place] INC ISOL&PRSM PTV ID ISOLATE EA URINE CULTURE 78749 [facility] BACTERIAL 9 [place] INC [place] [address] FALSANDRAUTH RACHELLE, 1/> AREAS 9 CHIROPRAC MAURI P EACH 15 TIC MINUTES CENTER MASSAGE CHIROPRAC 09128 IRAM BUSH, TIC 9 CHIROPRAC MAURI Goncalves MANIPULAT TIC [place] [facility] SPINAL 3-4 REGIONS FITTING 68307 QUINTEN SHIPLEY, SPECTACLE 9 [place] Coleman S XCPT APHAKIA MONOFOCAL SPHERE V2100 QUINTEN SHIPLEY, SINGLE 9 [place] Coleman VISION PLANO +/- 4.00 PER LENS FRAMES V2020 QUINTEN SHIPLEY, PURCHASES 9 [place] Coleman [place] DETERMINA 14687 QUINTEN SHIPLEY, TION 9 [place] Coleman [place] REFRACTIV E STATE OPHTH 55230 QUINTEN SHIPLEY, MEDICAL 9 [place] Coleman [place] XM&EVAL COMPRHNSV ESTAB PT 1/> COLLECTIO 12183 FAMILY HARDIN, N VENOUS 9 [facility] BLOOD [place] [address] [facility] THYROID 9 [facility] INC STIMULATI NG HORMONE TSH URNLS DIP 08584 FAMILY HARDIN, [facility] Rima MINI STICK/TAB ASSOCIATE LET RGNT S NON-AUTO W/O MICRSCP CYTP C/V [address] AUTO THIN 9 [facility] MALONEY LYR PREPJ SCR MEDICALCE MEDICALCE MNL NTER NTER RESCR PHYS IADNA 29194 DHS/CO PENDELETO CHLAMYDIA 9 HEALTH N [facility] TRACHOMAT BANK ACCT CENTER IS AMPLIFIED PROBE TQ URNLS DIP 53614 DHS/CO PENDELETO 9 HEALTH N CO STICK/TAB [facility] LET RGNT BANK ACCT CENTER NON-AUTO W/O MICRSCP URINE 84637 DHS/CO PENDELETO 9 HEALTH N CO TEST [facility] VISUAL BANK ACCT CENTER COLOR CMPRSN METHS ALL Q0112 DHS/CO P[facility] POTASSIUM 9 HEALTH N [facility] HYDROXIDE BANK ACCT CENTER PREPARATI ONS WET Q0111 DHS/CO P[facility] CARI 9 HEALTH N CO INCL PREP [facility] VAGINAL BANK ACCT CENTER CERV/SKIN SPECIMENS IADNA 04-21-200 66924 DHS/CO PENDELETO NEISSERIA 9 HEALTH N [facility] GONORRHOE BANK ACCT CENTER AE AMPLIFIED PROBE TQ CHIROPRAC 22535 [place], TIC 9 CHIROPRAC MEGA MANIPLTV TIC TX CENTER EXTRASPIN AL 1/> REGION CHIROPRAC 50963 [facility], TIC 9 CHIROPRAC MEGA MANIPULAT TIC [place] [facility] SPINAL 3-[place] [address] [facility] [place], 1/> AREAS 9 CHIROPRAC MEGA EACH 15 [place] [address] [facility] [place], 1/> AREAS 9 CHIROPRAC MEGA EACH 15 TIC MINUTES CENTER MASSAGE CHIROPRAC 81386 [place], TIC 9 CHIROPRAC MEGA MANIPULAT TIC [place] [place] [facility] SPINAL 3-4 REGIONS CHIROPRAC 99997 [facility], TIC 9 CHIROPRAC MEGA MANIPULAT TIC [place] [place] [facility] SPINAL 3-[place] [address] [facility], 1/> AREAS 9 CHIROPRAC MEGA EACH 15 TIC MINUTES CENTER MASSAGE THERAPEUT 76262 [place], IC PX 1/> 9 CHIROPRAC MEGA AREAS TIC EACH 15 CENTER MIN EXERCISES THERAPEUT 61011 [place], IC PX 1/> 8 CHIROPRAC MEGA AREAS TIC EACH 15 CENTER MIN EXERCISES APPLICATI 70720 IRAM [place]INT[place], ON 8 CHIROPRAC MEGA MODALITY TIC 1/> AREAS CENTER HOT/COLD PACKS MANUAL 43939 MEM[facility] [place], THERAPY 8 CHIROPRAC MEGA TQS 1/> TIC REGIONS CENTER EACH 15 MINUTES CHIROPRAC 01995 [facility], TIC 8 CHIROPRAC MEGA MANIPULAT TIC [place] [facility] SPINAL 3-4 REGIONS APPL 39819 [facility], MODALITY 8 CHIROPRAC MEGA 1/> AREAS TIC ELEC CENTER STIMJ UNATTENDE D APPL 46443 [facility], MODALITY 8 CHIROPRAC MEGA 1/> AREAS TIC ELEC CENTER STIMJ UNATTENDE D CHIROPRAC 08366 IRAM CHINTAN, TIC 8 CHIROPRAC MEGA MANIPULAT TIC [place] [place] [facility] SPINAL 3-4 REGIONS APPLICATI 77972 [facility]ENE [place], ON 8 CHIROPRAC MEGA MODALITY TIC 1/> AREAS CENTER HOT/COLD PACKS THERAPEUT 05059 IRAM CHINT[place], IC PX 1/> 8 CHIROPRAC MEGA AREAS TIC EACH [place] [address] [facility] [place], 1/> AREAS 8 CHIROPRAC MEGA EACH 15 TIC MINUTES CENTER MASSAGE APPLICATI 28505 IRAM CHINT[place], ON 8 CHIROPRAC MEGA MODALITY TIC 1/> AREAS CENTER H[place] [address] [facility] [place], 1/> AREAS 8 CHIROPRAC MEGA EACH 15 TIC MINUTES CENTER MASSAGE THERAPEUT 57267 IRAM [place]INT[place], IC PX 1/> 8 CHIROPRAC MEGA AREAS TIC EACH 15 CENTER MIN EXERCISES CHIROPRAC 63229 IRAM CHINT[place], TIC 8 CHIROPRAC MEGA MANIPULAT TIC [place] [facility] SPINAL 3-4 REGIONS APPL 84549 [place], MODALITY 8 CHIROPRAC MEGA 1/> AREAS TIC ELEC CENTER STIMJ UNATTENDE D APPL 88479 [facility], MODALITY 8 CHIROPRAC MEGA 1/> AREAS TIC ELEC CENTER STIMJ UNATTENDE D CHIROPRAC 76211 IRAM [place]INT[place], TIC 8 CHIROPRAC MEGA MANIPULAT TIC [place] [facility] SPINAL 3-4 REGIONS THERAPEUT 90258 IRAM CHINT[place], IC PX 1/> 8 CHIROPRAC MEGA AREAS TIC EACH 15 CENTER MIN EXERCISES APPLICATI 36526 MEMOM[facility]ENE [place]INT[place], ON 8 CHIROPRAC MEGA MODALITY TIC 1/> AREAS CENTER H[place] [address] [place], 1/> AREAS 8 CHIROPRAC MEGA EACH 15 [place] [address] [facility] [place], 1/> AREAS 8 CHIROPRAC MEGA EACH 15 TIC MINUTES CENTER MASSAGE APPL 71730 [place], MODALITY 8 CHIROPRAC MEGA 1/> AREAS TIC ELEC CENTER STIMJ UNATTENDE D APPL 60365 [place], MODALITY 8 CHIROPRAC MEGA 1/> AREAS TIC ELEC CENTER STIMJ UNATTENDE D CHIROPRAC 11777 [facility] [place], TIC 8 CHIROPRAC MEGA MANIPULAT TIC [facility] SPINAL 3-4 REGIONS APPLICATI 69585 [facility] [place], ON 8 CHIROPRAC MEGA MODALITY TIC 1/> AREAS CENTER H[place] [address] [place], 1/> AREAS 8 CHIROPRAC MEGA EACH 15 TIC MINUTES CENTER MASSAGE THERAPEUT 58848 [facility] [place], IC PX 1/> 8 CHIROPRAC MEGA AREAS TIC EACH 15 CENTER MIN EXERCISES THERAPEUT 89148 AUDREYUTH CHINTAN, IC PX 1/> 8 CHIROPRAC MEGA AREAS TIC EACH 15 CENTER MIN EXERCISES APPLICATI 88401 IRAM CHINTAN, ON 8 CHIROPRAC MEGA MODALITY TIC 1/> AREAS CENTER HOT/COLD PACKS CHIROPRAC 48775 [facility], TIC 8 CHIROPRAC MEGA MANIPULAT TIC [facility] [place] [facility] SPINAL 3-4 REGIONS CHIROPRAC 54718 [place], TIC 8 CHIROPRAC MEGA MANIPULAT TIC [facility] [place] [facility] SPINAL 3-[place] [address] IRAM CHINTAN, 1/> AREAS 8 CHIROPRAC MEGA EACH 15 TIC MINUTES CENTER MASSAGE APPL 94651 [facility] [place], MODALITY 8 CHIROPRAC MEGA 1/> AREAS TIC ELEC CENTER STIMJ UNATTENDE D THERAPEUT 34610 [facility] [place], IC PX 1/> 8 CHIROPRAC MEGA AREAS TIC EACH 15 CENTER MIN EXERCISES APPLICATI 94620 AUDREYUTH CHINTAN, ON 8 CHIROPRAC MEGA MODALITY TIC 1/> AREAS CENTER HOT/COLD PACKS APPLICATI 48521 [facility] [place], ON 8 CHIROPRAC MEGA MODALITY TIC 1/> AREAS CENTER [place] [address] IRAM WOODSON, 1/> AREAS 8 CHIROPRAC MEGA EACH 15 TIC MINUTES CENTER MASSAGE THERAPEUT 23198 IRAM WOODSON, IC PX 1/> 8 CHIROPRAC MEGA AREAS TIC EACH 15 CENTER MIN EXERCISES APPL 72859 IRAM WOODSON, MODALITY 8 CHIROPRAC MEGA 1/> AREAS TIC ELEC CENTER STIMJ UNATTENDE D CHIROPRAC 24738 IRAM CHINTAN, TIC 8 CHIROPRAC MEGA MANIPULAT TIC [place] [place] [facility] SPINAL 3-4 REGIONS CHIROPRAC 18621 IRAM CHINTAN, TIC 8 CHIROPRAC MEGA MANIPULAT TIC [place] [facility] SPINAL 3-4 REGIONS APPL 85245 IRAM WOODSON, MODALITY 8 CHIROPRAC MEGA 1/> AREAS TIC ELEC CENTER STIMJ UNATTENDE D APPLICATI 37559 IRAM WOODSON, ON 8 CHIROPRAC MEGA MODALITY TIC 1/> AREAS CENTER HOT/COLD PACKS THERAPEUT 63289 IRAM WOODSON, IC PX 1/> 8 CHIROPRAC MEGA AREAS TIC EACH [place] [address] IRAM WOODSON, 1/> AREAS 8 CHIROPRAC MEGA EACH 15 TIC MIN CENTER NEUROMUSC REEDUCA THERAPEUT 62642 IRAM WOODSON, IC PX 1/> 8 CHIROPRAC MEGA AREAS TIC EACH 15 CENTER MIN EXERCISES APPLICATI 74671 IRAM WOODSON, ON 8 CHIROPRAC MEGA MODALITY TIC 1/> AREAS CENTER HOT/COLD PACKS APPL 86571 IRAM WOODSON, MODALITY 8 CHIROPRAC MEGA 1/> AREAS TIC ELEC [place] [address] IRAM WOODSON, 1/> AREAS 8 CHIROPRAC MEGA EACH 15 TIC MINUTES CENTER MASSAGE CHIROPRAC 04995 IRAM CHINTAN, TIC 8 CHIROPRAC MEGA MANIPULAT TIC [place] [place] [facility] SPINAL 3-4 REGIONS CHIROPRAC 51604 IRAM CHINTAN, TIC 8 CHIROPRAC MEGA MANIPULAT TIC [facility] [place] [facility] SPINAL 3-4 REGIONS APPL 92383 IRAM WOODSON, MODALITY 8 CHIROPRAC MEGA 1/> AREAS TIC ELEC CENTER STIMJ UNATTENDE D APPLICATI 01102 IRAM WOODSON, ON 8 CHIROPRAC MEGA MODALITY TIC 1/> AREAS CENTER [place] [address] IRAM CHINTAN, 1/> AREAS 8 CHIROPRAC MEGA EACH 15 TIC MINUTES CENTER MASSAGE THERAPEUT 04543 IRAM WOODSON, IC PX 1/> 8 CHIROPRAC MEGA AREAS TIC EACH 15 CENTER MIN EXERCISES THERAPEUT 39374 IRAM WOODSON, IC PX 1/> 8 CHIROPRAC MEGA AREAS TIC EACH 15 CENTER MIN EXERCISES APPLICATI 13492 IRAM WOODSON, ON 8 CHIROPRAC MEGA MODALITY TIC 1/> AREAS CENTER [place] [address] IRAM CHINTAN, 1/> AREAS 8 CHIROPRAC MEGA EACH 15 TIC MINUTES CENTER MASSAGE APPL 59738 IRAM WOODSON, MODALITY 8 CHIROPRAC MEGA 1/> AREAS TIC ELEC CENTER STIMJ UNATTENDE D CHIROPRAC 65398 IRAM WOODSON, TIC 8 CHIROPRAC MEGA MANIPULAT TIC [place] [facility] SPINAL 3-4 REGIONS IAADIADOO 62371 [facility], 8 CARE Rima MORSE STREPTOCO ASSOCIATE CCUS S GROUP A PRESSURIZ 57095 CECE ZHAO ED/NONPRE 8 [facility] SSURIZED INC INC INHALATIO N TREATMENT RADIOLOGI 47535 [place] Felix PARRA EXAM 8 MEDICAL NHUNG CHEST 2 IMAGING VIEWS ASSOCIATE FRONTAL&L S ATERAL IAADIADOO 85878 [facility], 8 CARE Rima MORSE STREPTOCO ASSOCIATE CCUS S GROUP A IAADIADOO 71065 [facility], 8 CARE R MINI STREPTOCO ASSOCIATE CCUS S GROUP A CYTP 92037 [facility] A[place]USTUS, CERV/VAG 8 [facility] JULIAN E AUTO THIN LAYER PREP MNL SCREEN BLOOD 40107 [facility] COUNT 8 [facility] COMPLETE AUTOMATED GONADOTRO 31850 [facility] PIN 8 [facility] FOLLICLE STIMULATI NG HORMONE BLOOD 43192 [facility] COUNT 8 [facility] SMEAR MCRSCP W/MNL DIFRNTL WBC COUNT GONADOTRO 03377 [facility] PIN 8 [facility] [place] [address] [facility] TESTOSTER 8 [facility] ONE TOTAL DEHYDROEP 22159 [facility] IANDROSTE 8 [facility] [place] [address] [facility] THYROID 8 [facility] STIMULATI NG HORMONE TSH COLLECTIO 63057 FAMILY LASHAWN, N VENOUS 8 [facility] BLOOD [facility] VENIPUNCT S URE Encounters Encounter Start End Date Code Location Performer Type Date EMERGENCY 26385 BRITNEY BURGOS [facility] 6 6 PHYSICIAN DEPARTMEN S, [facility] T VISIT HIGH/URGE NT SEVERITY EMERGENCY 64389 CECE 6 6 [facility] DEPARTMEN INC T VISIT LOW/MODER SEVERITY HOSPITAL CECE - 6 6 [facility] OUTPATIEN INC T OFFICE 00208 [facility] 6 6 [facility] T VISIT 15 PHYSICIAN MINUTES S OFFICE 67992 [facility] OUTPATIEN 6 6 [facility] T VISIT URGENT 15 CARE MINUTES OFFICE 57501 [facility] OUTPATIEN 6 6 [facility] T VISIT URGENT [address] - 5 5 [facility] T [facility] OFFICE 78502 [facility]FTI[facility]AR [facility] OUTPATIEN 5 5 [facility] T VISIT [address] - 5 5 [facility] T [facility] OFFICE 54813 IFTIKHAR BRANTLEYPATIEN 5 5 [facility] T VISIT 15 MINUTES EMERGENCY 05072 CECE 5 5 [facility] DEPARTMEN INC T VISIT MODERATE SEVERITY EMERGENCY 15456 BRITNEY HERRERA 5 5 PHYSICIAN U [facility] S, [facility] T VISIT HIGH/URGE NT SEVERITY HOSPITAL CECE - 5 5 [facility] OUTPATIEN INC T OFFICE 57987 [facility] OUTPATIEN 5 5 [facility] EMILIA T VISIT 25 PHYSICIAN MINUTES [facility] ST - 5 5 [facility] OUTPATIEN MED CTR T [facility] ST - 5 5 [facility] OUTPATIEN [facility] EMERGENCY 37864 [facility] DEPT 5 5 EMERGENCY VISIT HIGH PHYSICIAN SEVERITY& S THREAT [facility] ST - 5 5 [facility] OUTPATIEN MED [facility] CECE - 5 5 [facility] OUTPATIEN INC T EMERGENCY 41158 BRITNEY GRAH[facility] DEPT 5 5 PHYSICIAN NIESHA VISIT [facility] HIGH SEVERITY& THREAT [facility] EMERGENCY 75855 [facility] MODERATE SEVERITY OFFICE 81454 TARA OUTPATIEN 5 5 HA[facility] JET T VISIT 15 PHYSICIAN MINUTES S OFFICE 93824 [facility] NIESHA T VISIT 15 PHYSICIAN [address] [facility] [address] - 5 5 [facility] OUTPATIEN [facility] ST - 5 5 [facility] OUTPATIEN MED CTR T [facility] 17188 IFTIKHAR [facility] PREVENTIV 5 5 [facility] CHAWLA E MED EST PATIENT 18-[address] - 5 5 [facility]EN [facility] T [facility] OFFICE [address] [facility] OUTPATIEN 5 5 HAIDER ANASTASIA CARMEN T VISIT 15 PHYSICIAN MINUTES [facility] ST - 5 5 [facility] OUTPATIEN MED CTR T [facility] ST EMERGENCY 96024 COMPASS DANNEMAN 5 5 EMERGENCY HOL DEPARTMEN T VISIT PHYSICIAN HIGH/URGE S NT SEVERITY OFFICE 09771 ST OUTPATIEN 5 5 HAIDER T VISIT 15 PHYSICIAN MINUTES S EMERGENCY 11966 [facility] CARLENE 5 5 EMERGENCY GUERRERO DEPARTMEN T VISIT PHYSICIAN MODERATE S [facility] ST - 5 5 HAIDER OUTPATIEN MED CTR T [facility] OFFICE 87870 JUSTIN OUTPATIEN 5 5 HAIDER NIESHA T VISIT 15 PHYSICIAN MINUTES [facility] ST - 5 5 [facility] OUTPATIEN MED CTR T [facility] OFFICE 90532 PENDELETO PENDELETO OUTPATIEN 5 5 N CO N CO T VISIT [address] CENTER MINUTES EMERGENCY 72596 BRITNEY GRAHAM DEPT 5 5 PHYSICIAN NIESHA VISIT S, PLL HIGH SEVERITY& THREAT [facility] ST - 5 5 HAIDER OUTPATIEN MED CTR T [facility] OFFICE 89254 HEAD & DOMET NIESHA OUTPATIEN 5 5 NECK T VISIT SURGERY 25 ASSOC MINUTES OFFICE 15101 [facility] HAIDER JET T VISIT 25 PHYSICIAN MINUTES [facility] ST - 5 5 HAIDER OUTPATIEN MED CTR T [facility] THE - 5 5 [facility] ST - 5 5 HAIDER OUTPATIEN MED CTR T [facility] CECE - 5 5 [facility] OUTPATIEN INC T EMERGENCY 01699 CECE 5 5 [facility] DEPARTMEN INC T VISIT LIMITED/M INOR PROB EMERGENCY 20079 BRITNEY FLORES 5 5 PHYSICIAN VIRAMONTES DEPARTMEN S, [facility] T VISIT HIGH/URGE NT SEVERITY OFFICE 91645 FAMILY KEAGLE OUTPATIEN 5 5 CARE RIT T VISIT ASSOCIATE 15 S MINUTES OFFICE 40588 COLD OUTPATIEN 5 5 SPRING T VISIT URGENT [address] [facility] [address] - 5 5 HAIDER OUTPATIEN MARCELLUS T OFFICE 40407 FAMILY KEAGLE OUTPATIEN 5 5 CARE RIT T VISIT ASSOCIATE 15 S MINUTES OFFICE 43862 [facility] OUTPATIEN 5 5 HAIDER JET T VISIT 25 PHYSICIAN MINUTES [facility] ST - 5 5 HA[facility]ER OUTPATIEN MED CTR T [facility] OFFICE 34326 FAMILY KEAGLE OUTPATIEN 4 4 CARE RIT T VISIT ASSOCIATE 15 S MINUTES OFFICE 32364 FAMILY KEAGLE OUTPATIEN 4 4 CARE RIT T VISIT ASSOCIATE 15 S MINUTES OFFICE 93261 FAMILY KEAGLE OUTPATIEN 4 4 CARE RIT T VISIT ASSOCIATE 15 S MINUTES OFFICE 49773 FAMILY MULBERRY OUTPATIEN 4 4 CARE ALEX T VISIT ASSOCIATE 15 S MINUTES OFFICE 75655 FAMILY KEAGLE OUTPATIEN 4 4 CARE RIT T VISIT ASSOCIATE 15 S MINUTES OFFICE 17789 GE[facility]GES SU OUTPATIEN 4 4 MARQUES MARQUES T NEW 30 MINUTES OFFICE 33567 IFTIKHAR H[place] OUTPATIEN 4 4 [facility] T VISIT [address] - 4 4 [facility]ER OUTPATIEN [facility] - 4 4 HA[facility]ER OUTPATIEN MED CTR T [facility] ST OFFICE 86427 EMERITA FELDER OUTPATIEN 4 4 RIT RIT T VISIT [address] - 4 4 [facility]ER OUTPATIEN MED CTR T [facility] ST OFFICE 06422 TARA PACHECO OUTPATIEN 4 4 JET JET T VISIT [address] - 4 4 HAIDER OUTPATIEN INGA T OFFICE 36224 EMERITA FELDER OUTPATIEN 4 4 RIT RIT T VISIT 15 MINUTES EMERGENCY 66851 LIZA DE JESUS DEPT 4 4 ALEX ALEX VISIT HIGH SEVERITY& THREAT FUNJ EMERGENCY 24451 SOKAN BAB SOKAN BAB 4 4 DEPARTMEN T VISIT MODERATE SEVERITY OFFICE 75424 TARA PACHECO OUTPATIEN 4 4 JET JET T NEW [address] - 4 4 [facility]ER OUTPATIEN MED CTR T [facility] OFFICE 40518 LIZA LOMAX 4 4 THE THE T VISIT 15 MINUTES OFFICE 40884 LIZA DE JESUS OUTPATICONCEPCION 4 4 THE THE T VISIT [address] - 4 4 HAIDER OUTPATIEN MED [facility] T [facility] - 4 4 HAIDER OUTPATIEN MED CTR T [facility] ST - 4 4 HAIDER OUTPATIEN MED CTR T [facility] ST OFFICE 37886 BRANDY Zayas OUTPATIEN 4 4 G G T VISIT [address] - 4 4 [facility]ER OUTPATIEN MED CTR T [facility] EMERGENCY 30732 BUTCH GRAHAM 4 4 EMERGENCY [facility] DEPARTMEN SERVICES T VISIT MODERATE SEVERITY OFFICE 32154 IFTIKHAR CHAMPIONL OUTPATIEN 4 4 [facility] CH[facility] T VISIT 15 MINUTES OFFICE 84294 HARPEL HARPEL OUTPATIEN 3 3 [place] T VISIT 10 MINUTES OFFICE 06053 PENDELETO PENDELETO OUTPATIEN 3 3 N CO N CO T VISIT [address] CECE - 3 3 [facility] OUTPATIEN INC T PERIODIC 68531 HARPEL HARPEL PREVENTIV 3 3 [place] E MED EST PATIENT 18-39 YRS PERIODIC 24038 FAMILY LASHAWN PREVENTIV 3 3 CARE R H E MED EST ASSOCIATE PATIENT S 18-39 YRS EMERGENCY 81656 LUIS ENRIQUE HO LUIS ENRIQUE DEPT 3 3 VISIT HIGH SEVERITY& THREAT FUN EMERGENCY 60932 NATALIE NATALIE DEPT 3 3 May VISIT HIGH SEVERITY& THREAT FUNCJ EMERGENCY 04971 MEGA Durand 3 3 VILLARI VILLARI DEPARTMEN T VISIT MODERATE SEVERITY OFFICE 71448 FAMILY LASHAWN OUTPATIEN 3 3 CARE R H T VISIT ASSOCIATE 15 S MINUTES OFFICE 99977 MULBERRY MULBERRY OUTPATIEN 3 3 ALEX ALEX T VISIT 15 MINUTES OFFICE 64513 LASHAWN LASHAWN OUTPATIEN 3 3 R H R H T VISIT 15 MINUTES OFFICE 28937 LASHAWN LASHAWN OUTPATIEN 3 3 R H R H T VISIT 15 MINUTES OFFICE 87594 HARPE[facility] HARPEL OUTPATIEN 3 3 [place] T VISIT 15 MINUTES [facility]OSPITAL [facility] - 3 3 [facility] T OFFICE 48452 PENDELETO PENDELETO OUTPATIEN 3 3 N CO N CO T VISIT [address] [facility] C[facility] OFFICE 46677 PENDELETO PENDELETO OUTPATIEN 3 3 N CO N CO T VISIT [address] CENTER MINUTES OFFICE 85013 HARPEL HARPEL OUTPATIEN 3 3 [place] T VISIT 15 MINUTES OFFICE 98286 LASHAWN LASHAWN OUTPATIEN 3 3 R H R H T VISIT 15 MINUTES OFFICE 73343 LASHAWN LASHAWN OUTPATIEN 3 3 R H R H T VISIT 15 MINUTES OFFICE 57823 LASHAWN LASHAWN OUTPATIEN 3 3 R H R H T VISIT 15 MINUTES EMERGENCY 91714 RICHARDSO RICHARDSO 3 3 N KATIE N KATIE DEPARTMEN T VISIT HIGH/URGE NT SEVERITY OFFICE 44402 LASHAWN LASHAWN OUTPATIEN 3 3 R H R H T VISIT 15 MINUTES OFFICE 19407 LASHAWN LASHAWN OUTPATIEN 3 3 R H R H T VISIT 15 MINUTES EMERGENCY 97235 FRANCE HOUGH 3 3 REGINA [place] DEPARTMEN T VISIT MODERATE SEVERITY OFFICE 67378 GRILLOT GRILLOT OUTPATIEN 3 3 NAN NAN T NEW 30 MINUTES OFFICE 71117 BRANDY Zayas OUTPATIEN 3 3 G G T VISIT [address] - [facility] 3 [facility] OFFICE 89974 BRANDY Zayas OUTPATIEN 3 3 G G T VISIT 15 MINUTES EMERGENCY 64236 CECE 3 3 [facility] DEPARTMEN INC T VISIT MODERATE SEVERITY EMERGENCY 60096 SANTOS ORTEZEY DEPT 3 3 NIESHA NIESHA VISIT HIGH SEVERITY& THREAT FUN HOSPITAL CECE - 3 3 [facility] OUTPATIEN INC T OFFICE 56675 BRANDY Zayas OUTPATIEN 3 3 G G T VISIT 25 MINUTES OFFICE 59445 PRABHJOT SMITH RICK PRA OUTPATIEN 3 3 T VISIT 15 MINUTES EMERGENCY 91258 DEL RYA GEEJEFF RYA DEPT 3 3 VISIT HIGH SEVERITY& THREAT FUN OFFICE 03665 LASHAWN LASHAWN OUTPATIEN 3 3 R H R H T VISIT 15 MINUTES HOSPITAL CECE - 3 3 [facility] OUTPATIEN INC T OFFICE 28152 HARPEL HARPEL OUTPATIEN 3 3 [place] T VISIT 15 MINUTES OFFICE 33057 LASHAWN LASHAWN OUTPATIEN 2 2 R H R H T VISIT 15 MINUTES EMERGENCY 31501 LELA LELA 2 2 KRI KRI DEPARTMEN T VISIT HIGH/URGE NT SEVERITY [facility]PITAL [facility] - 2 2 [facility] OUTPATIEN T MEDICALCE NTER OFFICE 23806 LUIS RICK PRA OUTPATIEN 2 2 SPRING T VISIT URGENT 15 CARE MINUTES PERIODIC 75168 HARPEL PREVENTIV 2 2 [place] E MED EST PATIENT 18-39 YRS OFFICE 34311 LASHAWN LASHAWN OUTPATIEN 2 2 R H R H T VISIT [address] [facility] 2 2 [facility] VISIT MODERATE SEVERITY OFFICE 71530 LASHAWN LASHAWN OUTPATIEN 2 2 R H R H T VISIT 25 MINUTES OFFICE 94787 LASHAWN LASHAWN OUTPATIEN 2 2 R H R H T VISIT [address] - 2 2 [facility] OUTPATIEN INGA T OFFICE 40995 CONTI VIR CONTI VIR OUTPATIEN 2 2 T VISIT 15 MINUTES OFFICE 76268 LASHAWN LASHAWN OUTPATIEN 2 2 R H R H T VISIT 15 MINUTES OFFICE 37718 LASHAWN LASHAWN OUTPATIEN 2 2 R H R H T VISIT 15 MINUTES EMERGENCY 01173 JUVENAL SANFORD DEPT 2 2 III JAVI III JAVI VISIT HIGH SEVERITY& THREAT [facility] EMERGENCY 45644 [facility] 2 2 EMERGENCY III JAVI VISIT SERVICES HIGH SEVERITY& THREAT [facility] ST - 2 2 [facility] OUTPATIEN T MEDICALCE NTER OFFICE 76632 [facility] HARPEL OUTPATIEN 2 2 PHYSICIAN [place] T VISIT GROUP [address] PCC [address]ES [address] [facility] 2 2 [facility] THO ION NEW/ESTAB PHYSICIAN PATIENT S 60 MIN OFFICE 73511 LASHAWN LASHAWN OUTPATIEN 2 2 R H R H T VISIT 15 MINUTES OFFICE 36747 HARPEL HARPEL OUTPATIEN 2 2 [place] T VISIT 15 MINUTES OFFICE 01563 MULBERRY MULBERRY OUTPATIEN 2 2 ALEX ALEX T VISIT 15 MINUTES OFFICE 09529 FAMILY LASHAWN OUTPATIEN 2 2 CARE R H T VISIT ASSOCIATE 15 S MINUTES HOSPITAL CECE - 2 2 [facility] OUTPATIEN INC T EMERGENCY 92954 CECE 2 2 [facility] DEPARTMEN INC T VISIT MODERATE SEVERITY EMERGENCY 16201 [facility] HERNANDEZCj ALEJANDRA 2 2 EMERGENCY DEPARTMEN SERVICES T VISIT HIGH/URGE NT SEVERITY HOSPITAL CECE - 2 2 [facility] OUTPATIEN INC T EMERGENCY 99747 [facility] SANTOS 2 2 EMERGENCY NIESHA DEPARTMEN SERVICES T VISIT MODERATE SEVERITY EMERGENCY 07895 CECE 2 2 [facility] DEPARTMEN INC T VISIT LOW/MODER SEVERITY OFFICE 52300 LASHAWN LSAHAWN OUTPATIEN 2 2 R H R H T VISIT 15 MINUTES OFFICE 58636 LASHAWN LASHAWN OUTPATIEN 1 1 R H R H T VISIT 15 MINUTES PERIODIC 65742 [facility] HARPEL PREVENTIV 1 1 PHYSICIAN [place] E MED EST GROUP PATIENT PCC 18-39 YRS OFFICE 87347 FAMILY MULBERRY OUTPATIEN 1 1 CARE ALEX T VISIT ASSOCIATE 25 S MINUTES OFFICE 26620 FALMOUTH LUKING OUTPATIEN 1 1 [facility]IROP[facility] JET T VISIT TIC 15 CENTER MINUTES EMERGENCY 20039 CECE 1 1 [facility] DEPARTMEN INC T VISIT LOW/MODER SEVERITY [facility] ST[facility] - 1 1 [facility] OUTPATIEN INGA T EMERGENCY 00065 [facility] 1 1 EMERGENCY III JAVI DEPARTMEN SERVICES T VISIT MODERATE SEVERITY OFFICE 50095 [facility] OUTPATI[facility] 1 1 [facility]ER T VISIT 15 PHYSICIAN MINUTES S OFFICE 13867 FAMILY LASHAWN OUTPATIEN 1 1 CARE R H T VISIT ASSOCIATE 15 S MINUTES OFFICE 08033 FAMILY LASHAWN OUTPATIEN 1 1 CARE R H T VISIT ASSOCIATE [address] - 1 1 [facility] OUTPATIEN T MEDICALCE NTER OFFICE 01425 [facility] OUT[facility] 1 1 [facility] T NEW 30 MINUTES PHYSICIAN S OFFICE 67905 FAMILY MULBERRY OUTPATIEN 1 1 CARE ALEX T VISIT ASSOCIATE 25 S MINUTES OFFICE 50837 [facility] 1 1 [facility] T VISIT CLINIC OF 15 MONO MINUTES OFFICE 16740 FAMILY LASHAWN OUTPATIEN 1 1 CARE R H T VISIT ASSOCIATE 15 S MINUTES OFFICE 52408 FAMILY MULBERRY OUTPATIEN 1 1 CARE ALEX T VISIT ASSOCIATE 15 S MINUTES OFFICE 33404 [facility] OUTPAT[facility] 0 0 PHYSICIAN [place] T VISIT GROUP 15 PCC MINUTES OFFICE 97546 FAMILY LASHAWN OUTPATIEN 0 0 CARE R H T VISIT ASSOCIATE 15 S MINUTES OFFICE 44138 FAMILY LASHAWN OUTPATIEN 0 0 CARE R H T VISIT ASSOCIATE 15 S MINUTES HOSPITAL CECE - 0 0 [facility] OUTPATIEN INC T OFFICE 52062 [facility] HARPEL OUTPATIEN 0 0 PHYSICIAN [place] T VISIT GROUP 15 PCC MINUTES HOSPITAL CECE [facility] 0 0 [facility] OUTPATIEN INC T OFFICE 06621 FAMILY BRANDY J OUTPATIEN 0 0 CARE T VISIT ASSOCIATE 25 S MINUTES OFFICE 72341 FAMILY MULBERRY OUTPATIEN 0 0 CARE ALEX T VISIT ASSOCIATE 15 S MINUTES OFFICE 50291 [facility] 0 0 PHYSICIAN [place] T VISIT GROUP 15 PCC MINUTES HOSPITAL CECE - 0 0 [facility] INPATIENT INC OFFICE 01183 [facility] OUTPAT[facility]EN 0 0 PHYSICIAN [place] T VISIT GROUP 15 PCC MINUTES OFFICE 46367 [facility] OUTPATI[facility] 0 0 PHYSICIAN [place] T VISIT GROUP 15 PCC MINUTES HOSPITAL CECE - 0 0 [facility] OUTPATIEN INC T OFFICE 23260 FAMILY LASHAWN OUTPATIEN 0 0 CARE R H T VISIT ASSOCIATE 15 S MINUTES OFFICE 49577 [facility] OUT[facility] 0 0 PHYSICIAN [place] T VISIT GROUP 15 PCC MINUTES OFFICE 63348 [facility] OUTPATIEN 0 0 PHYSICIAN [place] T VISIT GROUP 15 PCC MINUTES HOSPITAL CECE - 0 0 [facility] OUTPATIEN INC T OFFICE 75454 [facility] OUTPAT[facility] 0 0 PHYSICIAN [place] T VISIT GROUP 15 PCC MINUTES HOSPITAL CECE - 0 0 [facility] OUTPATIEN INC T OFFICE 28013 [facility] OUTPATIEN 0 0 PHYSICIAN [place] T VISIT GROUP 15 PCC MINUTES OFFICE 96228 [facility] OUTPATIEN 0 0 PHYSICIAN [place] T VISIT GROUP 15 PCC MINUTES OFFICE 38828 [facility] OUTPATIEN 0 0 PHYSICIAN [place] T VISIT GROUP 15 PCC MINUTES HOSPITAL CECE - 0 0 [facility] OUTPATIEN INC T HOSPITAL CECE - 0 0 [facility] OUTPATIEN INC T OFFICE 86844 [facility] OUTPATIEN 0 0 PHYSICIAN [place] T VISIT GROUP 15 PCC MINUTES OFFICE 33146 [facility] OUTPATI[facility] 0 0 PHYS[facility]IAN [place] T VISIT GROUP 15 PCC MINUTES HOSPITAL CECE - 0 0 [facility] OUTPATIEN INC T OFFICE 92641 [facility] OUTPATIEN 0 0 PHYSICIAN [place] T VISIT GROUP 15 PCC MINUTES OFFICE 10404 [facility] OUTPATIEN 0 0 PHYSICIAN [place] T VISIT GROUP 15 PCC MINUTES OFFICE 32995 [facility] OUTPATIEN 0 0 PHYSICIAN [place] T VISIT GROUP 15 PCC MINUTES OFFICE 47464 [facility]L OUTPATIEN 0 0 PHYSICIAN [place] T VISIT GROUP 15 PCC MINUTES INITIAL 90661 IFTIKHAR HORTON, PREVENTIV 0 0 HARPEL MD IFTIKHAR PROCTOR NEW PT AGE 18-39YRS OFFICE 77810 PENDELETO PENDELETO OUTPATIEN 0 0 N CO N CO T VISIT [address] CENTER MINUTES OFFICE 89440 FAMILY LASHAWN, OUTPATIEN 9 9 CARE R MINI T VISIT ASSOCIATE 15 S MINUTES OFFICE 58772 FAMILY LASHAWN, OUTPATIEN 9 9 CARE R MINI T VISIT ASSOCIATE 15 S MINUTES OFFICE 49867 FAMILY LASHAWN, OUTPATIEN 9 9 CARE R MINI T VISIT ASSOCIATE 25 S MINUTES OFFICE 83817 FAMILY LASHAWN, OUTPATIEN 9 9 CARE R MINI T VISIT ASSOCIATE 15 S MINUTES [facility] ST - 9 9 [facility] OUTPATIEN T MEDICALCE NTER OFFICE 31801 [facility] PENDELETO OUTPATIEN 9 9 HEALTH N CO T VISIT [address] CENTER MINUTES OFFICE 00832 FAMILY LASHAWN, OUTPATIEN 9 9 CARE R MINI T VISIT ASSOCIATE 15 S MINUTES OFFICE 73810 FAMILY LASHAWN, OUTPATIEN 9 9 CARE R MINI T VISIT ASSOCIATE 15 S MINUTES OFFICE 08779 FAMILY LASHAWN, OUTPATIEN 8 8 CARE R MINI T VISIT ASSOCIATE 15 S MINUTES OFFICE 82968 FAMILY LASHAWN, OUTPATIEN 8 8 CARE R MINI T VISIT ASSOCIATE 15 S MINUTES OFFICE 24706 FALMOUTH CHINTAN, OUTPATIEN 8 8 [facility] MEGA T NEW 30 TIC MINUTES CENTER OFFICE 70989 FAMILY LASHAWN, OUTPATIEN 8 8 CARE R MINI T VISIT ASSOCIATE 15 S MINUTES OFFICE 85144 FAMILY LASHAWN, OUTPATIEN 8 8 CARE R MINI T VISIT ASSOCIATE 15 S MINUTES EMERGENCY 38236 CECE 8 8 [facility] DEPARTMEN INC T VISIT MODERATE SEVERITY HOSPITAL CECE - 8 8 [facility] OUTPATIEN INC T OFFICE 12709 FAMILY LASHAWN, OUTPATIEN 8 8 CARE R MINI T VISIT ASSOCIATE 15 S MINUTES OFFICE 42266 FAMILY LASHAWN, OUTPATIEN 8 8 CARE R MNII T VISIT ASSOCIATE 15 S MINUTES PERIODIC 84705 FAMILY LASHAWN, PREVENTIV 8 8 CARE R MINI E MED EST ASSOCIATE PATIENT S 12-17YRS OFFICE 98104 FAMILY LASHAWN, OUTPATIEN 8 8 CARE R MINI T VISIT ASSOCIATE 25 S MINUTES OFFICE 70242 FAMILY LASHAWN, OUTPATIEN 8 8 CARE R MINI T VISIT ASSOCIATE 25 S MINUTES
--- OUTSIDE RECORDS SUMMARY | 2017-01-07 09:04 | External Medical Summary Rpt | CCD ---
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 Role Phone [facility] Unavailable Unavailable [place] [...] [facility] Unavailable [facility], [facility] Unavailable Unavailable [place], [...] Unavailable Unavailable FIDEL, NHUNG [id number], Unavailable Unavailable [id number] DANNEMAN HOL, Unavailable Unavailable DANNEMAN HOL DARDINGER DUC, Unavailable Unavailable DARDINGER DUC LEVIN ZAIN, LEVIN ZAIN Unavailable Unavailable [facility] DOERGER KIR, DOERGER Unavailable Unavailable KIR DOERGER KIR, DOERGER Unavailable Unavailable KIR DOMET NIESHA, DOMET NIESHA Unavailable Unavailable [facility], Unavailable Unavailable [facility] QUINTEN BARBER, QUINTEN JAM Unavailable Unavailable QUINTEN BARBER, QUINTEN JAM Unavailable Unavailable ALEXANDRIA SHIPLEY, Unavailable Unavailable ALEXANDRIA SHIPLEY [facility] Unavailable [facility]available [facility] Unavailable [facility]available [facility], [facility] FAUGHN VIRAMONTES, FAUGHN Unavailable Unavailable VIRAMONTES CHINTAN, MEGA, CHINTAN, Unavailable Unavailable MEGA NATALIE MAR, [...] Unavailable [facility]OC[facility] Unavailable Unavailable [facility], [facility] HUR ZAIN, HURST ZAIN Unavailable Unavailable INDEPENDENT Unavailable Unavailable ANESTHESIOLOGIST, [facility] MEGA ZAMUDIO, Unavailable Unavailable MEGA ZAMUDIO KEAGLE RIT, KEAGLE Unavailable Unavailable RIT KEAGLE RIT, KEAGLE Unavailable Unavailable RIT BUBBA CHR, BUBBA Unavailable Unavailable CHR [facility] Unavailable Unavailable IMAGING [facility], [facility] BOLTON NIV, BOLTON NIV [...] [facility], Unavailable Unavailable [facility] SU MARQUES, SU Unavailable Unavailable MARQUES SU MARQUES, SU Unavailable Unavailable MARQUES LUBBERS PALMER, LUBBERS Unavailable Unavailable PALMER LUKING JET, LUKING Unavailable Unavailable JET [facility] Unavailable Unavailable SERVICES, [facility] MCDANNOLD TER, Unavailable Unavailable MCDANNOLD [...] [facility] Unavailable Unavailable OF [facility], [facility] AMES KATIE, Unavailable Unavailable AMES KATIE MABEL [...] INC JULIAN COFFMAN, Unavailable Unavailable JULIAN COFFMAN [facility], Unavailable Unavailable [facility] Unavailable Unavailable [facility] Unavailable Unavailable [facility], [facility] Unavailable Unavailable [facility] Unavailable Unavailable PHYSICIANS, [facility] [address] Unavailable Unavailable PHYSICIANS EKG, [facility] Unavailable Unavailable MARCELLUS Adin MORANTH MARCELLUS [facility] [place], Unavailable Unavailable [facility] [place] [facility], Unavailable Unavailable [facility] Unavailable #5, [facility] RAMÍREZ EMILIA, RAMÍREZ Unavailable Unavailable EMILIA [facility] # Unavailable Unavailable [id number], [facility] # [id number] [facility] # Unavailable Unavailable [id number], [facility] # [id number] [facility] Unavailable Unavailable DEPT [facility], [facility] DEPT ADRIANNA [facility] Unavailable Unavailable DEPT ADRIANNA, [facility] ADRIANNA WEHRMAN III JAVI, Unavailable Unavailable WEHRMAN III JAVI WEHRMAN III JAVI, Unavailable Unavailable WEHRMAN III JAVI WELLS SE[facility], [facility] Unavailable Unavailable [facility] Unavailable Unavailable OF [place], [facility] LUIS ENRIQUEMatthew LAWTON, LUIS ENRIQUE HO Unavailable Unavailable LUIS ENRIQUE HO, LUIS ENRIQUE HO Unavailable Unavailable Purpose Continuity of Care Document - 04-25-2007 through 2016 Problems Code Diagnosis DOS Provider Status N390 URINARY 04-26-2015 [facility], INFECTION PLLC SITE NOT SPECIFIED [id number] ADVERS EFF 04-26-2015 [facility] OTH RX MEDS PHYSICIANS, BIO PLLC SUBSTANCES INIT ENC [id number] UNS ADVERS 04-26-2015 [facility]ECT [facility] DRUG/MEDICA INC MENT INITIAL ENCNTR R109 UNSPECIFIED 04-20-2015 ST ABDOMINAL [facility] PAIN [facility]YSICIANS R232 FLUSHING 04-12-2015 [facility] Z09 ENC F/U 04-12-2015spring EXAM AFTR URGENT CMPL TX OTH CARE THAN MALIG NEOPLSM J301 ALLERGIC 04-05-2015spring RHINITIS URGENT DUE TO CARE POLLEN R300 DYSURIA 04-05-2015 [facility] S Mompery Z202 CONTACT 04-05-2015spring WITH URGENT EXPOSURE CARE INFECT SEXUAL MODE TRANSMS J029 ACUTE 03-25-2015 ST PHARYNGITIS [facility] ATTENDANT UNSPECIFIED ST R1011 RIGHT UPPER 03-03-2015 ST QUADRANT [facility]ATE[facility] ATTENDANT ST R102 PELVIC AND 03-03-2015 IFTIKHAR Abarca PERINEAL [place] PAIN N8320 UNSPECIFIED 02-27-2015 IFTIKHAR Abarca OVARIAN [place] CYSTS N200 CALCULUS OF 02-26-2015 [facility] R1030 LOWER 02-26-2015 [facility] ABDOMINAL [facility]ICAL PAIN IMAGING ASS UNSPECIFIED R1031 RIGHT LOWER 02-26-2015 [facility] QUADRANT [facility], PAIN PLLC R319 HEMATURIA 02-26-2015 [facility] UNSPECIFIED [facility]ICAL IMAGING ASS Z720 TOBACCO USE 02-26-2015 [facility] [id number] ELEVATED 02-24-[address] CELL COUNT PHYSICIANS UNSPECIFIED M549 DORSALGIA 02-24-2015 UNSPECIFIED [facility] N3001 ACUTE 02-24-2015 CYSTITIS [facility] WITH PHYSICIANS HEMATURIA R42 DIZZINESS 02-24-2015 AND [facility] GIDDINESS PHYSICIANS EKG E049 NONTOXIC 02-18-2015 GOITER [facility] UNSPECIFIED MED CTR GATEHOUSE ATTENDANT ST E063 AUTOIMMUNE 02-18-2015 THYROIDITIS [facility] ATTENDANT ST E890 POSTPROCEDU 02-18-[address] HYPOTHYROID MED CTR GATEHOUSE ATTENDANT ISM ST H6503 ACUTE 02-15-2015 [facility] SEROUS [facility]YSICIANS, OTITIS PLLC MEDIA BILATERAL J328 OTHER 02-15-2015 [facility] CHRONIC MEDICAL SINUSITIS IMAGING ASS C73 MALIGNANT 01-19-[address] THYROID PHYSICIANS GLAND R9447ND UNSPECIFIED 01-15-2015 ST INJURY UNS [facility] WRIST HAND MED CTR GATEHOUSE ATTENDANT FINGERS ST INIT M3890EE UNSPECIFIED 01-15-2015 ST INJURY LT [facility] WRIST HAND PHYSICIANS FINGERS INITIAL Z23 ENCOUNTER 01-07-2015 [facility] IMMUNIZATIO [facility] DEPT N ADRIANNA 6202 OTHER AND 12-15-2014 IFTIKHAR LAIIFIED [place] OVARIAN CYST V259 UNSPECIFIED 12-15-2014 IFTIKHAR HORTON MD CONTRACEPTI VE MANAGEMENT V7231 ROUTINE 12-15-2014 IFTIKHAR Abarca GYNECOLOGIC [place] AL EXAMINATION 17565 OBESITY, 12-11-2014 UNSPECIFIED [facility] 95792 OVERWEIGHT 12-11-2014 [facility] 7881 DYSURIA 12-11-2014 [facility] 1121 CANDIDIASIS 12-09-2014 ST OF VULVA [facility] AND VAGINA PHYSICIANS V0481 NEED 12-09-2014 PROPHYLACTI [facility] C PHYSICIANS VACCINATION &INOCULATIO N FLU V0489 NEED PROPH 12-09-2014 VACCINATION [facility] &INOCULAT PHYSICIANS OT VIRAL DZ 193 MALIGNANT 11-17-2014 NEOPLASM OF [facility] THYROID MED CTR GATEHOUSE ATTENDANT GLAND ST 2409 GOITER, 11-17-2014 ST UNSPECIFIED [facility] ATTENDANT ST 2440 POSTSURGICA 11-17-2014 L [facility] HYPOTHYROID MED CTR GATEHOUSE ATTENDANT ISM ST 7231 CERVICALGIA 10-26-2014 [facility] 7842 SWELLING 10-26-2014 RADIOLOGY MASS OR ASSOCIATES LUMP IN OF [facility] HEAD AND NECK 37877 DYSPHAGIA 10-26-2014 [facility] UNSPECIFIED EMERGENCY PHYSICIANS 2452 CHRONIC 10-21-2014 LYMPHOCYTIC [facility] THYROIDITIS 87209 DEHYDRATION 10-15-2014 [facility] 76872 OTHER 10-15-2014 [facility] MALAISE AND EMERGENCY FATIGUE PHYSICIANS 66306 CHEST PAIN 10-15-2014 RADIOLOGY UNSPECIFIED ASSOCIATES OF [facility] 2348 CARCINOMA 10-13-2014 HEAD & NECK IN SITU OF SURGERY OTHER ASSOC SPECIFIED SITES 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 2411 NONTOXIC 10-13-2014 INDEPENDENT MULTINODULA R GOITER ANESTHESIOL OGIST 45831 ESOPHAGEAL 10-13-2014 REFLUX [facility] 52400 SHORTNESS 10-13-2014 ST OF BREATH [facility] V7284 UNSPECIFIED 10-08-2014 ST [facility] PRE-OPERATI MED CTR GATEHOUSE ATTENDANT VE ST EXAMINATION V741 SCREENING 09-30-2014 [facility] EXAMINATION [facility] PULMONARY TUBERCULOSI S 25240 PRECORDIAL 09-18-2014 [facility] PAIN [facility]YSICIANS, PLLC 2374 NEOPLASM 09-12-2014 HEAD & NECK UNCERTAIN SURGERY BHV ASSOC OTH&UNSPEC ENDOCRN GLANDS 7856 ENLARGEMENT 09-12-2014 RADIOLOGY OF LYMPH ASSOCIATES NODES OF [facility] 2410 NONTOXIC 09-01-2014 UNINODULAR [facility] CTR 7850 UNSPECIFIED 08-29-2014 [facility] TACHYCARDIA PHYSICIANS 98544 NONSPECIFIC 08-29-2014 ABNORMAL [facility] ELECTROCARD MED CTR GATEHOUSE ATTENDANT IOGRAM ST 2400 GOITER, 08-19-2014 RADIOLOGY SPECIFIED ASSOCIATES SIMPLE OF NOTH 2449 UNSPECIFIED 08-19-2014 [facility] HYPOTHYROID MED CTR GATE[facility]SE ATTENDANT ISM ST 2468 OTHER 08-19-2014 ST SPECIFIED [facility] DISORDERS MED CTR GATEHOUSE ATTENDANT OF THYROID ST 462 ACUTE 08-17-2014 [facility] PHARYNGITIS [facility]YSICIANS, [facility] 4660 ACUTE 07-03-2014 [facility] BRONCHITIS [facility] 3671 MYOPIA 05-22-2014 QUINTEN JAM 2469 UNSPECIFIED 05-20-2014 [facility] DISORDER URGENT OF THYROID CARE 66674 MIGRAINE 05-20-2014spring UNSP W/O URGENT INTRACT W/O [...] CAUSE 684 IMPETIGO 02-13-2014 [facility] 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 [place] 2768 HYPOPOTASSE 10-08-[address] [place] [address]26 UNSPECIFIED 10-08-[address] PYELONEPHRI [place] TIS 7840 HEADACHE 10-08-[address] [place] V180 FAMILY 10-08-[address] DIABETES [place] MELLITUS 82493 LEUKOCYTOSI 09-03-2013 DE JESUS ALEX S UNSPECIFIED 51053 NAUSEA WITH 09-03-2013 DE JESUS ALEX VOMITING 62314 ABDOMINAL 09-03-2013 DE JESUS ALEX PAIN, EPIGASTRIC 83003 ABDOMINAL 09-03-2013 LAB ALEJANDRA PAIN, [facility] 9154 FINGER 08-29-2013 NIRAV BAB INSECT BITE NONVENOMOUS W/O MENTION INF E9064 BITE OF 08-29-2013 NIRAV ALEJANDRA NONVENOMOUS ARTHROPOD 23733 OTHER 07-15-2013 ST [facility]OMS [facility] CTR GATEHOUSE ATTENDANT HEAD AND ST NECK 226 BENIGN 07-03-2013 DE JESUS THE NEOPLASM OF THYROID GLANDS V7260 LABORATORY 05-28-2013 ST EXAMINATION [facility] CTR GATEHOUSE ATTENDANT UNSPECIFIED ST 7061 OTHER ACNE 05-03-2013 BRANDY Briggs 01284 LUMP OR 04-30-2013 ST MASS IN [address] [facility] CTR GATEHOUSE ATTENDANT ST 7291 UNSPECIFIED 04-16-2013 [facility] MYOSITIS 7295 PAIN IN 04-16-2013 [facility] SOFT EMERGENCY TISSUES OF SERVICES LIMB 77219 UNSPECIFIED 03-29-2013 IFTIKHAR HORTON MD OF VULVA 5939 URINARY 03-13-2013 LAB ALEJANDRA OF TRACT [facility] INFECTION HOLDINGS SITE NOT SPECIFIED V2503 ENCOUNTER 03-08-2013 [facility] CNSL&PRESCR IPTION 515 POSTINFLAMM 03-04-2013 [facility] ATORY JOSÉ MIGUEL PULMONARY FIBROSIS 01064 OTHER 03-04-2013 [facility] NONSPECIFIC JOSÉ MIGUEL ABNORMAL FINDING OF LUNG FIELD 03964 NONSPEC 03-04-2013 [facility] REACT [facility] TUBERCULIN INC SKIN TEST W/O ACTIVE TB V2502 GENERAL 03-04-2013 [facility] CNSL INITIATION OTH CONTRACEPT MEASURES V2509 OTH GENERAL 03-04-2013 [facility] CNSL&ADVICE CONTRACEPT MANAGEMENT V709 UNSPECIFIED 02-26-2013 [facility] GENERAL ASSOCIATES MEDICAL EXAMINATION 44518 FEVER 02-20-2013 [facility] UNSPECIFIED TOM 80301 ABDOMINAL 02-20-2013 SCHMITTER PAIN RIGHT DUC UPPER QUADRANT 91240 SEPSIS 02-20-2013 [facility] TOM 83777 ABDOMINAL 02-18-2013 LUIS ENRIQUE HO PAIN, UNSPECIFIED SITE 5589 OTH&UNSPEC 02-17-2013 NATALIE NONINFECTIO MAR US GASTROENTER ITIS&COLITI S 15934 CALCU 02-17-2013 NATALIE GALLBLADD MAR W/O MENTION CHOLECYST/O BST 98022 ABDOMINAL 02-17-2013 NATALIE PAIN OTHER MAR SPECIFIED SITE 7821 RASH AND 01-15-2013 MULBERRY OTHER ALEX NONSPECIFIC SKIN ERUPTION 1330 SCABIES 01-10-2013 LASHAWN Abarca H 6173 ENDOMETRIOS 11-20-2012 [facility] IS OF PELVIC PERITONEUM 94797 UNSPECIFIED 11-05-2012 LASHAWN Abarca INFECTIVE H OTITIS EXTERNA 3829 UNSPECIFIED 10-03-2012 LASHAWN Abarca OTITIS H MEDIA 3484 COMPRESSION 09-20-2012 MARICRUZ NIETO OF BRAIN 1120 CANDIDIASIS 08-13-2012 LASHAWN Abarca OF MOUTH H 35624 UNSPECIFIED 08-13-2012 LASHAWN Abarca VAGINITIS H AND VULVOVAGINI TIS 5259 UNSPECIFIED 07-20-2012 FR[facility] REGINA DISORDER TEETH&SUPPO RTING STRUCTURES 69357 JAW PAIN 07-20-2012 [facility] REGINA 0549 HERPES 06-27-2012 GRILLOT NAN SIMPLEX WITHOUT MENTION OF COMPLICATIO N 7851 PALPITATION 06-12-2012 BRANDY Briggs S 35746 OTHER CHEST 05-29-2012 BRANDY Briggs PAIN 7862 [...] MENSTRUATIO URGENT N CARE 5224 ACUTE 01-07-2012 [facility] IS OF PULPAL ORIGIN 7831 ABNORMAL 01-05-2012 [facility] 07543 CONDYLOMA 11-15-2011 OSEI GABRIEL ACUMINATUM 6256 FEMALE 11-15-2011 OSEI GABRIEL STRESS INCONTINENC E 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 7242 LUMBAGO 11-04-2011 [facility] 8472 LUMBAR 11-04-2011 CON[facility] VIR SPRAIN AND STRAIN 9599 INJURY 11-04-2011 RADIOLOGY OTHER AND ASSOCIATES UNSPECIFIED OF [facility] UNSPECIFIED SITE V692 PROBLEMS 10-19-2011 COMBINED RELATED TO PHYSICIANS HIGH-RISK [place] SEXUAL BEHAVIOR 0794 HUMAN 10-18-2011 OSEI GABRIEL [place]APILLOMA VIRUS IN CCE & UNS SITE 61702 ABDOMINAL 09-12-2011 WEHRMAN III PAIN, LEFT JAVI UPPER QUADRANT 58597 PAINFUL 07-26-2011 [facility] 9100 FCE 07-26-2011 [facility] NCK&SCLP NO EMERGENCY EYE SERVICES ABRAS/FRIC BURN W/O INF 79111 DIARRHEA 07-11-2011 [facility] ER V745 SCREENING 06-16-2011 [facility] EXAMINATION FOR VENEREAL DISEASE 82867 UNSPECIFIED 06-01-2011 [facility] DENTAL ALEX CARIES 14247 UNSPECIFIED 05-30-2011 [facility] VIRAL [facility] INFECTION IN CCE & UNS SITE 6820 CELLULITIS 05-30-2011 [facility] AND ABSCESS ASSOCIATES OF FACE 5225 PERIAPICAL 05-29-2011 [facility] ABSCESS EMERGENCY WITHOUT SERVICES SINUS 92771 ACUTE 04-24-2011 [facility] GINGIVITIS [facility] PLAQUE INC INDUCED 88435 SPASM OF 02-03-2011 LASHAWN R MUSCLE H 75644 SCOLIOSIS 02-03-2011 L[facility]WN R ASSOCIATED H WITH OTHER CONDITION 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 [facility] CENTER 7244 THORACIC/ANDRA 11-17-2010 [facility]OSACRAL [facility] NEURITIS/RA C CENTER DICULITIS UNSPEC 8483 SPRAIN AND 11-17-2010 [facility] STRAIN OF CHIROPRACTI RIBS C CENTER 7839 OTH 11-03-2010 [facility] CONCERNING PHYSICIANS NUTRITION METAB&DVLP 9110 TRUNK 11-03-2010 [facility] ABRASION/FR [facility] ICTION BURN INC WITHOUT MENTION INF 25181 OTHER 11-03-2010 [facility] INJURY OF EMERGENCY EXTERNAL SERVICES GENITALS V2543 [...] E MONO CONTRACEPT DEVICE V242 ROUTINE 01-04-2010 [facility] PHYSICIAN FOLLOW-UP GROUP PCC 7002 UNSPECIFIED 12-23-2009 [facility] DISEASE OF ASSOCIATES SEBACEOUS GLANDS 35153 POST TERM 11-28-2009 [facility] PG DELIV PHYSICIAN W/WO GROUP PCC MENTION ANTPRTM COND 605 REDUNDANT 11-26-2009 [facility] PREPUCE AND ASSOCIATES PHIMOSIS 650 NORMAL 11-26-2009 [facility] DELIVERY PHYSICIAN GROUP [facility] 73813 FORCEPS/EXT 11-26-2009 [facility] JANG DEL [facility] W/O INC INDICATION- DELIVERED V270 OUTCOME OF 11-26-2009 [facility] DELIVERY PHYSICIAN SINGLE GROUP [facility] LIVEBORN V3000 SINGLE 11-26-2009 [facility] W/O 02566 POST TERM 11-23-2009 [facility] PHYSICIAN ANTEPARTUM GROUP [facility] COND/COMPLI CATION V220 SUPERVISION 11-23-2009 [facility] OF NORMAL PHYSICIAN FIRST GROUP PCC V221 SUPERVISION 11-17-2009 [facility] OF OTHER PHYSICIAN NORMAL GROUP [facility] V222 11-17-2009 [facility] INCIDENTAL INC 4619 ACUTE 11-16-2009 [facility] SINUSITIS, ASSOCIATES UNSPECIFIED V286 SCREENING 10-26-2009 [facility] OF PHYSICIAN STREPTOCOCC GROUP [facility] [place] [address] OTHER 10-24-2009 [facility] THREATENED PHYSICIAN LABOR, GROUP PCC ANTEPARTUM 08572 OTHER 10-24-2009 [facility] SPECIFED [facility] COMPLICATIO INC N ANTEPARTUM 7804 DIZZINESS 10-24-2009 [facility] AND [facility] GIDDINESS INC 80178 DYSPLASIA 09-08-2009 [facility] UNSPECIFIED S INC V028 CARRIER/HELEN 09-08-2009 [facility] P[facility]ED [facility] CARRIER OTH S INC VENEREAL DISEASES 63757 THREATENED 09-01-2009 [facility] PREMATURE [facility] LABOR INC ANTEPARTUM 34615 EXCESS 08-11-2009 [facility] PHYSICIAN GROWTH GROUP [facility] AFFECT MGMT MOTH ANTPRTM V771 SCREENING 08-11-2009 [facility] FOR [facility] DIABETES INC MELLITUS V2889 OTHER 06-30-2009 [facility] SPECIFIED [facility] INC SCREENING 75122 OTHER 04-10-2009 [facility] OF SPECIFIED [place] INC DISEASES DUE TO CHLAMYDIAE 6268 OTH D/O 04-03-2009 IFTIKHAR HORTON MD N&OTH ABN BLEED FE GNT TRACT 99536 PAP SMER 04-03-2009 [facility] CERV W/LW [place] GRADE S PC SQUAMOUS INTRAEPITH LES 2662 OTHER 03-31-2009 [facility] B-COMPLEX [facility] S V7242 03-31-2009 [facility] EXAMINATION [facility] POSITIVE RESULT 7232 CERVICOCRAN 09-10-2008 [facility] IAL [facility] SYNDROME C CENTER 7241 PAIN IN 09-10-2008 [facility] THORACIC [facility] SPINE C CENTER 0999 UNSPECIFIED 08-06-2008 [facility] VENEREAL [facility] DISEASE V762 SCREENING 07-17-2008 [facility] NEOPLASM OF ER THE CERVIX V2541 SURVEILLANC 07-15-2008 [facility] E PREV HEALTH PRESCRIBED CENTRAL CONTRACEPT BANK ACCT PILL 39049 MIGRAINE 06-20-2008 [facility] UNS [facility] W/INTRACTAB L W/O STATUS MIGRAINOSUS 0088 INTESTINAL 03-05-2008 [facility] INFECTION ASSOCIATES DUE TO OTHER ORGANISM NEC 6269 UNS D/O 02-13-2008 [facility] MENSTRUATIO [facility] N&OTH ABN BLEED FE GNT TRACT 6253 DYSMENORRHE 09-19-2007 [facility] A [facility] 65319 ASTHMA, 08-15-2007 [facility] UNSPECIFIED [facility] , [...] 10 0 10 10 77 CARRILLO Ac CO 76 -2 -2 .0 74 RP ti [...] 20 20 RY ZA 10 11 11 CO 6 BR IN IA E N 5 [...] 05 0 14 7 76 KE Ac CO 11 -1 -1 .0 35 AG ti OF 10 0- 0- 00 20 LE ve LO 12 20 20 XA 60 11 11 RI CI 1 TA N K HC L 25 0 MG TA B NA 68 03 03 1 60 30 75 CL Ac CO 46 -2 -2 .0 93 AR ti OX 20 91 KE ve EN 19 20 20 00 11 11 DE 50 5 RE 0 K MG J TA BL ET CO 37 10 11 6 28 28 74 [...] 10 10 GE 4 RA LD R CO 65 01 10 10 30 30 72 [...] 10 Y 0 MG TA BL ET CO 37 10 10 6 28 28 74 [...] MA R CY # 10 05 91 CO 65 01 09 10 30 30 72 [...] NR MG Y CA PS UL E CO 65 01 07 10 30 30 72 [...] 0. K 8% J CR EA M CO 65 01 06 10 30 30 72 CARRILLO Ac EN 16 -0 -0 .0 20 RP ti AT 20 8- 3- 00 11 EL ve AL 66 20 20 [address] 0 RA US LD R TA BL ET CO 65 01 04 10 30 30 72 CARRILLO Ac EN 16 -0 -2 .0 20 RP ti AT 20 8- 1- 00 11 EL ve AL 66 20 20 [address] 0 RA US LD R TA BL ET CO 65 01 03 10 30 30 72 CARRILLO Ac EN 16 -0 -1 .0 20 RP ti AT 20 8- 6- 00 11 EL ve AL 66 20 [address] 0 RA US LD R TA BL ET CO 65 01 02 01 30 30 TO 72 CARRILLO Ac EN 16 -0 -2 .0 TA 20 RP ti AT 20 8- 6- 00 L 11 EL ve AL 66 20 20 CA [address] 0 RA US PH LD AR R TA MA BL CY ET #5 CO 65 01 01 00 30 30 TO [...] CA T ID 11 [phone] 09 RE CO IN 6 CH E PH AE 0. [...] 20 20 CA 91 09 09 RE CO 0 CH PH AE AR L MA [...] MA CY MG #5 TA BL ET CO 68 12 12 00 10 4 TO [...] 00 60 30 PH 65 KE Ac CO 09 -1 -0 .0 AR 85 AG [...] 1- 5- 00 MC 78 EY ve CO 18 20 20 AR ED 83 08 08 E CO NI 1 PH CH SO AR AE [...] DOS Code Location Performer Comment URNLS DIP 16160 [facility] 6 [facility] STICK/TAB INC INC LET REAGENT AUTO MICROSCOP Y BLOOD 42729 [facility] COUNT 6 [facility] COMPLETE INC INC AUTO&[place] [address] [facility] LIPASE 6 [facility] INC INC DRUG TST G0477 [facility] PRESUMP;C 6 [facility] PBL BEING INC INC READ DC OPT OBV ONLY COMPREHEN 56971 [facility] SIVE 6 [facility] METABOLIC INC INC PANEL THERAPEUT 76291 COLD PRESSLER IC spring [facility] PROPHYLAC URGENT TIC/DX CARE INJECTION SUBQ/IM INJECTION J0696 COLD PRESSLER spring [facility] CEFTRIAXO URGENT NE SODIUM CARE PER 250 MG IADNA 39532 DI[facility]IX DIATHERIX GARDNEREL 6 [place] LABORATOR LABORATOR VAGINALIS IES [facility] IES [facility] AMPLIFIED PROBE TQ IADNA 60669 DIATHERIX DIATHERIX CHLAMYDIA 6 LABORATOR LABORATOR TRACHOMAT IES [facility] IS AMPLIFIED PROBE TQ IADNA 49755 DIATHERIX DIATHERIX TRICHOMON 6 LABORATOR LABORATOR VAGINALIS IES [facility] IES [facility] AMPLIFIED PROBE TECH COLLECTIO 82119 COLD PRESSLER N VENOUS spring [facility] BLOOD URGENT VENIPUNCT CARE URE IADNA 20416 DIATHERIX DIATHERIX NEISSERIA 6 LABORATOR LABORATOR GONORRHOE IES [facility] IES [facility] AE AMPLIFIED PROBE TQ IADNA NOS 32841 DIATHERIX DIATHERIX 6 AMPLIFIED LABORATOR LABORATOR PROBE TQ IES [facility] IES [facility] EACH ORGANISM IADNA [address] STREPTOCO 5 HAIDER HAIDER CCUS MED CTR MED CTR GROUP A GATEHOUSE ATTENDANT ST GATEHOUSE ATTENDANT ST DIRECT PROBE TQ COMPREHEN [address] SIVE 5 HAIDER HAIDER METABOLIC MED CTR MED CTR PANEL GATEHOUSE ATTENDANT ST [facility]ATE[facility] ATTENDANT ST ACUTE [address] HEPATITIS 5 HAIDER HAIDER PANEL MED CTR MED CTR GATEHOU[facility] ATT[facility]ATE[facility] [address] ST COMPREHEN 39205 CECE [facility] SIVE 5 [facility] [place] [address] [facility] AMYLASE 5 [place] [address] [facility] ABDOMEN & 5 [facility] PELVIS [place] W/[place] [address] [facility] LIPASE 5 [facility] INC INC URINE 62009 [facility] TEST INC INC VISUAL COLOR CMPRSN METHS BLOOD 85418 CECE [facility] COUNT 5 [facility] COMPLETE INC INC AUTO&AUTO DIFRNTL WBC URNLS DIP 43874 [facility] STICK/TAB INC INC LET REAGENT AUTO MICROSCOP Y ECG [address] [facility] [place] NIV ROUTINE 5 HAIDER ECG W/LEAST PHYSICIAN 12 LDS S EKG I&R ONLY CULTURE [address] BACTERIAL 5 HAIDER HAIDER MED CTR MED CTR QUANTTATI GATEHOUSE ATTENDANT ST [facility]ATE[facility] [address] RADIOLOGY NEILS KATIE TRANSVAGI 5 NAL ASSOCIATE S OF [facility] US PELVIC [address]82 RADIOLOGY NEILS KATIE 5 NONOBSTET ASSOCIATE KARI S OF [facility] [place] [address] FREE 5 HAIDER HAIDER THYROXINE MED CTR MED CTR G[facility]SE [address] [place] [address] THYROID 5 HAIDER HAIDER STIMULATI MED CTR MED CTR NG GATEHOUSE ATTEND[address] ST GATEHOUSE ATTENDANT ST HORMONE TSH COMPREHEN 83686 CECE [facility]O SIVE 5 [facility] [place] [address] CECE [facility] HEAD/BRAI [facility] N W/[place] [address] CECE [facility] MAXILLOFA 5 [facility] CIAL W/O INC INC CONTRAST MATERIAL URNLS DIP 59382 [facility]CE [facility] 5 [facility] STICK/TAB INC INC LET REAGENT AUTO MICROSCOP Y BLOOD 73014 [facility] COUNT 5 [facility] COMPLETE INC INC AUTO&AUTO DIFRNTL WBC URINE 48077 [facility] 5 [facility] TEST INC INC VISUAL COLOR CMPRSN METHS COMPREHEN [address] [facility] PANEL GATEHOUSE ATTENDANT ST GATEHOUSE ATTENDANT ST COLLECTIO [address] N VENOUS 5 [facility] BLOOD MED CTR MED CTR VENIPUNCT GATEHOUSE ATTENDANT [place] [address] THYROID 5 [facility] STIMULATI MED CTR MED CTR NG GATEHOUSE ATTENDANT ST [facility]ATE[facility] [address] FREE 5 [facility] THYROXINE MED CTR MED CTR GATEHOUSE ATTENDANT ST GATEHOUSE ATTENDANT ST BAS[address] METABOLIC 5 [facility] PANEL MED CTR MED CTR CALCIUM GATEHOUSE ATTENDANT ST GATEHOUSE ATTENDANT ST TOTAL IM ADM 03850 JOCELYN BANKS PRQ ID 5 [facility] SUBQ/IM HLTH DEPT HLTH DEPT NJXS 1 ADRIANNA ADRIANNA VACCINE IADNA 86320 IFTIKHAR [facility] NEISSERIA 5 [facility] GONORRHOE AE DIRECT PROBE TQ HGB 69920 IFTIKHAR Abarca QUANTITAT 5 [place] MD NATHAN TRANSCUTA NEOUS CULTURE 19958 IFTIKHAR [facility] CHLAMYDIA 5 [place] ANY SOURCE URINLS 83904 IFTIKHAR [place] DIP 5 [place] STICK/TAB LET REAGNT NON-AUTO MICRSCPY CULTURE [address] BACTERIAL 5 [facility] MED CTR MED CTR QUANTTATI GATEHOUSE ATTENDANT ST GATEHOUSE ATTENDANT ST VE COLONY COUNT URINE BASIC 54075 ST ST METABOLIC 5 [facility] PANEL MED CTR MED CTR CALCIUM GATEHOUSE ATTENDANT ST GATEHOUSE ATTENDANT ST TOTAL COLLECTIO 66445 ST JUSTIN N VENOUS 5 [facility] NIESHA BLOOD VENIPUNCT PHYSICIAN URE S LIPID [address] PANEL 5 [facility] MED CTR MED CTR GATEHOUSE ATTENDANT ST GATEHOUSE ATTENDANT ST IM ADM [address] ST SANDERS PRQ ID 5 [facility] ANASTASIA CARMEN SUBQ/IM NJXS 1 PHYSICIAN VACCINE S IM ADM [address]307 [facility] SANDERS PRQ ID 5 [facility] ANASTASIA CARMEN SUBQ/IM NJXS EA PHYSICIAN VACCINE S IIV4 V[address] SANDERS SPLIT 5 [facility] ANASTASIA CARMEN VIRUS 0.5 ML DOS PHYSICIAN FOR IM S USE 4VHPV 26930 ST SANDERS VACCINE 3 5 [facility] ANASTASIA CARMEN DOSE SCHEDULE PHYSICIAN FOR IM S USE THYROGLOB [address] ULIN 5 [facility] ANTIBODY MED CTR MED CTR GATEHOUSE ATTENDANT ST GATEHOUSE ATTENDANT ST [address] HYDROXY 5 [facility] INCLUDES MED CTR MED CTR FRACTIONS GATEHOUSE ATTENDANT ST GATEHOU[place] [address] ST [place] PARATHORM 5 [facility] TAR ONE MED [place] [address] THYROGLOB 5 [facility] ULIN MED CTR MED CTR GATEHOUSE ATTENDANT ST GATEHOUSE ATTENDANT ST COLLECTIO [address] N VENOUS 5 [facility] BLOOD MED CTR MED CTR VENIPUNCT GATEHOUSE ATTENDANT ST GATEHOUSE ATTENDANT ST URE COMPREHEN [address] SIVE 5 [facility] METABOLIC MED CTR MED CTR PANEL GATEHOUSE ATTENDANT [place] [address] FREE 5 [facility] THYROXINE MED CTR MED CTR GATEHOUSE ATTENDANT [place] [address] THYROID 5 [facility] STIMULATI MED CTR MED CTR NG GATEHOUSE ATTENDANT ST GATEHOUSE ATTENDANT ST HORMONE TSH CT SOFT 73362 RADIOLOGY NEILS KATIE TISSUE 5 NECK ASSOCIATE W/CONTRAS S OF NOT T MATERIAL RADIOLOGI 33502 RADIOLOGY LUBBERS C 5 PALMER EXAMINATI ASSOCIATE ON CHEST S OF NOTH SINGLE VIEW FRONTAL ANES 84215 INDEPENDE RAMÍREZ ESOPH 5 NT EMILIA THYRD ANESTHESI LARYNX OLOGIST TRACH & LYMPH NECK 1YR THYROIDEC 30534 HEAD & DOMET NIESHA YUMIKO 5 NECK TOTAL/SUB SURGERY TOTAL ASSOC [place] [address] [place] RAMIREZ DON SURG 5 [facility] PATHOLOGY MED CTR GROSS&NIESHA ROSCOPIC EXAM PATH [address]93 ST RAMIREZ DON CONSLTJ 5 [facility] SURG 1ST MED CTR BLK FROZEN SCTJ [address] BACTERIAL 5 [facility] MED CTR MED CTR QUANTTATI GATEHOUSE ATTENDANT ST GATEHOUSE ATTENDANT ST VE COLONY COUNT URINE CALCIUM [address] TOTAL 5 [facility] MED CTR MED CTR GATEHOUSE ATTENDANT ST GATEHOUSE ATTENDANT ST THROMBOPL [address] ASTIN 5 [facility] TIME MED CTR MED CTR PARTIAL GATEHOUSE ATTENDANT ST GATEHOUSE ATTENDANT ST PLASMA/WH OLE BLOOD PROTHROMB [address] IN TIME 5 [facility] MED CTR MED CTR GATEHOUSE ATTENDANT [place] [address] PARATHORM 5 [facility] ONE MED CTR MED CTR GATEHOUSE ATTENDANT ST GATEHOUSE ATTENDANT ST BLOOD [address] COUNT 5 [facility] COMPLETE MED CTR MED CTR AUTO&AUTO GATEHOUSE ATTENDANT ST GATEHOUSE [place] [address] THYROID 5 [facility] STIMULATI MED CTR MED CTR NG GATEHOUSE ATTENDANT ST GATEHOUSE ATTENDANT ST HORMONE TSH RADIOLOGI 34700 MAINE JUAREZ ALL C EXAM 5 MEDICAL CHEST 2 IMAGING VIEWS ASS FRONTAL&L ATERAL US SOFT 00203 RADIOLOGY DARYL TISSUE 5 MAR HEAD & ASSOCIATE NECK REAL S OF NOTH TIME IMGE DOCM ECG [address] ST MCDANNOLD ROUTINE [address] ECG MED CTR W/LEAST 12 LDS I&R ONLY ECG [address] ROUTINE 5 [facility] ECG MED CTR MED CTR W/LEAST GATEHOUSE ATTENDANT ST GATEHOUSE ATTENDANT ST 12 LDS TRCG ONLY W/O I&R FINE 94309 PROFESSIO MABEL RAY NEEDLE 5 NAL ASPIRATIO RADIOLOG[place] [address] PROFESSIO MABEL RAY GUIDANCE 5 NAL NEEDLE RADIOLOGY PLACEMENT [place] IMG S&[place] [address] THE THE SURG [address] [place] [address] GROSS&NIESHA ROSCOPIC EXAM CYTP EVAL 46147 THE THE FINE [address] [place] [address] ASPIRATE INTERP & REPORT COLLECTIO [address] N VENOUS 5 [facility] BLOOD MED CTR MED CTR VENIPUNCT GATEHOUSE ATTENDANT ST [place] [address] THYROID 5 [facility] STIMULATI MED CTR MED CTR NG GATEHOUSE ATTENDANT ST GATEHOU[place] [address] FREE 5 [facility] THYROXINE MED CTR MED CTR GATEHOUSE ATTENDANT ST GATEHOUSE ATTENDANT ST US SOFT [address] TISSUE 5 [facility] HEAD & MED CTR MED CTR NECK REAL GATEHOUSE ATTENDANT ST GATEHOUSE ATTENDANT ST TIME IMGE DOCM BLOOD 51831 FAMILY FAMILY COUNT 5 CARE CARE COMPLETE ASSOCIATE ASSOCIATE AUTO&AUTO S S DIFRNTL WBC OPHTH 91091 QUINTEN BARBER MEDICAL 5 XM&EVAL COMPRE NEW PT 1/> VST DETERMINA 25406 QUINTEN BARBER TION 5 [place] [address] RADIOLOGY DARYL TRANSVAGI 5 MAR NAL ASSOCIATE S OF [facility] US PELVIC 42577 RADIOLOGY DARYL 5 MAR NONOBSTET ASSOCIATE KARI S OF [facility] [place] [address] FREE 5 [facility] THYROXINE MED CTR MED CTR GATEHOUSE ATTENDANT [place] [address] THYROID 5 [facility] STIMULATI MED CTR MED CTR NG GATEHOUSE ATTENDANT ST GATEHOUSE ATTENDANT ST HORMONE TSH IAADIADOO 38990 FAMILY KEAGLE 4 CARE RIT INFLUENZA ASSOCIATE S BLOOD 67578 FAMILY FAMILY COUNT 4 CARE CARE COMPLETE ASSOCIATE ASSOCIATE AUTO&AUTO S S DIFRNTL WBC BLOOD 87065 FAMILY FAMILY COUNT 4 CARE CARE COMPLETE ASSOCIATE ASSOCIATE AUTO&AUTO S S DIFRNTL WBC IAADIADOO 62238 FAMILY KEAGLE 4 CARE [place] [address] THYROID 4 [facility] STIMULATI MED CTR MED CTR NG GATEHOUSE ATTENDANT ST GATEHOU[place] [address] FREE 4 [facility] THYROXINE MED CTR MED CTR GATEHOUSE ATTENDANT ST GATEHOUSE ATTENDANT ST RADIOLOGI 93939 BUBBA MAC C EXAM 4 CHR CHR CHEST 2 VIEWS FRONTAL&L ATERAL US SOFT 19381 RADIOLOGY MATTHEW TISSUE 4 TUS HEAD & ASSOCIATE NECK REAL S OF NOTH TIME IMGE DOCM BASIC [address] METABOLIC 4 [facility] PANEL [place] [address] FREE 4 [facility] THYROXINE INGA INGA MICROSOMA [address] L 4 [facility] ANTIBODIE INGA INGA S EACH HEMOGLOBI [address] N 4 [facility] GLYCOSYLA IN[place] [address] THYROID 4 [facility] STIMULATI INGA INGA NG HORMONE TSH COLLECTIO [address] N VENOUS 4 [facility] BLOOD INGA INGA VENIPUNCT URE BLOOD 43889 KEAGLE KEAGLE COUNT 4 RIT RIT COMPLETE AUTO&AUTO DIFRNTL WBC CULTURE 78093 LAB ALEJANDRA LAB ALEJANDRA BACTERIAL 4 ALAINA ALAINA HOLDINGS HOLDINGS QUANTTATI VE COLONY COUNT URINE LARYNGOSC 13694 LIZA DE JESUS OPY 4 [place] [address] HOMERO HOMERO GUIDANCE 4 JET JET NEEDLE PLACEMENT IMG S&I BIOPSY 38796 HOMERO HOMERO THYROID 4 JET JET PERCUTANE OUS CORE NEEDLE CYTP EVAL 17475 ST RAMIREZ DON FINE 4 [facility] NEEDLE MED CTR ASPIRATE INTERP & REPORT US SOFT 86320 MATTHEW MATTHEW TISSUE 4 TUS TUS HEAD & [place] [address] FREE 4 [facility] THYROXINE MED CTR MED CTR GATEHOUSE ATTENDANT [place] [address] THYROID 4 [facility] STIMULATI MED CTR MED CTR NG GATEHOUSE ATTENDANT ST GATEHOUSE ATTENDANT ST HORMONE TSH ACNE 98643 BRANDY Zayas SURGERY 4 G G URNLS DIP 53546 BRANDY Zayas 4 G G STICK/TAB LET RGNT NON-AUTO W/O MICRSCP US BREAST 21040 KLEIMEYER KLEIMEYER REAL 4 NICK NICK TIME W/IMAGE DOCUMENTA TION CULTURE 23533 LAB ALEJANDRA LAB ALEJANDRA BACTERIAL 3 OF ALAINA ALAINA HOLDINGS QUANTTATI HOLDINGS VE COLONY COUNT URINE CULTURE 60469 LAB ALEJANDRA LAB ALEJANDRA BCT 3 OF [facility]LAINA ISOL&PRSM ALAINA HOLDINGS PTV ID HOLDINGS ISOLATE EA URINE SUSCEPTIB 78706 LAB ALEJANDRA LAB ALEJANDRA LTY STDY 3 OF [facility] ANTIMICRB ALAINA HOLDINGS IAL HOLDINGS MICRO/AGA R DILUTJ CUL BACT 24528 LAB ALEJANDRA LAB ALEJANDRA AEROBIC 3 OF [facility] ADDL ALAINA HOLDINGS METHS HOLDINGS DEFINITIV E EA ISOL CONTRACEP S4993 PENDELETO PENDELETO TIVE 3 N [facility] N [facility] C[facility] CONTROL RADIOLOGI 47563 CECE ZHAO C EXAM 3 [facility] CHEST 2 INC INC VIEWS FRONTAL&L ATERAL INSJ 98172 [facility] NON-BIODE 3 [facility] GRADABLE DRUG DELIVERY IMPLANT ETONOGEST J7307 [facility] REL 3 [facility] CNTRACPT IMPL SYS INCL IMPL & SPL URINE 16639 [facility] HARPEL 3 [facility] TEST VISUAL COLOR CMPRSN METHS URINLS 02838 [facility] DIP 3 [facility] STICK/TAB LET REAGNT NON-AUTO MICRSCPY CULTURE 80713 [facility] CHLAMYDIA 3 [facility] ANY SOURCE IADNA 22660 [facility] NEISSERIA 3 [facility] GONORRHOE AE DIRECT PROBE TQ SCREENING 45119 FAMILY LASHAWN TEST 3 CARE [facility] REPRESENTATIVE ACUITY S QUANTITAT NATHAN [facility] 26483 KURAPATI KURAPATI DISCHARGE 3 MANAGEMEN T > 30 [place] [address] SCHMITTER SCHMITTER ABDOMINAL 3 DUC DUC REAL TIME W/IMAGE LIMITED INITIAL 91666 [facility] 3 CARE/[place] [address] [place] [address] HOMERO HOMERO HEAD/BRAI 3 JET JET N W/O CONTRAST MATERIAL SPINAL 80525 LUIS ENRIQUE HO LUIS ENRIQUE HO PUNCTURE [place] [address] WELLS SEA WELLS SEA ABDOMEN & 3 PELVIS W/CONTRAS T MATERIAL SMR PRIM 48941 COMBINED COMBINED SRC WET 3 PHYSICIAN PHYSIC[place] [address] CECE ZHAO TRANSVAGI 3 [facility] NAL INC INC SKIN TEST 71363 PENDELETO PENDELETO 3 N CO N CO [facility] CENTER INTRADERM AL URINLS 10325 [facility] DIP 3 [facility] STICK/TAB LET REAGNT NON-AUTO MICRSCPY REMOVAL 78078 [facility] IMPLANTAB 3 [place] [address] DOERGER DOERGER HEAD/BRAI 3 KIR KIR N W/O CONTRAST MATERIAL EXTERNAL [address] ECG 3 [facility] MEDICAL MEDICAL ANALYSIS CENTER CENTER REPORT XTRNL ECG [address] & 48 HR 3 [facility] ECHO [address] TTHRC R-T [address] MEDICAL MEDICAL W/WOM-MOD CENTER CENTER E COMPL SPEC&COLR D XTRNL ECG 74040 LEVIN ZAIN LEVIN ZAIN 3 CONTINUOU S RHYTHM W/I&R UP TO 48 HRS COMPREHEN 90165 CECE ZHAO SIVE 3 [facility] METABOLIC INC INC PANEL ECG 42437 CECE JORDANMIE ROUTINE 3 [facility] W/LEAST P 12 LDS I&R ONLY RHYTHM 48959 CECE ZHAO ECG 1-3 3 [facility] LEADS INC INC TRACING ONLY W/O I&R RADIOLOGI 88590 CECE ZHAO C EXAM 3 [facility] CHEST 2 INC INC VIEWS FRONTAL&L ATERAL ECG 54414 CECE ZHAO ROUTINE 3 [facility] ECG INC INC W/LEAST 12 LDS TRCG ONLY W/O I&R BLOOD 60727 CECE ZHAO COUNT 3 [facility] COMPLETE INC INC AUTO&AUTO DIFRNTL WBC FIBRIN 99765 CECE ZHAO DGRADJ 3 [facility] PRODUCTS INC INC D-DIMER QUAL/SEMI CINDY CREATINE 64982 CECE ZHAO KINASE 3 [facility] [place] [address] CECE ZHAO TROPONIN 3 [facility] QUANTITAT INC INC NATHAN URNLS DIP 24888 CECE ZHAO 3 [facility] STICK/TAB INC INC LET REAGENT AUTO MICROSCOP Y CREATINE 21006 CECE ZHAO KINASE MB 3 [facility] FRACTION INC INC ONLY URNLS DIP 30796 BRANDY Zayas 3 G G STICK/TAB LET RGNT NON-AUTO W/O MICRSCP THYROID 49602 [facility] HORM 3 DIAGNOSTI DIAGNOSTI UPTK/THYR CS CS [place] [address] [facility] THYROXINE 3 DIAGNOSTI DIAGNOSTI TOTAL CS CS BLOOD 29513 BRANDY NAVA J COUNT 3 G G COMPLETE AUTO&[place] [address] [facility] THYROID 3 DIAGNOSTI DIAGNOSTI STIMULATI CS CS NG HORMONE TSH THERAPEUT 09772 PRABHJOT RICK PRA IC 3 PROPHYLAC TIC/DX INJECTION SUBQ/IM ECG 64582 PRABHJOT RICK PRA ROUTINE 3 ECG W/LEAST 12 LDS W/I&R INJECTION J1885 RICK PRA RICK PRA 3 KETOROLAC TROMETHAM INE PER 15 MG RADIOLOGI 28960 LIZA [place] EXAM 3 BRA BRA CHEST 2 VIEWS FRONTAL&L ATERAL LAPAROSCO 41203 [facility] PY 3 [facility] W/LYSIS OF ADHESIONS BLOOD 79980 CECE ZHAO COUNT 3 [facility] COMPLETE INC INC AUTO&AUTO DIFRNTL WBC GONADOTRO 17780 CECE [facility] PIN 3 [facility] CHORIONIC INC INC QUALITATI VE LAPS SURG 71689 CECE [facility]O W/ASPIR 3 [facility] CAVITY/CY INC INC ST SINGLE/MU LTIPLE IMMUNOASS 89748 CECE Z[facility]O AY TUMOR 3 [facility] [place] [address] HAR[facility] TRANSVAGI 3 [facility] NAL BLOOD 02920 LASHAWN LASHWAN COUNT 2 R H R H COMPLETE AUTO&[place] [address] MATTHEW MATTHEW TRANSVAGI 2 TUS TUS NAL US PELVIC 11803 MATTHEW MATTHEW 2 TUS TUS NONOBSTET KARI REAL-TIME IMAGE COMPLETE URNLS DIP 81088 COLD RICK PRA 2 SPRING STICK/TAB URGENT LET RGNT CARE NON-AUTO W/O MICRSCP URINE 01261 COLD RICK PRA 2 SPRING TEST URGENT VISUAL CARE COLOR CMPRSN METHS URINLS 25293 [facility] DIP 2 [facility] [place] STICK/TAB LET REAGNT NON-AUTO MICRSCPY CULTURE 06943 [facility] CHLAMYDIA 2 [facility] ANY SOURCE IADNA 71501 [facility] NEISSERIA 2 [facility] [place] GONORRHOE AE DIRECT PROBE TQ BLOOD 08999 LASHAWN LASHAWN COUNT 2 R H R H COMPLETE AUTO&AUTO DIFRNTL WBC THYROID 32429 [facility] HORM 2 DIAGNOSTI DIAGNOSTI UPTK/THYR CS CS [place] [address] [facility] THYROXINE 2 DIAGNOSTI DIAGNOSTI TOTAL CS CS URNLS DIP 60321 [facility] STICK/TAB LET RGNT NON-AUTO W/[place] [address] [facility] THYROID 2 DIAGNOSTI DIAGNOSTI STIMULATI [facility] NG HORMONE TSH COLLECTIO 08973 [facility] N VENOUS 2 R H R H BLOOD VENIPUNCT URE COLPOSCOP 29940 FRANZ FRANZ Y VULVA 2 GABRIEL GABRIEL RADEX 34649 RADIOLOGY MATTHEW SPINE 2 TUS THORACIC ASSOCIATE 3 VIEWS S OF NOTH RADEX 38203 RADIOLOGY MATTHEW SPINE 2 TUS LUMBOSACR ASSOCIATE AL 2/3 S OF NOT VIEWS ANTIBODY 28952 COMBINED COMBINED CHLAMYDIA 2 PHYSICIAN PHYSICIAN S LA S LA CUL BACT 56845 COMBINED COMBINED XCPT 2 PHYSICIAN PHYSICIAN URINE S LA S LA BLOOD/STO OL AEROBIC ISOL COLPOSCOP 06661 FRANZ FRANZ Y VULVA 2 GABRIEL GABRIEL CUL BACT 69922 [facility] ST[facility]OL 2 [facility] ISOL MEDICALCE MEDICALCE SALMONELL NTER NTER A&SHIGELL CULTURE 03265 [facility] TYPING 2 [facility] IMMUNOLOG IC MEDICALCE MEDICALCE OTH/THN NTER NTER IMMUNOFLU ORES CUL BACT 83594 [facility] STOOL 2 [facility] AEROBIC ADDL MEDICALCE MEDICALCE PATHOGENS NTER NTER &[place] [address] [facility] SHIGA-LIK 2 [facility] E TOXIN MEDICALCE MEDICALCE NTER NTER INF AGENT 69367 [facility] DET 2 [facility] NUCLEIC ACID MEDICALCE MEDICALCE CLOSTRIDI NTER NTER UM AMP PROBE LEUKOCYTE 51642 [facility] ASSMT [facility] F[facility] QUAL/SEMI MEDICALCE MEDICALCE QUANTITAT NTER NTER NATHAN SMR PRIM 50569 [facility] HARPEL SRC WET 2 PHYSICIAN [facility] AGT PCC IADNA 76136 BIO BIO CHLAMYDIA 2 REFERNCE REFERNCE LABORATOR LABORATOR TRACHOMAT IES IES IS AMPLIFIED PROBE TQ IADNA 94906 BIO BIO DIVINE 2 REFERNCE REFERNCE SPECIES LABORATOR LABORATOR AMPLIFIED IES IES PROBE TQ IADNA 46040 BIO BIO GARDNEREL 2 REFERNCE REFERNCE LA LABORATOR LABORATOR VAGINALIS IES IES AMPLIFIED PROBE TQ SMR PRIM 36420 [facility] SRC WET 2 [facility] MOUNT NFCT AGT IADNA 23680 BIO BIO HERPES 2 REFERNCE REFERNCE SOMPLX LABORATOR LABORATOR VIRUS IES IES AMPLIFIED PROBE TQ IADNA NOS 68445 BIO BIO 2 REFERNCE REFERNCE AMPLIFIED LABORATOR LABORATOR PROBE TQ IES IES EACH ORGANISM IADNA 83539 BIO BIO NEISSERIA 2 REFERNCE REFERNCE LABORATOR LABORATOR GONORRHOE IES IES AE AMPLIFIED PROBE TQ BLOOD 34571 FAMILY FAMILY COUNT 2 CARE CARE COMPLETE ASSOCIATE ASSOCIATE AUTO&AUTO S S DIFRNTL WBC THERAPEUT 51390 CECE ZHAO IC 2 [facility] PROPHYLAC INC INC TIC/DX INJECTION SUBQ/IM BLOOD 77449 LASHAWN LASHAWN COUNT 2 R H R H COMPLETE AUTO&AUTO DIFRNTL WBC URNLS DIP 29939 LASHAWN LASHAWN 2 R H R H STICK/TAB LET RGNT NON-AUTO W/O MICRSCP URNLS DIP 71288 LASHAWN LASHAWN 1 R H R H STICK/TAB LET RGNT NON-AUTO W/O MICRSCP CYTP C/V 17456 BIO BIO AUTO THIN 1 REFERNCE REFERNCE LYR LABORATOR LABORATOR PREPJ SCR IES IES MNL RESCR PHYS IADNA 72825 BIO BIO CHLAMYDIA 1 REFERNCE REFERNCE LABORATOR LABORATOR TRACHOMAT IES IES IS AMPLIFIED PROBE TQ IADNA NOS 50483 BIO BIO 1 REFERNCE REFERNCE AMPLIFIED LABORATOR LABORATOR PROBE TQ IES IES EACH ORGANISM IADNA 35979 BIO BIO NEISSERIA 1 REFERNCE REFERNCE LABORATOR LABORATOR GONORRHOE IES IES AE AMPLIFIED PROBE TQ APPL 19560 [facility] MODALITY 1 [facility] JET 1/> AREAS TIC TRACTION CENTER MECHANICA L CH[facility]OP[facility]AC 48818 [facility] TIC 1 [facility] JET MANIPULAT TIC [place] CENTER SPINAL 3-4 [place] [address] [facility] 1/> AREAS 1 [facility] JET EACH 15 TIC MINUTES CENTER MASSAGE THERAPEUT 80072 [facility] IC PX 1/> 1 [facility] JET AREAS TIC EACH [address] [place] [address] [facility] 1/> AREAS 1 [facility] JET EACH 15 TIC [place] [address] [facility] 1/> AREAS 1 [facility] JET EACH 15 TIC [place] [address] [facility] 1/> AREAS 1 [facility] JET EACH 15 TIC MINUTES CENTER MASSAGE CHIROP[facility]AC 92953 [facility] TIC 1 [facility] JET MANIPULAT TIC [place] CENTER SPINAL 3-4 REGIONS RADEX 39935 RADIOLOGY DARDINGER SPINE 1 DUC LUMBOSACR ASSOCIATE AL 2/3 S PSC VIEWS RADEX 38805 RADIOLOGY HURST ZAIN SPINE 1 THORACIC ASSOCIATE 3 VIEWS S PSC BLOOD 89302 ST COUNT 1 [facility] COMPLETE AUTO&AUTO MEDICALCE MEDICAL[place] [address] ST FREE 1 [facility] THYROXINE MEDICALCE MEDICALCE NTER NTER BASIC [address] ST METABOLIC 1 [facility] PANEL CALCIUM MEDICALCE [place] [address] ST THYROID 1 [facility] STIMULATI NG MEDICALCE MEDICAL[place] [address] [facility] THYROID 1 [facility] INC STIMULATI NG HORMONE TSH COMPREHEN 29795 [facility] SIVE 1 [place] [address] [facility] FOLIC 1 [place] ACID SERUM BLOOD 90123 FAMILY MULBERRY COUNT 1 CARE ALEX COMPLETE ASSOCIATE AUTO&AUTO S DIFRNTL WBC 25 66847 [facility] HYDROXY 1 DIAGNOSTI DIAGNOSTI INCLUDES CS CS FRACTIONS INCORPORA INCORPORA IF T T PERFORMED CYANOCOBA 20687 [facility] EMELY 1 [place] VITAMIN B-12 SUSCEPTIB 26122 [facility] LTY STDY 1 [place] ANTIMICRB IAL MICRO/AGA R DILUTJ CUL BACT 58398 [facility] AEROBIC 1 [place] ADDL METHS DEFINITIV E EA ISOL CULTURE 91861 [facility] BCT 1 [place] ISOL&PRSM PTV ID ISOLATE EA URINE CULTURE 58468 [facility] BACTERIAL 1 [place] QUANTTATI VE COLONY COUNT URINE ETONOGEST J7307 [facility] REL 1 [facility]PT [facility] OF IMPL SYS MONO INCL IMPL & SPL URINE 07037 [facility] TEST [facility] OF VISUAL MONO COLOR CMPRSN METHS INSERTION 16191 [facility] IMPLANTAB CL[facility] OF LE MONO CONTRACEP TIVE CAPSULES REMOVAL 37559 [facility] INTRAUTER [facility] INE [facility]INIC OF DEVICE MONO IUD 56907 [facility] TRANSVAGI [facility] NAL [facility] OF [facility] INSERTION 10146 [facility] INTRAUTER CLINIC OF INE MONO DEVICE IUD LEVONORGE J7302 W[facility] STREL-RLS [facility] E [facility]IN[facility] OF INTRAUTER MONO N CNTRACPT 52 MG URINE 45672 [facility] VISUAL MON[facility] COLOR CMPRSN METHS CULTURE 69334 [facility] BACTERIAL 1 [place] QUANTTATI VE COLONY COUNT URINE BLOOD 97149 [facility] FAMILY COUNT 0 CARE CARE COMPLETE ASSOCIATE ASSOCIATE AUTO&AUTO S S DIFRNTL WBC HEPATBL 69083 [facility] D[facility] S[facility] 0 MEDICAL JOSÉ MIGUEL IMG IMAGING GLBLDR ASS APPL 88156 [facility] MODALITY 0 CHIROPRAC JET 1/> AREAS TIC ELEC CENTER STIMJ UNATTENDE D CHIROPRAC 31803 [facility] TIC 0 CHIROPRAC JET MANIPULAT TIC [place] CENTER SPINAL 3-4 REGIONS THERAPEUT 86220 [facility] IC PX 1/> 0 CHIROPRAC JET AREAS TIC EACH [address] [place] [address] [facility] 1/> AREAS 0 CHIROPRAC JET EACH 15 [place] [address] [facility] 1/> AREAS 0 CHIROPRAC JET EACH 15 TIC MINUTES CENTER MASSAGE APPLICATI 64534 [facility] ON 0 CHIROPRAC JET MODALITY TIC 1/> AREAS CENTER HOT/COLD PACKS THERAPEUT 21161 [facility] [place] IC PX 1/> 0 [facility]OP[facility] JET AREAS TIC EACH 15 CENTER MIN EXERCISES CHIROPRAC 61554 [facility] [place] TIC 0 CHIROPRAC JET MANIPULAT TIC NATH[place] CENTER SPINAL 3-4 REGIONS APPL 25345 [facility] MODALITY 0 CHIROPRAC JET 1/> AREAS TIC [place] [address] [facility] FID[facility] ABDOMINAL 0 MEDICAL JOSÉ MIGUEL REAL IMAGING TIME ASS W/IMAGE LIMITED BLOOD 07863 FAMILY BRANDY J COUNT 0 CARE COMPLETE ASSOCIATE AUTO&AUTO S DIFRNTL WBC TRANSFERA 94076 FAMILY BRANDY J SE 0 CARE ASPARTATE ASSOCIATE AMINO S AST SGOT TRANSFERA 73188 FAM[facility] FAMILY SE 0 CARE CARE ALANINE ASSOCIATE ASSOCIATE AM[facility] ALT S [facility] 0 [facility] [place] DAY GROUP MANAGEMEN PCC T 30 MIN/< CIRCUMCIS 74749 FAMILY MULBERRY ION 0 CARE ALEX W/CLAMP/O ASSOCIATE TH DEV S W/BLOCK SBSQ 34575 [facility] 0 PHYSICIAN [place] CARE/DAY GROUP 35 PCC MINUTES SUBQ 84383 [facility] 0 CARE CARE CARE PER ASSOCIATE ASSOCIATE DAY E/M S S NORMAL LOW 721 [facility] FORCEPS 0 [facility] OPERATION [facility] WITH [facility] 73717 FAMILY MULBERRY DISCHARGE 0 CARE ALEX DAY ASSOCIATE MANAGEMEN S T 30 MIN/< NEURAXIAL 01975 [facility] UGALDE JAVI LABOR 0 ANESTH ANALG/ANE OF THE S PLND BLUE VAGINAL DELIVERY VAGINAL 65078 [facility] DELIVERY 0 PHYSICIAN [place] ONLY GROUP PCC 32836 [facility] [place] TEST GROUP PCC 26259 [facility] NONSTRESS 0 [facility] TEST INC INC BLOOD 16886 [facility]ILY [facility] COUNT 0 CARE CARE COMPLETE ASSOCIATE ASSOCIATE AUTO&AUTO S S DIFRNTL WBC PARTICLE 02470 [facility] AGGLUTINA 0 [facility] TION INC INC SCREEN EACH ANTIBODY BLOOD 34684 [facility] COUNT 0 [facility] HEMATOCRI INC INC T OBSERVATI 40025 [facility]INPATI [facility] PCC CARE 55 MINUTES BLOOD 32278 [facility] COUNT 0 [facility] HEMOGLOBI INC INC N URNLS DIP 96921 [facility] 0 [facility] STICK/TAB INC INC LET REAGENT AUTO MICROSCOP Y GLUC BLD 79907 [facility] GLUC MNTR 0 [facility] DEV INC INC CLEARED FDA SPEC HOME USE 15038 [facility] NONSTRESS 0 [facility] TEST INC INC SMR PRIM 49760 [facility] [facility] SRC WET 0 [facility] [place] [facility] NFCT AGT PCC CYTP C/V 86981 [facility] AUTO THIN 0 [employer] LYR PREPJ SCR MNL RESCR PHYS IADNA 00535 [facility] CHLAMYDIA 0 [place] TRACHOMAT IS AMPLIFIED PROBE TQ IADNA 90156 SPECIALTY SPECIALTY HERPES 0 SOMPLX LABORATOR LABORATOR VIRUS IES INC IES INC AMPLIFIED PROBE TQ IADNA 42223 [facility] NEISSERIA 0 [place] GONORRHOE AE AMPLIFIED PROBE TQ OBSERVATI 02750 [facility] ON/INPATI 0 [facility] PCC CARE 55 MINUTES 10092 CECE Z[facility]O NONSTRESS 0 [facility] TEST INC INC URNLS DIP 72871 CE[facility] ZHAO 0 [facility] STICK/TAB INC INC LET REAGENT AUTO MICROSCOP Y BLOOD 26557 [facility] COUNT 0 [facility] COMPLETE INC INC AUTO&AUTO DIFRNTL WBC GLUCOSE 57880 [facility] POST 0 [facility] GLUCOSE INC INC DOSE SMR PRIM 17403 [facility] SRC WET 0 [facility] [place] [facility] NFCT AGT PCC US PREG 85802 [facility] UTERUS 0 PHYS[facility] [place] AFTER 1ST [place] [address] [facility] 0 [facility] [place] UTERUS 14 GROUP WK PCC TRANSABDL GESTAT ALPHA-FET 94947 CECE [facility]O OPROTEIN 0 [facility] [place] [address] CECE CECE ESTRIOL 0 [facility] INC INC COLPOSCOP 66877 [facility] Y CERVIX 0 PHYS[facility] [place] BX CERVIX GROUP & PCC ENDOCRV CURRETAGE US PREG 02522 [facility] UTERUS 0 PHYSICIAN PHYSICIAN REAL TIME GROUP GROUP W/IMAGE [facility] DCMTN TRANSVAG IADNA 93193 [facility] CHLAM[facility]DIA 0 [place] TRACHOMAT IS AMPLIFIED PROBE TQ IADNA 32933 [facility] NE[place] 0 [place] GONORRHOE AE AMPLIFIED PROBE TQ IADNA NOS 39303 SPECIALTY SPECIALTY 0 AMPLIFIED LABORATOR LABORATOR PROBE TQ IES INC IES INC EACH ORGANISM CYTP 25795 [facility] AMER[employer] CERVICAL/ 0 VAGINAL INDIA[place]PO INDIANAPO REQ LIS [place] [address] [facility] NON-IMMUN 0 [place] INC [facility] INC OLOGIC OTH/THN CYTOPATHI C MOLECULAR 60202 SPECIALTY SPECIALTY DX AMP 0 TARGET LABORATOR LABORATOR MULTIPLEX IES INC IES INC EA ADDL SEQ MOLEC 55921 SPECIALTY SPECIALTY SEP&ID HI 0 RESOLU LABORATOR LABORATOR TQ EACH IES INC IES INC NUCLEIC ACID PREP MOLEC 79920 SPECIALTY SPECIALTY ENZYMATIC 0 LABORATOR LABORATOR DIGESTION IES INC IES INC EA ENZYME TX MOLEC 38058 SPECIALTY SPECIALTY ISOL/XTRJ 0 HP LABORATOR LABORATOR NUCLEIC IES INC IES INC ACID EA TYPE MOLECULAR 69276 SPECIALTY SPECIALTY DX AMP 0 TARGET LABORATOR LABORATOR MULTIPLEX IES INC IES INC 1ST 2 SEQ MOLECULAR 30221 SPECIALTY SPECIALTY 0 DIAGNOSTI LABORATOR LABORATOR CS IES INC IES INC INTERPRET ATION & REPORT MUTATION 08527 SPECIALTY SPECIALTY ID 0 ENZYMATIC LABORATOR LABORATOR IES INC IES INC LIG/PRIME R XTN 1 SGM EA URINE 57888 PENDELETO PENDELETO 0 N CO N CO TEST [facility] VISUAL SNOQUALMIE PASS CENTER COLOR CMPRSN METHS CULTURE 38844 [facility] BACTERIAL 9 [place] INC [facility] INC QUANTTATI VE COLONY COUNT URINE CULTURE 07406 [facility] BCT 9 [place] INC Cocodrilo Dog INC ISOL&PRSM PTV ID ISOLATE EA URINE CULTURE 23238 [facility] TYPING 9 [place] INC [place] INC IMMUNOLOG IC OTH/THN IMMUNOFLU ORES CULTURE 21277 [facility] TYPING 9 [place] INC [place] INC IMMUNOLOG IC OTH/THN IMMUNOFLU ORES CULTURE 89565 [facility] BCT 9 [place] INC [place] INC ISOL&PRSM PTV ID ISOLATE EA URINE CULTURE 90610 [facility] BACTERIAL 9 [place]IA[place] INC IND[place] INC [place] [address] FALSANDRAUTH RACHELLE, 1/> AREAS 9 CHIROP[facility]AC MAURI P EACH 15 TIC MINUTES CENTER MASSAGE CHIROPRAC 51967 IRAM BUSH, TIC 9 CHIROPRAC MAURI Goncalves MANIPULAT TIC [facility] [place] [facility] SPINAL 3-4 REGIONS FITTING 52859 QUINTEN SHIPLEY, SPECTACLE 9 [place] Coleman S XCPT APHAKIA MONOFOCAL SPHERE V2100 QUINTEN SHIPLEY, SINGLE 9 [place] Coleman VISION PLANO +/- 4.00 PER LENS FRAMES V2020 QUINTEN SHIPLEY, PURCHASES 9 [place] Coleman [place] DETERMINA 68148 QUINTEN SHIPLEY, TION 9 [place] Coleman [place] REFRACTIV E STATE OPHTH 79699 QUINTEN SHIPLEY, MEDICAL 9 [place]LEX[place]A Coleman A[place] XM&EVAL COMPRHNSV ESTAB PT 1/> COLLECTIO 95375 FAMILY HARDIN, N VENOUS 9 [facility] BLOOD [place] [address] [facility] THYROID 9 [facility] INC STIMULATI NG HORMONE TSH URNLS DIP 55032 FAMILY HARDIN, [facility] Rima MINI STICK/TAB ASSOCIATE LET RGNT S NON-AUTO W/O MICRSCP CYTP C/V [address] AUTO THIN 9 HAIDER MALONEY LYR PREPJ SCR MEDICALCE MEDICALCE MNL NTER NTER RESCR PHYS IADNA 54580 DHS/CO PENDELETO CHLAMYDIA 9 [facility]ALTH N [facility] TRACHOM[facility] B[facility] C[facility] IS AMPLIFIED PROBE TQ URNLS DIP 58126 DHS/CO PENDELETO 9 HEALTH N CO STICK/TAB [facility] LET RGNT BANK ACCT CENTER NON-AUTO W/O MICRSCP URINE 73603 DHS/CO PENDELETO 9 HEALTH N CO TEST [facility] VISUAL BANK ACCT CENTER COLOR CMPRSN METHS ALL Q0112 DHS/CO [facility] POTASSIUM 9 HEALTH N [facility] HYDROXIDE BANK ACCT CENTER PREPARATI ONS WET Q0111 DHS/CO P[facility] CARI 9 HEALTH N CO INCL PREP [facility] VAGINAL BANK ACCT CENTER CERV/SKIN SPECIMENS IADNA 04-21-200 42673 DHS/CO PENDELETO NEISSERIA 9 HEALTH N CO [facility] GONORRHOE BANK ACCT CENTER AE AMPLIFIED PROBE TQ CHIROPRAC 31847 [place], TIC 9 CHIROPRAC MEGA MANIPLTV TIC TX CENTER EXTRASPIN AL 1/> REGION CHIROPRAC 84049 [place], TIC 9 CHIROPRAC MEGA MANIPULAT TIC [facility] [place] [facility] SPINAL 3-4 [place] [address] [place], 1/> AREAS 9 CHIROPRAC MEGA EACH 15 [place] [address] [place], 1/> AREAS 9 CHIROPRAC MEGA EACH 15 TIC MINUTES CENTER MASSAGE CHIROPRAC 10077 [place], TIC 9 CHIROPRAC MEGA MANIPULAT TIC [place] [place] [facility]ENTER SPINAL 3-4 REGIONS CHIROPRAC 18013 [place], TIC 9 CHIROPRAC MEGA MANIPULAT TIC [place] [facility] SPINAL 3-4 [place] [address] [place], 1/> AREAS 9 CHIROPRAC MEGA EACH 15 TIC MINUTES CENTER MASSAGE THERAPEUT 59703 [place], IC PX 1/> 9 CHIROPRAC MEGA AREAS TIC EACH 15 CENTER MIN EXERCISES THERAPEUT 24613 [place], IC PX 1/> 8 CHIROPRAC MEGA AREAS TIC EACH 15 CENTER MIN EXERCISES APPLICATI 24109 IRAM CHINTAN, ON 8 CHIROPRAC MEGA MODALITY TIC 1/> AREAS CENTER HOT/COLD PACKS MANUAL 45981 [facility]ENE [place], THERAPY 8 CHIROPRAC MEGA TQS 1/> TIC REGIONS CENTER EACH 15 MINUTES CHIROPRAC 78109 [place], TIC 8 CHIROPRAC MEGA MANIPULAT TIC [place] [place] [facility] SPINAL 3-4 REGIONS APPL 99314 [place], MODALITY 8 CHIROPRAC MEGA 1/> AREAS TIC ELEC CENTER STIMJ UNATTENDE D APPL 94730 [place], MODALITY 8 CHIROPRAC MEGA 1/> AREAS TIC ELEC CENTER STIMJ UNATTENDE D CHIROPRAC 14263 IRAM CHINTAN, TIC 8 CHIROPRAC MEGA MANIPULAT TIC [place] [facility]ENTER SPINAL 3-4 REGIONS APPLICATI 08590 MEMOMORENE CHINTAN, ON 8 CHIROPRAC MEGA MODALITY TIC 1/> AREAS CENTER HOT/COLD PACKS THERAPEUT 03242 IRAM CHINTAN, IC PX 1/> 8 CHIROPRAC MEGA AREAS TIC EACH [place] [address] [place], 1/> AREAS 8 CHIROPRAC MEGA EACH 15 TIC MINUTES CENTER MASSAGE APPLICATI 21907 IRAM CHINTAN, ON 8 CHIROPRAC MEGA MODALITY TIC 1/> AREAS CENTER [place] [address] [place], 1/> AREAS 8 CHIROPRAC MEGA EACH 15 TIC MINUTES CENTER MASSAGE THERAPEUT 51270 IRAM CHINTAN, IC PX 1/> 8 CHIROPRAC MEGA AREAS TIC EACH 15 CENTER MIN EXERCISES CHIROPRAC 24999 IRAM CHINTAN, TIC 8 CHIROPRAC MEGA MANIPULAT TIC [place] [facility]ENTER SPINAL 3-4 REGIONS APPL 22994 [place], MODALITY 8 CHIROPRAC MEGA 1/> AREAS TIC ELEC CENTER STIMJ UNATTENDE D APPL 92784 [place], MODALITY 8 CHIROPRAC MEGA 1/> AREAS TIC ELEC CENTER STIMJ UNATTENDE D CHIROPRAC 77892 IRAM CHINTAN, TIC 8 CHIROPRAC MEGA MANIPULAT TIC [place] [place] CENTER SPINAL 3-4 REGIONS THERAPEUT 99018 IRAM CHINTAN, IC PX 1/> 8 CHIROPRAC MEGA AREAS TIC EACH 15 CENTER MIN EXERCISES APPLICATI 86414 MEMOMORENE CHINTAN, ON 8 CHIROPRAC MEGA MODALITY TIC 1/> AREAS CENTER [place] [address] [place], 1/> AREAS 8 CHIROPRAC MEGA EACH 15 [place] [address] [place], 1/> AREAS 8 CHIROPRAC MEGA EACH 15 TIC MINUTES CENTER MASSAGE APPL 99660 [place], MODALITY 8 CHIROPRAC MEGA 1/> AREAS TIC ELEC CENTER STIMJ UNATTENDE D APPL 80922 [place], MODALITY 8 CHIROPRAC MEGA 1/> AREAS TIC ELEC CENTER STIMJ UNATTENDE D CHIROPRAC 92218 MEMOM[facility]ENE CHINTAN, TIC 8 CHIROPRAC MEGA MANIPULAT TIC [place] [place] CENTER SPINAL 3-4 REGIONS APPLICATI 97034 [place] [place], ON 8 CHIROPRAC MEGA MODALITY TIC 1/> AREAS CENTER [place] [address] [place], 1/> AREAS 8 CHIROPRAC MEGA EACH 15 TIC MINUTES CENTER MASSAGE THERAPEUT 70639 [place] [place], IC PX 1/> 8 CHIROPRAC MEGA AREAS TIC EACH 15 CENTER MIN EXERCISES THERAPEUT 50210 AUDREYUTH CHINTAN, IC PX 1/> 8 CHIROPRAC MEGA AREAS TIC EACH 15 CENTER MIN EXERCISES APPLICATI 61097 IRAM CHINTAN, ON 8 CHIROPRAC MEGA MODALITY TIC 1/> AREAS CENTER HOT/COLD PACKS CHIROPRAC 04107 [place] [place], TIC 8 CHIROPRAC MEGA MANIPULAT TIC [place] CENTER SPINAL 3-4 REGIONS CHIROPRAC 15882 [place], TIC 8 CHIROPRAC MEGA MANIPULAT TIC [place] [place] CENTER SPINAL 3-[place] [address] IRAM CHINTAN, 1/> AREAS 8 CHIROPRAC MEGA EACH 15 TIC MINUTES CENTER MASSAGE APPL 32443 [place] [place], MODALITY 8 CHIROPRAC MEGA 1/> AREAS TIC ELEC CENTER STIMJ UNATTENDE D THERAPEUT 29329 [place], IC PX 1/> 8 CHIROPRAC MEGA AREAS TIC EACH 15 CENTER MIN EXERCISES APPLICATI 32660 AUDREYUTH CHINTAN, ON 8 CHIROPRAC MEGA MODALITY TIC 1/> AREAS CENTER HOT/COLD PACKS APPLICATI 82962 [place] [place], ON 8 CHIROPRAC MEGA MODALITY TIC 1/> AREAS [place] [address] IRAM WOODSON, 1/> AREAS 8 CHIROPRAC MEGA EACH 15 TIC MINUTES CENTER MASSAGE THERAPEUT 65583 IRAM WOODSON, IC PX 1/> 8 CHIROPRAC MEGA AREAS TIC EACH 15 CENTER MIN EXERCISES APPL 13344 IRAM WOODSON, MODALITY 8 CHIROPRAC MEGA 1/> AREAS TIC ELEC CENTER STIMJ UNATTENDE D CHIROPRAC 59158 IRAM CHINTAN, TIC 8 CHIROPRAC MEGA MANIPULAT TIC [place] CENTER SPINAL 3-4 REGIONS CHIROPRAC 13535 IRAM CHINTAN, TIC 8 CHIROPRAC MEGA MANIPULAT TIC [place] CENTER SPINAL 3-4 REGIONS APPL 64805 IRAM WOODSON, MODALITY 8 CHIROPRAC MEGA 1/> AREAS TIC ELEC CENTER STIMJ UNATTENDE D APPLICATI 98156 IRAM WOODSON, ON 8 CHIROPRAC MEGA MODALITY TIC 1/> AREAS CENTER HOT/COLD PACKS THERAPEUT 16526 IRAM WOODSON, IC PX 1/> 8 CHIROPRAC MEGA AREAS TIC EACH [place] [address] IRAM WOODSON, 1/> AREAS 8 CHIROPRAC MEGA EACH 15 TIC MIN CENTER NEUROMUSC REEDUCA THERAPEUT 08648 IRAM WOODSON, IC PX 1/> 8 CHIROPRAC MEGA AREAS TIC EACH 15 CENTER MIN EXERCISES APPLICATI 22331 IRAM WOODSON, ON 8 CHIROPRAC MEGA MODALITY TIC 1/> AREAS CENTER HOT/COLD PACKS APPL 56486 IRAM WOODSON, MODALITY 8 CHIROPRAC MEGA 1/> AREAS TIC [place]LE[place] [address] IRAM WOODSON, 1/> AREAS 8 CHIROPRAC MEGA EACH 15 TIC MINUTES CENTER MASSAGE CHIROPRAC 31089 IRAM CHINTAN, TIC 8 CHIROPRAC MEGA MANIPULAT TIC [place] [place] CENTER SPINAL 3-4 REGIONS CHIROPRAC 58551 IRAM CHINTAN, TIC 8 CHIROPRAC MEGA MANIPULAT TIC [place] CENTER SPINAL 3-4 REGIONS APPL 44080 IRAM WOODSON, MODALITY 8 CHIROPRAC MEGA 1/> AREAS TIC ELEC CENTER STIMJ UNATTENDE D APPLICATI 85108 IRAM WOODSON, ON 8 CHIROPRAC MEGA MODALITY TIC 1/> AREAS [place] [address] IRAM CHINTAN, 1/> AREAS 8 CHIROPRAC MEGA EACH 15 TIC MINUTES CENTER MASSAGE THERAPEUT 74359 IRAM WOODSON, IC PX 1/> 8 CHIROPRAC MEGA AREAS TIC EACH 15 CENTER MIN EXERCISES THERAPEUT 06706 IRAM WOODSON, IC PX 1/> 8 CHIROPRAC MEGA AREAS TIC EACH 15 CENTER MIN EXERCISES APPLICATI 69616 IRAM WOODSON, ON 8 CHIROPRAC MEGA MODALITY TIC 1/> AREAS [place] [address] IRAM CHINTAN, 1/> AREAS 8 CHIROPRAC MEGA EACH 15 TIC MINUTES CENTER MASSAGE APPL 94250 IRAM WOODSON, MODALITY 8 CHIROPRAC MEGA 1/> AREAS TIC ELEC CENTER STIMJ UNATTENDE D CHIROPRAC 30741 IRAM WOODSON, TIC 8 CHIROPRAC MEGA MANIPULAT TIC [place] CENTER SPINAL 3-4 REGIONS IAADIADOO 62892 [facility], 8 CARE Rima MORSE STREPTOCO ASSOCIATE CCUS S GROUP A PRESSURIZ 09691 CECE ZHAO ED/NONPRE 8 [facility] SSURIZED INC INC INHALATIO N TREATMENT RADIOLOGI 51509 MAINE Felix PARRA EXAM 8 MEDICAL NHUNG CHEST 2 IMAGING VIEWS ASSOCIATE FRONTAL&L S ATERAL IAADIADOO 01198 [facility], 8 CARE Rima MORSE STREPTOCO ASSOCIATE CCUS S GROUP A IAADIADOO 89532 [facility], 8 CARE R MINI STREPTOCO ASSOCIATE CCUS S GROUP A CYTP 80460 [facility] AUGUSTUS, CERV/VAG 8 [facility] JULIAN E AUTO THIN LAYER PREP MNL SCREEN BLOOD 06634 [facility] COUNT 8 [place] COMPLETE AUTOMATED GONADOTRO 24535 [facility] PIN 8 [place] FOLLICLE STIMULATI NG HORMONE BLOOD 47224 [facility] COUNT 8 [place] SMEAR MCRSCP W/MNL DIFRNTL WBC COUNT GONADOTRO 57137 [facility] PIN 8 [place] [address] [facility] TESTOSTER 8 [place] ONE TOTAL DEHYDROEP 33955 [facility] OF IANDROSTE 8 [place] [address] [facility] THYROID 8 [place] STIMULATI NG HORMONE TSH COLLECTIO 34139 FAMILY LASHAWN, N VENOUS 8 [facility] BLOOD [facility] VENIPUNCT S URE Encounters Encounter Start End Date Code Location Performer Type Date EMERGENCY [address] [facility] 6 6 PHYSICIAN DEPARTMEN S, [facility] T VISIT HIGH/URGE NT SEVERITY EMERGENCY 87464 CECE 6 6 [facility] DEPARTMEN INC T VISIT LOW/MODER SEVERITY HOSPITAL CECE - 6 6 [facility] OUTPATIEN INC T OFFICE 01437 [facility] 6 6 [facility] T VISIT 15 PHYSICIAN MINUTES S OFFICE 28405 [facility] PRESSLER OUTPATIEN 6 6 [facility] T VISIT URGENT 15 CARE MINUTES OFFICE 71831 [facility] PRESSLER OUTPATIEN 6 6 [facility] AN[facility] T VISIT URGENT [address] - 5 5 [facility] T [facility] OFFICE 62439 [facility]FT[facility] OUTPATIEN 5 5 [facility] T VISIT [address] - 5 5 [facility] OUTPATIEN [facility] T [facility] OFFICE 42593 IFTIKHAR BRANTLEYPATIEN 5 5 [facility] T VISIT 15 MINUTES EMERGENCY 30015 CECE 5 5 [facility] DEPARTMEN INC T VISIT MODERATE SEVERITY EMERGENCY 07292 BRITNEY HERRERA 5 5 PHYSICIAN U [facility] S, [facility] T VISIT HIGH/URGE NT SEVERITY HOSPITAL CECE - 5 5 [facility] OUTPATIEN INC T OFFICE 19237 [facility] OUTPATIEN 5 5 HAIDER EMILIA T VISIT 25 PHYSICIAN MINUTES [facility] ST - 5 5 [facility] OUTPATIEN MED CTR T [facility] - 5 5 [facility]ER OUTPATIEN [facility] EMERGENCY 28544 [facility] DEPT 5 5 EMERGENCY VISIT HIGH PHYSICIAN SEVERITY& S THREAT [facility] ST - 5 5 [facility] OUTPATIEN MED CTR T [facility] CECE - 5 5 [facility] OUTPATIEN INC T EMERGENCY 56046 BRITNEY GRAHAM DEPT 5 5 PHYSICIAN NIESHA VISIT [facility] HIGH SEVERITY& THREAT [facility] EMERGENCY 49039 CE[facility] MODERATE SEVERITY OFFICE 49908 TARA OUTPATIEN 5 5 HAIDER JET T VISIT 15 PHYSICIAN MINUTES S OFFICE 73129 [facility] NIESHA T VISIT [address] [facility] - 5 5 [facility] OUTPATIEN MED CTR T [facility] - 5 5 [facility] OUTPATIEN MED CTR T [facility] 78882 IFTIKHAR [facility] PREVENTIV 5 5 [facility] E MED EST PATIENT 18-[address] - 5 5 [facility] OUTPATIEN MED CTR T [facility] ATTENDANT OFFICE 707[address] [facility] SANDERS OUTPATIEN 5 5 HAIDER ANASTASIA CARMEN T VISIT 15 PHYSICIAN MINUTES [facility] ST - 5 5 [facility] OUTPATIEN MED CTR T [facility] ST EMERGENCY 66420 [facility] DANNEMAN 5 5 EMERGENCY HOL DEPARTMEN T VISIT PHYSICIAN HIGH/URGE S NT SEVERITY OFFICE 13442 ST OUTPATIEN 5 5 HAIDER T VISIT 15 PHYSICIAN MINUTES S EMERGENCY 37477 [facility]PASS CARLENE 5 5 EMERGENCY GUERRERO DEPARTMEN T VISIT PHYSICIAN MODERATE S [facility] - 5 5 [facility] OUTPATIEN MED CTR T [facility] OFFICE 73313 JUSTIN OUTPATIEN 5 5 HAIDER NIESHA T VISIT 15 PHYSICIAN MINUTES [facility] ST - 5 5 [facility] OUTPATIEN MED CTR T [facility]SE ATTENDANT OFFICE 77306 PENDELETO PENDELETO OUTPATIEN 5 5 N CO N CO T VISIT [address] CENTER MINUTES EMERGENCY 89525 BRITNEY GRAHAM DEPT 5 5 PHYSICIAN NIESHA VISIT S, PLL HIGH SEVERITY& THREAT [facility] ST - 5 5 HA[facility]ER OUTPATIEN MED CTR T [facility] ATTENDANT OFFICE 11709 HEAD & DOMET NIESHA OUTPATIEN 5 5 NECK T VISIT SURGERY 25 ASSOC MINUTES OFFICE 82442 [facility] HAIDER JET T VISIT 25 PHYSICIAN MINUTES [facility] ST - 5 5 HAIDER OUTPATIEN MED [facility] - 5 5 [facility] - 5 5 HAIDER OUTPATIEN MED CTR T GATEHOUSE ATTENDANT [facility] CECE - 5 5 [facility] OUTPATIEN INC T EMERGENCY 45995 CECE 5 5 [facility] DEPARTMEN INC T VISIT LIMITED/M INOR PROB EMERGENCY 23237 BRITNEY FLORES 5 5 PHYSICIAN VIRAMONTES DEPARTMEN S, [facility] T VISIT HIGH/URGE NT SEVERITY OFFICE 50390 FAMILY KEAGLE OUTPATIEN 5 5 CARE RIT T VISIT ASSOCIATE 15 S MINUTES OFFICE 56036 COLD OUTPATIEN 5 5 SPRING T VISIT URGENT [address] [facility] [address] - 5 5 HAIDER OUTPATIEN MARCELLUS T OFFICE 41229 FAMILY KEAGLE OUTPATIEN 5 5 CARE RIT T VISIT ASSOCIATE 15 S MINUTES OFFICE 44790 [facility] OUTPATIEN 5 5 HAIDER JET T VISIT 25 PHYSICIAN MINUTES [facility] ST - 5 5 HAIDER OUTPATIEN MED CTR T [facility] ATTENDANT OFFICE 15788 FAMILY KEAGLE OUTPATIEN 4 4 CARE RIT T VISIT ASSOCIATE 15 S MINUTES OFFICE 70214 FAMILY KEAGLE OUTPATIEN 4 4 CARE RIT T VISIT ASSOCIATE 15 S MINUTES OFFICE 98931 FAMILY KEAGLE OUTPATIEN 4 4 CARE RIT T VISIT ASSOCIATE 15 S MINUTES OFFICE 43498 FAMILY MULBERRY OUTPATIEN 4 4 CARE ALEX T VISIT ASSOCIATE 15 S MINUTES OFFICE 14948 FAMILY KEAGLE OUTPATIEN 4 4 CARE RIT T VISIT ASSOCIATE 15 S MINUTES OFFICE 71757 GEORGES SU OUTPATIEN 4 4 MARQUES MARQUES T NEW 30 MINUTES OFFICE 13130 IFTIKHAR [facility] OUTPATIEN 4 4 [facility] T VISIT [address] - 4 4 [facility] OUTPATIEN MED [facility] T [facility] - 4 4 [facility]ER OUTPATIEN MED CTR T [facility] OFFICE 57642 EMERITA FELDER OUTPATIEN 4 4 RIT RIT T VISIT [address] - 4 4 [facility] OUTPATIEN MED CTR T [facility] OFFICE 18005 TARA PACHECO OUTPATIEN 4 4 JET JET T VISIT [address] - 4 4 HAIDER OUTPATIEN INGA T OFFICE 24746 EMERITA FELDER OUTPATIEN 4 4 RIT RIT T VISIT 15 MINUTES EMERGENCY 77113 LIZA DE JESUS DEPT 4 4 ALEX ALEX VISIT HIGH SEVERITY& THREAT FUNJ EMERGENCY 38790 SOKAN BAB SOKAN BAB 4 4 DEPARTMEN T VISIT MODERATE SEVERITY OFFICE 09964 TARA PACHECO OUTPATIEN 4 4 JET JET T NEW [address] - 4 4 [facility] OUTPATIEN MED CTR T [facility] OFFICE 65574 LIZA LOMAX 4 4 THE THE T VISIT 15 MINUTES OFFICE 73722 LIZA DE JESUS OUTPATICONCEPCION 4 4 THE THE T VISIT [address] - 4 4 [facility] OUTPATIEN [facility] T [facility] - 4 4 [facility] OUTPATIEN [facility] - 4 4 [facility]ER OUTPATIEN MED CTR T [facility] OFFICE 68028 BRANDY Zayas OUTPATIEN 4 4 G G T VISIT [address] - 4 4 [facility] OUTPATIEN MED CTR T [facility] EMERGENCY 59420 BUTCH GRAHAM 4 4 EMERGENCY [facility] DEPARTMEN SERVICES T VISIT MODERATE SEVERITY OFFICE 04783 IFTIKHAR CHAMPIONL OUTPATIEN 4 4 CLIFFORD CHAWLA T VISIT 15 MINUTES OFFICE 14813 HARPEL HARPEL OUTPATIEN 3 3 [place] T VISIT 10 MINUTES OFFICE 12274 PENDELETO PENDELETO OUTPATIEN 3 3 N CO N CO T VISIT [address] CECE - 3 3 [facility] T PERIODIC 37482 HARPEL HARPEL PREVENTIV 3 3 [place]ENT[place] E MED EST PATIENT 18-39 YRS PERIODIC 72003 FAMILY LASHAWN PREVENTIV 3 3 CARE R H E MED EST ASSOCIATE PATIENT S 18-39 YRS EMERGENCY 90937 LUIS ENRIQUE HO LUIS ENRIQUE DEPT 3 3 VISIT HIGH SEVERITY& THREAT FUN EMERGENCY 18295 NATALIE NATALIE DEPT 3 3 May VISIT HIGH SEVERITY& THREAT FUNCJ EMERGENCY 91426 MEGA Durand 3 3 VILLARI VILLARI DEPARTMEN T VISIT MODERATE SEVERITY OFFICE 00245 FAMILY LASHAWN OUTPATIEN 3 3 CARE R H T VISIT ASSOCIATE 15 S MINUTES OFFICE 80473 MULBERRY MULBERRY OUTPATIEN 3 3 ALEX ALEX T VISIT 15 MINUTES OFFICE 48312 LASHAWN LASHAWN OUTPATIEN 3 3 R H R H T VISIT 15 MINUTES OFFICE 20533 LASHAWN LASHAWN OUTPATIEN 3 3 R H R H T VISIT 15 MINUTES OFFICE 31631 HARPEL HARPEL OUTPATIEN 3 3 [facility] DENTNO T VISIT 15 MINUTES [facility]OSPITAL CECE - 3 3 [facility] INC T OFFICE 20602 PENDELETO PENDELETO OUTPATIEN 3 3 N CO N CO T VISIT 5 [facility] OFFICE 54294 PENDELETO PENDELETO OUTPATIEN 3 3 N CO N CO T VISIT [address] CENTER MINUTES OFFICE 92924 HARPEL HARPEL OUTPATIEN 3 3 [place] T VISIT 15 MINUTES OFFICE 75983 LASHAWN LASHAWN OUTPATIEN 3 3 R H R H T VISIT 15 MINUTES OFFICE 16391 LASHAWN LASHAWN OUTPATIEN 3 3 R H R H T VISIT 15 MINUTES OFFICE 16346 LASHAWN LASHAWN OUTPATIEN 3 3 R H R H T VISIT 15 MINUTES EMERGENCY 24529 RICHARDSO RICHARDSO 3 3 N KATIE N KATIE DEPARTMEN T VISIT HIGH/URGE NT SEVERITY OFFICE 81741 LASHAWN LASHAWN OUTPATIEN 3 3 R H R H T VISIT 15 MINUTES OFFICE 59373 LASHAWN LASHAWN OUTPATIEN 3 3 R H R H T VISIT 15 MINUTES EMERGENCY 44150 FRANCE HOUGH 3 3 REGINA TAP[place] DEPARTMEN T VISIT MODERATE SEVERITY OFFICE 32180 GRILLOT GRILLOT OUTPATIEN 3 3 NAN NAN T NEW 30 MINUTES OFFICE 70875 BRANDY Zayas OUTPATIEN 3 3 G G T VISIT [address] [facility] 3 3 [facility] OFFICE 38800 BRANDY Zayas OUTPATIEN 3 3 G G T VISIT 15 MINUTES EMERGENCY 57021 CECE 3 3 [facility] DEPARTMEN INC T VISIT MODERATE SEVERITY EMERGENCY 97785 SANTOS ORTEZEY DEPT 3 3 NIESHA NIESHA VISIT HIGH SEVERITY& THREAT FUN HOSPITAL CECE - 3 3 [facility] OUTPATIEN INC T OFFICE 74617 BRANDY Zayas OUTPATIEN 3 3 G G T VISIT 25 MINUTES OFFICE 54570 PRABHJOT SMITH RICK PRA OUTPATIEN 3 3 T VISIT 15 MINUTES EMERGENCY 05977 DEL RYA GEEJEFF RYA DEPT 3 3 VISIT HIGH SEVERITY& THREAT FUN OFFICE 98182 LASHAWN LASHAWN OUTPATIEN 3 3 R H R H T VISIT 15 MINUTES HOSPITAL CECE - 3 3 [facility] OUTPATIEN INC T OFFICE 85051 HARPEL HARPEL OUTPATIEN 3 3 D[place]ENT[place] T VISIT 15 MINUTES OFFICE 92139 LASHAWN LASHAWN OUTPATIEN 2 2 R H R H T VISIT 15 MINUTES EMERGENCY 38378 LELA LELA 2 2 KRI KRI DEPARTMEN T VISIT HIGH/URGE NT SEVERITY [facility]PITAL ST - 2 2 [facility] OUTPATIEN T MEDICALCE NTER OFFICE 82687 LUIS RICK PRA OUTPATIEN 2 2 SPRING T VISIT URGENT 15 CARE MINUTES PERIODIC 66117 HARPEL PREVENTIV 2 2 [place] E MED EST PATIENT 18-39 YRS OFFICE 81392 LASHAWN LASHAWN OUTPATIEN 2 2 R H R H T VISIT [address] [facility] MODERATE SEVERITY OFFICE 06473 LASHAWN LASHAWN OUTPATIEN 2 2 R H R H T VISIT 25 MINUTES OFFICE 52565 LASHAWN LASHAWN OUTPATIEN 2 2 R H R H T VISIT [address] - 2 2 HA[facility] OUTPATIEN INGA T OFFICE 63760 CONTI VIR CONTI VIR OUTPATIEN 2 2 T VISIT 15 MINUTES OFFICE 36705 LASHAWN LASHAWN OUTPATIEN 2 2 R H R H T VISIT 15 MINUTES OFFICE 86494 LASHAWN LASHAWN OUTPATIEN 2 2 R H R H T VISIT 15 MINUTES EMERGENCY 95635 JUVENAL SANFORD DEPT 2 2 III JAVI III JAVI VISIT HIGH SEVERITY& THREAT [facility] EMERGENCY 36612 BUTCH CAMP[facility] DEPT 2 2 EMERGENCY III JAVI VISIT SERVICES HIGH SEVERITY& THREAT [facility] ST - 2 2 [facility] OUTPATIEN T MEDICALCE NTER OFFICE 47599 [facility] HARPEL OUTPATIEN 2 2 PHYSICIAN [place] T VISIT GROUP 15 [facility] MINUTES OFFICE [address] [facility] CONSULTAT 2 2 HAIDER THO ION NEW/ESTAB PHYSICIAN PATIENT S 60 MIN OFFICE 27261 LASHAWN LASHAWN OUTPATIEN 2 2 R H R H T VISIT 15 MINUTES OFFICE 30643 [facility] OUTPATIEN 2 2 [place] T VISIT 15 MINUTES OFFICE 96163 [facility]Y MULBERRY OUTPATIEN 2 2 ALEX ALEX T VISIT 15 MINUTES OFFICE 29745 FAMILY LASHAWN OUTPATIEN 2 2 CARE R H T VISIT ASSOCIATE 15 S MINUTES HOSPITAL CECE - 2 2 [facility] OUTPATIEN INC T EMERGENCY 65742 [facility] 2 2 [facility] DEPARTMEN INC T VISIT MODERATE SEVERITY EMERGENCY 78397 [facility] HERNANDEZCj ALEJANDRA 2 2 EMERGENCY DEPARTMEN SERVICES T VISIT HIGH/URGE NT SEVERITY HOSPITAL CECE - 2 2 [facility] OUTPATIEN INC T EMERGENCY 78372 [facility] SANTOS 2 2 EMERGENCY NIESHA DEPARTMEN SERVICES T VISIT MODERATE SEVERITY EMERGENCY 53704 [facility] 2 2 [facility] DEPARTMEN INC T VISIT LOW/MODER SEVERITY OFFICE 18584 LASHAWN LASHAWN OUTPATIEN 2 2 R H R H T VISIT 15 MINUTES OFFICE 87385 LASHAWN LASHAWN OUTPATIEN 1 1 R H R H T VISIT 15 MINUTES PERIODIC 77414 [facility] HARPEL PREVENTIV 1 1 PHYSICIAN [place] E MED EST GROUP PATIENT PCC 18-39 YRS OFFICE 79312 FAMILY MULBERRY OUTPATIEN 1 1 CARE ALEX T VISIT ASSOCIATE 25 S MINUTES OFFICE 04662 [facility] OUTPATIEN 1 1 [facility] JET T VISIT TIC 15 CENTER MINUTES EMERGENCY 58110 [facility] 1 1 [facility] DEPARTMEN INC T VISIT LOW/MODER SEVERITY HOSPITAL ST[facility] - 1 1 HAIDER OUTPATIEN INGA T EMERGENCY 18349 [facility] 1 1 EMERGENCY III JAVI DEPARTMEN SERVICES T VISIT MODERATE SEVERITY OFFICE 68[address] [facility] VIR OUTPATIEN 1 1 HAIDER T VISIT 15 PHYSICIAN MINUTES S OFFICE 28205 FAMILY LASHAWN OUTPATIEN 1 1 CARE R H T VISIT ASSOCIATE 15 S MINUTES OFFICE 39472 FAMILY LASHAWN OUTPATIEN 1 1 CARE R H T VISIT ASSOCIATE [address] - 1 1 HAIDER OUTPATIEN T MEDICALCE NTER OFFICE [address] [facility] VIR OUTPATIEN 1 1 HAIDER T NEW 30 MINUTES PHYSICIAN S OFFICE 07485 FAMILY MULBERRY OUTPATIEN 1 1 CARE ALEX T VISIT ASSOCIATE 25 S MINUTES OFFICE 53086 [facility] 1 [facility] T VISIT CLINIC OF 15 MONO MINUTES OFFICE 81620 FAMILY LASHAWN OUTPATIEN 1 1 CARE R H T VISIT ASSOCIATE 15 S MINUTES OFFICE 21293 FAMILY MULBERRY OUTPATIEN 1 1 CARE ALEX T VISIT ASSOCIATE 15 S MINUTES OFFICE 05212 [facility] OUTPATIEN 0 0 PHYSICIAN [place] T VISIT GROUP 15 P[facility] MINUTES OFFICE 05100 FAMILY LASHAWN OUTPATIEN 0 0 CARE R H T VISIT ASSOCIATE 15 S MINUTES OFFICE 35428 [facility] L[facility]WN OUTPATIEN 0 0 CARE R H T VISIT ASSOCIATE 15 S MINUTES HOSPITAL CECE - 0 0 [facility] OUTPATIEN INC T OFFICE 91783 [facility] HARPEL OUTPATIEN 0 0 PHYSICIAN [place] T VISIT GROUP 15 [facility] MINUTES HOSPITAL CECE - 0 0 [facility] OUTPATIEN INC T OFFICE 24350 FAMILY BRANDY J OUTPATIEN 0 0 CARE T VISIT ASSOCIATE 25 S MINUTES OFFICE 85350 FAMILY MULBERRY OUTPATIEN 0 0 CARE ALEX T VISIT ASSOCIATE 15 S MINUTES OFFICE 73674 [facility] 0 0 PHYSICIAN [place] T VISIT GROUP 15 [facility] MINUTES HOSPITAL CECE - 0 0 [facility] INPATIENT INC OFFICE 53812 [facility] OUTPATIEN 0 0 PHYSICIAN [place] T VISIT GROUP 15 [facility] MINUTES OFFICE 24526 [facility] OUTPATIEN 0 0 PHYSICIAN [place] T VISIT GROUP 15 [facility] MINUTES [facility]OSPITAL CECE - 0 0 [facility] OUTPATIEN INC T OFFICE 41075 FAMILY LASHAWN OUTPATIEN 0 0 CARE R H T VISIT ASSOCIATE 15 S MINUTES OFFICE 48387 [facility] OUTPATIEN 0 0 PHYSICIAN [place] T VISIT GROUP 15 [facility] MINUTES OFFICE 43949 [facility] OUTPATIEN 0 0 PHYSICIAN [place] T VISIT GROUP 15 [facility] MINUTES [facility]OSPITAL CECE - 0 0 [facility] OUTPATIEN INC T OFFICE 84539 [facility]PATI[facility] 0 0 PHYSICIAN [place] T VISIT GROUP 15 [facility] MINUTES [facility]OSPITAL CECE - 0 0 [facility] OUTPATIEN INC T OFFICE 62969 [facility] OUTPATIEN 0 0 PHYSICIAN [place] T VISIT GROUP 15 [facility] MINUTES OFFICE 81490 [facility] OUTPATIEN 0 0 PHYSICIAN [place] T VISIT GROUP 15 [facility] MINUTES OFFICE 96854 [facility] OUTPATIEN 0 0 PHYSICIAN [place] T VISIT GROUP 15 [facility] MINUTES [facility]OSPITAL CECE - 0 0 [facility] OUTPATIEN INC T [facility]OSPITAL CECE - 0 0 [facility] OUTPATIEN INC T OFFICE 96107 [facility] OUTPATIEN 0 0 PHYSICIAN [place] T VISIT GROUP 15 [facility] MINUTES OFFICE 20717 [facility] OUTPATIEN 0 0 PHYSICIAN [place] T VISIT GROUP 15 [facility] MINUTES [facility]OSPITAL CECE - 0 0 [facility] OUTPATIEN INC T OFFICE 42823 [facility] OUTPATIEN 0 0 PHYSICIAN [place] T VISIT GROUP 15 [facility] MINUTES OFFICE 75759 [facility] OUTPATIEN 0 0 PHYSICIAN [place] T VISIT GROUP 15 [facility] MINUTES OFFICE 63087 [facility] HARPEL OUTPATIEN 0 0 PHYSICIAN [place] T VISIT GROUP 15 P[facility] MINUTES OFFICE 54324 [facility] HARPEL OUTPATIEN 0 0 PHYSICIAN [place] T VISIT GROUP 15 P[facility] MINUTES INITIAL 72467 IFTIKHAR HORTON, PREVENTIV 0 0 HARPEL MD IFTIKHAR PROCTOR NEW PT AGE 18-39YRS OFFICE 76293 [facility] PENDELETO OUTPATIEN 0 0 N CO N CO T VISIT [address] CENTER MINUTES OFFICE 68688 FAMILY LASHAWN, OUTPATIEN 9 9 CARE R MINI T VISIT ASSOCIATE 15 S MINUTES OFFICE 95322 FAMILY LASHAWN, OUTPATIEN 9 9 CARE R MINI T VISIT ASSOCIATE 15 S MINUTES OFFICE 42682 FAMILY LASHAWN, OUTPATIEN 9 9 CARE R MINI T VISIT ASSOCIATE 25 S MINUTES OFFICE 41900 FAMILY LASHAWN, OUTPATIEN 9 9 CARE R MINI T VISIT ASSOCIATE 15 S MINUTES [facility] ST - 9 9 HAIDER OUTPATIEN T MEDICALCE NTER OFFICE 76387 [facility] OUTPATIEN 9 9 HEALTH N CO T VISIT [address] CENTER MINUTES OFFICE 21501 FAMILY LASHAWN, OUTPATIEN 9 9 CARE R MINI T VISIT ASSOCIATE 15 S MINUTES OFFICE 87751 FAMILY LASHAWN, OUTPATIEN 9 9 CARE R MINI T VISIT ASSOCIATE 15 S MINUTES OFFICE 03238 FAMILY LASHAWN, OUTPATIEN 8 8 CARE R MINI T VISIT ASSOCIATE 15 S MINUTES OFFICE 96507 FAMILY LASHAWN, OUTPATIEN 8 8 CARE R MINI T VISIT ASSOCIATE 15 S MINUTES OFFICE 85264 [facility] CHINTAN, OUTPATIEN 8 8 [facility] MEGA T NEW 30 TIC MINUTES CENTER OFFICE 14995 FAMILY LASHAWN, OUTPATIEN 8 8 CARE R MINI T VISIT ASSOCIATE 15 S MINUTES OFFICE 02912 FAMILY LASHAWN, OUTPATIEN 8 8 CARE R MINI T VISIT ASSOCIATE 15 S MINUTES EMERGENCY 59633 [facility] 8 8 [facility] DEPARTMEN INC T VISIT MODERATE SEVERITY HOSPITAL CECE - 8 8 [facility] OUTPATIEN INC T OFFICE 57600 FAMILY LASHAWN, OUTPATIEN 8 8 CARE R MINI T VISIT ASSOCIATE 15 S MINUTES OFFICE 16982 FAMILY LASHAWN, OUTPATIEN 8 8 CARE R MINI T VISIT ASSOCIATE 15 S MINUTES PERIODIC 97601 FAMILY LASHAWN, PREVENTIV 8 8 CARE R MINI E MED EST ASSOCIATE PATIENT S 12-17YRS OFFICE 38988 FAMILY LASHAWN, OUTPATIEN 8 8 CARE R MINI T VISIT ASSOCIATE 25 S MINUTES OFFICE 18420 FAMILY LASHAWN, OUTPATIEN 8 8 CARE R MINI T VISIT ASSOCIATE 25 S MINUTES
--- OUTSIDE RECORDS SUMMARY | 2017-01-07 09:06 | External Medical Summary Rpt | CCD ---
Author Author , CIRA DENIS Address Unknown Phone [email or web address] Support Name Relationship Address Phone JENNIFER, Next Of Kin Unknown Unavailable KIERAN Immunization Name Date Rout CVX Reac Dose Comm Prov Is Faci e tion ent ider Refu lity Give sed n Tdap 11-2 115 0.50 Hist ALEISHA No H149 , 0-20 mL oric E Adso 15 al ANDR rbed Info EA rmat ion - Sour ce Unsp ecif ied HPV4 09-1 62 999 Hist [place] 5-20 oric (Gar 15 al dasi Info l) rmat ion - Sour ce Unsp ecif ied Infl 09-1 999 Hist [place] uenz 5-20 oric a 15 al Quad Info rmat W/Pr ion es - Sour ce Unsp ecif ied Tdap 09-1 115 999 Hist H196 No H196 , 3-20 oric Adso 10 al rbed Info rmat ion - Sour ce Unsp ecif ied Td 11-2 9 999 Hist H196 No H196 (uzair 9-20 oric lt), 04 al Info adso rmat rbed ion - Sour ce Unsp ecif ied Hep 01-2 8 999 Hist H196 No H196 B, 1-20 oric ped/ 03 al adol Info rmat ion - Sour ce Unsp ecif ied Hep 08-2 8 999 Hist H196 No H196 B, 0-20 oric ped/ 02 al adol Info rmat ion - Sour ce Unsp ecif ied Hep 07-1 8 999 Hist H196 No H196 B, 7-20 oric ped/ 02 al adol Info rmat ion - Sour ce Unsp ecif ied DTP 06-1 Intr 1 999 Hist H196 No H196 1-19 amus oric 96 cula al r Info rmat ion - Sour ce Unsp ecif ied MMR 06-1 Intr 3 999 Hist H196 No H196 1-19 amus oric 96 cula al r Info rmat ion - Sour ce Unsp ecif ied Julio Cesar 06-1 Intr 2 999 Hist H196 No H196 o-OP 1-19 amus oric V 96 ron horn r Info rmat ion - Sour ce Unsp ecif ied
--- OUTSIDE RECORDS SUMMARY | 2017-01-07 09:06 | External Medical Summary Rpt | CCD ---
Author Author , CIRA DENIS Address Unknown Phone [email or web address] Support Name Relationship Address Phone JENNIFER, Next [...] ecif ied HPV4 09-1 62 999 Hist [place] No [place] 5-20 oric (Gar 15 al dasi Info l) rmat ion - Sour ce Unsp ecif ied Infl 09-1 999 Hist [place] No [place] uenz 5-20 oric a 15 al Quad [...]
--- OUTSIDE RECORDS SUMMARY | 2017-01-07 09:06 | External Medical Summary Rpt ---
Author Author CIRA Dobbs, CIRA Dobbs Organization [employer] Address Unknown Phone Unavailable
--- OUTSIDE RECORDS SUMMARY | 2017-01-07 09:06 | External Medical Summary Rpt ---
Author Author CIRA Dobbs, CIRA Dobbs Organization [employer] Address Unknown Phone Unavailable
== END 2017-01-04 13:23 | disposition home or self-care (01) ==
LOC: ER 10:49
PROVIDERS: Emergency Medicine
DX: J02.9 Acute pharyngitis, unspecified (principal); R50.9 Fever, unspecified; R11.10 Vomiting, unspecified; D72.829 Elevated white blood cell count, unspecified; Z88.1 Allergy status to other antibiotic agents; F17.210 Nicotine dependence, cigarettes, uncomplicated
CPT/HCPCS: J2405

== ENCOUNTER → 2017-02-18 | Outpatient (CLI) | payer OTHER ==
[~2017-02-18] MED LIST changes: +AUGMENTIN 875-1 EACH PO; +ZOFRAN ODT4 MG PO
--- NOTE | 2017-02-19 08:23 | RADIOLOGY REPORT PS360 ---
CT ABD PELVIS W/O CONTRAST COMPARISON: CT scan abdomen pelvis 01/04/2017 HISTORY: Epigastric pain and pelvic pain TECHNIQUE: Multiple axial scans obtained from the hemidiaphragms the pelvic floor and were performed without IV or oral contrast. Sagittal and coronal reformats were evaluated as well. FINDINGS: The lower lung negron are clear. Liver spleen and pancreas appear normal. The stomach is distended with ingested food particles but otherwise appears normal. The gallbladder is markedly contracted but shows no definite stones. The adrenal glands are normal. The kidneys are normal in size and and there are no calculi and is no obstructive uropathy. Small bowel appears normal. Is a tiny umbilical hernia containing fat only. I do not definitely identify the appendix but there are no pericecal inflammatory changes. There is large amount stool in the ascending and transverse colon. The uterus is normal size and in the midline. There is a 3.4 x 2 point to hypodense lesion right adnexa likely an ovarian cyst. The urinary bladder is partially decompressed. Is no free fluid in the pelvis. IMPRESSION: No acute abdominal or pelvic pathology identified, I agree the [facility] report.
== END ==
LOC: RAD 17:24
DX: R10.9 Unspecified abdominal pain (principal)